=== PATIENT | male | born 1960 | race Caucasian/White ===

== ENCOUNTER → 2018-04-29 11:15 | Outpatient (CLI) | payer BC, SELFPAY ==
--- NOTE | 2018-04-29 11:19 | RAD_ITS ---
STUDY: X-RAY - LEFT SHOULDER REASON FOR EXAM: Shoulder pain. TECHNIQUE: 4 view(s) of the shoulder. COMPARISON: None. FINDINGS: Normal glenohumeral articulation. Normal acromioclavicular joint. Normal acromion. Normal humeral head and visualized proximal humerus. The soft tissue structures are unremarkable. Normal visualized pulmonary apex. RAD/Shoulder min 2 Views IMPRESSION: Normal x-ray examination of the left shoulder. Electronically Signed: Fer Carballo MD at 11:37 EDT Tel , Service support ,
== END ==
PROVIDERS: Family Provider Family Medicine; PCP Family Medicine; Visit Provider Family Medicine
DX: M25.512 Pain in left shoulder (principal)
CPT/HCPCS: 73030

== ENCOUNTER → 2019-04-10 06:19 | Outpatient (CLI) | payer BC, SELFPAY ==
[2016-08-30 08:04] VITALS: BMI 24.4
[2019-04-10 07:25] LABS: Hematocrit 47.2 % (40-54); Hemoglobin 16.3 g/dl (13.0-16.5); Mean Corp Hgb Conc 34.5 g/gl (32-36); Mean Corpuscular Hgb 29.3 pg (27.0-32.0); Mean Corpuscular Volume 84.7 fL (80-94); Mean Platelet Vol. 9.2 fl (6.2-12.0); Platelet Count 310 K/mm3 (150-450); RBC Distribution Width CV 13.6 % (11.6-14.6); RBC Distribution Width SD 41.8 fl (35.1-43.9); Red Blood Count 5.57 M/mm3 (4.6-6.2); White Blood Count 5.4 K/mm3 (4.4-11.0)
[2019-04-10 07:29] LABS: Scan Indicated on CBC? Y/N NO
[2019-04-10 08:07] LABS: ALB/GLOB Ratio 1.1 RATIO (0.9-2.4); AST(SGOT) 21 U/L (15-37); Alanine Aminotransfer ALT/SGPT 36 U/L (16-61); Albumin, Serum 3.9 g/dL (3.2-5.0); Alkaline Phosphatase 63 U/L (45-117); Anion Gap 5 (5-15); BUN 17 mg/dL (7-18); BUN/Creat Ratio 16.3 RATIO (10-20); Calcium,Total 9.1 mg/dL (8.5-10.1); Chloride 105 mmol/L (98-107); Cholesterol 197 mg/dL (200); Creatinine, Serum 1.04 mg/dL (0.70-1.30); EST Glomerular Filtration Rate 78 mL/min (>60); Est Glom Filt Rate - Afr Amer 94 mL/min (>60); Globulin 3.7 g/dL (2.2-4.2); Glucose 91 mg/dL (74-106); High Density Lipoprotein 54 mg/dL; PSA,Total - Annual Screen 2.54 ng/mL (0.00-4.00); Potassium 3.7 mmol/L (3.5-5.1); Protein, Total 7.6 g/dL (6.4-8.2); Sodium Level 142 mmol/L (136-145); Triglycerides 123 mg/dL; Very Low Density Lipoprotein 25 mg/dL (5-40)
== END ==
PROVIDERS: Family Provider Family Medicine; PCP Family Medicine; Referring Provider Family Medicine; Visit Provider Family Medicine
DX: E78.5 Hyperlipidemia, unspecified (principal); K21.0 Gastro-esophageal reflux disease with esophagitis; Z12.5 Encounter for screening for malignant neoplasm of prostate
CPT/HCPCS: 36415; 80053; 80061; 84153; 85027; G0103

== ENCOUNTER → 2019-08-27 11:01 | Outpatient (CLI) | payer BC, SELFPAY ==
[2016-08-30 08:04] VITALS: BMI 24.4
--- NOTE | 2019-08-27 11:05 | MRI_ITS ---
STUDY: MRI BRAIN WITHOUT CONTRAST REASON FOR EXAM: Male, 59 years old. Migraine headaches, aphasia TECHNIQUE: Standardized multiplanar fat and water weighted pulse sequences were obtained. COMPARISON: None. FINDINGS: Normal size of the ventricles and extra-axial spaces for the patient's age. Normal white matter tracts of the supratentorial brain. There is no evidence for recent intracranial ischemia or other cause of cytotoxic edema on diffusion weighted imaging (DWI). Normal T2* images of the brain without demonstrated susceptibility artifact. There is no demonstrated hemosiderin stain. Normal bilateral basal ganglia. Normal thalami. There is no extra-axial fluid accumulation. Normal flow voids within the major intracranial circulation suggesting patency by spin echo criteria. Normal sella turcica, pituitary gland, infundibular stalk, optic chiasm and hypothalamus. Normal tectal plate and pineal gland. Normal midbrain, nola and medulla. Normal cerebellum. Normal basal cisterns. Normal bilateral temporal bones. Normal bilateral internal auditory canals. No demonstrated orbital abnormality, within the constraints of a routine brain study. Normal visualized paranasal sinuses. Normal calvarium and skull base. Normal visualized soft tissue structures. Normal visualized upper cervical spine. MRI/Brain without Contrast IMPRESSION: Normal unenhanced MRI of the brain. Electronically Signed: Rg Mckay MD at 12:46 EDT Tel , Service support ,
== END ==
PROVIDERS: Family Provider Family Medicine; PCP Family Medicine; Referring Provider Family Medicine; Visit Provider Family Medicine
DX: G43.909 Migraine, unspecified, not intractable, without status migrainosus (principal)
CPT/HCPCS: 70551

== ENCOUNTER → 2019-12-07 06:06 | Outpatient (CLI) | payer BC, SELFPAY ==
[2016-08-30 08:04] VITALS: BMI 24.4
[2019-12-07 06:33] LABS: Hematocrit 46.7 % (40-54); Hemoglobin 15.7 g/dL (13.0-16.5); Mean Corp Hgb Conc 33.6 g/dL (32-36); Mean Corpuscular Hgb 29.6 pg (27.0-32.0); Mean Corpuscular Volume 88.1 fL (80-94); Mean Platelet Vol. 8.7 fl (6.2-12.0); Platelet Count 267 K/mm3 (150-450); RBC Distribution Width CV 13.1 % (11.6-14.6); RBC Distribution Width SD 42.3 fl (35.1-43.9); White Blood Count 5.7 K/mm3 (4.4-11.0)
[2019-12-07 07:17] LABS: Homocysteine 5.9 umol/L (3.2-10.7)
[2019-12-07 09:12] LABS: Vitamin D,25 Hydroxy 23.1 ng/mL (29.95-100.01)
[2019-12-07 09:44] LABS: ALB/GLOB Ratio 1.1 RATIO (0.9-2.4); AST(SGOT) 26 U/L (15-37); Alanine Aminotransfer ALT/SGPT 39 U/L (16-61); Albumin, Serum 4.1 g/dL (3.2-5.0); Alkaline Phosphatase 71 U/L (45-117); Anion Gap 3 (5-15); BUN 16 mg/dL (7-18); BUN/Creat Ratio 15.7 RATIO (10-20); CRP, High Sensitivity Cardiac 1.64 mg/L; Calcium,Total 9.2 mg/dL (8.5-10.1); Chloride 106 mmol/L (98-107); Creatinine, Serum 1.02 mg/dL (0.70-1.30); EST Glomerular Filtration Rate 80 mL/min (>60); Est Glom Filt Rate - Afr Amer 96 mL/min (>60); Globulin 3.8 g/dL (2.2-4.2); Glucose 93 mg/dL (74-106); Potassium 3.4 mmol/L (3.5-5.1); Protein, Total 7.9 g/dL (6.4-8.2); Sodium Level 139 mmol/L (136-145); Thyroid Stim Hormone (TSH) 2.45 uIU/mL (0.358-3.74)
[2019-12-09 12:07] LABS: CHOLESTEROL TOTAL 203 mg/dL (100-199); HDL-C 47 mg/dL (>39); HDL-P TOTAL 33.7 umol/L (>=30.5); SMALL LDL-P 663 nmol/L (<=527); TRIGLYCERIDES 159 mg/dL (0-149)
[2019-12-09 20:20] LABS: LDL-C 124 mg/dL (0-99)
[2019-12-09 20:21] LABS: INSULIN RESISTANCE SCORE 59 (<=45); LDL SIZE 21.2 nm (>20.5); LDL-P 1350 nmol/L (<1000)
== END ==
PROVIDERS: PCP Family Medicine; Referring Provider Family Medicine; Visit Provider Family Medicine
DX: E78.5 Hyperlipidemia, unspecified (principal); K21.0 Gastro-esophageal reflux disease with esophagitis; N52.9 Male erectile dysfunction, unspecified; Z13.21 Encounter for screening for nutritional disorder; Z13.29 Encounter for screening for other suspected endocrine disorder
CPT/HCPCS: 36415; 80053; 80061; 82306; 83090; 83695; 83704; 84403; 84443; 85027; 86141

== ENCOUNTER → 2019-12-21 14:23 | Outpatient (CLI) | payer SELFPAY ==
--- NOTE | 2019-12-21 14:36 | CT_ITS ---
STUDY: CARDIAC CALCIUM SCORING - CT CHEST REASON FOR EXAM: Male, 59 years old. HLD, FAMILY HX OF HEART DISEASE RADIATION DOSAGE (If Supplied By Facility): CTDIvol = ( 12.19 ) mGy, DLP = ( 243.79 ) mGycm TECHNIQUE: Axial non-enhanced images were acquired through the heart for the sole purpose of measuring coronary artery calcium. Individualized dose optimization techniques were used for this CT. COMPARISON: None. FINDINGS: Visualized surrounding anatomy: Small hiatal hernia. There is a 4 mm nodule in the right middle lobe abutting the minor fissure on image 31 of series 3. Left Main Coronary Artery: 0 Left Anterior Descending Artery: 0 Left Circumflex Artery: 0 Right Coronary Artery: 0 Other: 0 Total Calcium Score: 0 CT/Limited Chest CT w/CCTA IMPRESSION: 1. No identifiable coronary artery atherosclerotic plaque. Very low cardiovascular disease risk. 2. Very small hiatal hernia. 3. 4 mm noncalcified nodule in the anterior right middle lobe. Electronically Signed: Jose Escobedo MD ([place]) at 14:15 EST , Service support ,
[2019-12-21 14:37] VITALS: BP 137/80; PULSE 74; RESP 16; O2SAT 98; BMI 24.3
--- NOTE | 2019-12-21 18:22 | CA.SCORE ---
Calcium Scoring Date of Study:: 12/21/19 Coronary Calcium Scoring: High-resolution Computed Tomographic imaging of the chest was performed on [ ], with particular attention paid to the coronary arteries. Images from the examination were analyzed for the presence and extent of coronary artery calcification , using coronary calcium quantification software. The patient tolerated the procedure well and there were no complications. The results of the coronary calcification analysis are provided below. - Findings Left Main (LM): 0 Left Anterior Descending (LAD): 0 Left Circumflex (LCX): 0 Right Coronary Artery (RCA): 0 Total Agatston Score: 0 Percentile Ranking: Percentile ranking: In pre-published reference table 0% of people of the same gender/similar age had the same/lower scores. Calcium Scoring Interpretation: 0 No identifiable atherosclerotic plaque. Very low cardiovascular disease risk. <5% chance of presence coronary artery disease A Negative Examination 1-10 Minimal Plaque burden. Significant coronary artery disease very unlikely. 11-100 Mild plaque burden. Likely mild or minimal coronary atherosclerosis. 101-400 Moderate plaque burden Moderate non-obstructive coronary artery disease highly likely. Over 400 Extensive plaque burden. High likelihood of at least one significant coronary stenosis (>50% diameter) Calcium Score: 0 Negative Examination - Continue cardiovascular evaluation and care as deemed appropriate.
== END ==
PROVIDERS: PCP Family Medicine; Referring Provider Family Medicine; Visit Provider Family Medicine
DX: E78.5 Hyperlipidemia, unspecified (principal)
CPT/HCPCS: 75571; 76380

== ENCOUNTER → 2020-11-29 06:08 | Outpatient (CLI) | payer BC, SELFPAY ==
[2019-12-21 14:37] VITALS: BMI 24.3
[2020-11-29 07:06] LABS: Hematocrit 49.9 % (40-54); Hemoglobin 16.9 g/dL (13.0-16.5); Mean Corp Hgb Conc 33.9 g/dL (32-36); Mean Corpuscular Hgb 29.8 pg (27.0-32.0); Mean Corpuscular Volume 87.9 fL (80-94); Mean Platelet Vol. 9.1 fl (6.2-12.0); Platelet Count 322 K/mm3 (150-450); RBC Distribution Width CV 12.8 % (11.6-14.6); RBC Distribution Width SD 41.1 fl (35.1-43.9); Red Blood Count 5.68 M/mm3 (4.6-6.2); White Blood Count 4.9 K/mm3 (4.4-11.0)
[2020-11-29 08:00] LABS: ALB/GLOB Ratio 1.1 RATIO (0.9-2.4); AST(SGOT) 29 U/L (15-37); Alanine Aminotransfer ALT/SGPT 51 U/L (16-61); Albumin, Serum 4.4 g/dL (3.2-5.0); Alkaline Phosphatase 73 U/L (45-117); Anion Gap 7 (5-15); BUN 16 mg/dL (7-18); BUN/Creat Ratio 15.8 RATIO (10-20); CRP, High Sensitivity Cardiac 1.12 mg/L; Chloride 102 mmol/L (98-107); Cholesterol 242 mg/dL (200); Creatinine, Serum 1.01 mg/dL (0.70-1.30); EST Glomerular Filtration Rate 80 mL/min (>60); Est Glom Filt Rate - Afr Amer 97 mL/min (>60); Globulin 4.1 g/dL (2.2-4.2); Glucose 89 mg/dL (74-106); High Density Lipoprotein 50 mg/dL; Potassium 3.4 mmol/L (3.5-5.1); Protein, Total 8.5 g/dL (6.4-8.2); Sodium Level 138 mmol/L (136-145); Triglycerides 211 mg/dL; Very Low Density Lipoprotein 42 mg/dL (5-40)
[2020-11-29 11:35] LABS: Vitamin D,25 Hydroxy 18.8 ng/mL
[2020-11-30 20:02] LABS: Lipoprotein A 152.8 nmol/L (<75.0)
[2020-12-01 14:09] LABS: CHOLESTEROL TOTAL 240 mg/dL (100-199); HDL-C 43 mg/dL (>39); HDL-P TOTAL 36.4 umol/L (>=30.5); SMALL LDL-P 807 nmol/L (<=527); TRIGLYCERIDES 214 mg/dL (0-149)
[2020-12-01 15:10] LABS: LDL SIZE 21.5 nm (>20.5); LDL-P 1907 nmol/L (<1000)
[2020-12-01 15:11] LABS: INSULIN RESISTANCE SCORE 65 (<=45); LDL-C (NIH CALC) 158 mg/dL (0-99)
== END ==
PROVIDERS: PCP Family Medicine; Referring Provider Family Medicine; Visit Provider Family Medicine
DX: Z00.00 Encounter for general adult medical examination without abnormal findings (principal); E78.5 Hyperlipidemia, unspecified; E55.9 Vitamin D deficiency, unspecified; Z13.29 Encounter for screening for other suspected endocrine disorder; Z12.5 Encounter for screening for malignant neoplasm of prostate
CPT/HCPCS: 36415; 80053; 80061; 82306; 83695; 83704; 84153; 84443; 85027; 86141; G0103

== ENCOUNTER → 2020-12-23 15:48 | Outpatient (CLI) | payer BC, SELFPAY ==
[2019-12-21 14:37] VITALS: BMI 24.3
--- NOTE | 2020-12-23 15:51 | CT_ITS ---
STUDY: CT CHEST WITHOUT CONTRAST REASON FOR EXAM: Male, 60 years old. Lung nodule follow-up RADIATION DOSAGE (If Supplied By Facility): CTDIvol = ( 10.92 ) mGy, DLP = ( 404.02 ) mGycm TECHNIQUE: Transaxial imaging was performed without the administration of intravenous contrast material. Individualized dose optimization techniques were used for this CT. COMPARISON: 21 December 2019 FINDINGS: Lungs are mildly/moderately emphysematous. There are scattered predominantly lower lobe small peripheral parenchymal and pleural-based solid nodules all measuring less than 5 mm and representing low risk granulomata and probably pulmonary lymph nodes. Central airways are patent. Mediastinal contents are normal. Cardiac chambers are normal in size and shape. Pulmonary artery and aorta are normal size. CT/Chest without Contrast IMPRESSION: 1. Moderate emphysema. 2. Low risk pulmonary nodules, presumed granulomata. In a smoker follow-up in one year is advised. In a nonsmoker follow-up is option. Electronically Signed: Ellen Hines MD at 22:05 EST Tel , Service support ,
== END ==
PROVIDERS: PCP Family Medicine; Referring Provider Family Medicine; Visit Provider Family Medicine
DX: R91.1 Solitary pulmonary nodule (principal)
CPT/HCPCS: 71250

== ENCOUNTER 2021-01-31 15:23 | Outpatient (RCR) | payer BC, SELFPAY ==
[2019-12-21 14:37] VITALS: BMI 24.3
[2021-01-31] MEDS: COVID-19 VACC, MRNA(PFIZER)/PF 30 MCG/0.3 ML SYRINGE IM (09:36)
[2021-02-21] MEDS: COVID-19 VACC, MRNA(PFIZER)/PF 30 MCG/0.3 ML SYRINGE IM (09:31)
== END 2021-04-25 23:59 ==
LOC: IMMUN 15:23
PROVIDERS: PCP Family Medicine; Visit Provider Family Medicine
DX: Z23 Encounter for immunization (principal)
CPT/HCPCS: 0001A; 0002A; 91300

== ENCOUNTER → 2021-04-19 06:16 | Outpatient (CLI) | payer BC, SELFPAY ==
[2019-12-21 14:37] VITALS: BMI 24.3
[2021-04-19 07:02] LABS: ALB/GLOB Ratio 1.1 RATIO (0.9-2.4); AST(SGOT) 29 U/L (15-37); Alanine Aminotransfer ALT/SGPT 45 U/L (16-61); Albumin, Serum 3.9 g/dL (3.2-5.0); Alkaline Phosphatase 63 U/L (45-117); Anion Gap 4 (5-15); BUN 22 mg/dL (7-18); BUN/Creat Ratio 21.4 RATIO (10-20); Chloride 108 mmol/L (98-107); Cholesterol 201 mg/dL (200); Creatinine, Serum 1.03 mg/dL (0.70-1.30); EST Glomerular Filtration Rate 78 mL/min (>60); Est Glom Filt Rate - Afr Amer 95 mL/min (>60); Globulin 3.6 g/dL (2.2-4.2); Glucose 102 mg/dL (74-106); High Density Lipoprotein 48 mg/dL; Potassium 3.7 mmol/L (3.5-5.1); Protein, Total 7.5 g/dL (6.4-8.2); Sodium Level 142 mmol/L (136-145); Triglycerides 230 mg/dL; Very Low Density Lipoprotein 46 mg/dL (5-40)
[2021-04-19 07:58] LABS: Vitamin D,25 Hydroxy 34.2 ng/mL
== END ==
PROVIDERS: PCP Family Medicine; Referring Provider Family Medicine; Visit Provider Family Medicine
DX: E78.5 Hyperlipidemia, unspecified (principal); E55.9 Vitamin D deficiency, unspecified
CPT/HCPCS: 36415; 80053; 80061; 82306

== ENCOUNTER 2021-12-25 06:32 | Outpatient (CLI) | payer BC, SELFPAY ==
[2021-12-25 07:21] LABS: Hematocrit 45.7 % (40-54); Hemoglobin 15.6 g/dL (13.0-16.5); Mean Corp Hgb Conc 34.1 g/dL (32-36); Mean Corpuscular Hgb 29.9 pg (27.0-32.0); Mean Corpuscular Volume 87.5 fL (80-94); Platelet Count 289 K/mm3 (150-450); RBC Distribution Width SD 41.6 fl (35.1-43.9); Red Blood Count 5.22 M/mm3 (4.6-6.2); White Blood Count 5.1 K/mm3 (4.4-11.0)
[2021-12-25 07:50] LABS: AST(SGOT) 24 U/L (15-37); Alanine Aminotransfer ALT/SGPT 43 U/L (16-61); Albumin, Serum 3.8 g/dL (3.2-5.0); Alkaline Phosphatase 71 U/L (45-117); Anion Gap 4 (5-15); BUN 20 mg/dL (7-18); BUN/Creat Ratio 20.3 RATIO (10-20); Calcium,Total 9.1 mg/dL (8.5-10.1); Chloride 107 mmol/L (98-107); Cholesterol 171 mg/dL (200); Creatinine, Serum 0.98 mg/dL (0.70-1.30); EST Glomerular Filtration Rate 82 mL/min (>60); Est Glom Filt Rate - Afr Amer 99 mL/min (>60); Globulin 3.7 g/dL (2.2-4.2); Glucose 100 mg/dL (74-106); High Density Lipoprotein 48 mg/dL; PSA,Total - Annual Screen 2.76 ng/mL (0.00-4.00); Potassium 3.9 mmol/L (3.5-5.1); Protein, Total 7.5 g/dL (6.4-8.2); Sodium Level 141 mmol/L (136-145); Triglycerides 165 mg/dL; Very Low Density Lipoprotein 33 mg/dL (5-40)
[2021-12-25 08:09] LABS: Vitamin D,25 Hydroxy 44.5 ng/mL
== END 2021-12-25 23:59 | disposition home or self-care (01) ==
LOC: LAB 06:34
PROVIDERS: PCP Family Medicine; Referring Provider Family Medicine; Visit Provider Family Medicine
DX: Z12.5 Encounter for screening for malignant neoplasm of prostate (principal); E78.5 Hyperlipidemia, unspecified; E55.9 Vitamin D deficiency, unspecified; Z13.29 Encounter for screening for other suspected endocrine disorder
CPT/HCPCS: 36415; 80053; 80061; 82306; 84153; 84443; 85027; G0103

== ENCOUNTER → 2022-04-30 | Outpatient (CLI) | payer BC, SELFPAY ==
--- NOTE | 2022-04-30 17:23 | CT_ITS ---
STUDY: CT CHEST WITH CONTRAST REASON FOR EXAM: Male, 62 years old. LUNG NODULE RADIATION DOSAGE (If Supplied By Facility): CTDIvol = ( 12.01 ) mGy, DLP = ( 381.78 ) mGycm TECHNIQUE: Transaxial imaging was performed following intravenous administration of IV 100mL Isovue-300. Multiplanar coronal and sagittal images were reformatted. Individualized dose optimization techniques were used for this CT. COMPARISON: Comparison is made with prior study dated 12/23/2020. FINDINGS: CHEST Small bilateral axillary lymph nodes. Bilateral apical scarring. Mild degree of emphysematous changes. Stable small partially calcified nodules in the left lower lobe. There is no demonstrated pleural abnormality. Normal heart and pericardium. There are multiple small lymph nodes within the mediastinum, which are normal in size and morphology most compatible with reactive lymph hyperplasia. Normal hilar regions. Normal unenhanced pulmonary arteries. Normal aorta arch and descending thoracic aorta. Normal osseous structures. Small hiatal hernia. CT/Chest WITH Contrast IMPRESSION: Stable examination. Electronically Signed: Nirmal Hodge MD at 9:12 EDT ,
[2022-04-30 17:31] LABS: CREATININE FINGERSTICK 1.1 mg/dL (0.70-1.30); EGFR FINGERSTICK > 60.0000 mL/min (>60)
== END | disposition home or self-care (01) ==
PROVIDERS: PCP Family Medicine; Visit Provider Family Medicine
DX: Z01.812 Encounter for preprocedural laboratory examination (principal); R91.1 Solitary pulmonary nodule
CPT/HCPCS: 71260; Q9967

== ENCOUNTER → 2023-02-06 | Outpatient (CLI) | payer BC, SELFPAY ==
--- NOTE | 2023-02-06 12:45 | MRI_ITS ---
STUDY: MRI BRAIN WITHOUT CONTRAST REASON FOR EXAM: Male, 63 years old. HEADACHE TECHNIQUE: Standardized multiplanar fat and water weighted pulse sequences were obtained. COMPARISON: No relevant prior imaging available for comparison. HEMISPHERES, CEREBELLUM AND BRAINSTEM: 1. The cerebral parenchyma, ventricular system, subarachnoid spaces have normal configuration and density. There is a normal gyral pattern. There is normal cleaning/white differentiation. No midline shift.. 2. The hemispheric white matter has normal appearance. 3. No intraparenchymal mass, hemorrhage, or acute territorial infarct. 4. The cerebellum, brainstem, basilar and suprasellar cisterns have normal appearance. No Chiari malformation. PITUITARY: Infundibulum and pituitary have normal configuration. Midline structures appear normal. CSF SPACES: Appropriate for age. No hydrocephalus. Basal cisterns are patent. VESSELS: 1. There are normal flow voids noted in the great vessels at the skull base ORBITS AND PARANASAL SINUSES: 1. Both globes, extraocular muscles, optic nerves and retrobulbar fat appear unremarkable. 2. Paranasal sinuses clear. Mild inferior left mastoid air cell disease. BONY ELEMENTS: Bony elements of the cranial vault, facial skeleton and skull base have normal appearance. SCALP AND SOFT TISSUES: Normal appearance of the soft tissues of the scalp and the visualized face OTHER: None MRI/Brain without Contrast IMPRESSION: 1. No intracranial mass, hemorrhage, or acute territorial infarct. 2. Mild inferior left mastoid air cell disease. Electronically Signed: Jeremias Tejada MD, JYOTI at 16:10 EDT ,
--- NOTE | 2023-02-06 12:45 | MRI_ITS ---
STUDY: MRA OF THE HEAD WITHOUT CONTRAST REASON FOR EXAM: Male, 63 years old. HEADACHE TECHNIQUE: 3-D [id number] (TOF) imaging was performed with MIPs. The study was performed unenhanced. COMPARISON: MR brain February 06, 2023 FINDINGS: Normal bilateral petrous carotid arteries. Normal right cavernous carotid artery with a normal supraclinoid bifurcation. Normal left cavernous carotid artery with a normal supraclinoid bifurcation. Normal right A1 segments of the anterior cerebral artery. Normal left A1 segments of the anterior cerebral artery. Normal intact anterior communicating artery (ACOM). Normal bilateral A2 segments of the anterior cerebral arteries. Normal right M1 and M2 segments of the middle cerebral arteries, with a normal M1 bifurcation. Normal left M1 and M2 segments of the middle cerebral arteries, with a normal M1 bifurcation. Normal right posterior communicating artery (PCOM). Normal left posterior communicating artery (PCOM). Normal bilateral vertebral arteries. Normal basilar artery with a normal basilar bifurcation. The visualized bilateral superior cerebellar (SCA) arteries are normal. Normal bilateral P1, P2 and visualized P3 segments of the posterior cerebral arteries. There is no demonstrated aneurysm of the [place]. There is no major vessel occlusion or hemodynamically significant stenosis. There is no demonstrated abnormality of the visualized brain. MRI/MRA Head ONLY without Contrast IMPRESSION: Normal MRA of the head Electronically Signed: Danie Matt MD at 18:37 EDT ,
== END | disposition home or self-care (01) ==
PROVIDERS: PCP Family Medicine; Referring Provider Family Medicine; Visit Provider Family Medicine
DX: R51.9 Headache, unspecified (principal)
CPT/HCPCS: 70544; 70551

== ENCOUNTER → 2024-02-01 | Outpatient (CLI) | payer BC, SELFPAY ==
[2024-02-01 10:20] LABS: Absolute Lymphocyte Count 1.48 X10^3/uL (0.83-4.51); Basophil# 0.07 X10^3/uL; Basophil% 1.3 % (0-1); Eosinophil# 0.22 X10^3/uL; Eosinophils% 4.1 % (0-5); Hematocrit 44.3 % (40-54); Hemoglobin 15.5 g/dL (13.0-16.5); Lymphocyte # 1.48 X10^3/ul (0.83-4.51); Lymphocyte % 27.7 % (19-41); Mean Corpuscular Volume 85.7 fL (80-94); Mean Platelet Vol. 8.7 fl (6.2-12.0); Monocyte# 0.54 X10^3/uL; Monocyte% 10.1 % (0-10); NRBC Flagged by Analyzer 0 % (0-5); Neutrophil # 3.03 X10^3/uL (2.7-7.7); Neutrophil % 56.6 % (47-70); Platelet Count 274 K/mm3 (150-450); RBC Distribution Width CV 12.8 % (11.6-14.6); RBC Distribution Width SD 39.8 fl (35.1-43.9); Red Blood Count 5.17 M/mm3 (4.6-6.2); White Blood Count 5.4 K/mm3 (4.4-11.0)
[2024-02-01 10:52] LABS: ALB/GLOB Ratio 1.1 RATIO (0.9-2.4); AST(SGOT) 30 U/L (15-37); Alanine Aminotransfer ALT/SGPT 54 U/L (16-61); Albumin, Serum 3.9 g/dL (3.2-5.0); Alkaline Phosphatase 60 U/L (45-117); Anion Gap 6 (5-15); BUN 19 mg/dL (7-18); BUN/Creat Ratio 20.2 RATIO (10-20); Calcium,Total 8.8 mg/dL (8.5-10.1); Chloride 110 mmol/L (98-107); Cholesterol 192 mg/dL (200); Creatinine, Serum 0.94 mg/dL (0.70-1.30); EST Glomerular Filtration Rate 86 mL/min (>60); Est Glom Filt Rate - Afr Amer 104 mL/min (>60); Globulin 3.4 g/dL (2.2-4.2); Glucose 108 mg/dL (74-106); High Density Lipoprotein 47 mg/dL; PSA,Total - Annual Screen 4.33 ng/mL (0.00-4.00); Potassium 3.6 mmol/L (3.5-5.1); Protein, Total 7.3 g/dL (6.4-8.2); Sodium Level 141 mmol/L (136-145); T4 Free Direct 0.84 ng/dL (0.76-1.46); Thyroid Stim Hormone (TSH) 2.18 uIU/mL (0.358-3.74); Triglycerides 132 mg/dL; Very Low Density Lipoprotein 26 mg/dL (5-40)
[2024-02-07 09:09] LABS: Lipoprotein A 114.3 nmol/L (<75.0); Testosterone, % Free 2.89 % (1.50-4.20); Testosterone, Free 9.25 ng/dL (5.00-21.00); Testosterone, Total 320 ng/dL (264-916)
== END | disposition home or self-care (01) ==
LOC: LAB 09:54
PROVIDERS: PCP Internal Medicine; Referring Provider Internal Medicine; Visit Provider Internal Medicine
DX: E78.5 Hyperlipidemia, unspecified (principal); N52.9 Male erectile dysfunction, unspecified; Z13.29 Encounter for screening for other suspected endocrine disorder
CPT/HCPCS: 36415; 80053; 80061; 83695; 84153; 84402; 84403; 84439; 84443; 85025; G0103

== ENCOUNTER → 2024-03-06 | Outpatient (CLI) | payer BC, SELFPAY ==
[2024-03-13 09:09] LABS: Testosterone, % Free 2.26 % (1.50-4.20); Testosterone, Free 9.24 ng/dL (5.00-21.00); Testosterone, Total 409 ng/dL (264-916)
== END | disposition home or self-care (01) ==
LOC: BIMLAB 10:02
PROVIDERS: PCP Internal Medicine; Referring Provider Internal Medicine; Visit Provider Internal Medicine
DX: N52.9 Male erectile dysfunction, unspecified (principal)
CPT/HCPCS: 36415; 84402; 84403

== ENCOUNTER → 2024-06-04 | Outpatient (CLI) | payer BC, SELFPAY ==
--- NOTE | 2024-06-04 07:12 | CT_ITS ---
STUDY: CT CHEST WITHOUT CONTRAST REASON FOR EXAM: Male, 64 years old. Cardiac risk assessment RADIATION DOSAGE (If Supplied By Facility): CTDIvol = ( 12.19 ) mGy, DLP = ( 219.42 ) mGycm TECHNIQUE: Transaxial imaging was performed without the administration of intravenous contrast material. Individualized dose optimization techniques were used for this CT. COMPARISON: Comparison is made with prior study dated April 30, 2022. FINDINGS: CHEST Stable calcified granulomas in the left lower lobe. There is no demonstrated pleural abnormality. Minimal cord artery calcification. There are small lymph nodes within the mediastinum, which are normal in size and morphology most compatible with reactive lymph hyperplasia. Normal hilar regions. Normal unenhanced pulmonary arteries. There is atherosclerotic calcification of the aortic arch. Normal osseous structures. Small hiatal hernia. CT/Limited Chest CT Cardiac Only IMPRESSION: Minimal coronary artery calcification. Electronically Signed: Nirmal Hodge MD at 10:19 EDT ,
--- NOTE | 2024-06-04 12:06 | CA.SCORE ---
Calcium Scoring Date of Study:: 06/04/24 Indications Indications: fatigue Coronary Calcium Scoring: High-resolution Computed Tomographic imaging of the chest was performed on [ 06/04/24], with particular attention paid to the coronary arteries. Images from the examination were analyzed for the presence and extent of coronary artery calcification , using coronary calcium quantification software. The patient tolerated the procedure well and there were no complications. The results of the coronary calcification analysis are provided below. Findings Coronary Artery Left Main (LM): 0 Left Anterior Descending (LAD): 0 Left Circumflex (LCX): 0 Right Coronary Artery (RCA): 0 Total Agatston Score: 0 Calcium Scoring Interpretation: Different methods to categorize the overall amount of coronary plaque. Overall amount CAC SIS Visual of coronary plaque P1 Mild -100 <2 1-2 vessels with mild amount of plaque P2 Moderate 101-300 3-4 1-2 vessels with moderate amount, 3 vessels with mild amount of plaque P3 Severe 301-999 5-7 3 vessels with moderate amount, 1 vessel with severe amount of plaque P4 Extensive >1000 >8 2-3 vessels with severe amount of plaque Conclusion: No atherosclerotic plaques noted
== END | disposition home or self-care (01) ==
PROVIDERS: PCP Internal Medicine; Referring Provider Internal Medicine; Visit Provider Internal Medicine
DX: E78.5 Hyperlipidemia, unspecified (principal); Z13.6 Encounter for screening for cardiovascular disorders
CPT/HCPCS: 75571; 76380

== ENCOUNTER → 2025-01-15 | Outpatient (CLI) | payer BC, SELFPAY ==
[2025-01-15 07:22] LABS: Absolute Lymphocyte Count 1.72 X10^3/uL (0.83-4.51); Basophil# 0.08 X10^3/uL; Basophil% 1.4 % (0-1); Eosinophil# 0.25 X10^3/uL; Eosinophils% 4.4 % (0-5); Hematocrit 47.7 % (40-54); Hemoglobin 15.9 g/dL (13.0-16.5); Lymphocyte # 1.72 X10^3/ul (0.83-4.51); Lymphocyte % 30.2 % (19-41); Mean Corp Hgb Conc 33.3 g/dL (32-36); Mean Corpuscular Hgb 29.2 pg (27.0-32.0); Mean Corpuscular Volume 87.5 fL (80-94); Mean Platelet Vol. 8.9 fl (6.2-12.0); Monocyte# 0.65 X10^3/uL; Monocyte% 11.4 % (0-10); NRBC Flagged by Analyzer 0 % (0-5); Neutrophil # 2.98 X10^3/uL (2.7-7.7); Neutrophil % 52.4 % (47-70); Platelet Count 318 K/mm3 (150-450); RBC Distribution Width CV 13.2 % (11.6-14.6); RBC Distribution Width SD 41.8 fl (35.1-43.9); Red Blood Count 5.45 M/mm3 (4.6-6.2); White Blood Count 5.7 K/mm3 (4.4-11.0)
[2025-01-15 07:47] LABS: Cholesterol 192 mg/dL (<=200); High Density Lipoprotein 55 mg/dL; Low Density Lipoprotein Calc. 101 mg/dL; Triglycerides 181 mg/dL; Very Low Density Lipoprotein 36 mg/dL (5-40)
[2025-01-15 08:27] LABS: ALB/GLOB Ratio 1.6 RATIO (0.9-2.4); AST(SGOT) 55 U/L (<=37); Alanine Aminotransfer ALT/SGPT 68 U/L (<=46); Albumin, Serum 4.6 g/dL (3.4-4.8); Alkaline Phosphatase 58 U/L (40-129); Anion Gap 12 (5-15); BUN 13 mg/dL (4-19); BUN/Creat Ratio 13.9 RATIO (10-20); Calcium 9.4 mg/dL (7.6-11.0); Carbon Dioxide 25.5 mmol/L (22.0-29.0); Chloride 103 mmol/L (96-108); Creatinine, Serum 0.91 mg/dL (0.70-1.20); EST Glomerular Filtration Rate 95 (>60); Globulin 2.9 g/dL (2.2-4.2); Glucose 96 mg/dL (70-99); Potassium 4.1 mmol/L (3.3-5.1); Protein, Total 7.5 g/dL (5.9-8.4); Sodium Level 141 mmol/L (133-145); Total Bilirubin 0.47 mg/dL (0.00-1.30)
== END | disposition home or self-care (01) ==
PROVIDERS: PCP Internal Medicine; Referring Provider Internal Medicine; Visit Provider Internal Medicine
DX: Z00.00 Encounter for general adult medical examination without abnormal findings (principal); Z13.6 Encounter for screening for cardiovascular disorders
CPT/HCPCS: 36415; 80053; 80061; 85025

== ENCOUNTER → 2025-01-21 | Outpatient (CLI) | payer BC, SELFPAY ==
[2025-01-21 15:21] LABS: ALB/GLOB Ratio 1.6 RATIO (0.9-2.4); AST(SGOT) 32 U/L (<=37); Alanine Aminotransfer ALT/SGPT 49 U/L (<=46); Albumin, Serum 4.5 g/dL (3.4-4.8); Alkaline Phosphatase 62 U/L (40-129); Anion Gap 12 (5-15); BUN 18 mg/dL (4-19); BUN/Creat Ratio 18.4 RATIO (10-20); Calcium,Total 9.4 mg/dL (7.6-11.0); Carbon Dioxide 23.4 mmol/L (21.0-32.0); Chloride 104 mmol/L (98-108); Creatinine, Serum 0.95 mg/dL (0.70-1.20); EST Glomerular Filtration Rate 89 (>60); Globulin 2.9 g/dL (2.2-4.2); Glucose 118 mg/dL (70-99); PSA,Total- Diagnostic 2.74 ng/mL (0.00-4.00); Potassium 3.7 mmol/L (3.3-5.1); Protein, Total 7.3 g/dL (5.9-8.4); Sodium Level 139 mmol/L (133-145)
== END | disposition home or self-care (01) ==
LOC: BIMLAB 13:48
PROVIDERS: PCP Internal Medicine; Referring Provider Internal Medicine; Visit Provider Internal Medicine
DX: E78.5 Hyperlipidemia, unspecified (principal); R97.20 Elevated prostate specific antigen [PSA]
CPT/HCPCS: 36415; 80053; 84153

== ENCOUNTER 2025-03-14 10:17 | Emergency (ER) | payer BC, SELFPAY ==
[2025-03-14] VITALS (8 sets, daily range): BP systolic 124–138; BP diastolic 66–97; PULSE 82–96; RESP 16–23; TEMP 35.9–36.8; O2SAT 95–100; BMI 26.6
--- NOTE | 2025-03-14 10:26 | RAD_ITS ---
PROCEDURE: CHEST 1 VIEW 03/14/2025 REASON FOR EXAM: NEURO DEFICIT, ACUTE, STROKE SUSPECTED TECHNIQUE: Frontal view of the chest. COMPARISON: None FINDINGS: Hardware: None Heart: The heart size is normal. Lungs: The lungs are clear. Bones: The bones are unremarkable. Other: RAD/Chest 1 View IMPRESSION: No Acute Findings. [facility]
--- NOTE | 2025-03-14 10:26 | EKG12_ITS ---
Test Reason : STROKE ALERT Blood Pressure : */* mmHG Vent. Rate : 85 BPM Atrial Rate : 85 BPM P-R Int : 186 ms QRS Dur : 92 ms QT Int : 354 ms P-R-T Axes : 31 29 20 degrees QTcB Int : 421 ms Normal sinus rhythm Normal ECG Confirmed by DIANA MANDUJANO, KEERTHI ([id number]), staff editor MARIYA SORIANO ([id number]) on 03/17/2025 11:53:24 AM Referred By: Confirmed By: KEERTHI ORTIZ MD
--- NOTE | 2025-03-14 10:26 | CT_ITS ---
PROCEDURE: STROKE BRAIN/HEAD WITHOUT CONT 03/14/2025 REASON FOR EXAM: NEURO DEFICIT, ACUTE, STROKE SUSPECTED TECHNIQUE: Head CT without intravenous contrast. Coronal and Sagittal reconstruction series were provided. One or more dose reduction techniques were used (e.g., Automated exposure control, adjustment of the mA and/or kV according to patient size, use of iterative reconstruction technique. COMPARISON: None FINDINGS: Brain: Mixed attenuation right extra-axial fluid collection, measuring up to 18 mm in maximum transverse thickness. Findings compatible with an acute on chronic subdural hematoma. Superior aspect of the collection, demonstrates hyperdense attenuation compatible with acute blood products. There is local mass effect with effacement of the surrounding sulci and gyri no significant midline shift. Low density in the periventricular white matter suggests mild chronic small vessel ischemic changes. CSF Spaces: No significant volume loss. Sinuses/Mastoids: Mild mucosal thickening at the paranasal sinuses Bones: Calvarium is unremarkable. CT/STROKE Brain/Head without Cont IMPRESSION: Mixed attenuation right extra-axial fluid collection measuring up to 18 mm in m aximum transverse thickness, compatible with an acute on chronic subdural hematoma. Local mass effect without midline shift. Red Alert: The critical information above was relayed directly by me by telephone to Marisa Lee on 03/14/2025 at 10:55 am with readback verification. Reading Location: [facility]
--- NOTE | 2025-03-14 10:27 | ED.VIS.STROK ---
HPI History of Present Illness Chief Complaint: Stroke Alert Informant: patient and spouse/S.O. Narrative Narrative: Patient is a 65-year-old male with remote history of atypical migraines and hyperlipidemia presenting with paresthesias of the left hand and face. They been intermittent throughout the week or more noticeable yesterday. They were in [place] and patient's drove the back Christina got was there he said the symptoms have resolved. He went home and slept for 4 hours and was asymptomatic. He then went to bed at 11 PM and slept through the night. When getting ready for [facility] this morning (around 10 AM) he developed paresthesias to his left hand. He feels that he has some dropping some things from his left hand. He notes that this past week he has been under a lot of stress is not sure if this is related. He has been having ongoing headaches. He also notes that throughout this week when he has been typing he is lost some fine motor control of his left hand. He gives the example of he pushed the caps lock with his left hand without even realizing it. He also notes that he will hold the remote for his hearing aid in his left hand and jaw but not even realize he had dropped it. States that this week he is question if he has a viral illness as he had a low-grade temperature of 37 ?C. No other complaints or concerns at this time peer denies a history of stroke, diabetes, or hypertension. Goes to the doctor regularly but does not take any medication. No other complaints or concerns reported at this time. [facility] Medical History Elevated PSA High cholesterol (11/18/87) H/O Mohs micrographic surgery for skin cancer (09/18/23) Migraines (11/18/74) Hearing difficulty (11/18/10) Bone fracture (11/18/89) Back problem (11/18/74) Screening for prostate cancer Screening for cardiovascular condition Health care maintenance Fatigue Screening for thyroid disorder Erectile dysfunction Phimosis Lung nodule, solitary High cholesterol Tinnitus Frequent headaches Scoliosis GERD (gastroesophageal reflux disease) Hyperlipemia Hernia Home Medications ?Medication ?Instructions ?Recorded ?Last Taken ?Type omeprazole 20 mg capsule,delayed 20 mg PO DAILY 08/21/16 08/30/16 06:30 History release omega 6-znh-aup-fish oil 1,200 mg 2 cap PO DAILY 02/09/22 Unknown History (144 mg-216 mg) capsule (Fish Oil) cholecalciferol (vitamin D3) 50 50 mcg PO DAILY 11/26/23 Unknown History mcg (2,000 unit) capsule iudkmmmw-qlia-hhkxl acid 240 1 tab PO DAILY 11/26/23 Unknown History mcg-vit K 120 iqr-rvselk-scsb 293 tablet (Alive Men's 50 Plus Multivit (vit K)) tadalafil 10 mg tablet (Cialis) 10 mg PO QDAY PRN sexual activity 11/30/24 Unknown Rx #8 tabs rosuvastatin 20 mg tablet 20 mg PO DAILY #90 TABLETS 03/03/25 Unknown Rx Allergy/AdvReac Type Severity Reaction Status Date / Time No Known Allergies Allergy Verified 01/21/25 13:07 Family History Grandfather Diabetes Heart disease Cancer esophagus maternal Mother Age: 90 High cholesterol Father Melanoma Parkinsons disease Osteoporosis Surgical History History of colonoscopy (11/18/12) H/O transurethral resection of prostate History of vasectomy Social History adopted: No household members: spouse number of children: 2 current occupational status: employed current occupation: [employer] pets and animals: No sexually active: Yes Smoking Status: Never smoker Electronic Cigarette Use: not used second hand exposure: No alcohol intake: current alcohol intake frequency: a few times a week Alcohol type: wine substance use type: does not use caffeine: Yes (3) Type: coffee frequency: 1-2 times per week duration: 30-45 minutes/day do you feel safe at home: Yes ROS ROS ED Constitutional Constitutional ED: Reports fever(s) and weakness; Denies chills Eyes Eyes: Denies blurry vision or change in vision Cardiovascular Cardiovascular: Denies chest pain Respiratory/Chest Respiratory/Chest: Denies cough Gastrointestinal Gastrointestinal: Denies abdominal pain, nausea or vomiting Musculoskeletal Musculoskeletal: Denies arthralgias or myalgias Integumentary Denies rash Neurologic Neurologic: Reports headache(s), paresthesias and weakness Hematologic/Lymphatic Hematologic/Lymphatic: Denies easy bleeding or easy bruising EXAM Physical Exam Const Vital Signs: 03/14/25 10:18 03/14/25 10:23 03/14/25 10:26 Temperature 96.6 F L 96.6 F L Temperature Source Temporal Temporal Pulse Rate 92 Respiratory Rate 16 Blood Pressure 126/87 H Blood Pressure Mean 100 Pulse Ox 100 Oxygen Delivery Method Room Air Room Air 03/14/25 10:26 03/14/25 10:56 03/14/25 11:17 Temperature Temperature Source Pulse Rate 90 82 85 Respiratory Rate 18 16 20 H Blood Pressure 132/95 H 138/91 H 131/93 H Blood Pressure Mean 107 106 105 Pulse Ox 98 95 99 Oxygen Delivery Method Room Air Room Air 03/14/25 11:26 03/14/25 11:50 03/14/25 12:00 Temperature 98.2 F Temperature Source Pulse Rate 84 96 84 Respiratory Rate 23 H 21 H 18 Blood Pressure 135/92 H 138/97 H 124/66 H Blood Pressure Mean 106 110 85 Pulse Ox 96 99 96 Oxygen Delivery Method Room Air Positive well nourished and well developed General Appearance ED: well developed and NAD HEENT Reports moist mucous membranes Eyes PERRL and EOMs intact bilaterally Neck supple Chest Wall inspection of chest normal and palpation of chest normal Resp normal respiratory effort and clear to auscultation bilaterally Cardio no murmurs Rate: regular rate Rhythm: regular rhythm GI normal to inspection, nondistended, normoactive bowel sounds, soft to palpation and non-tender Extremity normal to inspection General Extremety ED: Negative for deformity or edema General Extremity: Negative for deformity or edema Neuro oriented x3 and CN's II-XII intact bilaterally Neuro Narrative: Subtle paresthesias isolated to the left hand diffusely. No drift of the upper extremities. Normal coordination specific attention paid to the left hand. Normal nzirap-an-[id number]. Amatory with a steady gait. Able to make a fist with his left hand, okay sign, cross fingers, abduct and adduct the fingers. 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 Attributes a lot of this to stress. Stroke alert was called given the acute recurrence of symptoms at [address] of the brain shows subdural hemorrhage with acute on chronic component. There is no left shift. CTA is not performed because of the subdural. I spoke with Dr. Berman, neurology at [facility] who recommends transfer for neurosurgical evaluation. Family ( and patient) would prefer to go to [facility] as they are more familiar with the [facility] in [place]. Spoke with neurosurgery at [facility], Dr. Beckford, who would like the patient transferred to the emergency room. And spoke with emergency medicine physician, Dr. Conrad who accepted the patient. Patient continues to have a stable neurologic exam and on repeat evaluation by nursing staff his NIH is actually 0. Given dose of Tylenol for his headache. Counseled extensively with the patient and his on the current diagnosis and need for transfer/neurosurgical monitoring and possible intervention. They are agreeable. Patient cannot recall any significant head traumas. The biggest thing he can think of is when the lid garbage bin hit him in the head. He states that was a mild injury however. He denies any falls or hitting his head on anything else. He does not take any aspirin or antiplatelets in addition to oral anticoagulants. He notes that this headache has been more in the right side of his head this week. Is given a dose of Tylenol for his headache. Lab Data Attestation: I reviewed the patient's lab results. Labs: Laboratory Results - last 24 hr 03/14/25 03/14/25 03/14/25 10:19 10:36 11:55 WBC 8.0 RBC 4.86 Hgb 14.6 Hct 41.9 MCV 86.2 MCH 30.0 MCHC 34.8 RDW Std Deviation 40.3 RDW Coeff of Simin 12.8 Plt Count 334 MPV 8.7 Immature Gran % (Auto) 0.200 Neut % (Auto) 74.7 H Lymph % (Auto) 14.1 L [place] % (Auto) 8.6 Eos % (Auto) 1.7 Baso % (Auto) 0.7 Absolute Neuts (auto) 6.0 Absolute Lymphs (auto) 1.13 Nucleated RBC % 0 PT 12.7 INR 0.9 APTT 27.7 Sodium 139 Potassium 3.8 Chloride 103 Carbon Dioxide 24.3 Anion Gap 12 BUN 21 H Creatinine 0.81 Estim Creat Clear Calc 95.13 Est GFR (MDRD) Non-Af 99 BUN/Creatinine Ratio 25.5 H Glucose 114 H Calcium 9.8 Troponin T High Sens 7 Urine Color Yellow Urine Clarity Clear Urine pH 6.0 Ur Specific Williams 1.020 Urine Protein 30 H Urine Glucose (UA) Normal Urine Ketones Negative Urine Occult Blood 10 H Urine Nitrite Negative Urine Bilirubin Negative Urine Urobilinogen Normal Ur Leukocyte Esterase Negative Urine RBC 0-5 SEEN Urine WBC 0-5 SEEN Ur Squamous Epith Cells 0 SEEN Urine Bacteria 0 SEEN Urine Mucus 1+ POC Glucose 103 Radiography Chest X-Ray - ED: 1 View, Read by ED Physician, Normal and No Acute Disease Diagnostic Testing: Clinical Impression(s) from Imaging Studies Brain CT 03/14/25 10:26 IMPRESSION: Mixed attenuation right extra-axial fluid collection measuring up to 18 mm in maximum transverse thickness, compatible with an acute on chronic subdural hematoma. Local mass effect without midline shift. Red Alert: The critical information above was relayed directly by me by telephone to Marisa Lee on 03/14/2025 at 10:55 am with readback verification. Reading Location: [facility] Chest X-Ray 03/14/25 10:26 IMPRESSION: No Acute Findings. Reading [facility] Rhythm Strip Rhythm Strip: Sinus Rhythm Rate: 85 Ectopy: None EKG Initial EKG: Attestation: I personally reviewed and interpreted this EKG as follows: Interpretation: Sinus Rhythm Comments: Normal sinus rhythm rate of 85 bpm Normal axis Normal intervals Normal ST segments No change greater prior EKG on 07/21/2013 Prior EKG tracings: available for review Prior: Unchanged Management Discussion w/another healthcare provider: Driller Operator, Radiologist and Other (ER at [facility] [place]) Critical Care Time Critical Care Time: Yes Critical care time (excluding procedures): 30-74 minutes (40), Discussing w/Patient &/or Family/Urgent Care Nurse Practitioner, Discussing w/Consultants and Arranging Admission or Transfer Discharge Plan Triage Chief Complaint: Stroke Alert ED Provider: Marisa Weaver Dx/Rx/DC Orders Clinical Impression: Nontraumatic acute subdural hemorrhage, Left hand paresthesia, Headache Prescriptions: No Action omega 0-ece-ocf-fish oil [Fish Oil] 1,200 (144-216) mg capsule 2 cap PO DAILY Alive Men's 50 Plus MV (vit K) 240-120-300 mcg tablet 1 tab PO DAILY cholecalciferol (vitamin D3) 50 mcg (2,000 unit) capsule 50 mcg PO DAILY omeprazole 20 MG capsule 20 mg PO DAILY tadalafil [Cialis] 10 mg tablet 10 mg PO QDAY PRN (Reason: sexual activity) Qty: 8 3RF rosuvastatin 20 mg tablet 20 mg PO DAILY Qty: 90 3RF Primary Care Provider: Christine Canada Referrals: Christine Canada MD [Primary Care Provider] - Print Language: Setswana Disposition Disposition: Acute Care Hospital Discharge Location: [facility] Discharge Date/Time: 03/14/25 12:20 NIHSS NIHSS 1a. Level of Consciousness: 0 - Alert; keenly responsive 1b. LOC Questions: 0 - Answers BOTH questions correctly 1c. LOC Commands: 0 - Performs BOTH tasks correctly 2. Best Gaze: 0 - Normal 3. Visual: 0 - No visual loss 4. Facial Palsy: 0 - Normal symmetrical movements 5a. Left Arm: 0 - No drift; arm holds 90 (or 45) degrees for full 10 seconds 5b. Right Arm: 0 - No drift; arm holds 90 (or 45) degrees for full 10 seconds 6a. Left Le - No drift; leg holds 30-degree position for full 5 seconds 6b. Right Le - No drift; leg holds 30-degree position for full 5 seconds 7. Limb Ataxia: 0 - Absent 8. Sensory: 1 - Odhz-tk-phebimfs sensory loss; 9. Best Language: 0 - No aphasia; normal 10. Dysarthria: 0 - Normal 11. Extinction and Inattention: 0 - No abnormality Total: 1 Stroke Questions Stroke Team Activated: Yes Reviewed Inclusion/Exclusion criteria: Yes (Acute on chronic subdural hemorrhage present) Was Patient considered for Endovascular Intervention?: No IV Thrombolytic Administered: No No contraindications from thrombolytic administration: No
[2025-03-14 10:43] LABS: Absolute Lymphocyte Count 1.13 X10^3/uL (0.83-4.51); Basophil# 0.06 X10^3/uL; Basophil% 0.7 % (0-1); Eosinophil# 0.14 X10^3/uL; Eosinophils% 1.7 % (0-5); Hematocrit 41.9 % (40-54); Hemoglobin 14.6 g/dL (13.0-16.5); Lymphocyte # 1.13 X10^3/ul (0.83-4.51); Lymphocyte % 14.1 % (19-41); Mean Corp Hgb Conc 34.8 g/dL (32-36); Mean Corpuscular Volume 86.2 fL (80-94); Mean Platelet Vol. 8.7 fl (6.2-12.0); Monocyte# 0.69 X10^3/uL; Monocyte% 8.6 % (0-10); NRBC Flagged by Analyzer 0 % (0-5); Neutrophil % 74.7 % (47-70); Platelet Count 334 K/mm3 (150-450); RBC Distribution Width CV 12.8 % (11.6-14.6); RBC Distribution Width SD 40.3 fl (35.1-43.9); Red Blood Count 4.86 M/mm3 (4.6-6.2)
[2025-03-14 10:43] LABS: Bedside Glucose 103 mg/dL (74-106)
[2025-03-14 10:51] LABS: International Normalized Ratio 0.9; Prothrombin Time (Protime)PT. 12.7 SECONDS (11.7-14.9)
[2025-03-14 10:52] LABS: Partial Thromboplast Time 27.7 Seconds (24.1-36.2)
[2025-03-14 10:59] LABS: Anion Gap 12 (5-15); BUN 21 mg/dL (4-19); BUN/Creat Ratio 25.5 RATIO (10-20); Calcium,Total 9.8 mg/dL (7.6-11.0); Carbon Dioxide 24.3 mmol/L (21.0-32.0); Chloride 103 mmol/L (98-108); Creatinine, Serum 0.81 mg/dL (0.70-1.20); EST Glomerular Filtration Rate 99 (>60); Estimated Creatinine Clearance 95.13 ml/min (50-250); Glucose 114 mg/dL (70-99); Potassium 3.8 mmol/L (3.3-5.1); Sodium Level 139 mmol/L (133-145); Troponin T High Sensitivity 7 ng/L (<=22)
--- NOTE | 2025-03-14 11:17 | PCA ---
[facility] @ 1100 RIDE WILL BE HERE AT 1200
[2025-03-14] MEDS: Acetaminophen 500 MG Tablet 1000 MG PO (11:38)
[2025-03-14 12:01] LABS: Bacteria 0 SEEN /hpf (None Seen); Squamous Epithelial Cells - UA 0 SEEN /hpf (0-5)
[2025-03-14 12:03] LABS: Color, Urine Yellow (Yellow); Glucose, Dipstick Normal (Normal); Ketone-Dipstick Negative (Negative); Leukocyte Esterase-Dipstick Negative /ul (Negative); Nitrite-Dipstick Negative (Negative); Occult Blood-Urine 10 /ul (Negative); Protein-Dipstick 30 mg/dl (Negative); Urine Bilirubin Dipstick Negative (Negative); Urine Clarity Clear (Clear); Urine Urobilinogen Normal (Normal)
[2025-03-14 12:13] LABS: Red Blood Cells-Urine 0-5 SEEN /hpf (0-5); White Blood Cells 0-5 SEEN /hpf (0-5)
[2025-03-14 12:15] LABS: Mucous, Urine 1+ /hpf (<or=2+)
== END 2025-03-14 12:20 | disposition short-term general hospital (02) ==
PROVIDERS: Emergency Provider Emergency Medicine; PCP Internal Medicine; Visit Provider Emergency Medicine
DX: I62.01 Nontraumatic acute subdural hemorrhage (principal); Z11.52 Encounter for screening for COVID-19; R51.9 Headache, unspecified; E78.00 Pure hypercholesterolemia, unspecified; K21.9 Gastro-esophageal reflux disease without esophagitis; Z79.899 Other long term (current) drug therapy
CPT/HCPCS: 70450; 71045; 80048; 81001; 82962; 84484; 85025; 85610; 85730; 87631; 93005; 99285; A4216

== ENCOUNTER → 2025-08-26 | Outpatient (CLI) | payer BC, SELFPAY ==
[2025-08-26 08:54] LABS: Hematocrit 47.2 % (40-54); Hemoglobin 16.2 g/dL (13.0-16.5); Immature Granulocytes Count 0.030 X10^3/uL (0.0-0.0); Mean Corp Hgb Conc 34.3 g/dL (32-36); Mean Corpuscular Volume 85.5 fL (80-94); Mean Platelet Vol. 8.8 fl (6.2-12.0); NRBC Flagged by Analyzer 0 % (0-5); Platelet Count 323 K/mm3 (150-450); RBC Distribution Width CV 13.4 % (11.6-14.6); RBC Distribution Width SD 41.9 fl (35.1-43.9); Red Blood Count 5.52 M/mm3 (4.6-6.2); White Blood Count 6.6 K/mm3 (4.4-11.0)
[2025-08-26 09:42] LABS: AST(SGOT) 32 U/L (<=37); Alanine Aminotransfer ALT/SGPT 46 U/L (<=46); Albumin, Serum 4.8 g/dL (3.4-4.8); Alkaline Phosphatase 76 U/L (40-129); Anion Gap 10 (5-15); BUN 16 mg/dL (4-19); BUN/Creat Ratio 18.4 RATIO (10-20); Calcium,Total 10.0 mg/dL (7.6-11.0); Carbon Dioxide 28.4 mmol/L (21.0-32.0); Chloride 103 mmol/L (98-108); Globulin 3.1 g/dL (2.2-4.2); Glucose 97 mg/dL (70-99); PSA,Total- Diagnostic 3.12 ng/mL (0.00-4.00); Potassium 4.4 mmol/L (3.3-5.1)
[2025-08-26 11:14] LABS: Cholesterol 201 mg/dL (<=200); Low Density Lipoprotein Calc. 110 mg/dL; Triglycerides 203 mg/dL; Very Low Density Lipoprotein 41 mg/dL (5-40); cholesterol:hdl ratio screen 4.01
[2025-09-01 12:08] LABS: Testosterone, % Free 2.73 % (1.50-4.20); Testosterone, Free 12.72 ng/dL (5.00-21.00)
== END | disposition home or self-care (01) ==
LOC: LAB 07:34
PROVIDERS: PCP Internal Medicine; Referring Provider Internal Medicine; Visit Provider Internal Medicine
DX: E78.5 Hyperlipidemia, unspecified (principal); N52.9 Male erectile dysfunction, unspecified; R97.20 Elevated prostate specific antigen [PSA]
CPT/HCPCS: 36415; 80053; 80061; 84153; 84402; 84403; 85025

== ENCOUNTER → 2025-10-28 | Outpatient (CLI) | payer BC, SELFPAY ==
--- NOTE | 2025-10-28 19:00 | CT_ITS ---
PROCEDURE: BRAIN/HEAD WITHOUT CONTRAST 10/28/2025 REASON FOR EXAM: FOLLOW-UP S/P RIGHT SDH EVACUATION (02/2025) TECHNIQUE: Procedure Code: CTBR Modality: CT Procedure: BRAIN/HEAD WITHOUT CONTRAST Coronal and Sagittal reconstruction series were provided. One or more dose reduction techniques were used (e.g., Automated exposure control, adjustment of the mA and/or kV according to patient size, use of iterative reconstruction technique. COMPARISON: Prior studies are available, however the images and reports could not be loaded. FINDINGS: No acute intracranial hemorrhage. No midline shift. The ventricles are normal in size and configuration. No extra-axial fluid collection is identified. No fracture. Postsurgical changes of a right-sided craniotomy The visualized paranasal sinuses and mastoid air cells are clear. CT/Brain/Head without Contrast IMPRESSION: No acute intracranial CT abnormality. Reading Location: [id number]
--- OUTSIDE RECORDS SUMMARY | 2025-10-28 19:02 | XMS RPT_ITS | CCD ---
Author Organization [facility] Care Team Providers Care [employer] Archivist Name Role Phone Dr. Hakeem Clark Primary Care Provider Dillon Grissom Attending Provider Unavailable Dr. Hakeem Clark Referring Provider Dr. Christine Canada Attending Provider [phone] Dr. Renato Clark Primary Care Provider [phone] Dr. Renato Clark Referring Provider Dr. Christine Canada Primary Care Provider [phone] Dr. Christine Canada Referring Provider [phone] Dr. Christine Canada MD Primary Care Provider Dr. Christine Canada MD Attending Provider [phone] Dr. Christine Canada MD Referring Provider [phone] Dr. Marisa Weaver DO Emergency Provider Christine Canada MD Primary Care Provider MONICA GAYLE Referring Unavailable DREAD, EFEWONGBE B Primary Care Unavailable VENANCIOT, KEN F Admitting Unavailable VENANCIOTSHAWNKEN F Attending Unavailable DREAD EFEWONGBE B Primary Care Unavailable ITRAT, AHMED Consulting Unavailable VENANCIOT, KEN F Attending Unavailable DREAD, EFEWONGBE B Primary Care Unavailable FEGATKARL RODRIGUEZNA Referring Unavailable OLEGHE, EFEWONGBE B Primary Care Unavailable DIPESHAYYAT, KEN F Attending Unavailable OLEGHE, EFEWONGBE B Primary Care Unavailable DORIS CROWLEY Attending Unavailable ASHANTI MANZANO Referring Unavailable OLEGHE, EFEWONGBE B Primary Care Unavailable KEN JOSEPH Attending Unavailable MONICA GAYLE Referring Unavailable OLEGHE, EFEWONGBE B Primary Care Unavailable EVGENY LYNNE Attending Unavailable SELF Referring Unavailable OLEGHE, EFEWONGBE B Primary Care Unavailable Dread MANDUJANO, Dr. King Primary Care Physician Dread MANDUJANO, Dr. King Attending Physician [phone] Dread MANDUJANO, Dr. King Referring Provider [phone] Oleghe, Efewongbe Referring Unavailable Oleghe, Efewongbe Primary Care Unavailable Oleghe, Efewongbe Attending Unavailable Oleghe, Efewongbe Primary Care Unavailable Marisa Weaver Attending Unavailable Oleghe, Efewongbe Attending Unavailable Oleghe, Efewongbe Referring Unavailable Oleghe, Efewongbe Primary Care Unavailable Oleghe, Efewongbe Referring Unavailable Oleghe, Efewongbe Primary Care Unavailable Chandler Davis Attending Unavailable Oleghe, Efewongbe Attending Unavailable Oleghe, Efewongbe Referring Unavailable Oleghe, Efewongbe Primary Care Unavailable Oleghe, Efewongbe Referring Unavailable Oleghe, Efewongbe Attending Unavailable Oleghe, Efewongbe Primary Care Unavailable Oleghe, Efewongbe Attending Unavailable Oleghe, Efewongbe Referring Unavailable Oleghe, Efewongbe Primary Care Unavailable Oleghe, Efewongbe Attending Unavailable Oleghe, Efewongbe Referring Unavailable Oleghe, Efewongbe Primary Care Unavailable Medications Current Medications Medication Drug Class(es) Dates Sig (Normalized) Sig (Original) cholecalciferol 0.05 mg oral capsule (20 sources) Vitamin D Start: 11-26-2023 take 1 capsule by mouth once daily Start: 02-09-2022 End: 11-26-2023 take 1 capsule by mouth once daily Cholecalciferol (Vitamin D3) 10 mcg (400 unit) capsule Discontinued 10 ug PO DAILY February 09, 2022 12:00am November 26, 2023 9:18am take 1 tablet by sabi th once daily cholecalciferol (VITAMIN D) 1,000 unit tab tablet Take 1,000 Units by mouth once daily. Active memantine hydrochloride 10 mg oral tablet (3 sources) S-kmpvtm-C-aspartate Receptor Antagonist Start: 03-20-2025 End: 04-18-2025 take 1 tablet by mouth once daily memantine (NAMENDA) 10 mg tablet Take 1 tablet by mouth once daily for 29 doses. 29 tablet 03/20/2025 04/18/2025 Active Multivitamin capsule (8 sources) take 1 capsule by mouth once daily Multivitamin capsule Take 1 capsule by mouth once daily. Active Ll-Kop-Tying-Vit [id number] (Alive Men's 50 Plus Mv (Vit K)) 240-120-300 mcg tablet (6 sources) Start: 11-26-2023 Start: 11-26-2023 Tp-Gov-Lpcky-V it A-Frz-[id number] (Alive Men's 50 Plus Mv (Vit K)) 240-120-300 mcg tablet Active 1 {tbl} PO DAILY November 26, 2023 1:00am Start: 11-26-2023 take 1 tablet by sabi th once daily Kq-Ffs-Nqkhl-Vit O-Bqj-Zelr507 (Alive Men's 50 Plus Mv (Vit K)) 240-120-300 mcg tablet Active 1 TABLET PO DAILY November 26, 2023 1:00am [place] 1-Kpo-Auo-Fish Oil (Fi sh Oil) 1,200 (144-216) mg capsule (6 sources) Start: 02-09-2022 Start: 02-09-2022 [place] 3-Dha-Ep a-Fish Oil (Fish Oil) 1,200 (144-216) mg capsule Active 2 NMA PO DAILY February 09, 2022 12:00am Start: 02-09-2022 [place] 3-Dha-Ep a-Fish Oil (Fish Oil) 1,200 (144-216) mg capsule Active NMA PO February 09, 2022 12:00am Start: 02-09-2022 [place] 3-Dha-Ep a-Fish Oil (Fish Oil) 1,200 (144-216) mg capsule Active CAP PO February 09, 2022 12:00am omeprazole 20 mg delayed release oral capsule (14 sources) Proton Pump Inhibitor Start: 08-21-2016 take 1 capsule by mouth once daily oxyCODONE hydrochloride 5 mg oral tablet (1 source) Opioid Agonist Start: 03-20-2025 End: 03-25-2025 take 1 tablet by mouth every six hours as needed oxyCODONE IR (ROXICODONE) 5 mg immediate release tablet Indications: Acute post-operative pain 1 tablet by ORAL/FEEDING TUBE route every 6 hours as needed for up to 5 days. 20 tablet 03/20/2025 03/25/2025 Active ubidecarenone 100 mg oral capsule (8 sources) coenzyme Q10 (COENZYME Q-10) 100 mg cap capsule Take 100 mg by mouth once daily. Active Completed/Discontinued Medications Medication Drug Class(es) Dates Sig (Normalized) Sig (Original) aspirin 81 mg chewable tablet (6 sources) Platelet Aggregation Inhibitor, Nonsteroidal Anti-inflammatory Drug Start: 08-21-2016 End: 02-09-2022 take 1 tablet by mouth once daily Aspirin 81 MG tablet,chewable Discontinued 81 mg PO DAILY@0800 August 21, 2016 12:00am February 09, 2022 1:23pm benzonatate 200 mg oral capsule (4 sources) Non-narcotic Antitussive Start: 03-24-2024 End: 01-21-2025 take 1 capsule by mouth three times daily as needed for cough Benzonatate 200 mg capsule Discontinued 200 mg PO THREE TIMES A DAY as needed for cough 20 0 March 24, 2024 12:00am January 21, 2025 2:10pm DOCOSAHEXANOIC ACID/EPA (FISH OIL ORAL) (2 sources) End: 03-30-2025 take 1200 mg by mouth once daily DOCOSAHEXANOIC ACID/EPA (FISH OIL ORAL) Take 1,200 mg by mouth once daily. 03/30/2025 Discontinued take 1200 mg by mouth once daily DOCOSAHEXANOIC ACID/EPA (FISH OIL ORAL) Take 1,200 mg by mouth once daily. Active levETIRAcetam 1000 mg oral tablet (2 sources) Start: 03-20-2025 End: 03-30-2025 take 1 tablet by mouth twice daily levETIRAcetam (KEPPRA) 1,000 mg tablet Take 1 tablet by mouth two times a day for 3 doses. 3 tablet 03/20/2025 03/30/2025 Discontinued niacin 250 mg extended release oral capsule (6 sources) Nicotinic Acid Start: 02-09-2022 End: 11-26-2023 take 1 capsule by mouth once daily Niacin 250 mg capsule, extended release Discontinued 250 mg PO DAILY February 09, 2022 12:00am November 26, 2023 9:19am Nirmatrelvir-Ritonav ir (6 sources) Start: 05-20-2022 End: 01-24-2024 Nirmatrelvir-Ritona vir (Paxlovid (Eua)) 300 mg (150 mg x 2)-100 mg tablet Discontinued 0 PO .COMPLEX 30 May 20, 2022 12:00am January 24, 2024 9:46am take TWO 150 mg tablets of nirmatrelvir with ONE 100 mg tablet of ritonavir twice daily for 5 days PO Start: 05-20-2022 End: 01-24-2024 Nirmatrelvir-Ritonavir (Paxl ovid (Eua)) 300 mg (150 mg x 2)-100 mg tablet Discontinued 0 PO .COMPLEX May 20, 2022 12:00am January 24, 2024 9:46am take TWO 150 mg tablets of nirmatrelvir with ONE 100 mg tablet of ritonavir twice daily for 5 days PO ondansetron 4 mg oral tablet (6 sources) Serotonin-3 Receptor Antagonist Start: 05-20-2022 End: 01-24-2024 take 1 tablet by mouth every six hours as needed for nausea and vomiting Ondansetron Hcl 4 mg tablet Discontinued 4 mg PO EVERY 6 HOURS as needed for nausea and vomiting May 20, 2022 12:00am January 24, 2024 9:47am rosuvastatin calcium 20 mg oral tablet (20 sources) HMG-CoA Reductase Inhibitor Start: 02-09-2022 End: 03-03-2025 take 1 tablet by mouth once daily Rosuvastatin 20 mg tablet Discontinued 20 mg PO DAILY 0 November 30, 2024 2:05pm March 03, 2025 9:17am simvastatin 20 mg oral tablet (6 sources) HMG-CoA Reductase Inhibitor Start: 08-21-2016 End: 02-09-2022 take 1 tablet by mouth once daily Simvastatin 20 MG tablet Discontinued 20 mg PO DAILY August 21, 2016 12:00am March 25th, 2022 1:24pm tadalafil 10 mg oral tablet (20 sources) Phosphodiesterase 5 Inhibitor Start: 08-21-2016 End: 11-30-2024 take 1 tablet by mouth once daily as needed Tadalafil (Cialis) 10 mg tablet Discontinued 10 mg PO daily as needed for sexual activity 8 3 August 17, 2024 8:22am November 30, 2024 2:05pm Problems Active Problems Problem Classification Problem Date Documented Date Episodic/Chronic Abdominal hernia (6 sources) Unspecified abdominal hernia without obstruction or gangrene; Translations: [Hernia] 11-26-2023 Episodic Comment on above: 1964 Acute cerebrovascular disease (20 sources) Acute nontraumatic subdural hemorrhage; Translations: [Nontraumatic acute subdural hemorrhage] Onset: 03-14-2025 03-14-2025 Chronic Disorders of lipid metabolism (20 sources) Hyperlipidemia; Translations: [Hyperlipidemia, unspecified] Onset: 09-11-2025 01-24-2024 Chronic Esophageal disorders (15 sources) Gastroesophageal reflux disease; Translations: [Gastro-esophageal reflux disease without esophagitis] 05-20-2022 Chronic Headache; including migraine (4 sources) Migraine; Translations: [Migraine, unspecified, not intractable, without status migrainosus] Onset: 11-18-1974 Chronic Headache; including migraine (2 sources) Headache; Translations: [Headache] 03-14-2025 Episodic Headache; including migraine (1 source) Headache; including migraine Immunizations and screening for infectious disease (20 sources) Patient encounter status; Translations: [Encounter for screening for COVID-19] 02-09-2022 Episodic Malaise and fatigue (8 sources) Fatigue; Translations: [Other fatigue] 01-24-2024 Episodic Other circulatory disease (2 sources) H/O: 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; Translations: [Personal history of other diseases of the circulatory system] 08-16-2025 Episodic Other circulatory disease (1 source) Personal history of other diseases of the circulatory system; Translations: [Personal history of other diseases of the circulatory system] Onset: 09-21-2025 Episodic Other connective tissue disease (2 sources) Transient neurological symptoms; Translations: [Other symptoms and signs involving the nervous system] 06-10-2025 Episodic Other connective tissue disease (1 source) Other symptoms and signs involving the nervous system; Translations: [Transient neurological symptoms] Onset: 06-09-2025 Episodic Other male genital disorders (20 sources) Male erectile dysfunction, unspecified; Translations: [Erectile dysfunction] Onset: 08-16-2025 01-24-2024 Chronic Other nervous system disorders (2 sources) Paresthesia of hand ; Translations: [Paresthesia of skin] 03-14-2025 Episodic Other nervous system disorders (2 sources) Facial paresthesia; Translations: [Anesthesia of skin] 06-10-2025 Episodic Other nervous system disorders (1 source) Anesthesia of skin; Translations: [Numbness and tingling of left side of face] Onset: 06-09-2025 Episodic Other screening for suspected conditions (not mental disorders or infectious disease) (12 sources) Encounter for screening for other suspected endocrine disorder; Translations: [Screening for thyroid disorders] Onset: 08-16-2025 01-24-2024 Episodic Residual codes; unclassified (1 source) Influenza vaccination declined; Translations: [Immunization not carried out because of patient refusal] 08-16-2025 Episodic Unclassified (1 source) SDH (subdural hematoma) (HCC); Translations: [SDH (subdural hematoma) (HCC)] Onset: 07-02-2025 Unclassified (1 source) Hospital Discharge Onset: 04-05-2025 Viral infection (6 sources) Disease caused by 2019-nCoV; Translations: [COVID-19] 05-20-2022 Episodic Past or Other Problems Problem Classification Problem Date Documented Date Episodic/Chronic Other nervous system disorders (8 sources) Paresthesia; Translations: [Paresthesia of skin] Onset: 03-18-2025 03-18-2025 Episodic Other nervous system disorders (8 sources) Acute postoperative pain; Translations: [Other acute postprocedural pain] Onset: 03-24-2025 03-24-2025 Episodic Other nervous system disorders (2 sources) Paresthesia of skin; Translations: [Numbness and tingling of left side of face] Onset: 03-18-2025 Episodic Other nervous system disorders (1 source) Other acute postprocedural pain; Translations: [Acute post-operative pain] Onset: 03-14-2025 Episodic Results Test Name Value Interpretation Reference Range Facility Neurology Visit Reporton Neurology Visit Report [facility] [address], [address] [place] [address] OFFICE VISIT Date of Service: 09/21/25 MR#: [id number] Acct: [id number] Name: CELESTINO REYNA Rep #: [id number] : 1960 Provider: Dr. Chandler salazar MD Age/Sex: 65/M Location: [facility] [place] Status: Signed HPI HPI Chief Complaint: Est Care Details: History: The patient is a 65-year-old right-handed male with a past medical history of hyperlipidemia who presents for evaluation of subdural hematoma status post evacuation in February 2025. The patient states that in February 2025 he experienced an episode of transient left upper extremity numbness that resolved within a day. The following day he had recurrence of this symptom and also had a feeling of incoordination and heaviness in the left arm. He presented to the emergency room and on evaluation with a head CT was found to have a right cerebral hemispheric chronic subdural hematoma with an acute/subacute component. He was transferred to [facility] ([facility]) and underwent craniotomy and evacuation of the subdural hematoma. Postoperatively he has experienced some slight left arm easy fatigability. His left upper extremity numbness resolved. He was treated with memantine for 1 month. Then this was discontinued. He denied having any known significant head trauma prior to his hospital presentation in February 2025. He denies having any bleeding disorder. He was not taking aspirin or other antiplatelet/anticoagulant medication. He infrequently has used ibuprofen for mild migraine headaches. He has had headaches since he was 14 years old. His headaches have occurred about once or twice per year and last less than 1 day each. He has had photophobia, phonophobia and in years past had nausea associated with his headaches. His headaches were preceded by an aura characterized by flashing scintillations. Bright lights and emotional stress have been triggers for his headaches. His headaches have been mild over recent years and he at times does not feel the need to take any medication for his headaches. He denied having a headache at the time of his hospital presentation in February 2025. And he has had only 1 day of mild headache within recent months. His last head CT (April 2025) revealed postoperative changes consistent with prior right right sided craniotomy with residual 3 mm right cerebral convexity subdural hematoma. There was no evidence of a new cerebral hemorrhage. Scattered patchy foci of low-attenuation are present within the supratentorial white matter, a nonspecific finding that most likely represents mild small vessel disease. Past Medical History: As above. There is no history of hypertension, diabetes mellitus, heart disease, lung disease, stroke, seizure, thyroid disease, cancer, renal disease, or bleeding disorder Social History: There is no history of smoking tobacco. There is no history of alcohol abuse or illicit drug use. Family History: The patient's son had a single seizure at the age of 3 years. There is no family history of bleeding disorder, stroke, or cerebral aneurysm. Review of Systems: As above. The patient has not had any recent fever, rash, weight change, chest pain, shortness of breath, gastrointestinal problems or urinary problems. He has had urinary frequency. He denies having depression, anxiety or current sleep disturbance. Physical Exam: General: Well-developed, well-nourished male in no acute distress. Neuro: The patient is awake and alert and responds appropriately; speech is fluent; language function is within normal limits Cranial nerves: PERRL, 3mm bilaterally; EOMI; visual girard are full; visual acuity is 20/25 on the left and 20/30 on the right; face is symmetrical; tongue is midline; there are no deficits to pinprick Cerebellar system: No nystagmus or dysmetria Deep tendon reflexes: +2 at the ankles, knees, and left triceps, +1 at the right triceps, right biceps and brachioradialis bilaterally and absent at the left triceps; plantar responses are downward bilaterally Motor: Strength 5/5 in the biceps bilaterally, abductor pollicis brevis muscles bilaterally, first dorsal interosseous muscles bilaterally, triceps bilaterally, deltoid bilaterally, quadriceps bilaterally and foot dorsiflexors bilaterally; no drift Sensory: There are no deficits to soft touch, vibration or pinprick Gait: Unremarkable HEENT: Normocephalic; atraumatic; tympanic membranes are clear Neck: No bruits Heart: Regular rhythm and rate Extremities: No cyanosis or edema; right dorsalis pedis pulse is +2; left posterior tibial pulse is +2 Supplemental Info Head MRI (02/06/2023): HEMISPHERES, CEREBELLUM AND BRAINSTEM: 1. The cerebral parenchyma, ventricular system, subarachnoid spaces have normal configuration and density. There is a normal gyral pattern. There is normal cleaning/white diff (more content not 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 Normal [facility] Testosterone, Total / Freeon 09-01-2025 TESTOSTER,FREE 12.72 ng/dL Normal 5.00-21.00 [facility] Comment on above: Order Comment: N Performed By: #### L 100.0100, L500.4050, L500.4100 #### [facility] [address] [place], [address] TESTOSTER,TOTAL 466 ng/dL Normal 264-916 [facility] Comment on above: Order Comment: N Result Comment: Adul t male reference interval is based on a population of healthy nonobese males (BMI <30) between 19 and 39 years old. gavino Mendoza.al. JCEM 2017,102;[id number]. PMID: [id number]. Performed By: #### L 100.0100, L500.4050, L500.4100 #### [facility] [address] [place], [place], [address] TESTOSTERONE,%F 2.73 Normal 1.50-4.20 [facility] Comment on above: Order Comment: N Result Comment: Perf ormed at: [facility] [id number] [employer] Network Engineer: Donal Pierson PhD, Phone: [phone] Performed at: [facility] [id number] [employer] Network Engineer: Indigo Rodríguez MD, Phone: [phone] Performed By: #### L 100.0100, L500.4050, L500.4100 #### [facility] [address] [place], [address] CBC W/Diff, Automatedon 10-0 Absolute Lymph 1.67 X10 3/uL Normal 0.83-4.51 [facility] Comment on above: Performed By: #### L 100.0100, L500.4050, L500.4100 #### [facility] [address] [place], [address] Absolute Neut 3.9 X10 3/uL Normal 2.0-7.7 [facility] Comment on above: Performed By: #### L 100.0100, L500.4050, L500.4100 #### [facility] [address] [place], [address] Basophils/100 WBC (Bld) 1.1 % High 0-1 [facility] Comment on above: Performed By: #### L 100.0100, L500.4050, L500.4100 #### [facility] [address] [place], [address] Eosinophils/100 WBC (Bld) 3.6 % Normal 0-5 [facility] Comment on above: Performed By: #### L 100.0100, L500.4050, L500.4100 #### [facility] [address] [place], [address] Erythrocyte distribution width (RBC) [Ratio] 13.4 % Normal 11.6-14.6 [facility] Comment on above: Performed By: #### L 100.0100, L500.4050, L500.4100 #### [facility] [address] [place], [address] Hematocrit (Bld) [Volume fraction] 47.2 % Normal 40-54 [facility] Comment on above: Performed By: #### L 100.0100, L500.4050, L500.4100 #### [facility] [address] [place], [address] Hemoglobin (Bld) [Mass/Vol] 16.2 g/dL Normal 13.0-16.5 [facility] Comment on above: Performed By: #### L 100.0100, L500.4050, L500.4100 #### [facility] [address] [place], [address] IG% 0.500 Normal 0.0-0.9 [facility] Comment on above: Result Comment: IG% - Immature Granulocytes (promyelocytes, myelocytes and metamyelocytes) > 1% indicates that a LEFT SHIFT is Present. Performed By: #### L 100.0100, L500.4050, L500.4100 #### [facility] [address] [place], [address] Lymphocytes/100 WBC (Bld) 25.3 % Normal 19-41 [facility] Comment on above: Performed By: #### L 100.0100, L500.4050, L500.4100 #### [facility] [address] [place], [address] MCH (RBC) [Entitic mass] 29.3 pg Normal 27.0-32.0 [facility] Comment on above: Performed By: #### L 100.0100, L500.4050, L500.4100 #### [facility] [address] [place], [address] MCHC (RBC) [Mass/Vol] 34.3 g/dL Normal 32-36 [facility] Comment on above: Performed By: #### L 100.0100, L500.4050, L500.4100 #### [facility] [address] [place], [address] MCV (RBC) [Entitic vol] 85.5 fL Normal 80-94 [facility] Comment on above: Performed By: #### L 100.0100, L500.4050, L500.4100 #### [facility] [address] [place], [address] Monocytes/100 WBC (Bld) 11.1 % High 0-10 [facility] Comment on above: Performed By: #### L 100.0100, L500.4050, L500.4100 #### [facility] [address] [place], [address] Neutrophils/100 WBC (Bld) 58.4 % Normal 47-70 [facility] Comment on above: Performed By: #### L 100.0100, L500.4050, L500.4100 #### [facility] [address] [place], [address] Nucleated RBC (Bld) [#/Vol] 0 10*3/uL Normal 0-5 [facility] Comment on above: Performed By: #### L 100.0100, L500.4050, L500.4100 #### [facility] [address] [place], [address] Platelet mean volume (Bld) [Entitic vol] 8.8 fL Normal 6.2-12.0 [facility] Comment on above: Performed By: #### L 100.0100, L500.4050, L500.4100 #### [facility] [address] [place], [address] Platelets (Bld) [#/Vol] 323 10*3/uL Normal 150-450 [facility] Comment on above: Performed By: #### L 100.0100, L500.4050, L500.4100 #### [facility] [address] [place], [address] RBC (Bld) [#/Vol] 5.52 10*6/uL Normal 4.6-6.2 [facility] Comment on above: Performed By: #### L 100.0100, L500.4050, L500.4100 #### [facility] [address] [place], [address] RDW SD 41.9 fl Normal 35.1-43.9 [facility] Comment on above: Performed By: #### L 100.0100, L500.4050, L500.4100 #### [facility] [address] [place], [address] WBC (Bld) [#/Vol] 6.6 10*3/uL Normal 4.4-11.0 [facility] Comment on above: Performed By: #### L 100.0100, L500.4050, L500.4100 #### [facility] [address] [place], [address] Comprehensive Metabolic Prof ilon 08-26-2025 Albumin [Mass/Vol] 4.8 g/dL Normal 3.4-4.8 [facility] Comment on above: Performed By: #### L 100.0100, L500.4050, L500.4100 #### [facility] [address] [place], [address] Albumin/Globulin [Mass ratio] 1.6 {ratio} Normal 0.9-2.4 [facility] [facility] Comment on above: Performed By: #### L 100.0100, L500.4050, L500.4100 #### [facility] [address] [place], [address] ALK PHOS 76 U/L Normal 40-129 [facility] Comment on above: Performed By: #### L 100.0100, L500.4050, L500.4100 #### [facility] [address] [place], [address] ALT [Catalytic activity/Vol] 46 U/L Normal <=46 [facility] Comment on above: Performed By: #### L 100.0100, L500.4050, L500.4100 #### [facility] [address] [place], [address] AST [Catalytic activity/Vol] 32 U/L Normal <=37 [facility] Comment on above: Performed By: #### L 100.0100, L500.4050, L500.4100 #### [facility] [address] [place], [address] Bilirubin [Mass/Vol] 0.35 mg/dL Normal 0.00-1.30 [facility] Comment on above: Performed By: #### L 100.0100, L500.4050, L500.4100 #### [facility] [address] [place], [address] BUN/CRE 18.4 RATIO Normal 10-20 [facility] Comment on above: Performed By: #### L 100.0100, L500.4050, L500.4100 #### [facility] [address] [place], [address] Calcium [Mass/Vol] 10.0 mg/dL Normal 7.6-11.0 [facility] Comment on above: Performed By: #### L 100.0100, L500.4050, L500.4100 #### [facility] [address] [place], [address] Chloride [Moles/Vol] 103 mmol/L Normal 98-108 [facility] Comment on above: Performed By: #### L 100.0100, L500.4050, L500.4100 #### [facility] [address] [place], [address] CO2 [Moles/Vol] 28.4 mmol/L Normal 21.0-32.0 [facility] Comment on above: Performed By: #### L 100.0100, L500.4050, L500.4100 #### [facility] [address] [place], [address] Creatinine [Mass/Vol] 0.88 mg/dL Normal 0.70-1.20 [facility] Comment on above: Performed By: #### L 100.0100, L500.4050, L500.4100 #### [facility] [address] [place], [address] GAP 10 Normal 5-15 [facility] Comment on above: Performed By: #### L 100.0100, L500.4050, L500.4100 #### [facility] [address] [place], [address] GFR/1.73 sq M.predicted among non-blacks MDRD (S/P/Bld) [Vol rate/Area] 96 mL/min/{1.73_m2} Normal >60 [facility] Comment on above: Result Comment: mL/m in/1.73m2 CKD-EPI Creatinine Equation (2020) Performed By: #### L 100.0100, L500.4050, L500.4100 #### [facility] [address] [place], [address] Globulin (S) [Mass/Vol] 3.1 g/dL Normal 2.2-4.2 [facility] Comment on above: Performed By: #### L 100.0100, L500.4050, L500.4100 #### [facility] [address] [place], [address] Glucose [Mass/Vol] 97 mg/dL Normal 70-99 [facility] Comment on above: Performed By: #### L 100.0100, L500.4050, L500.4100 #### [facility] [address] [place], [address] Potassium [Moles/Vol] 4.4 mmol/L Normal 3.3-5.1 [facility] Comment on above: Performed By: #### L 100.0100, L500.4050, L500.4100 #### [facility] [address] [place], [address] Sodium [Moles/Vol] 141 mmol/L Normal 133-145 [facility] Comment on above: Performed By: #### L 100.0100, L500.4050, L500.4100 #### [facility] [address] [place], [address] T PROT 7.9 g/dL Normal 5.9-8.4 [facility] Comment on above: Performed By: #### L 100.0100, L500.4050, L500.4100 #### [facility] [address] [place], [address] Urea nitrogen [Mass/Vol] 16 mg/dL Normal 4-19 [facility] Comment on above: Performed By: #### L 100.0100, L500.4050, L500.4100 #### [facility] [address] [place], [address] Lipid Profileon 08-26-2025 CHOL:HDL 4.01 Normal [facility] Comment on above: Performed By: #### L 100.0100, L500.4050, L500.4100 #### [facility] [address] [place], [address] Cholesterol [Mass/Vol] 201 mg/dL Normal <=200 [facility] Comment on above: Result Comment: Chol esterol level, Desirable <200 mg/dL Borderline high cholesterol 200-239 mg/dL High cholesterol >=240 mg/dL Recommendations of the NCEP Adult Treatment Panel for the following risk-cutoff thresholds for the [place] population. Performed By: #### L 100.0100, L500.4050, L500.4100 #### [facility] [address] [place], [address] Cholesterol in HDL [Mass/Vol] 50 mg/dL Normal [facility] Comment on above: Result Comment: Claudette onal Cholesterol Education Program (NCEP) guidelines: <40 mg/dL: Low HDL-cholesterol (major risk factor for CHD) >= 60 mg/dL: High HDL-cholesterol (negative risk factor for CHD) HDL-cholesterol is affected by a number of factors, e.g. smoking, exercise, hormones, sex and age. Performed By: #### L 100.0100, L500.4050, L500.4100 #### [facility] [address] [place], [address] Cholesterol in LDL [Mass/Vol] 110 mg/dL Normal [facility] Comment on above: Result Comment: Bord vkadud=978-198 mg/dL Higher Qwep=658 mg/dL or greater Friedwald Equation for LDL-C Performed By: #### L 100.0100, L500.4050, L500.4100 #### [facility] [address] [place], [address] Cholesterol in VLDL [Mass/Vol] 41 mg/dL High 5-40 [facility] Comment on above: Performed By: #### L 100.0100, L500.4050, L500.4100 #### [facility] [address] [place], [address] Triglyceride [Mass/Vol] 203 mg/dL High [facility] Comment on above: Result Comment: The drugs N-Acetylcysteine and Metamizole may falsely depress this assay. Normal range: <150 mg/dL Borderline High: 150-199 mg/dL High: 200-499 mg/dL Very High: >500 mg/dL Performed By: #### L 100.0100, L500.4050, L500.4100 #### [facility] [address] [place], [address] PSA,Total- Diagnosticon 10-0 9-2024 PSA, DIAGNOSTIC 3.12 ng/mL Normal 0.00-4.00 [facility] Comment on above: Result Comment: This test was performed using the [employer] tPSA method. Measured values of a patient??sample can vary depending on the testing procedure used. PSA values determined on patient samples by different testing procedures cannot be used interchangeably. If there is a change in PSA assays while monitoring therapy, sequential testing should be performed to confirm baseline values. Performed By: #### L 100.0100, L500.4050, L500.4100 #### [facility] [address] [place], [address] Internal Medicine Office Vis iton 08-16-2025 Internal Medicine Office Visit [facility] Internal Medicine [address] [place] [address] [place] [address] OFFICE VISIT Date of Service: 08/16/25 MR#: [id number] Acct: [id number] Name: CELESTINO REYNA Rep #: [id number] : 1960 Provider: Dr. 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: No Accompanied by: Self Is patient in pain?: No Allergies No Known Allergies Allergy (Verified 08/16/25 09:20) Medications ???Medication ???Instructions ???Recorded ???Confirmed ???Type omeprazole 20 mg capsule,delayed 20 mg PO DAILY 08/21/16 08/16/25 H istory release omega 1-sim-srf-fish oil 1,200 mg 2 cap PO DAILY 02/09/22 08/16/25 History (144 mg-216 mg) capsule (Fish Oil) cholecalciferol (vitamin D3) 50 50 mcg PO DAILY 11/26/23 08/16/25 History mcg (2,000 unit) capsule qxdnzipj-lfjh-ijjpl acid 240 1 tab PO DAILY 11/26/23 08/16/25 H istory mcg-vit K 120 hjd-lsslwn-kjim 293 tablet (Alive Men's 50 Plus Multivit (vit K)) tadalafil 10 mg tablet (Cialis) 10 mg PO QDAY PRN sexual activity 11/30/24 08/16/25 Rx #8 tabs rosuvastatin 20 mg tablet 20 mg PO DAILY #90 TABLETS 5 08/16/25 Rx Have you fallen in the past year?: No Nurse's Note: discuss Cialis can he take post stroke 03/09/25 discuss local neurologist referral [facility] Medical History (Updated 08/16/25 @ 13:[address] Christine Canada MD) History of subdural hemorrhage Elevated PSA High cholesterol (11/18/87) H/O Mohs micrographic surgery for skin cancer (09/18/23) Migraines (11/18/74) Hearing difficulty (11/18/10) Bone fracture (11/18/89) Back problem (11/18/74) Screening for prostate cancer Screening for cardiovascular condition Health care maintenance Fatigue Screening for thyroid disorder Erectile dysfunction Phimosis Lung nodule, solitary High cholesterol Tinnitus Frequent headaches Scoliosis GERD (gastroesophageal reflux disease) Hyperlipemia Hernia Surgical History History of colonoscopy (11/18/12) H/O transurethral resection of prostate History of vasectomy Family History Grandfather Diabetes Heart disease Cancer esophagus maternal Mother Age: 91 High cholesterol Father Melanoma Parkinsons disease Osteoporosis Social History adopted: No household members: spouse number of children: 2 current occupational status: employed current occupation: [employer] pets and animals: No sexually active: Yes Smoking Status: Never smoker Electronic Cigarette Use: not used second hand exposure: No alcohol intake: current alcohol intake frequency: a few times a week Alcohol type: wine substance use type: does not use caffeine: Yes (3) Type: coffee frequency: 1-2 times per week duration: 30-45 minutes/day do you feel safe at home: Yes HPI HPI Chief Complaint: meds Details: CELESTINO REYNA, is a 65-year-old male presenting for a follow-up visit to discuss the outcomes and management strategies related to his cerebral hemorrhage and associated post-surgical considerations, as well as his experiences with migraine, erectile dysfunction management and other chronic conditions. History of spontaneous cerebral/subdural hemorrhage s/p surgery by Dr. York. The patient reported experiencing a feeling of heaviness in the left arm post-surgery, although no significant lingering effects have been noted aside from this symptom. The patient inquired about the likelihood of a recurrent stroke. Chronic history of migraines which have been generally stable. Follows up with Dr. Jurado in [place] but would like to see someone locally. No acute concerns in that regard. Chronic history of erectile dysfunction, currently on Cialis as needed. For the most part, continues to find Cialis as needed helpful. Had questions about relation between Cialis and recent cerebral hemorrhage. He states that he was advised by both his neurosurgeon and neurologist that currently, there is no association. No known history of heart disease. Other chronic medical conditions are stable. History of hyperlipidemia on rosuvastatin, no muscle pain or weakness. Also history of reflux on omeprazole, takes 20 mg of omeprazole ankush (more content not 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 [facility] ) CELESTINO REYNA ([id number]) 1960 M EXC Date Time Provider Department 06/09/25 1:00 PM EVGENY LYNNE ELZBIETA During your visit today, we recorded the following information about you: Pulse Blood pressure Weight Height 81/minute 123/84 81.2 kg 1.803 m Evgeny Lynne MD 06/09/2025 1:55 PM Addendum What you had was cortical spreading depolarization secondary to your acute on chronic subdural hemorrhage in March. We discussed your history of subdural hemorrhage and current symptoms: - You experienced a subdural hemorrhage in February 2025, which required a craniotomy and evacuation. Since then, your symptoms, including numbness and tingling in your left arm, have improved significantly. - You reported ongoing fatigue, particularly in your arm, which worsens with stress or certain activities like driving. This is not associated with weakness, as your strength remains intact. This fatigue may be related to residual irritation in the brain from the bleed and surgery. - You occasionally experience mild headaches, which are not migraines. These headaches typically resolve on their own or with Tylenol. This is expected following your surgery and does not indicate a new issue. - You are no longer taking memantine, and your brain fog has resolved since discontinuing the medication. - You reported vivid dreams, which may or may not be related to your surgery or recovery. This will be monitored. Care Plan: - Continue monitoring your symptoms, including fatigue, headaches, and any new or worsening neurological symptoms (e.g., numbness, tingling, or weakness). - Avoid head trauma, as this could increase the risk of recurrence of a subdural hemorrhage. - If you experience worsening symptoms, such as increased frequency of fatigue, new numbness, or other neurological changes, please contact our office immediately. A repeat CT scan may be ordered if necessary. - There are no restrictions on your activities, but listen to your body. Rest as needed, especially if you feel fatigued. We discussed your risk of recurrence: - The risk of recurrence is low but highest in the short term following the initial event. Over time, the risk decreases to near-normal levels. - There is no need for routine CT scans unless new symptoms develop. Avoid unnecessary radiation exposure. We discussed your erectile dysfunction medication (tadalafil): - There is no evidence linking tadalafil to an increased risk of brain bleeding. You may resume this medication if needed, but consult your primary care provider or urologist for further guidance on its use. Follow-Up: - You have a follow-up appointment with Dr. Mueller (neurosurgery) on July 02, 2025. Please keep this appointment to continue monitoring your recovery. - If you have any new or concerning symptoms before then, please contact our office. Please let us know if you have any additional questions or concerns. Evgeny Lynne MD 06/10/2025 2:29 PM Signed [facility] Established Visit Consultation is requested by: SELF PCP: Christine Canada (Chuy) [phone] [facility] [address] CEREBROVASCULAR HISTORY Reason for Visit: follow-up and subdural hematoma Date of Last Event: 03/14/2025 History of Event: China Reyna is a 65-year-old male presenting for post hospital follow-up after developing acute on chronic subdural hemorrhage. Ed was admitted on 03/14/2025 for headaches, numbness, and tingling of the left hand, which had been ongoing for a week. Just prior to presentation he developed a slight left facial droop and left arm numbness and paresthesias. CTH at [facility] revealed acute and chronic right subdural hemorrhage. He underwent a right frontoparietal craniotomy and evacuation, which improved his symptoms. Unclear etiology of subdural hemorrhage, he does not recall any traumatic events preceding the episode in the past few years. MRI brain was obtained to rule out signs for amyloid angiopathy, MRI brain showed no evidence of cortical cerebral micro hemorrhages, or T2 changes. He continued to experience recurrent episodes of transient left hand and arm paresthesias and weakness. Continuous EEG monitoring captured events without any epileptiform discharges or seizures, and a repeat CT scan was stable. I evaluated him on 03/18/2025, with episodes diagnosed to be secondary cortical spreading depolarization. They were brief, lasting few minutes, witnessed brief contractures with dystonic posturing and decreased sensation during. Started him on memantine as a trial for anti NMDA effect with animal studies showing potential benefit. He was discharged and reported significant improvement in symptoms during a follow-up in the cerebrovascular clinic on 04/05/2025. He also saw (more content not 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 Normal [facility] 06-07-2025 [facility] Telephone (NSEN) MARIBELLCELESTINO Kristine ([id number]) 1960 M EXC Date Time Provider Department 06/07/25 [facility] During your visit today, we recorded the following information about you: Ronda Pennington RN 06/07/2025 4:12 PM Signed Spoke with pt, due to message received, called pt earlier see message) not answer. Pt had numbness and weakness to left arm , but has not improved, pt is not stating left are feels tired, does not have weakness, is able to use left hand to open jars without difficulty, no other symptoms noted. Pt has OV with Dr Lynne in [place] on 06/09. Asking if pt should have CT prior to OV? Ronda Pennington RN 06/09/2025 9:29 AM Signed Called pt, left message, per Doris Crowley [facility], she will send message to Dr. Joseph and Dr. Lynne to provide them with an update and see if neurosurgery would want any further imaging. Allergies As of Date: 06/07/2025 (No Known Allergies) Date Reviewed: 04/30/2025 Reviewed by: Valerie Parsons MA - Fully Assessed Reason for Visit: Ship Fastener - Other [3602] Prescriptions as of 06/09/2025 - rosuvastatin (CRESTOR) 20 mg tablet Take 20 mg by mouth daily at bedtime. - coenzyme Q10 (COENZYME Q-10) 100 mg cap capsule Take 100 mg by mouth once daily. - cholecalciferol (VITAMIN D) 1,000 unit tab tablet Take 1,000 Units by mouth once daily. - omeprazole 20 mg capsule Take 20 mg by mouth once daily. - Multivitamin capsule Take 1 capsule by mouth once daily. Problem List As Of Date 06/07/2025 Noted Resolved Erectile dysfunction [N52.9] Acid reflux [K21.9] Hypercholesteremia [E78.00] Acute on chronic intracranial subdural hematoma*03/14/2025 SDH (subdural hematoma) (HCC) [S06.5XAA] 03/14/2025 Tingling of left arm and left side of face [R20*03/18/2025 Acute post-operative pain [G89.18] 03/24/2025 Encounter Status:Closed by RONDA PENNINGTON on 06/07/25 [facility] CNOVon 04-30-2025 CNOV Office Visit (NEAGCL M) CELESTINO REYNA ([id number]) 1960 M EXC Date Time Provider Department 04/30/25 2:00 PM KEN JOSEPH [facility] During your visit today, we recorded the following information about you: Pulse Blood pressure Weight Height 71/minute 122/79 80.7 kg 1.803 Ken Walter MD 04/30/2025 2:20 PM Signed NEUROSURGERY POST OP NOTE Dr. Ken Joseph MD, [facility] Date of visit: April 30, 2025 Patient Name: Mr.Edmilson Kristine Reyna Date of : 1960 Current Age: [age] year old MRN/E# [id number] Last Office Visit: 03/30/2025 CHIEF COMPLAINT: Patient presents with: Post Op SURGERY: Right frontoparietal craniotomy for evacuation of acute on chronic and subacute subdural hematoma on 03/14/[address] Joseph. PRE-SURGICAL SYMPTOMS: LUE paresthesias, weakness INCISION: Healed - No signs or symptoms of infection noted. HISTORY OF PRESENT ILLNESS : The patient presents for a 6-week post operative visit with imaging (CT B) for evaluation. This is a 65-year-old male with a PMHx of migraines, hypercholesterolemia, GERD who was seen for consult at [facility] after transfer from an OSH on 03/14/2025. He stated that 1 week prior he developed what he thought was a migraine headache. He was taking Advil with some benefit. He then developed progressive left upper extremity numbness and difficulty with fine motor which prompted his visit to the OSH ED. Workup was completed and showed a large right sided SDH. He was transferred to [facility] for higher acuity care. Once imaging reviewed this appeared to show a chronic SDH for which surgical intervention was indicated. He and his agreed to the procedure and this was completed as noted above. He did well following surgery but had a few episodes of intermittent left-sided face and left hand paresthesia and weakness. Neurology was consulted and he underwent a B EEG which was negative. He was started on amantadine for 30 days. Once medically cleared for discharge recommendation was to follow-up in 2 weeks for a routine postoperative visit and suture removal. He was last seen in the office on 03/30/2025 and reported continued episodes of numbness in the left arm and left upper lip. He denied any headache, visual changes, speech deficits, seizure activity, motor or sensory deficits. Neurologically he was intact on exam without focal deficit. Craniotomy incision was open to air without signs or symptoms of infection noted. Sutures were removed without issue. There was no evidence of subgaleal collection or dehiscence. CT was reviewed and appeared stable. Recommendation was to follow-up in [address] a [address] He was advised to follow-up with cerebrovascular as scheduled. Today he states he is overall doing better. States his left arm is no longer numb. He has some heaviness at times but this is also improving. He presents for image review, evaluation and plan of care. POST-OP MEDICATIONS: Anticonvulsant: Keppra 1000 mg twice daily -completed Dexamethasone: No SURGICAL RISK: Smoker: Never Diabetic: No Anticoagulants / Antiplatelets: No Occupation: [employer] PREVIOUS NEUROSURGERY: None PAST MEDICAL HISTORY Diagnosis Date Acid reflux Erectile dysfunction Hypercholesteremia PAST SURGICAL HISTORY Procedure Laterality Date BRAIN SURGERY HX 03/14/2025 Right frontoparietal craniotomy COLONOSCOPY FLX DX W/COLLJ SPEC WHEN PFRMD Colonoscopy ESOPHAGOGASTRODUODENOSCOPY TRANSORAL DIAGNOSTIC 05/11/2013 EGD PAST SURGICAL HISTORY OF 5yrs old hernia surgery PAST SURGICAL HISTORY OF tubinate, catherization VASECTOMY UNI/BI SPX W/POSTOP SEMEN EXAMS FAMILY HISTORY Problem Relation Age of Onset other (complications parkinsons [Other]) Father ALLERGIES No Known Allergies Current Outpatient Medications Medication Sig Dispense Refill rosuvastatin (CRESTOR) 20 mg tablet Take 20 mg by mouth daily at bedtime. coenzyme Q10 (COENZYME Q-10) 100 mg cap capsule Take 100 mg by mouth once daily. cholecalciferol (VITAMIN D) 1,000 unit tab tablet Take 1,000 Units by mouth once daily. omeprazole 20 mg capsule Take 20 mg by mouth once daily. Multivitamin capsule Take 1 capsule by mouth once daily. No current facility-administered medications for this visit. Review of Systems Constitutional: Negative for chills, diaphoresis (Negative for night sweats.) and fever. HENT: Negative for ear discharge and rhinorrhea. Eyes: Negative for discharge. Respiratory: Negative for cough, shortness of breath and wheezing. Cardiovascular: Negative for chest pain, palpitations and leg swelling. Gastrointestinal: Negative for constipation, diarrhea, nausea and vomiting. Endocrine: Negative for cold intolerance and heat intolerance. Genitourinary: Negative for frequency. Negative for urinary incontinence and urinary retent (more content not 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 Normal [facility] CT BRAIN WO IVCONon 04-30-[address] BRAIN WO IVCON * * *Final Report* * * DATE OF EXAM: Apr 30 2025 1:53PM A1C 0504 - CT BRAIN WO IVCON / PROCEDURE REASON: Nontraumatic subdural hemorrhage (HCC) * * * * Physician Interpretation * * * * EXAMINATION: CT BRAIN WO IVCON CLINICAL HISTORY: Nontraumatic cerebral hemorrhage. TECHNIQUE: Serial axial images without IV contrast were obtained from the vertex to the foramen magnum. MQ: [id number] CT Radiation dose: Integrated Dose-Length Product (DLP) for this visit = 794.52 mGy*cm CT Dose Reduction Employed: No dose reduction techniques were required COMPARISON: 03/30/2025. RESULT: Post-operative change: Postsurgical changes from right-sided craniotomy. Interval decrease in size of right-sided subdural collection, with residual collection measuring 3 mm in thickness. No significant mass effect or midline shift. Acute change: No evidence of an acute infarct or other acute parenchymal process. Hemorrhage: No CT evidence of new intracranial hemorrhage. Mass Lesion / Mass Effect: There is no evidence of an intracranial mass or extraaxial fluid collection. No significant mass effect. Chronic change: Scattered patchy foci of low attenuation are present within the supratentorial white matter, a nonspecific finding that most commonly represents mild small vessel disease. Parenchyma: There is no significant volume loss. Ventricles: The ventricles are within normal limits of size and configuration for age. Paranasal sinuses and skull base: The visualized paranasal sinuses are grossly clear. The skull base and imaged soft tissues are unremarkable. IMPRESSION: Postsurgical changes from right-sided craniotomy. Interval decrease in size of right-sided subdural collection, with residual collection measuring 3 mm in thickness. No significant mass effect or midline shift. No CT evidence of acute cortical infarct. No CT evidence of new intracranial hemorrhage. Chronic changes, as detailed above. [employer] Operator: MILIND Transcribe Date/Time: Apr 30 2025 2:30P Dictated by : SHABANA LOPES MD This examination was interpreted and the report reviewed and electronically signed by: SHABANA LOPES MD on Apr 30 2025 2:36PM EST [id number] Normal [facility] CT Head WO contraston 2024 IMPRESSION: Postsurgical changes from right-sided craniotomy. Interval decrease in size of right-sided subdural collection, with residual collection measuring 3 mm in thickness. No significant mass effect or midline shift. No CT evidence of acute cortical infarct. No CT evidence of new intracranial hemorrhage. Chronic changes, as detailed above. [employer] Dehydr[employer] Operator: [facility] Transcribe Date/Time: Apr 30 2025 2:30P Dictated by : SHABANA LOPES MD This examination was interpreted and the report reviewed and electronically signed by: SHABANA LOPES MD on Apr 30 2025 2:36PM EST [facility] * * *Final Report* * * DATE OF EXAM: Apr 30 2025 1:53PM A1C 0504 - CT BRAIN WO IVCON / PROCEDURE REASON: Nontraumatic subdural hemorrhage (HCC) * * * * Physician Interpretation * * * * EXAMINATION: CT BRAIN WO IVCON CLINICAL HISTORY: Nontraumatic cerebral hemorrhage. TECHNIQUE: Serial axial images without IV contrast were obtained from the vertex to the foramen magnum. MQ: CTBWO_3 CT Radiation dose: Integrated Dose-Length Product (DLP) for this visit = 794.52 mGy*cm CT Dose Reduction Employed: No dose reduction techniques were required COMPARISON: 03/30/2025. RESULT: Post-operative change: Postsurgical changes from right-sided craniotomy. Interval decrease in size of right-sided subdural collection, with residual collection measuring 3 mm in thickness. No significant mass effect or midline shift. Acute change: No evidence of an acute infarct or other acute parenchymal process. Hemorrhage: No CT evidence of new intracranial hemorrhage. Mass Lesion / Mass Effect: There is no evidence of an intracranial mass or extraaxial fluid collection. No significant mass effect. Chronic change: Scattered patchy foci of low attenuation are present within the supratentorial white matter, a nonspecific finding that most commonly represents mild small vessel disease. Parenchyma: There is no significant volume loss. Ventricles: The ventricles are within normal limits of size and configuration for age. Paranasal sinuses and skull base: The visualized paranasal sinuses are grossly clear. The skull base and imaged soft tissues are unremarkable. [facility] Provider, Paige Iris [facility] - 04/30/2025 * * *Final Report* * * DATE OF EXAM: Apr 30 2025 1:53PM A1C 0504 - CT BRAIN WO IVCON / PROCEDURE REASON: Nontraumatic subdural hemorrhage (HCC) * * * * Physician Interpretation * * * * EXAMINATION: CT BRAIN WO IVCON CLINICAL HISTORY: Nontraumatic cerebral hemorrhage. TECHNIQUE: Serial axial images without IV contrast were obtained from the vertex to the foramen magnum. MQ: CTBWO_3 CT Radiation dose: Integrated Dose-Length Product (DLP) for this visit = 794.52 mGy*cm CT Dose Reduction Employed: No dose reduction techniques were required COMPARISON: 03/30/2025. RESULT: Post-operative change: Postsurgical changes from right-sided craniotomy. Interval decrease in size of right-sided subdural collection, with residual collection measuring 3 mm in thickness. No significant mass effect or midline shift. Acute change: No evidence of an acute infarct or other acute parenchymal process. Hemorrhage: No CT evidence of new intracranial hemorrhage. Mass Lesion / Mass Effect: There is no evidence of an intracranial mass or extraaxial fluid collection. No significant mass effect. Chronic change: Scattered patchy foci of low attenuation are present within the supratentorial white matter, a nonspecific finding that most commonly represents mild small vessel disease. Parenchyma: There is no significant volume loss. Ventricles: The ventricles are within normal limits of size and configuration for age. Paranasal sinuses and skull base: The visualized paranasal sinuses are grossly clear. The skull base and imaged soft tissues are unremarkable. IMPRESSION IMPRESSION: Postsurgical changes from right-sided craniotomy. Interval decrease in size of right-sided subdural collection, with residual collection measuring 3 mm in thickness. No significant mass effect or midline shift. No CT evidence of acute cortical infarct. No CT evidence of new intracranial hemorrhage. Chronic changes, as detailed above. [employer] Operator: MILIND Transcribe Date/Time: Apr 30 2025 2:30P Dictated by : SHABANA LOPES MD This examination was interpreted and the report reviewed and electronically signed by: SHABANA LOPES MD on Apr 30 2025 2:36PM EST [facility] Radiology Study observation (narrative) [facility] CT Head WO contrastOrdered B y: [facility] Provider on 04-30-2025 [facility] CNOVon 04-05-2025 CNOV Office Visit (CVAKPO ) CELESTINO REYNA ([id number]) 1960 M EXC Date Time Provider Department 04/05/25 2:00 PM DORIS CROWLEY During your visit today, we recorded the following information about you: Pulse Blood pressure Weight Height 72/minute 121/88 79.8 kg 1.803 m Doris Crowley APRN.N[employer]ER 04/09/2025 2:07 PM Signed [facility] Established Visit PCP: Christine Canada (Chuy) [address] [place] [address] CEREBROVASCULAR HISTORY Celestino Reyna is a 65 year old male who presents for neurologic evaluation following recent hospitalization for acute ischemic stroke (03/14/2025-03/20/2025). Stroke Event Information HOSPITAL COURSE: 03/14 right frontoparietal craniotomy for evacuation acute on chronic and subacute subdural hematoma 03/15: s/p R frontalparietal craniotomy for SDH evacuation with Dr. Joseph yesterday. Reports improved dexterity in LUE, almost back to normal. Minimal headache well controlled with current pain regimen. 03/16: Episode yesterday with recurrence of L hand weakness, worsening dexterity. rCTH obtained, no appreciative change. 20 min EEG negative. Transfer to floor today. 03/18 neurology was consulted ongoing intermittent left sided face and left hand paresthesia and weakness. Memantidine started for 30 days. 03/19 d/c home Interval History: Ed is a 65-year-old male presenting for follow-up after a subdural hematoma and subsequent surgery. He is accompanied by his , who provides additional history. Ed reports that on March 13, while driving home from [place], [place], he experienced sudden numbness and loss of control in his left hand. Initially attributing the symptoms to sleeping awkwardly during a nap, he continued driving. The symptoms resolved spontaneously, and he did not seek immediate medical attention. The following day, March 14, he experienced a recurrence of left hand numbness and weakness, along with numbness in his lip. His noted facial drooping. He presented to the emergency room, where a CT scan revealed a subdural hematoma with both chronic and acute components. He was transferred for surgical intervention, which was performed the same evening. He underwent craniotomy for subdural hematoma evacuation without complications. Postoperatively, he experienced recurrent episodes of left hand and upper lip numbness, as well as slurred speech. These episodes occurred at least twice daily during his hospital stay. Multiple CT scans and an MRI showed no new bleeding. An EEG was performed, which did not capture any seizure activity during the episodes. He was started on memantine during his hospital stay and has been taking it once daily for about a month. Since discharge, the frequency and severity of episodes have decreased. The most significant episode occurred on 's Day, involving slurred speech and left hand numbness. Milder episodes occurred on the following Saturday and . He notes that episodes are more likely when he is tired or stressed. His observes that symptoms improve with rest. He reports ongoing fatigue and tenderness at the surgical site, describing intermittent sharp, needle-like sensations. He has been managing pain with Tylenol but is gradually reducing the dosage. He does not endorse any new neurological symptoms. He has not resumed taking fish oil supplements, which he had been using for cholesterol management, and inquires about restarting them. He also asks about resuming Cialis, which he used occasionally before the surgery, and whether it could have contributed to the stroke. He reports tinnitus and wonders if it is related to Cialis use. Additionally, he has abstained from alcohol and asks when it would be safe to resume moderate consumption. He expresses concern about returning to work, which involves long hours and high stress. He plans to retire in January next year and inquires about the impact of stress on his recovery. He also asks about safe timing for resuming driving and flying, as he has upcoming travel plans. He reports a history of low blood pressure, with recent readings around 115/78 mmHg. He is currently taking Crestor and memantine. He does not endorse any history of head trauma preceding the subdural hematoma, though he recalls a minor incident where a plastic lid fell on his head about a week prior to the initial symptoms. PAST MEDICAL HISTORY Diagnosis Date Acid reflux Erectile dysfunction Hypercholesteremia PAST SURGICAL HISTORY Procedure Laterality Date COLONOSCOPY FLX DX W/COLLJ SPEC WHEN PFRMD Colonoscopy ESOPHAGOGASTRODUODENOSCOPY TRANSORAL DIAGNOSTIC 05/11/2013 EGD PAST SURGICAL HISTORY OF 5yrs old hernia surgery PAST SURGICAL HISTORY OF tubinate, catherization VASECTOMY UNI/BI SPX (more content not 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 Normal [facility] CNOVon 03-30-2025 CNOV Office Visit (NEAGCL M) CELESTINO REYNA ([id number]) 1960 M EXC Date Time Provider Department 03/30/25 2:45 PM KEN JOSEPH NEAGCLM During your visit today, we recorded the following information about you: Pulse Respiration Blood pressure Weight 92/minute 16/minute 106/73 82.8 kg Height 1.803 m Ken Joseph MD 03/30/2025 3:05 PM Signed NEUROSURGERY POST OP NOTE Dr. Ken Joseph MD, FACS Date of visit: March 30, 2025 Patient Name: Mr.Edmilson Kristine Reyna Date of : 1960 Current Age: [age] year old MRN/E# [id number] Last Office Visit: Postop CHIEF COMPLAINT: Patient presents with: Established Patient: C/o intermittent L forearm numbness and L upper lip numbness causing slurring speech SURGERY: Right frontoparietal craniotomy for evacuation of acute on chronic and subacute subdural hematoma on 03/14/[address] Joseph. PRE-SURGICAL SYMPTOMS: LUE paresthesias, weakness INCISION: RESIDENTIAL NURSE with sutures. No signs or symptoms of infection noted. Sutures removed without an issue. HISTORY OF PRESENT ILLNESS : The patient presents for a post operative visit with imaging (CT B) for evaluation. This is a 65-year-old male with a PMHx of migraines, hypercholesterolemia, GERD who was seen for consult at [facility] after transfer from an OSH on 03/14/2025. He stated that 1 week prior he developed what he thought was a migraine headache. He was taking Advil with some benefit. He then developed progressive left upper extremity numbness and difficulty with fine motor which prompted his visit to the OSH ED. Workup was completed and showed a large right sided SDH. He was transferred to [facility] for higher acuity care. Once imaging reviewed this appeared to show a chronic SDH for which surgical intervention was indicated. He and his agreed to the procedure and this was completed as noted above. He did well following surgery but had a few episodes of intermittent left-sided face and left hand paresthesia and weakness. Neurology was consulted and he underwent a B EEG which was negative. He was started on amantadine for 30 days. Once medically cleared for discharge recommendation was to follow-up in 2 weeks for a routine postoperative visit and suture removal. Today he states he continues to have episodes of numbness in the left arm and left upper lip. He denies any headache, visual changes, speech deficits, seizure activity, motor or sensory deficits. He presents for evaluation and plan of care. POST-OP MEDICATIONS: Anticonvulsant: Keppra 1000 mg twice daily -completed Dexamethasone: No SURGICAL RISK: Smoker: Never Diabetic: No Anticoagulants / Antiplatelets: No Occupation: [employer] PREVIOUS NEUROSURGERY: None PAST MEDICAL HISTORY Diagnosis Date Acid reflux Erectile dysfunction Hypercholesteremia PAST SURGICAL HISTORY Procedure Laterality Date COLONOSCOPY FLX DX W/COLLJ SPEC WHEN PFRMD Colonoscopy ESOPHAGOGASTRODUODENOSCOPY TRANSORAL DIAGNOSTIC 05/11/2013 EGD PAST SURGICAL HISTORY OF 5yrs old hernia surgery PAST SURGICAL HISTORY OF tubinate, catherization VASECTOMY UNI/BI SPX W/POSTOP SEMEN EXAMS FAMILY HISTORY Problem Relation Age of Onset other (complications parkinsons [Other]) Father ALLERGIES No Known Allergies Current Outpatient Medications Medication Sig Dispense Refill memantine (NAMENDA) 10 mg tablet Take 1 tablet by mouth once daily for 29 doses. 29 tablet 0 rosuvastatin (CRESTOR) 20 mg tablet Take 20 mg by mouth daily at bedtime. coenzyme Q10 (COENZYME Q-10) 100 mg cap capsule Take 100 mg by mouth once daily. cholecalciferol (VITAMIN D) 1,000 unit tab tablet Take 1,000 Units by mouth once daily. omeprazole 20 mg capsule Take 20 mg by mouth once daily. Multivitamin capsule Take 1 capsule by mouth once daily. No current facility-administered medications for this visit. Review of Systems Constitutional: Negative for chills, diaphoresis (Negative for night sweats.) and fever. HENT: Negative for ear discharge and rhinorrhea. Eyes: Negative for discharge. Respiratory: Negative for cough, shortness of breath and wheezing. Cardiovascular: Negative for chest pain, palpitations and leg swelling. Gastrointestinal: Negative for constipation, diarrhea, nausea and vomiting. Endocrine: Negative for cold intolerance and heat intolerance. Genitourinary: Negative for frequency. Negative for urinary incontinence and urinary retention. Musculoskeletal: Negative for back pain, joint swelling, myalgias and neck pain. Skin: Negative for rash (Negative for hives and skin lesions.). Allergic/Immunologic: Negative for environmental allergies and food allergies. Negative for contact allergy, seasonal allergies. Neurological: Positive for numbness (Negative for numbness in extremities.). Negative for dizziness, seizures, syncope, (more content not 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 Normal [facility] CT BRAIN WO IVCONon 03-30-[address] BRAIN WO IVCON * * *Final Report* * * DATE OF EXAM: Mar 30 2025 2:15PM A1C 0504 - CT BRAIN WO IVCON / PROCEDURE REASON: multiple diagnoses * * * * Physician Interpretation * * * * EXAMINATION: CT BRAIN WO IVCON CLINICAL HISTORY: Follow-up intracranial hemorrhage, postoperative. TECHNIQUE: Serial axial images without IV contrast were obtained from the vertex to the foramen magnum. MQ: CTBWO_3 CT Radiation dose: Integrated Dose-Length Product (DLP) for this visit = 794.52 mGy*cm CT Dose Reduction Employed: No dose reduction techniques were required COMPARISON: MRI brain on 03/19/2025. CT brain on 03/19/2025. RESULT: Post-operative change: Postsurgical changes from right-sided craniotomy. Acute change: Expected evolution of the right-sided extra-axial hemorrhage, with interval decrease in density and size. The residual extra-axial collection measures 5 mm in thickness. Hemorrhage: No CT evidence of new intracranial hemorrhage. Mass Lesion / Mass Effect: Minimal mass effect on the right cerebral convexity, without significant midline shift. Parenchyma: There is no significant volume loss. Ventricles: The ventricles are within normal limits of size and configuration for age. Paranasal sinuses and skull base: The visualized paranasal sinuses are grossly clear. The skull base and imaged soft tissues are unremarkable. IMPRESSION: Expected evolution of the right-sided extra-axial hemorrhage, with interval decrease in density and size, with residual hemorrhage/collection, as detailed above. Mild mass effect on the right cerebral convexity without significant midline shift. No CT evidence of new cortical infarct. No CT evidence of new intracranial hemorrhage. [employer] De[employer] Operator: [facility] Transcribe Date/Time: Mar 31 2025 3:46P Dictated by : SHABANA LOPES MD This examination was interpreted and the report reviewed and electronically signed by: SHABANA LOPES MD on Mar 31 2025 3:54PM EST [id number] Normal [facility] Basic metabolic 2000 panelon 03-20-2025 Anion gap [Moles/Vol] 9 mmol/L Normal 8-15 [facility] Comment on above: Order Comment: Speci men Type: BLOOD SPECIMENOrdering Facility: [facility] Address: [address] [place] [address] Performed By: #### 2 4321-2 ####[facility] LABORATORYCLIA [id number] [place] [address] [place] Calcium [Mass/Vol] 9.6 mg/dL Normal 8.5-10.2 [facility] Comment on above: Order Comment: Speci men Type: BLOOD SPECIMENOrdering Facility: [facility] Address: [address] [id number] Performed By: #### 2 4321-2 ####[facility] LABORATORYCLIA [id number] [address] OF [facility] Chloride [Moles/Vol] 103 mmol/L Normal 98-107 [facility] Comment on above: Order Comment: Speci men Type: BLOOD SPECIMENOrdering Facility: [facility] Address: [address] [place] [address] Performed By: #### 2 4321-2 ####[facility] LABORATORYCLIA [id number] [address] OF [place] CO2 [Moles/Vol] 27 mmol/L Normal 22-30 [facility] Comment on above: Order Comment: Speci men Type: BLOOD SPECIMENOrdering Facility: [facility] Address: [address] [place] [address] Performed By: #### 2 4321-2 ####[facility] LABORATORYIA [id number] [address] OF [facility] Creatinine [Mass/Vol] 0.84 mg/dL Normal 0.73-1.22 [facility] Comment on above: Order Comment: Speci men Type: BLOOD SPECIMENOrdering Facility: [facility] Address: [address] [place] [address] Performed By: #### 2 4321-2 ####[facility] LABORATORYCLIA [id number] [address] Creatinine and Glomerular filtration rate.predicted panel (S/P/Bld) 97 mL/min/1.73m??? Normal >=60 [facility] Comment on above: Order Comment: Speci men Type: BLOOD SPECIMENOrdering Facility: [facility] Address: [address] [place] [address] Result Comment: Nancy mated Glomerular Filtration Rate (eGFR) is calculated using the 2020 CKD-EPI creatinine equation. This equation utilizes serum creatinine, sex, and age as parameters. The creatinine assay has traceable calibration to isotope dilution-mass spectrometry. Refer to KDIGO guidelines for clinical interpretation. In patients with unstable renal function, e.g. those with acute kidney injury, the eGFR may not accurately reflect actual GFR. Performed By: #### 2 4321-2 ####[facility] LABORATORYCLIA [id number] [place] [address] [place] Glucose [Mass/Vol] 96 mg/dL Normal 74-99 [facility] Comment on above: Order Comment: Manju castillo Type: BLOOD SPECIMENOrdering Facility: [facility] Address: [address] [place] [address] Result Comment: The [place] Diabetes Association (ADA) provides guidance for cutoff values for fasting glucose and random glucose. The ADA defines fasting as no caloric intake for at least 8 hours. Fasting plasma glucose results between 100 to 125 mg/dL indicate increased risk for diabetes (prediabetes). Fasting plasma glucose results greater than or equal to 126 mg/dL meet the criteria for diagnosis of diabetes. In the absence of unequivocal hyperglycemia, results should be confirmed by repeat testing. In a patient with classic symptoms of hyperglycemia or hyperglycemic crisis, random plasma glucose results greater than or equal to 200 mg/dL meet the criteria for diagnosis of diabetes. Reference: Standards of Medical Care in Diabetes 2016, [place] [employer]. Diabetes Care. 2016.39(Suppl 1). Performed By: #### 2 4321-2 ####[facility] LABORATORYCLIA [id number] [place] [address] [place] Potassium [Moles/Vol] 4.0 mmol/L Normal 3.7-5.1 [facility] Comment on above: Order Comment: Manju castillo Type: BLOOD SPECIMENOrdering Facility: [facility] Address: [address] [place] [address] Performed By: #### 2 4321-2 ####[facility] LABORATORYCLIA [id number] [place] [address] [place] Sodium [Moles/Vol] 139 mmol/L Normal 136-144 [facility] Comment on above: Order Comment: Manju men Type: BLOOD SPECIMENOrdering Facility: [facility] Address: [address] [place] [address] Performed By: #### 2 4321-2 ####[facility] LABORATORYCLIA [id number] [place] [address] [place] Urea nitrogen [Mass/Vol] 18 mg/dL Normal 9-24 [facility] Comment on above: Order Comment: Speci men Type: BLOOD SPECIMENOrdering Facility: [facility] Address: [address] [place] [address] Performed By: #### 2 4321-2 ####[facility] LABORATORYCLIA [id number] [address] CBC panel Auto (Bld)on 03-20 Erythrocyte distribution width (RBC) [Ratio] 12.6 % Normal 11.5-15.0 [facility] Comment on above: Order Comment: Speci men Type: BLOOD SPECIMENOrdering Facility: [facility] Address: [address] [place] [address] Performed By: #### 5 8410-2 ####[facility] LABORATORYCLIA [id number] [address] Hematocrit (Bld) [Volume fraction] 41.3 % Normal 39.0-51.0 [facility] Comment on above: Order Comment: Speci men Type: BLOOD SPECIMENOrdering Facility: [facility] Address: [address] [place] [address] Performed By: #### 5 8410-2 ####[facility] LABORATORYCLIA [id number] [address] Hemoglobin (Bld) [Mass/Vol] 13.9 g/dL Normal 13.0-17.0 [facility] Comment on above: Order Comment: Speci men Type: BLOOD SPECIMENOrdering Facility: [facility] Address: [address] [place] [address] Performed By: #### 5 8410-2 ####[facility]ORATORYCLIA [id number] [address] [place] [facility] MCH (RBC) [Entitic mass] 29.5 pg Normal 26.0-34.0 [facility] Comment on above: Order Comment: Speci men Type: BLOOD SPECIMENOrdering Facility: [facility] Address: [address] [place] [address] Performed By: #### 5 8410-2 ####[facility]ORATORYCLIA [id number] [address] STATES OF [facility] MCHC (RBC) [Mass/Vol] 33.7 g/dL Normal 30.5-36.0 [facility] Comment on above: Order Comment: Speci men Type: BLOOD SPECIMENOrdering Facility: [facility] Address: [address] [place] [address] Performed By: #### 5 8410-2 ####[facility] LABORATORYCLIA [id number] [address] OF [place] MCV (RBC) [Entitic vol] 87.7 fL Normal 80.0-100.0 [facility] Comment on above: Order Comment: Speci men Type: BLOOD SPECIMENOrdering Facility: [facility] Address: [address] [place] [address] Performed By: #### 5 8410-2 ####[facility] LABORATORYCLIA [id number] [address] STATES [facility] Nucleated RBC (Bld) [#/Vol] 10*3/uL Normal <0.01 [facility] Comment on above: Order Comment: Speci men Type: BLOOD SPECIMENOrdering Facility: [facility] Address: [address] [place] [address] Performed By: #### 5 8410-2 ####[facility] LABORATORYCLIA [id number] [address] STATES OF [place] Platelet mean volume (Bld) [Entitic vol] 8.5 fL Low 9.0-12.7 [facility] Comment on above: Order Comment: Speci men Type: BLOOD SPECIMENOrdering Facility: [facility] Address: [address] [place] [address] Performed By: #### 5 8410-2 ####[facility] LABORATORYCLIA [id number] [address] [place] Platelets (Bld) [#/Vol] 426 10*3/uL High 150-400 [facility] Comment on above: Order Comment: Speci men Type: BLOOD SPECIMENOrdering Facility: [facility] Address: [address] [id number] Performed By: #### 5 8410-2 ####[facility] LABORATORYCLIA [id number] [address] OF [facility] RBC (Bld) [#/Vol] 4.71 10*6/uL Normal 4.20-6.00 [facility] Comment on above: Order Comment: Speci men Type: BLOOD SPECIMENOrdering Facility: [facility] Address: [address] [place] [address] Performed By: #### 5 8410-2 ####[facility] LABORATORYCLIA [id number] [address] WBC (Bld) [#/Vol] 6.31 10*3/uL Normal 3.70-11.00 [facility] Comment on above: Order Comment: Speci men Type: BLOOD SPECIMENOrdering Facility: [facility] Address: [address] [place] [address] Performed By: #### 5 8410-2 ####[facility] LABORATORYCLIA [id number] [address] CNDSon 03-20-2025 CNDS HNO ID: [id number] Author: KEN JOSEPH MD Service: Neurosurgery Author Type: Nurse Practitioner Type: Discharge Summary Filed: 03/21/2025 06:14 Note Text: Attestation signed by Ken Joseph MD at 03/21/2025 6:14 AM I agree with the discharge summary as written by Earline Damian. DISCHARGE SUMMARY PATIENT NAME: Celestino Reyna Code Status: Not on file ADMISSION DATE: 03/14/2025 DISCHARGE DATE: March 20, 2025 Highest Readmission Risk Score: 6 The 30 day readmissions risk score is derived from an internally validated risk model which evaluates patient level characteristics, utilization history, medication orders and lab results up until the day of discharge. Patients with a score of 40 or above are considered highest risk for readmission. Specific patient level drivers will be listed at the bottom of the summary. REASON FOR HOSPITALIZATION: intermittent stroke like symptoms Left hand and facial/tongue numbness; found to have right spontaneous SDH- Dr. Joseph performed right frontoparietal craniotomy for evacuation. DIAGNOSIS: Principal Problem: SDH (subdural hematoma) (HCC) (POA: Yes) Active Problems: Acid reflux (POA: Yes) Hypercholesteremia (POA: Yes) Acute on chronic intracranial subdural hematoma (HCC) (POA: Yes) Tingling of left arm and left side of face (POA: Unknown) Resolved Problems: * No resolved hospital problems. * HOSPITAL COURSE: 03/14 right frontoparietal craniotomy for evacuation acute on chronic and subacute subdural hematoma 03/15: s/p R frontalparietal craniotomy for SDH evacuation with Dr. Joseph yesterday. Reports improved dexterity in LUE, almost back to normal. Minimal headache well controlled with current pain regimen. 03/16: Episode yesterday with recurrence of L hand weakness, worsening dexterity. rCTH obtained, no appreciative change. 20 min EEG negative. Transfer to floor today. 03/18 neurology was consulted ongoing intermittent left sided face and left hand paresthesia and weakness. Memantidine started for 30 days. 5/2 d/c home CONSULTING TEAMS DURING HOSPITALIZATION: Neurology: Dr. Evgeny Lynne PATIENT CONDITION AT DISCHARGE: Stable DISCHARGE DISPOSITION: Home with Self Care Physical Exam Performed: General - Alert, cooperative, appropriate Resp - even, unlabored GI - non-distended HEENT - right side craniotomy incision c/d/I, sutures noted; Normocephalic. Atraumatic. Neck/Back - No midline or paraspinal tenderness. No gross bony deformities. Neuro - A+O x3, PERRL, makes eye contact, speech clear, cranial nerves 2-12 grossly intact, BAILEY, strength 5/5 BUE and BLE and equal. No sensory deficits Extremities- Grossly normal. Symmetrical. No edema, deformity, coloration changes. Pulses- 2+ DP, 2+ radial INFORMATION PROVIDED TO PATIENT: see D/C instructions ALLERGIES No Known Allergies DISCHARGE MEDICATION: Medication List START taking these medications levETIRAcetam 1,000 mg tablet Commonly known as: KEPPRA Take 1 tablet by mouth two times a day for 3 doses. memantine 10 mg tablet Commonly known as: NAMENDA Take 1 tablet by mouth once daily for 29 doses. oxyCODONE IR 5 mg immediate release tablet Commonly known as: ROXICODONE 1 tablet by ORAL/FEEDING TUBE route every 6 hours as needed for up to 5 days. CONTINUE taking these medications coenzyme Q10 100 mg Cap capsule Commonly known as: COENZYME Q-10 FISH OIL ORAL Multivitamin capsule omeprazole 20 mg capsule Commonly known as: PriLOSEC rosuvastatin 20 mg tablet Commonly known as: CRESTOR Vitamin D 1,000 unit Tab tablet Generic drug: cholecalciferol Where to Get Your Medications These medications were sent to [facility] [address] [place] [address] - [address] [place] [address] - [address] [place] [address] [place] [address] levETIRAcetam 1,000 mg tablet memantine 10 mg tablet oxyCODONE IR 5 mg immediate release tablet I evaluated the patient, and have reviewed their diagnosis and clinical course. They were evaluated for non-narcotic pain medications as the sole course of therapy, and were not a candidate. I find the opiate prescribed upon discharge, although greater than a 30 morphine equivalent dose and/or greater than a one week duration, is an appropriate dose for this patient. FUTURE APPOINTMENTS: Future Appointments Date Time Provider Department Center 04/05/2025 2:00 PM Doris Crowley APRN.CNP [facility] [place] [facility] I have performed the [id number] and relevant services for a total of >30 minutes. SIGNATURE: Earline Damian APRN.DEEJAY PAGER/CONTACT #: [phone] DATE: March 20, 2025 TIME: 7:57 AM Normal [facility] HEALTHon 03-19-2025 ALLIED [facility] HNO ID: [id number] Author: JONO SIM RT(R) Service: Radiology Author Type: Technologist Type: Allied Health Filed: 03/19/2025 10:46 Note Text: Radiology Service Progress Note PATIENT NAME: Celestino Reyna DATE OF SERVICE: March 19, 2025 TIME: 10:46 AM PATIENT IDENTITY VERIFICATION COMPLETED USING TWO (2) IDENTIFIERS: Name and Date of confirmed by patient verbally and Name and Date of confirmed by identification band. FALL SCREENING: Has the patient had 2 falls in the last year or 1 fall with injury or currently using an Ambulatory Assistive Device (Walker, Cane, Wheelchair, Crutches, etc.)? Inpatient: Screened on floor PATIENT GENDER DATA: Assigned male at PATIENT RELEVANT IMPLANT DATA REVIEWED: Not Applicable PATIENT PRESENTS WITH AN IMPLANTABLE OR ATTACHED DOG BEHAVIORIST: No RADIOLOGY DEPARTMENT: MR; Exam(s) Completed: Head: Routine Brain. Lavender Administered: No PERIPHERAL IV DATA: Not applicable SIGNED BY: RT Macario(R) March 19, 2025 10:46 AM [facility] HNO ID: [id number] Author: CLOTILDE BASS RT(R) Service: Radiology Author Type: Technologist Type: Allied Health Filed: 03/19/2025 07:23 Note Text: Radiology Service Progress Note DATE OF SERVICE: March 19, 2025 TIME: 7:22 AM PATIENT IDENTITY VERIFICATION COMPLETED USING TWO (2) STANDARD IDENTIFIERS: Name and Date of confirmed by patient verbally and Name and Date of confirmed by identification band. FALL SCREENING: Has the patient had 2 falls in the last year or 1 fall with injury or currently using an Ambulatory Assistive Device (Walker, Cane, Wheelchair, Crutches, etc.)? Inpatient: Screened on floor PATIENT GENDER DATA: Assigned male at PATIENT RELEVANT IMPLANT DATA REVIEWED: Not Applicable PATIENT PRESENTS WITH AN IMPLANTABLE OR ATTACHED DOG BEHAVIORIST: No ALLERGIES: Reviewed and unchanged CONTRAST ALLERGY: NO. EXAM: CT -CONTRAST INDUCED NEPHROPATHY RISK FACTORS: Patient age > 60 years CREATININE: Creatinine Date Value Ref Range Status 03/19/2025 0.89 0.73 - 1.22 mg/dL Final 03/18/2025 0.82 0.73 - 1.22 mg/dL Final 03/16/2025 0.77 0.73 - 1.22 mg/dL Final Estimated Glomerular Filtration Rate Date Value Ref Range Status 03/19/2025 96 >=60 mL/min/1.73m? Final Comment: Estimated Glomerular Filtration Rate (eGFR) is calculated using the 2020 CKD-EPI creatinine equation. This equation utilizes serum creatinine, sex, and age as parameters. The creatinine assay has traceable calibration to isotope dilution-mass spectrometry. Refer to KDIGO guidelines for clinical interpretation. In patients with unstable renal function, e.g. those with acute kidney injury, the eGFR may not accurately reflect actual GFR. P.O.C.T. RESULTS: N/A March 19, 2025 TREATMENT: N/A PERIPHERAL IV DATA: Inpatient - refer to LDA documentation RADIOLOGY DEPARTMENT: CT; Exam(s) Completed: Brain and CTA Brain SIGNATURE: Clotilde Bass RT(R) PATIENT NAME: Celestino Reyna DATE: March 19, 2025 TIME: 7:22 AM Normal [facility] Basic metabolic 2000 panelon 03-19-2025 Anion gap [Moles/Vol] 11 mmol/L Normal 8-15 [facility] Comment on above: Order Comment: Speci men Type: BLOOD SPECIMENOrdering Facility: [facility] Address: [address] [place] [address] Performed By: #### 2 4321-2 ####[facility] LABORATORYCLIA [id number] [place] [address] [place] Calcium [Mass/Vol] 9.4 mg/dL Normal 8.5-10.2 [facility] Comment on above: Order Comment: Speci men Type: BLOOD SPECIMENOrdering Facility: [facility] Address: [address] [place] [address] Performed By: #### 2 4321-2 ####[facility] LABORATORYCLIA [id number] [place] [address] [place] Chloride [Moles/Vol] 103 mmol/L Normal 98-107 [facility] Comment on above: Order Comment: Speci men Type: BLOOD SPECIMENOrdering Facility: [facility] Address: [address] [place] [address] Performed By: #### 2 4321-2 ####[facility] LABORATORYCLIA [id number] [place] [id number] [place] CO2 [Moles/Vol] 24 mmol/L Normal 22-30 [facility] Comment on above: Order Comment: Speci men Type: BLOOD SPECIMENOrdering Facility: [facility] Address: [address] [place] [address] Performed By: #### 2 4321-2 ####[facility] LABORATORYCLIA [id number] [address] [place] Creatinine [Mass/Vol] 0.89 mg/dL Normal 0.73-1.22 [facility] Comment on above: Order Comment: Speci men Type: BLOOD SPECIMENOrdering Facility: [facility] Address: [address] [place] [address] Performed By: #### 2 4321-2 ####[facility] LABORATORYCLIA [id number] [address] Creatinine and Glomerular filtration rate.predicted panel (S/P/Bld) 96 mL/min/1.73m??? Normal >=60 [facility] Comment on above: Order Comment: Speci men Type: BLOOD SPECIMENOrdering Facility: [facility] Address: [address] [place] [address] Result Comment: Nancy mated Glomerular Filtration Rate (eGFR) is calculated using the 2020 CKD-EPI creatinine equation. This equation utilizes serum creatinine, sex, and age as parameters. The creatinine assay has traceable calibration to isotope dilution-mass spectrometry. Refer to KDIGO guidelines for clinical interpretation. In patients with unstable renal function, e.g. those with acute kidney injury, the eGFR may not accurately reflect actual GFR. Performed By: #### 2 4321-2 ####[facility] LABORATORYCLIA [id number] [address] [place] Glucose [Mass/Vol] 107 mg/dL High 74-99 [facility] Comment on above: Order Comment: Speci men Type: BLOOD SPECIMENOrdering Facility: [facility] Address: [address] [place] [address] Result Comment: The [place] Diabetes Association (ADA) provides guidance for cutoff values for fasting glucose and random glucose. The ADA defines fasting as no caloric intake for at least 8 hours. Fasting plasma glucose results between 100 to 125 mg/dL indicate increased risk for diabetes (prediabetes). Fasting plasma glucose results greater than or equal to 126 mg/dL meet the criteria for diagnosis of diabetes. In the absence of unequivocal hyperglycemia, results should be confirmed by repeat testing. In a patient with classic symptoms of hyperglycemia or hyperglycemic crisis, random plasma glucose results greater than or equal to 200 mg/dL meet the criteria for diagnosis of diabetes. Reference: Standards of Medical Care in Diabetes 2016, [place] [employer] Association. Diabetes Care. 2016.39(Suppl 1). Performed By: #### 2 4321-2 ####[facility] LABORATORYCLIA [id number] [place] [address] [place] Potassium [Moles/Vol] 3.9 mmol/L Normal 3.7-5.1 [facility] Comment on above: Order Comment: Speci men Type: BLOOD SPECIMENOrdering Facility: [facility] Address: [address] [place] [address] Performed By: #### 2 4321-2 ####[facility] LABORATORYCLIA [id number] [place] [address] [place] Sodium [Moles/Vol] 138 mmol/L Normal 136-144 [facility] Comment on above: Order Comment: Speci men Type: BLOOD SPECIMENOrdering Facility: [facility] Address: [address] [place] [address] Performed By: #### 2 4321-2 ####[facility] LABORATORYCLIA [id number] [place] [address] [place] Urea nitrogen [Mass/Vol] 22 mg/dL Normal 9-24 [facility] Comment on above: Order Comment: Speci men Type: BLOOD SPECIMENOrdering Facility: [facility] Address: [address] [place] [address] Performed By: #### 2 4321-2 ####[facility] LABORATORYCLIA [id number] [address] CBC panel Auto (Bld)on 03-19 Erythrocyte distribution width (RBC) [Ratio] 12.3 % Normal 11.5-15.0 [facility] Comment on above: Order Comment: Speci men Type: BLOOD SPECIMENOrdering Facility: [facility] Address: [address] [place] [address] Performed By: #### 5 8410-2 ####[facility] LABORATORYCLIA [id number] [address] Hematocrit (Bld) [Volume fraction] 39.5 % Normal 39.0-51.0 [facility] Comment on above: Order Comment: Speci men Type: BLOOD SPECIMENOrdering Facility: [facility] Address: [address] [place] [address] Performed By: #### 5 8410-2 ####[facility] LABORATORYCLIA [id number] [address] Hemoglobin (Bld) [Mass/Vol] 13.3 g/dL Normal 13.0-17.0 [facility] Comment on above: Order Comment: Speci men Type: BLOOD SPECIMENOrdering Facility: [facility] Address: [address] [place] [address] Performed By: #### 5 8410-2 ####[facility] LABORATORYCLIA [id number] [address] MCH (RBC) [Entitic mass] 29.8 pg Normal 26.0-34.0 [facility] Comment on above: Order Comment: Speci men Type: BLOOD SPECIMENOrdering Facility: [facility] Address: [address] [place] [address] Performed By: #### 5 8410-2 ####[facility] LABORATORYCLIA [id number] [address] MCHC (RBC) [Mass/Vol] 33.7 g/dL Normal 30.5-36.0 [facility] Comment on above: Order Comment: Speci men Type: BLOOD SPECIMENOrdering Facility: [facility] Address: [address] [place] [address] Performed By: #### 5 8410-2 ####[facility] LABORATORYCLIA [id number] [address] [place] MCV (RBC) [Entitic vol] 88.6 fL Normal 80.0-100.0 [facility] Comment on above: Order Comment: Speci men Type: BLOOD SPECIMENOrdering Facility: [facility] Address: [address] [place] [address] Performed By: #### 5 8410-2 ####[facility] LABORATORYCLIA [id number] [address] [place] Nucleated RBC (Bld) [#/Vol] 10*3/uL Normal <0.01 [facility] Comment on above: Order Comment: Speci men Type: BLOOD SPECIMENOrdering Facility: [facility] Address: [address] [place] [address] Performed By: #### 5 8410-2 ####[facility] LABORATORYCLIA [id number] [address] [place] Platelet mean volume (Bld) [Entitic vol] 8.7 fL Low 9.0-12.7 [facility] Comment on above: Order Comment: Speci men Type: BLOOD SPECIMENOrdering Facility: [facility] Address: [address] [place] [address] Performed By: #### 5 8410-2 ####[facility] LABORATORYCLIA [id number] [place] [address] [place] Platelets (Bld) [#/Vol] 386 10*3/uL Normal 150-400 [facility] Comment on above: Order Comment: Speci men Type: BLOOD SPECIMENOrdering Facility: [facility] Address: [address] [place] [address] Performed By: #### 5 8410-2 ####[facility]ORATORYCLIA [id number] [place], [place] [id number] [place] [address] OF [facility] RBC (Bld) [#/Vol] 4.46 10*6/uL Normal 4.20-6.00 [facility] Comment on above: Order Comment: Speci men Type: BLOOD SPECIMENOrdering Facility: [facility] Address: [address] [place] [address] Performed By: #### 5 8410-2 ####[facility] LABORATORYCLIA [id number] [address] WBC (Bld) [#/Vol] 6.72 10*3/uL Normal 3.70-11.00 [facility] Comment on above: Order Comment: Speci men Type: BLOOD SPECIMENOrdering Facility: [facility] Address: [address] [place] [address] Performed By: #### 5 8410-2 ####[facility] LABORATORYCLIA [id number] [address] CONSULT PROGon 03-19-2025 CONSULT PROG HNO ID: [id number] Author: ASHANTI MANZANO APRN.NUT PICKER Service: Neurology General Author Type: Nurse Practitioner Type: Consult Progress Note Filed: 03/19/2025 18:27 Note Text: NEUROLOGY CONSULT PROGRESS NOTE SERVICE DATE: 03/19/2025 SERVICE TIME: 1350 Current Attending Provider: Ken Joseph MD Subjective Interval History: Patient resting. NAEON. Testing, diagnosis, medications reviewed with patient and . All questions answered to satisfaction. Celestino is still having transient symptoms. Discussed trial of memantine and he is agreeable. Neurological: No complaint of headache No complaint of diplopia No complaints of blurred vision. No problem with limb coordination No complaint of syncope No complaints of seizures. No complaints of memory changes or disorientation. Objective Physical Examination: Neurological: Alert, oriented x3 Speech clear, fluent BAILEY 5/5 Intact sensation to LT currently New Labs: WBC (k/uL) Date Value 03/19/2025 6.72 03/18/2025 8.17 03/16/2025 9.81 RBC (m/uL) Date Value 03/19/2025 4.46 03/18/2025 5.02 03/16/2025 4.76 Platelet Count (k/uL) Date Value 03/19/2025 386 03/18/2025 335 03/16/2025 312 BUN (mg/dL) Date Value 03/19/2025 22 03/18/2025 18 03/16/2025 14 Creatinine (mg/dL) Date Value 03/19/2025 0.89 03/18/2025 0.82 03/16/2025 0.77 CBC, Coags, BMP, Mg, Phos Recent Labs 03/19/25 0350 03/18/25 0343 NA 138 138 K 3.9 4.0 CHLOR 103 102 CO2 24 26 GLUC 107* 113* CA 9.4 9.9 Liver Function, Amylase, AND Lipase DATA: Diagnostic tests reviewed for today's visit: Most recent labs and imaging results. Impression/Recommendations 65 year old male who was admitted for right subdural hemorrhage. He presented with intermittent left face and hand paresthesias and weakness on 03/14. 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 He continued having episodes of transient left face and hand tingling with left hand weakness post-op. # transient stereotyped paraesthesia and weakness # SDH- unclear etiology ? Spontaneous # cortical spreading depolarization 2/2 SDH ~ these do not correlate with EEG changes ~ MRI B does not show ischemic stroke or evidence of CAA ~ patient would like to trial Memantine 10 mg daily for 30 days> this can be extending if he is benefiting for an additional course ~ follow up with our service 04/05 @ 1:45> discuss if he requires refill of med SIGNATURE: Ashanti Manzano APRN.CNP PATIENT NAME: Celestino Reyna DATE: March 19, 2025 TIME: 1350 Discussed with: patient, Communicated with primary team Neuro team I spent a total of 35 minutes on the date of the service which included preparing to see the patient, [id number]-[id number] patient care, completing clinical documentation, obtaining and/or reviewing separately obtained history, performing a medically appropriate examination, counseling and educating the patient/family/caregiver, communicating results to the patient/family/caregiver, and care coordination. Normal [facility] CTA HEAD WO/W IVCONon 2024 CTA HEAD WO/W IVCON * * *Final Report* * * DATE OF EXAM: Mar 19 2025 7:23AM [facility] 0023 - CTA HEAD WO/W IVCON / PROCEDURE REASON: Subdural hematoma * * * * Physician Interpretation * * * * EXAMINATION: CTA HEAD WO/W IVCON HISTORY: Subdural hematoma TECHNIQUE: Routine CT of the brain without IV contrast. Next, spiral high resolution axial images were obtained through the head following bolus administration of intravenous contrast for CT angiography. 3D maximum intensity projection images were created, reviewed and archived . MQ: CTABPlus_4 Contrast: 100 mL Omnipaque [address] Radiation dose: Integrated Dose-Length Product (DLP) for this visit = 1008 mGy*cm. CT Dose Reduction Employed: Automated exposure control(AEC) and iterative recon COMPARISON: CT head 03/18/2025 RESULT: Acute change: No evidence of an acute infarct Hemorrhage: Again noted is right frontotemporal craniotomy related to right frontal convexity subdural hemorrhage evacuation. Small mixed density subdural hemorrhage over the right frontal convexity is stable. No significant mass effect. Chronic change: None apparent. Parenchyma: There is no significant volume loss for age. The brain parenchyma is otherwise within normal limits for age. Ventricles: The ventricles are within normal limits of size and configuration for age. Other: The visualized paranasal sinuses are grossly clear. The skull and visualized extracranial soft tissues are grossly normal. ARTERIOGRAM: Acute Stroke on CTA: Evaluation of the individual slices of the CTA demonstrates no evidence of an acute stroke. Anterior Circulation: Intracranial ICAs are patent. The ACAs and MCAs are patent. No significant stenosis. No aneurysm. Vertebrobasilar Circulation: The intradural vertebral arteries are patent. The basilar artery is patent. customer expert are patent. SCAs are patent. No significant stenosis. No aneurysm. The major dural sinuses and draining veins are patent. Materials Handling Coordinator (topogram) images: No additional findings. IMPRESSION: Stable small mixed density subdural hemorrhage over the right frontal convexity. Unremarkable intracranial CTA. No Spot sign. Walnut Dehydrator Operator: MILIND Transcribe Date/Time: Mar 19 2025 7:39A Dictated by : ELIZABETH SANCHEZ MD This examination was interpreted and the report reviewed and electronically signed by: ELIZABETH SANCHEZ MD on Mar 19 2025 7:51AM EST [id number] [facility] MRI BRAIN WO IVCONon 025 MRI BRAIN WO IVCON * * *Final Report* * * DATE OF EXAM: Mar 19 2025 10:57AM [place] 0294 - MRI BRAIN WO IVCON / PROCEDURE REASON: Spontaneous SDH * * * * Physician Interpretation * * * * EXAMINATION: MRI BRAIN WO IVCON CLINICAL HISTORY: Spontaneous SDH TECHNIQUE: Routine noncontrast MRI protocol including diffusion images. MQ: MRBWO_2 COMPARISON: CT head 03/19/2025 RESULT: Stable right lateral parietal craniotomy. Acute Change: There is no evidence of restricted diffusion to suggest an acute infarct. Hemorrhage: Stable small subdural hemorrhage over the right cerebral convexity. Adjacent sulcal effacement. No midline shift. Mass Lesion/ Mass Effect: No evidence of an intracranial mass or extra-axial fluid collection. No significant mass effect. Chronic Change: The white matter is within normal limits of signal intensity for age. Parenchyma: No significant volume loss for age. The brain parenchyma is otherwise within normal limits of signal intensity and morphology. Ventricles: Normal caliber and morphology. Skull Base: Hypothalamic and pituitary region are grossly normal. Craniocervical junction is normal. No significant marrow replacement process. Vasculature: Major intracranial arterial structures, and dural venous sinuses show typical flow void, suggesting patency by spin echo criteria. Other: The visualized paranasal sinuses and mastoid air cells are clear. The orbits and extracranial soft tissues are unremarkable. IMPRESSION: Stable small subdural hemorrhage over the right cerebral convexity. Walnut Dehydrator Operator: MILIND Transcribe Date/Time: Mar 19 2025 11:00A Dictated by : ELIZABETH SANCHEZ MD This examination was interpreted and the report reviewed and electronically signed by: ELIZABETH SANCHEZ MD on Mar 19 2025 11:09AM EST [id number] [facility] NURSING PROGon 03-19-2025 NURSING PROG HNO ID: [id number] Author: LUIS TURNER, RN Service: Nursing Author Type: Registered Nurse Type: Nursing Progress Note Filed: 03/19/2025 08:09 Note Text: Upon return from CT, at 0755 pt complained about episode of LUE tingling and left facial numbness starting again. LOADING UNIT TOOL SETTER Janellckkimberly made aware at 0802. [facility] ALLIED HEALTHon 03-18-2025 ALLIED HEALTH HNO ID: [id number] Author: XENIA LANE RT(R) Service: Radiology Author Type: Technologist Type: Allied Health Filed: 03/18/2025 09:08 Note Text: Radiology Service Progress Note PATIENT NAME: Celestino Reyna DATE OF SERVICE: March 18, 2025 TIME: 9:07 AM PATIENT IDENTITY VERIFICATION COMPLETED USING TWO (2) IDENTIFIERS: Name and Date of confirmed by patient verbally and Name and Date of confirmed by identification band. FALL SCREENING: Has the patient had 2 falls in the last year or 1 fall with injury or currently using an Ambulatory Assistive Device (Walker, Cane, Wheelchair, Crutches, etc.)? Inpatient: Screened on floor PATIENT GENDER DATA: Assigned male at PATIENT RELEVANT IMPLANT DATA REVIEWED: Not Applicable PATIENT PRESENTS WITH AN IMPLANTABLE OR ATTACHED DOG BEHAVIORIST: No RADIOLOGY DEPARTMENT: CT; Exam(s) Completed: Brain PERIPHERAL IV DATA: Not applicable SIGNED BY: RT Oksana(R) March 18, 2025 9:07 AM [facility] Basic metabolic 2000 panelon 03-18-2025 Anion gap [Moles/Vol] 10 mmol/L Normal 8-15 [facility] Comment on above: Order Comment: Speci men Type: BLOOD SPECIMENOrdering Facility: [facility] Address: [address] [place] [address] Performed By: #### 2 4321-2 ####[facility] LABORATORYCLIA [id number] [place] [address] [place] Calcium [Mass/Vol] 9.9 mg/dL Normal 8.5-10.2 [facility] Comment on above: Order Comment: Speci men Type: BLOOD SPECIMENOrdering Facility: [facility] Address: [address] [place] [address] Performed By: #### 2 4321-2 ####[facility] LABORATORYCLIA [id number] [place] [address] [place] Chloride [Moles/Vol] 102 mmol/L Normal 98-107 [facility] Comment on above: Order Comment: Speci men Type: BLOOD SPECIMENOrdering Facility: [facility] Address: [address] [place] [address] Performed By: #### 2 4321-2 ####[facility] LABORATORYCLIA [id number] [address] [place] CO2 [Moles/Vol] 26 mmol/L Normal 22-30 [facility] Comment on above: Order Comment: Speci men Type: BLOOD SPECIMENOrdering Facility: [facility] Address: [address] [place] [address] Performed By: #### 2 4321-2 ####[facility] [id number] [address] STATES OF [facility] Creatinine [Mass/Vol] 0.82 mg/dL Normal 0.73-1.22 [facility] Comment on above: Order Comment: Speci men Type: BLOOD SPECIMENOrdering Facility: [facility] Address: [address] [place] [address] Performed By: #### 2 4321-2 ####[facility] LABORATORYCLIA [id number] [address] Creatinine and Glomerular filtration rate.predicted panel (S/P/Bld) 98 mL/min/1.73m??? Normal >=60 [facility] Comment on above: Order Comment: Speci men Type: BLOOD SPECIMENOrdering Facility: [facility] Address: [address] [place] [address] Result Comment: Nancy mated Glomerular Filtration Rate (eGFR) is calculated using the 2020 CKD-EPI creatinine equation. This equation utilizes serum creatinine, sex, and age as parameters. The creatinine assay has traceable calibration to isotope dilution-mass spectrometry. Refer to KDIGO guidelines for clinical interpretation. In patients with unstable renal function, e.g. those with acute kidney injury, the eGFR may not accurately reflect actual GFR. Performed By: #### 2 4321-2 ####[facility] LABORATORYCLIA [id number] [address] STATES OF [facility] Glucose [Mass/Vol] 113 mg/dL High 74-99 [facility] Comment on above: Order Comment: Speci men Type: BLOOD SPECIMENOrdering Facility: [facility] Address: [address] [place] [address] Result Comment: The [place] Diabetes Association (ADA) provides guidance for cutoff values for fasting glucose and random glucose. The ADA defines fasting as no caloric intake for at least 8 hours. Fasting plasma glucose results between 100 to 125 mg/dL indicate increased risk for diabetes (prediabetes). Fasting plasma glucose results greater than or equal to 126 mg/dL meet the criteria for diagnosis of diabetes. In the absence of unequivocal hyperglycemia, results should be confirmed by repeat testing. In a patient with classic symptoms of hyperglycemia or hyperglycemic crisis, random plasma glucose results greater than or equal to 200 mg/dL meet the criteria for diagnosis of diabetes. Reference: Standards of Medical Care in Diabetes 2016, [place] [employer]. Diabetes Care. 2016.39(Suppl 1). Performed By: #### 2 4321-2 ####[facility] LABORATORYCLIA [id number] [place] [address] [place] Potassium [Moles/Vol] 4.0 mmol/L Normal 3.7-5.1 [facility] Comment on above: Order Comment: Haleighi men Type: BLOOD SPECIMENOrdering Facility: [facility] Address: [address] [place] [address] Performed By: #### 2 4321-2 ####[facility] LABORATORYCLIA [id number] [place] [address] [place] Sodium [Moles/Vol] 138 mmol/L Normal 136-144 [facility] Comment on above: Order Comment: Speci men Type: BLOOD SPECIMENOrdering Facility: [facility] Address: [address] [id number] Performed By: #### 2 4321-2 ####[facility] LABORATORYCLIA [id number] [place] [address] [place] Urea nitrogen [Mass/Vol] 18 mg/dL Normal 9-24 [facility] Comment on above: Order Comment: Speci men Type: BLOOD SPECIMENOrdering Facility: [facility] Address: [address] [place] [address] Performed By: #### 2 4321-2 ####[facility] LABORATORYCLIA [id number] [address] CBC panel Auto (Bld)on 03-18 Erythrocyte distribution width (RBC) [Ratio] 12.5 % Normal 11.5-15.0 [facility] Comment on above: Order Comment: Speci men Type: BLOOD SPECIMENOrdering Facility: [facility] Address: [address] [place] [address] Performed By: #### 5 8410-2 ####[facility] LABORATORYCLIA [id number] [address] Hematocrit (Bld) [Volume fraction] 44.4 % Normal 39.0-51.0 [facility] Comment on above: Order Comment: Speci men Type: BLOOD SPECIMENOrdering Facility: [facility] Address: [address] [place] [address] Performed By: #### 5 8410-2 ####[facility] LABORATORYCLIA [id number] [address] Hemoglobin (Bld) [Mass/Vol] 14.6 g/dL Normal 13.0-17.0 [facility] Comment on above: Order Comment: Speci men Type: BLOOD SPECIMENOrdering Facility: [facility] Address: [address] [place] [address] Performed By: #### 5 8410-2 ####[facility] LABORATORYCLIA [id number] [address] STATES [facility] MCH (RBC) [Entitic mass] 29.1 pg Normal 26.0-34.0 [facility] Comment on above: Order Comment: Speci men Type: BLOOD SPECIMENOrdering Facility: [facility] Address: [address] [place] [address] Performed By: #### 5 8410-2 ####[facility] LABORATORYCLIA [id number] [address] [place] MCHC (RBC) [Mass/Vol] 32.9 g/dL Normal 30.5-36.0 [facility] Comment on above: Order Comment: Speci men Type: BLOOD SPECIMENOrdering Facility: [facility] Address: [address] [place] [address] Performed By: #### 5 8410-2 ####[facility] LABORATORYCLIA [id number] [address] STATES [facility] MCV (RBC) [Entitic vol] 88.4 fL Normal 80.0-100.0 [facility] Comment on above: Order Comment: Speci men Type: BLOOD SPECIMENOrdering Facility: [facility] Address: [address] [place] [address] Performed By: #### 5 8410-2 ####[facility] LABORATORYCLIA [id number] [address] STATES OF [facility] Nucleated RBC (Bld) [#/Vol] 10*3/uL Normal <0.01 [facility] Comment on above: Order Comment: Speci men Type: BLOOD SPECIMENOrdering Facility: [facility] Address: [address] [place] [address] Performed By: #### 5 8410-2 ####[facility] LABORATORYCLIA [id number] [address] [place] Platelet mean volume (Bld) [Entitic vol] 9.0 fL Normal 9.0-12.7 [facility] Comment on above: Order Comment: Speci men Type: BLOOD SPECIMENOrdering Facility: [facility] Address: [address] [place] [address] Performed By: #### 5 8410-2 ####[facility]ORATORYCLIA [id number] [address] [place] Platelets (Bld) [#/Vol] 335 10*3/uL Normal 150-400 [facility] Comment on above: Order Comment: Speci men Type: BLOOD SPECIMENOrdering Facility: [facility] Address: [address] [place] [address] Performed By: #### 5 8410-2 ####[facility] LABORATORYCLIA [id number] [place] [address] [place] [facility] RBC (Bld) [#/Vol] 5.02 10*6/uL Normal 4.20-6.00 [facility] Comment on above: Order Comment: Speccricket men Type: BLOOD SPECIMENOrdering Facility: [facility] Address: [address] [place] [address] Performed By: #### 5 8410-2 ####[facility]ORATORYCLIA [id number] [address] WBC (Bld) [#/Vol] 8.17 10*3/uL Normal 3.70-11.00 [facility] Comment on above: Order Comment: Speccrikcet castillo Type: BLOOD SPECIMENOrdering Facility: [facility] Address: [address] [place] [address] Performed By: #### 5 8410-2 ####[facility]ORATORYCLIA [id number] [address] CONSULTon 03-18-2025 CONSULT HNO ID: [id number] Author: SARAH JUAREZ DO Service: Neurology General Author Type: Resident Type: Consults Filed: 03/18/2025 15:04 Note Text: Attestation signed by Evgeny Lynne MD at 03/18/2025 4:33 PM Attending Note I evaluated the patient and personally participated in the parham components. I agree with the resident's findings and plan as documented and have discussed the case and management of the patient's care with the resident. China Reyna is a 65 year old male who was admitted for right subdural hemorrhage. He presented with intermittent left face and hand paresthesias and weakness on 03/14. 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 He continued having episodes of transient left face and hand tingling with left hand weakness. He had an episode yesterday that lasted 15 minutes. He was placed on continuous EEG monitoring, of note he is on Keppra for seizure prophylaxis. Exam with normal with no focal weakness, did have an episode while in the room of left hand and forearm tingling sensation, when reviewing the EEG in the room did not see a correlate, pending EEG read. Time was 11:40-45 am. Assessment: Symptoms are consistent with cortical spreading depolarization secondary to subdural hemorrhage, they are improving in intensity and may expect them to continue to improve. There is some evidence for use of ketamine as an NMDA inhibitor and use of memantine in these situations. Given that he notes that he does not recall any trauma and that the subdural could be spontaneous with get an MRI to rule out cerebral amyloid related changes. Plan: - MRI w/o given hx of possible spontaneous SDH - Discontinue cvEEG - Continue keppra as prophylaxis, no indication for extermination supervisor use as episodes are not consistent with focal seizures - If episodes persist can consider trial of memantine use. Signature: Evgeny Lynne MD Date: 03/18/2025 Time: 4:26 PM NEUROLOGY CONSULT SERVICE INITIAL CONSULT NOTE REASON FOR CONSULT: L facial and arm weakness HPI: Celestino Reyna is a 65 year old White male with history of GERD, HLD who is admitted for subdural hematoma. Patient presented on 03/14 for ongoing intermittent left-sided face and hand paresthesia and weakness. On CT imaging he was found to have a subdural hematoma on the right side with some evidence of compression with new and old blood noted on CT and was admitted to the NSICU and underwent craniotomy with decompression of his subdural hematoma. Following craniotomy, he remained in the ICU however was transferred yesterday. Following his surgery he had residual left-sided facial and arm weakness and neurology was subsequently consulted. He states that these episodes are very similar to what he had prior to admission and notes that they have been happening once daily for the last 4 days. He states yesterday it was the longest that 15 minutes and primary team was notified and started on continuous EEG. At the time of visit, he did not have any of the symptoms and has had no associated dizziness, lightheadedness, nausea, vomiting or vision changes. Objective: BP 126/79 Pulse 83 Temp 36.7 ?C (98 ?F) (Oral) Resp 18 Ht 180.3 cm (5' 11) Wt 83.9 kg (185 lb) SpO2 96% BMI 25.80 kg/m? NEUROLOGICAL EXAM: Mental Status: Alert, oriented to person, place and time and Follows commands. Cranial Nerves: CNII: Visual acuity normal, Visual girard full to confrontation, No APD noted on exam CNIII, IV, : Pupils equal, round and reactive to light, full extraoccular movements, without nystagmus CN V: Facial sensation intact bilaterally to fine touch CN VII: Facial muscles symmetric and strong, No noted facial droop CN VIII: Hears finger rub well bilaterally CN IX: Gag Reflex Not examined CN X: Palate elevates symmetrically CN XI: Full strength shoulder shrug bilaterally CN XII: Tongue protrusion full and midline Motor: muscle strength 5/5 both upper and lower extremities, no drift, normal tone Sensation: intact. Coordination: Finger-to- nose-finger intact bilaterally and Oeuk-st-ewht intact bilaterally. DATA: LABS: Reviewed in [facility] Recent Lab Values No lab values to display. IMAGING: CT: IMPRESSION: 1. No significant change compared to 03/17/2025 CT brain. Status post right sided craniotomy for subdural evacuation with small residual right cerebral convexity subdural hemorrhage. Slight mass effect. No midline shift. MEDS: Current Facility-Administered Medications Medication Dose Route Frequency Provider Last Rate Last Admin levETIRAcetam 1,000 mg tab(s) (KEPPRA) 1,000 mg ORAL BID Pretty Capellan PA-C 1,000 mg at 03/18/[address] 20 mg tab(s) (PROTONIX) (more content not 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 [facility] CT BRAIN WO IVCONon 03-18-20 CT BRAIN WO IVCON * * *Final Report* * * DATE OF EXAM: Mar 18 2025 9:06AM [facility] 0504 - CT BRAIN WO IVCON / PROCEDURE REASON: Subdural hematoma * * * * Physician Interpretation * * * * EXAMINATION: CT BRAIN WITHOUT IV CONTRAST CLINICAL HISTORY: Subdural hematoma. TECHNIQUE: Serial axial images without IV contrast were obtained from the vertex to the foramen magnum. MQ: CTBWO_3 CT Radiation dose: Integrated Dose-Length Product (DLP) for this visit = 805 mGy*cm CT Dose Reduction Employed: Automated exposure control(AEC) and iterative recon COMPARISON: CT brain 03/17/2025. RESULT: Localizer images: Numerous EEG leads Post-operative change: Prior right-sided craniotomy for subdural evacuation. Acute change: No evidence of an acute infarct or other acute parenchymal process. Hemorrhage: There is a small subdural collection along the right cerebral convexity most pronounced in the frontal and parietal regions that does not appear significantly changed in size. No evidence of new intracranial hemorrhage. ECASS hemorrhagic transformation score: Not Applicable Mass Lesion / Mass Effect: There is mild mass effect on the right cerebral convexity that appears stable. There is no significant midline shift. Chronic change: None apparent. Parenchyma: There is no significant volume loss. Ventricles: The ventricles are within normal limits of size and configuration for age. Paranasal sinuses and skull base: The visualized paranasal sinuses are grossly clear. The skull base and imaged soft tissues are unremarkable. IMPRESSION: 1. No significant change compared to 03/17/2025 CT brain. Status post right sided craniotomy for subdural evacuation with small residual right cerebral convexity subdural hemorrhage. Slight mass effect. No midline shift. Walnut Dehydrator Operator: PSCB Transcribe Date/Time: Mar 18 2025 10:27A Dictated by : DIMITRI SON MD This examination was interpreted and the report reviewed and electronically signed by: DIMITRI SON MD on Mar 18 2025 10:51AM EST [id number] [facility] NURSING PROGon 03-18-2025 NURSING PROG HNO ID: [id number] Author: LUIS TURNER, RN Service: Nursing Author Type: Registered Nurse Type: Nursing Progress Note Filed: 03/18/2025 16:43 Note Text: Oneail PA made aware that at 1630 pt started having another episode of LUE numbness and tingling. This RN's assessment was unremarkable and unchanged from the previous assessment. [facility] THERAPY NTon 03-18-2025 THERAPY NT HNO ID: [id number] Author: KRISTEN TREJO PTA Service: Physical Therapy Author Type: Physician Neonatology Type: Therapy (PT/OT/Speech/Resp) Filed: 03/18/2025 16:23 Note Text: Attestation signed by Matt John, PT at 03/18/2025 4:31 PM I reviewed and agree with the assessment as documented above. SIGNATURE: Matt John, PT DATE: March 18, 2025 TIME: 4:31 PM Physical Therapy Treatment Summary SERVICE DATE: 03/18/2025 SERVICE TIME: 1530 to 1545 ROOM: [id number]- PT 6 Clicks Score: 24 DISCHARGE RECOMMENDATIONS Home Recommended Discharge Disposition Comments: Patient able to ambulate with in hallways , patient at baseline . Anticipated Discharge Needs: Supervision at Home Physical Assist at Home for: Transportation Recommended Discharge Equipment: No equipment needs anticipated ASSESSMENT Response to Therapy Interventions: Good Participation in Activities Patient was pleasant and coopertive , patient able to ambulate without AD with steady ambulation without LOB . Patient progressing towards goals for Home , patient and patient's family have a good understanding of proper mobility . Patient demo's safe and proper mobility for safe discharge home. Discontinue PT at this time due to no skilled needs are needed. PRECAUTIONS Fall Risk CURRENT HOSPITAL COURSE SDH acute on chronic; POD 1 R frontoparietal craniotomy for evacuation. Relevant Past Medical History: chronic SDH, hypercholeteremia, acid reflux, HOME LIVING Patient Lives With: Spouse Assistance Available: 24-Hour Entry To Home: Stairs Number Of Stairs Into Home: 4 Number Of Stairs To Bed/Bath: 0 Tub/Shower Type: walk in shower Laundry: 1st floor Equipment Owned: (none) PRIOR FUNCTIONAL LEVEL Within Functional Limits independent, active, drove, no AD SUBJECTIVE Patient willing to participate THERAPY DIAGNOSIS Reduced mobility-other TREATMENT INTERVENTIONS Therapeutic Activity (55400) Treatment Minutes: 5 $ Therapeutic Activity (07784) Billed Units: 0 units Gait Training (45087) Treatment Minutes: 10 $ Gait Training (24336) Billed Units: 1 unit Gait Training (80359), Therapeutic Activity (06938) Timed Code Treatment (minutes): 15 Skilled Treatment Time (minutes): 15 TRAINING AND EDUCATION PROVIDED Benefits of In-Hospital Mobility, Bed Mobility, Transfers, Stair Navigation, Standing Balance, Sitting Balance, Role of Physical Therapy, Positioning THERAPEUTIC SKILLS USED Movement Facilitation, Cues for Sequencing/Proper Technique for Activity, Cuing Verbal FUNCTIONAL STATUS Bed Mobility Supine To Sit: Supervision Sit to Supine: Supervision Transfers Sit To Stand: Supervision Cues for proper technique Stand To Sit: Supervision Cues for proper technique Bed to Chair Supervision Bed To Chair Transfer Type: Stepping Bed To Chair Transfer Equipment: Gait Belt Gait Supervision, Additional Information Cues for upright posture , patient able to ambulate with normal gait pattern . Gait Device: None Gait Distance (feet): 200 feet x 2 Stairs Stand By Assistance, Additional Information Stairs Device: Rail Number of Stairs: 8 cues for proper gait sequence and hand placement GOALS Patient will demonstrate progress with functional mobility to allow safe discharge to home with available support and/or physical assistance. Transfer Sit to/from Stand with: Independent Ambulate with: Independent Distance: 800' Device: No Device Ambulate Up and Down Steps with: Independent Number of Steps: 4 Device: Rail Transfer: Independent Rehab Potential: Good Progress Toward Goals: Progressing as expected PLAN PT Frequency: Discontinue Therapy Services Reasons Therapy Services Discontinued: No skilled needs Treatment Interventions: Education, Strengthening, Functional Mobility Training, Balance Training SIGNATURE: Kristen Trejo PTA PATIENT NAME: Celestino Renya DATE: March 18, 2025 TIME: 4:13 PM [facility] THERAPY NT HNO ID: [id number] Author: TAYLOR ULLOA CCC-TIRE REBUILDER Service: Speech/Swallow Author Type: Speech Language Pathologist Type: Therapy (PT/OT/Speech/Resp) Filed: 03/18/2025 11:07 Note Text: Speech Therapy Speech Evaluation SERVICE DATE: 03/18/2025 SERVICE TIME: 1015 to 1030 ROOM: [place] [address] IMPRESSION Functional communication without limitations in: Speech, Language, Cognition Speech Rehab Potential: Good Response to Therapy Interventions: Good participation in activities, Receptive family/caregivers DISCHARGE RECOMMENDATIONS Recommended Discharge Disposition: Home CURRENT HOSPITAL COURSE Patient admitted on 03/14 for SDH. 03/14 CT brain: acute on chronic subdural hematoma. 03/14 Right Crani. 03/15 CT brain: Postsurgical changes from right-sided craniotomy. Reason for Speech Therapy Consult: SDH: assess speech/cognition Relevant Past Medical History: Acid reflux HOME ENVIRONMENT / PRIOR FUNCTIONAL LEVEL Prior Functional Level: Within Functional Limits Patient Lives With: Spouse Assistance Available: PRN Prior Swallowing Function/Diet Textures: Regular Consistency, Thin Liquids IDDSI Level 0 SUBJECTIVE Patient alert and able to participate in therapy. Family present. [place] accent. THERAPY DIAGNOSIS No Skilled Need TREATMENT INTERVENTIONS $ Speech Language Eval (95695) Billed Units: 1 unit Speech Language Eval (75898) Skilled Treatment Time (minutes): 15 TRAINING AND EDUCATION PROVIDED IN Cognitive Linguistic Strategies, Expressive Language Skills, Motor Speech Skills THERAPEUTIC SKILLS USED Verbal cuing, Discharge planning, Education on role of discipline / importance of activity OBJECTIVE Current Status Oral Hygiene: Clear, moist oral cavity Dentition: Retains Natural Dentition Current Feeding Method: Oral Current Diet Textures: Regular Consistency, Thin Liquids IDDSI Level 0 Current Level Of Communication: Verbal Current Management Of Secretions: Able to expectorate adequately Oral Motor Exam: Within Functional Limits COGNITION Cognitive Status: Within Functional Limits For Current Session The Cognitive Log (Cog-Log) is designed to be a quick quantitative measure of cognition status for use at the bedside with rehabilitation inpatients. It is intended for individuals who have achieved consistent accurate orientation, such as measured by the Orientation Log (O-Log). The Cog-Log can be used to document cognitive progress on a daily basis. All items are scored from 0 to 3 for a total possible score of 30. 3 = correct spontaneous response 2 = correct upon logical cueing (e.g., That was yesterday, so today must be...) 1 = correct upon multiple choice or phonemic cueing 0 = incorrect despite cueing, inappropriate response, or unable to respond Stimulus Response/Score Date 01/18 Time 01/18 Name of Hospital 01/18 Repeat Address 01/18 20-1 01/18 Months Reversed 01/18 30 Seconds 01/18 Pqin-Pbbe-Stbd 01/18 Go/No-Go 01/18 Address Recall 01/18 Total SPEECH/VOICE/LANGUAGE Speech Production: Within Functional Limits Voice Assessment: No Expressive and Receptive Language: Within Functional Limits Fluency: No - Patient in bed upon arrival, alert and able to participate in therapy - Assessed speech, language, and cognitive skills: - Reading/writing: WFL - Insight: Good - Pragmatics: Normal - No further speech therapy indicated at this time - Will discharge from speech therapy at this point Patient /Caregiver Goals: Go Home PLAN ST Frequency: Discontinue Therapy Services Reasons Inpatient Therapy Services Discontinued: Patient appears safe and appropriate re: communication, cognition, and swallow function with the ability to return to a baseline level of function Plan of Care Developed with: Patient, Family, Physician Commercial Driver'S License Driver SIGNATURE: Taylor Ulloa CCC-TIRE REBUILDER PATIENT NAME: Celestino Reyna DATE: March 18, 2025 TIME: 11:06 AM Normal [facility] ALLIED HEALTHon 03-17-2025 ALLIED HEALTH HNO ID: [id number] Author: MICHELLE PACKER Tech Service: ? Author Type: Technologist Type: Allied Health Filed: 03/17/2025 13:09 Note Text: Radiology Service Progress Note PATIENT NAME: Celestino Reyna DATE OF SERVICE: March 17, 2025 TIME: 1:08 PM PATIENT IDENTITY VERIFICATION COMPLETED USING TWO (2) IDENTIFIERS: Name and Date of confirmed by patient verbally and Name and Date of confirmed by identification band. FALL SCREENING: Has the patient had 2 falls in the last year or 1 fall with injury or currently using an Ambulatory Assistive Device (Walker, Cane, Wheelchair, Crutches, etc.)? Inpatient: Screened on floor PATIENT GENDER DATA: Assigned male at PATIENT RELEVANT IMPLANT DATA REVIEWED: Yes PATIENT PRESENTS WITH AN IMPLANTABLE OR ATTACHED DOG BEHAVIORIST: No RADIOLOGY DEPARTMENT: CT; Exam(s) Completed: Brain PERIPHERAL IV DATA: Inpatient: see LDA documentation SIGNED BY: Cindy Caballero March 17, 2025 1:08 PM Normal [facility] ANES POSTPROC EVALon 025 ANES POSTPROC EVAL HNO ID: [id number] Author: JONO ACEVEDO DO Service: Anesthesiology Author Type: Physician Type: Anesthesia Postprocedure Evaluation Filed: 03/17/2025 10:55 Note Text: POST ANESTHESIA EVALUATION NOTE : 1960 Procedure Summary Date: 03/14/25 [place] Anesthesia Start: 1844 Anesthesia Stop: 2224 Procedure: CRANIOTOMY FOR EVACUATION OF SUPRATENTORIAL SUBDURAL HEMATOMA (Right: Head) Diagnosis: SDH (subdural hematoma) (HCC) (SDH (subdural hematoma) (HCC) [S06.5XAA]) Surgeons: Ken Joseph MD Responsible Provider: Jono Acevedo DO Anesthesia Type: general ASA Status: 2 Anesthesia Type: general Airway Type: ETT Last Vitals Vitals Value Taken Time BP 128/90 03/17/25 0724 Temp 36.8 ?C (98.2 ?F) 03/17/25 0723 Pulse 89 03/17/25 0724 Resp 18 03/17/25 0723 SpO2 91 % 03/17/25 0724 Post Anesthesia Patient Status Patient Evaluation: ICU. PACU/ICU Patient Condition: stable. Anticipated Disposition: ICU planned admission. Neurological Status: sleepy but arousable. Pulmonary Status: breathing comfortably on supplemental oxygen Airway Control: returned to baseline unsupported. Cardiovascular Status: stable. Pain Management: clinically adequate Postoperative Hydration: acceptable. Intraoperative Events: no significant anesthesia events Post Operative Nausea/Vomiting Status: no significant post operative nausea or vomiting Recommendation: further care per PACU/ICU/floor team. Anesthesia Observations No Documentation SIGNATURE: Jono Acevedo DO PATIENT NAME: Celestino Reyna DATE: March 17, 2025 TIME: 10:55 AM CSN: [id number] Normal [facility] CT BRAIN WO IVCONon 03-17-20 CT BRAIN WO IVCON * * *Final Report* * * DATE OF EXAM: Mar 17 2025 1:09PM [facility] 0504 - CT BRAIN WO IVCON / PROCEDURE REASON: Subdural hematoma * * * * Physician Interpretation * * * * EXAMINATION: CT BRAIN WO IVCON CLINICAL HISTORY: Subdural hematoma, follow-up TECHNIQUE: Serial axial images without IV contrast were obtained from the vertex to the foramen magnum. MQ: CTBWO_3 CT Radiation dose: Integrated Dose-Length Product (DLP) for this visit = 757 mGy*cm CT Dose Reduction Employed: Automated exposure control(AEC) and iterative recon COMPARISON: CT head 03/15/2025 RESULT: Localizer images: No additional findings. Post-operative change: Right lateral parietal craniotomy related to right cerebral subdural hematoma evacuation is again seen. Mixed density subdural hemorrhage is stable in size measuring approximately 4 mm in thickness. There is mild new layering hyperdense component in the subdural hemorrhage (2:22). Stable sulcal effacement in the right frontal lobe. Acute change: No evidence of an acute infarct Chronic change: None apparent. Parenchyma: There is no significant volume loss for age. The brain parenchyma is otherwise within normal limits for age. Ventricles: Ventricular enlargement concordant with the degree of parenchymal volume loss. Paranasal sinuses and skull base: The visualized paranasal sinuses are grossly clear. Right temporal scalp edema and gas. IMPRESSION: Again noted is right cerebral subdural hematoma evacuation. Mixed density subdural hematoma is overall stable in size with mild acute component since 03/15/2025. Walnut Dehydrator Operator: MILIND Transcribe Date/Time: Mar 17 2025 1:13P Dictated by : ELIZABETH SANCHEZ MD This examination was interpreted and the report reviewed and electronically signed by: ELIZABETH SANCHEZ MD on Mar 17 2025 1:20PM EST [id number] Normal [facility] NURSING PROGon 03-17-2025 NURSING PROG HNO ID: [id number] Author: HUSSAIN ZAMBRANO, RICKI Service: Nursing Author Type: Registered Nurse Type: Nursing Progress Note Filed: 03/17/2025 11:25 Note Text: Other: 1115: pt complaining of swelling on right side of face. Neuro surg paged regarding matter Normal [facility] Basic metabolic 2000 panelon 03-16-2025 Anion gap [Moles/Vol] 13 mmol/L Normal 8-15 [facility] Comment on above: Order Comment: Speci men Type: BLOOD SPECIMENOrdering Facility: [facility] Address: [address] [place] [address] Performed By: #### 2 4321-2 ####[facility] GENERAL LABORATORYCLIA [id number] [place] [address] [place] Calcium [Mass/Vol] 9.2 mg/dL Normal 8.5-10.2 [facility] Comment on above: Order Comment: Speci men Type: BLOOD SPECIMENOrdering Facility: [facility] Address: [address] [place] [address] Performed By: #### 2 4321-2 ####[facility] LABORATORYCLIA [id number] [place] [address] [place] Chloride [Moles/Vol] 103 mmol/L Normal 98-107 [facility] Comment on above: Order Comment: Speci men Type: BLOOD SPECIMENOrdering Facility: [facility] Address: [address] [place] [address] Performed By: #### 2 4321-2 ####[facility] LABORATORYCLIA [id number] [address] [place] CO2 [Moles/Vol] 23 mmol/L Normal 22-30 [facility] Comment on above: Order Comment: Speci men Type: BLOOD SPECIMENOrdering Facility: [facility] Address: [address] [place] [address] Performed By: #### 2 4321-2 ####[facility]ORATORYCLIA [id number] [place] [address] [place] Creatinine [Mass/Vol] 0.77 mg/dL Normal 0.73-1.22 [facility] Comment on above: Order Comment: Speci men Type: BLOOD SPECIMENOrdering Facility: [facility] Address: [address] [place] [address] Performed By: #### 2 4321-2 ####[facility] GENER[facility] LABORATORYCLIA [id number] [place] [address] [place] Creatinine and Glomerular filtration rate.predicted panel (S/P/Bld) 100 mL/min/1.73m??? Normal >=60 [facility] Comment on above: Order Comment: Manju castillo Type: BLOOD SPECIMENOrdering Facility: [facility] Address: [address] [place] [address] Result Comment: Nancy mated Glomerular Filtration Rate (eGFR) is calculated using the 2020 CKD-EPI creatinine equation. This equation utilizes serum creatinine, sex, and age as parameters. The creatinine assay has traceable calibration to isotope dilution-mass spectrometry. Refer to KDIGO guidelines for clinical interpretation. In patients with unstable renal function, e.g. those with acute kidney injury, the eGFR may not accurately reflect actual GFR. Performed By: #### 2 4321-2 ####[facility] LABORATORYCLIA [id number] [place] [address] [place] Glucose [Mass/Vol] 118 mg/dL High 74-99 [facility] Comment on above: Order Comment: Manju castillo Type: BLOOD SPECIMENOrdering Facility: [facility] Address: [address] [place] [address] Result Comment: The [place] Diabetes Association (ADA) provides guidance for cutoff values for fasting glucose and random glucose. The ADA defines fasting as no caloric intake for at least 8 hours. Fasting plasma glucose results between 100 to 125 mg/dL indicate increased risk for diabetes (prediabetes). Fasting plasma glucose results greater than or equal to 126 mg/dL meet the criteria for diagnosis of diabetes. In the absence of unequivocal hyperglycemia, results should be confirmed by repeat testing. In a patient with classic symptoms of hyperglycemia or hyperglycemic crisis, random plasma glucose results greater than or equal to 200 mg/dL meet the criteria for diagnosis of diabetes. Reference: Standards of Medical Care in Diabetes 2016, [place] [employer] Association. Diabetes Care. 2016.39(Suppl 1). Performed By: #### 2 4321-2 ####[facility] LABORATORYCLIA [id number] [place] [id number] [place] Potassium [Moles/Vol] 4.0 mmol/L Normal 3.7-5.1 [facility] Comment on above: Order Comment: Speci men Type: BLOOD SPECIMENOrdering Facility: [facility] Address: [address] [place] [address] Performed By: #### 2 4321-2 ####[facility] LABORATORYCLIA [id number] [address] STATES [facility] Sodium [Moles/Vol] 139 mmol/L Normal 136-144 [facility] Comment on above: Order Comment: Speci men Type: BLOOD SPECIMENOrdering Facility: [facility] Address: [address] [place] [address] Performed By: #### 2 4321-2 ####[facility] LABORATORYCLIA [id number] [address] STATES OF [facility] Urea nitrogen [Mass/Vol] 14 mg/dL Normal 9-24 [facility] Comment on above: Order Comment: Speci men Type: BLOOD SPECIMENOrdering Facility: [facility] Address: [address] [place] [address] Performed By: #### 2 4321-2 ####[facility] LABORATORYCLIA [id number] [address] [place] [facility] CBC W Auto Differential pane l (Bld)on 03-16-2025 Basophils (Bld) [#/Vol] 0.05 10*3/uL Normal <0.11 [facility] Comment on above: Order Comment: Speci men Type: BLOOD SPECIMENOrdering Facility: [facility] Address: [address] [place] [address] Performed By: #### 5 7021-8 ####[facility] LABORATORYCLIA [id number] [address] [place] [facility] Basophils/100 WBC (Bld) 0.5 % Normal [facility] Comment on above: Order Comment: Speci men Type: BLOOD SPECIMENOrdering Facility: [facility] Address: [address] [place] [address] Performed By: #### 5 7021-8 ####[facility] LABORATORYCLIA [id number] [address] Differential cell count method Nom (Bld) Auto Normal [facility] Comment on above: Order Comment: Speci men Type: BLOOD SPECIMENOrdering Facility: [facility] Address: [address] [place] [address] Performed By: #### 5 7021-8 ####[facility] LABORATORYCLIA [id number] [address] Eosinophils (Bld) [#/Vol] 0.09 10*3/uL Normal <0.46 [facility] Comment on above: Order Comment: Speci men Type: BLOOD SPECIMENOrdering Facility: [facility] Address: [address] [place] [address] Performed By: #### 5 7021-8 ####[facility] LABORATORYCLIA [id number] [address] Eosinophils/100 WBC (Bld) 0.9 % Normal [facility] Comment on above: Order Comment: Speci men Type: BLOOD SPECIMENOrdering Facility: [facility] Address: [address] [place] [address] Performed By: #### 5 7021-8 ####[facility] LABORATORYCLIA [id number] [address] Erythrocyte distribution width (RBC) [Ratio] 12.8 % Normal 11.5-15.0 [facility] Comment on above: Order Comment: Speci men Type: BLOOD SPECIMENOrdering Facility: [facility] Address: [address] [place] [address] Performed By: #### 5 7021-8 ####[facility] LABORATORYCLIA [id number] [address] Hematocrit (Bld) [Volume fraction] 40.9 % Normal 39.0-51.0 [facility] Comment on above: Order Comment: Speci men Type: BLOOD SPECIMENOrdering Facility: [facility] Address: [address] [place] [address] Performed By: #### 5 7021-8 ####[facility] LABORATORYCLIA [id number] [place] [address] [place] Hemoglobin (Bld) [Mass/Vol] 14.1 g/dL Normal 13.0-17.0 [facility] Comment on above: Order Comment: Speci men Type: BLOOD SPECIMENOrdering Facility: [facility] Address: [address] [place] [address] Performed By: #### 5 7021-8 ####[facility] LABORATORYCLIA [id number] [place] [address] [place] Immature granulocytes (Bld) [#/Vol] 0.04 10*3/uL Normal <0.10 [facility] Comment on above: Order Comment: Speci men Type: BLOOD SPECIMENOrdering Facility: [facility] Address: [address] [place] [address] Performed By: #### 5 7021-8 ####[facility] LABORATORYCLIA [id number] [address] [place] Immature granulocytes/100 WBC (Bld) 0.4 % Normal [facility] Comment on above: Order Comment: Speci men Type: BLOOD SPECIMENOrdering Facility: [facility] Address: [address] [place] [address] Performed By: #### 5 7021-8 ####[facility] LABORATORYCLIA [id number] [place] [address] [place] Lymphocytes (Bld) [#/Vol] 1.26 10*3/uL Normal 1.00-4.00 [facility] Comment on above: Order Comment: Speci men Type: BLOOD SPECIMENOrdering Facility: [facility] Address: [address] [place] [address] Performed By: #### 5 7021-8 ####[facility] LABORATORYCLIA [id number] [address] [place] Lymphocytes/100 WBC (Bld) 12.8 % Normal [facility] Comment on above: Order Comment: Speci men Type: BLOOD SPECIMENOrdering Facility: [facility] Address: [address] [place] [address] Performed By: #### 5 7021-8 ####[facility] LABORATORYCLIA [id number] [address] [place] [facility] MCH (RBC) [Entitic mass] 29.6 pg Normal 26.0-34.0 [facility] Comment on above: Order Comment: Speci men Type: BLOOD SPECIMENOrdering Facility: [facility] Address: [address] [place] [address] Performed By: #### 5 7021-8 ####[facility] LABORATORYCLIA [id number] [address] [place] MCHC (RBC) [Mass/Vol] 34.5 g/dL Normal 30.5-36.0 [facility] Comment on above: Order Comment: Speci men Type: BLOOD SPECIMENOrdering Facility: [facility] Address: [address] [place] [address] Performed By: #### 5 7021-8 ####[facility] LABORATORYCLIA [id number] [address] [place] [facility] MCV (RBC) [Entitic vol] 85.9 fL Normal 80.0-100.0 [facility] Comment on above: Order Comment: Speci men Type: BLOOD SPECIMENOrdering Facility: [facility] Address: [address] [place] [address] Performed By: #### 5 7021-8 ####[facility] LABORATORYCLIA [id number] [address] [place] Monocytes (Bld) [#/Vol] 0.97 10*3/uL High <0.87 [facility] Comment on above: Order Comment: Speci men Type: BLOOD SPECIMENOrdering Facility: [facility] Address: [address] [place] [address] Performed By: #### 5 7021-8 ####[facility] LABORATORYCLIA [id number] [address] Monocytes/100 WBC (Bld) 9.9 % Normal [facility] Comment on above: Order Comment: Speci men Type: BLOOD SPECIMENOrdering Facility: [facility] Address: [address] [place] [address] Performed By: #### 5 7021-8 ####[facility] LABORATORYCLIA [id number] [address] [place] Neutrophils (Bld) [#/Vol] 7.40 10*3/uL Normal 1.45-7.50 [facility] Comment on above: Order Comment: Speci men Type: BLOOD SPECIMENOrdering Facility: [facility] Address: [address] [place] [address] Performed By: #### 5 7021-8 ####[facility] LABORATORYCLIA [id number] [address] Neutrophils/100 WBC (Bld) 75.5 % Normal [facility] Comment on above: Order Comment: Speci men Type: BLOOD SPECIMENOrdering Facility: [facility] Address: [address] [place] [address] Performed By: #### 5 7021-8 ####[facility] LABORATORYCLIA [id number] [address] [place] Nucleated RBC (Bld) [#/Vol] 10*3/uL Normal <0.01 [facility] Comment on above: Order Comment: Speci men Type: BLOOD SPECIMENOrdering Facility: [facility] Address: [address] [place] [address] Performed By: #### 5 7021-8 ####[facility] LABORATORYCLIA [id number] [address] [place] Nucleated RBC/100 WBC (Bld) [Ratio] 0.0 /100 WBC Normal [facility] Comment on above: Order Comment: Speci men Type: BLOOD SPECIMENOrdering Facility: [facility] Address: [address] [place] [address] Performed By: #### 5 7021-8 ####[facility] LABORATORYCLIA [id number] [address] [place] Platelet mean volume (Bld) [Entitic vol] 8.6 fL Low 9.0-12.7 [facility] Comment on above: Order Comment: Speci men Type: BLOOD SPECIMENOrdering Facility: [facility] Address: [address] [place] [address] Performed By: #### 5 7021-8 ####[facility] LABORATORYCLIA [id number] [address] OF [facility] Platelets (Bld) [#/Vol] 312 10*3/uL Normal 150-400 [facility] Comment on above: Order Comment: Speci men Type: BLOOD SPECIMENOrdering Facility: [facility] Address: [address] [place] [address] Performed By: #### 5 7021-8 ####[facility] LABORATORYCLIA [id number] [address] RBC (Bld) [#/Vol] 4.76 10*6/uL Normal 4.20-6.00 [facility] Comment on above: Order Comment: Speci men Type: BLOOD SPECIMENOrdering Facility: [facility] Address: [address] [place] [address] Performed By: #### 5 7021-8 ####[facility] LABORATORYCLIA [id number] [address] WBC (Bld) [#/Vol] 9.81 10*3/uL Normal 3.70-11.00 [facility] Comment on above: Order Comment: Speci men Type: BLOOD SPECIMENOrdering Facility: [facility] Address: [address] [place] [address] Performed By: #### 5 7021-8 ####[facility] LABORATORYCLIA [id number] [address] THERAPY NTon 03-16-2025 THERAPY NT HNO ID: [id number] Author: JORJE GREEN OTR/[place] Service: Occupational Therapy Author Type: Occupational Therapist Type: Therapy (PT/OT/Speech/Resp) Filed: 03/16/2025 15:37 Note Text: Occupational Therapy Evaluation Summary SERVICE DATE: 03/16/2025 SERVICE TIME: 1330 to 1355 ROOM: [id number] OT 6 Clicks Score: 22 DISCHARGE RECOMMENDATIONS Home Recommended Discharge Disposition Comments: Pt appears to be functioning close to baseline at this time. Recommending home with assist as needed for transportation until cleared by surgeon. Anticipated Discharge Needs: Physical Assist at Home Physical Assist at Home for: Transportation Recommended Discharge Equipment: Shower Chair ASSESSMENT Response to Therapy Interventions: Good Participation in Activities Mr. Reyna was seen today for an occupational therapy evaluation. Facilitated the [facility] cog assessment with patient to establish acute cog baseline. Pt scored a 29/30 demonstrating no acute cog deficits (this does not diagnosis, rather screens. At this time, pt appears to be functioning close to baseline. Recommending home at dc. OT will sign off at this time with no further acute skilled needs. PRECAUTIONS Fall Risk CURRENT HOSPITAL COURSE SDH acute on chronic; POD 1 R frontoparietal craniotomy for evacuation. Relevant Past Medical History: chronic SDH, hypercholeteremia, acid reflux, HOME LIVING Patient Lives With: Spouse Assistance Available: 24-Hour Entry To Home: Stairs Number Of Stairs Into Home: 4 Number Of Stairs To Bed/Bath: 0 Tub/Shower Type: walk in shower Laundry: 1st floor Equipment Owned: (none) PRIOR FUNCTIONAL LEVEL Within Functional Limits independent, active, drove, no AD Baseline Cognition: Oriented to self, Oriented to place, Oriented to time, Oriented to situation SUBJECTIVE Pt pleasant and agreeable to OT session COGNITION Orientation Deficits: (AxOx3) Responsiveness: Awake, Alert Follows Commands: 3-step Commands SLUMS Total Score ( ): 29 (03/16/25) Facilitated completion of [facility] Mental Examination (UMS) to screen performance with orientation, memory, attention, and executive functioning. The screen is scored out of 30 points with the cut off levels for dementia or mild cognitive impairment determined by highest level of education. A score of 25-30 (for individuals with below high school education) or 26-30 (for individuals with above high school education) indicates normal cognitive functioning. A score of 20-24 (for individuals with below high school education) or 21-26 (for individuals with above high school education) indicates mild cognitive impairment. A score of 1-19 (for individuals with below high school education) or 1-20 (for individuals with above high school education) indicates dementia. Based on results (), patient demonstrates no deficits in orientation, min deficits in short term memory, no deficits in functional math, no deficits in attention, no deficits in visual-spatial skills, and no deficits in working memory. THERAPY DIAGNOSIS Reduced mobility-other, General symptoms and signs-other TREATMENT INTERVENTIONS Evaluation, Therapeutic Activity (18939) Timed Code Treatment (minutes): 10 Skilled Treatment Time (minutes): 25 TRAINING AND EDUCATION PROVIDED Activity Adaptation/Compensatory Strategies, Adaptive Equipment/DME, Benefits of In-Hospital Mobility, Cognitive Skills, Delirium Reduction Techniques, Coping Skills/Resiliency, Environmental Modification, Expected Functional Level, Grooming Tasks, Functional Mobility Involving ADLs, Insight into Deficits, Orientation, Role of Occupational Therapy, Sitting Balance to Improve [place] with ADLs/Self-Care, Standing Balance to Improve [place] with ADLs/Self-Care, Transfer - Sit to Stand THERAPEUTIC SKILLS USED Activity Dosing, Assessment of Tolerance Including Vitals Response to Activity, Cues for Sequencing/Proper Technique for Activity, Cuing Verbal, Therapeutic Use of Self FUNCTIONAL STATUS Activities of Daily Living Assist Level Additional Information Feeding Independent Grooming Independent Bathing Upper Body Stand By Assistance Bathing Lower Body Contact Guard Assistance Education on use of shower chair for fall prevention and energy conservation at home. Recommended using a shower cap to cover incision until cleared by surgeon. Dressing Upper Body Stand By Assistance Dressing Lower Body Contact Guard Assistance Facilitated education to pt on lower body dressing techniques to maximize ease, independence, and safety with ADL. Provided demonstration on figure-4 lower body dressing technique to maximize ease with dressing and prevention of fall, lightheadedness, or dizziness. Pt provided good carryover. Toileting Independent Mobility Assist Level Additional Information Bed Mobility Supine To Sit: Stand By Assistance Sit To Supine (more content not 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 Normal [facility] ALLIED HEALTHon 03-15-2025 ALLIED HEALTH HNO ID: [id number] Author: LEANNA IBARRA Tech Service: ? Author Type: Technologist Type: Allied Health Filed: 03/15/2025 11:28 Note Text: Radiology Service Progress Note PATIENT NAME: Celestino Reyna DATE OF SERVICE: March 15, 2025 TIME: 11:28 AM PATIENT IDENTITY VERIFICATION COMPLETED USING TWO (2) IDENTIFIERS: Name and Date of confirmed by patient verbally and Name and Date of confirmed by identification band. FALL SCREENING: Has the patient had 2 falls in the last year or 1 fall with injury or currently using an Ambulatory Assistive Device (Walker, Cane, Wheelchair, Crutches, etc.)? Inpatient: Screened on floor PATIENT GENDER DATA: Assigned male at PATIENT RELEVANT IMPLANT DATA REVIEWED: Not Applicable PATIENT PRESENTS WITH AN IMPLANTABLE OR ATTACHED DOG BEHAVIORIST: No RADIOLOGY DEPARTMENT: CT; Exam(s) Completed: Brain PERIPHERAL IV DATA: Not applicable SIGNED BY: Cindy Zambrano March 15, 2025 11:28 AM Normal [facility] ALLIED HEALTH HNO ID: [id number] Author: SHAHEEN CEDILLO RT(R) Service: Radiology Author Type: Technologist Type: Allied Health Filed: 03/15/2025 00:15 Note Text: Radiology Service Progress Note PATIENT NAME: Celestino Reyna DATE OF SERVICE: March 15, 2025 TIME: 12:15 AM PATIENT IDENTITY VERIFICATION COMPLETED USING TWO (2) IDENTIFIERS: Name and Date of confirmed by patient verbally and Name and Date of confirmed by identification band. FALL SCREENING: Has the patient had 2 falls in the last year or 1 fall with injury or currently using an Ambulatory Assistive Device (Walker, Cane, Wheelchair, Crutches, etc.)? Inpatient: Screened on floor PATIENT GENDER DATA: Assigned male at PATIENT RELEVANT IMPLANT DATA REVIEWED: Not Applicable PATIENT PRESENTS WITH AN IMPLANTABLE OR ATTACHED DOG BEHAVIORIST: No RADIOLOGY DEPARTMENT: CT; Exam(s) Completed: Brain PERIPHERAL IV DATA: Not applicable SIGNED BY: RT Sundeep(R) March 15, 2025 12:15 AM Normal [facility] Basic metabolic 2000 panelon 03-15-2025 Anion gap [Moles/Vol] 9 mmol/L Normal 8-15 [facility] Comment on above: Order Comment: Speci men Type: BLOOD SPECIMENOrdering Facility: [facility] Address: [address] [place] [address] Performed By: #### 2 4321-2, 58581-8, 92660-9, 2777-1 ####[facility] LABORATORYCLIA [id number] [place] [address] [place] Calcium [Mass/Vol] 8.7 mg/dL Normal 8.5-10.2 [facility] Comment on above: Order Comment: Speci men Type: BLOOD SPECIMENOrdering Facility: [facility] Address: [address] [place] [address] Performed By: #### 2 4321-2, 31058-7, 98242-3, 2776- ####[facility] LABORATORYCLIA [id number] [place] [address] [place] Chloride [Moles/Vol] 102 mmol/L Normal 98-107 [facility] Comment on above: Order Comment: Speci men Type: BLOOD SPECIMENOrdering Facility: [facility] Address: [address] [place] [address] Performed By: #### 2 4321-2, , 52618-0, 277- ####[facility] [id number] [address] STATES OF [facility] CO2 [Moles/Vol] 25 mmol/L Normal 22-30 [facility] Comment on above: Order Comment: Speci men Type: BLOOD SPECIMENOrdering Facility: [facility] Address: [address] [place] [address] Performed By: #### 2 4321-2, , 65887-8, 27705-18 ####[facility] LABORATORYCLIA [id number] [address] STATES [facility] Creatinine [Mass/Vol] 0.79 mg/dL Normal 0.73-1.22 [facility] Comment on above: Order Comment: Speci men Type: BLOOD SPECIMENOrdering Facility: [facility] Address: [address] [place] [address] Performed By: #### 2 4321-2, 78519-7, 30593-1, 2777-1 ####[facility]ORATORYCLIA [id number] [address] Creatinine and Glomerular filtration rate.predicted panel (S/P/Bld) 99 mL/min/1.73m??? Normal >=60 [facility] Comment on above: Order Comment: Speci men Type: BLOOD SPECIMENOrdering Facility: [facility] Address: [address] [place] [address] Result Comment: Nancy mated Glomerular Filtration Rate (eGFR) is calculated using the 2020 CKD-EPI creatinine equation. This equation utilizes serum creatinine, sex, and age as parameters. The creatinine assay has traceable calibration to isotope dilution-mass spectrometry. Refer to KDIGO guidelines for clinical interpretation. In patients with unstable renal function, e.g. those with acute kidney injury, the eGFR may not accurately reflect actual GFR. Performed By: #### 2 4321-2, 37692-1, 97441-1, 2777-1 ####[facility]CL[facility] [id number] [place] [address] [place] Glucose [Mass/Vol] 114 mg/dL High 74-99 [facility] Comment on above: Order Comment: Speci men Type: BLOOD SPECIMENOrdering Facility: [facility] Address: [address] [place] [address] Result Comment: The [place] [employer] (ADA) provides guidance for cutoff values for fasting glucose and random glucose. The ADA defines fasting as no caloric intake for at least 8 hours. Fasting plasma glucose results between 100 to 125 mg/dL indicate increased risk for diabetes (prediabetes). Fasting plasma glucose results greater than or equal to 126 mg/dL meet the criteria for diagnosis of diabetes. In the absence of unequivocal hyperglycemia, results should be confirmed by repeat testing. In a patient with classic symptoms of hyperglycemia or hyperglycemic crisis, random plasma glucose results greater than or equal to 200 mg/dL meet the criteria for diagnosis of diabetes. Reference: Standards of Medical Care in Diabetes 2016, [place] [employer]. Diabetes Care. 2016.39(Suppl 1). Performed By: #### 2 4321-2, 33478-4, 68961-3, 2777-1 ####[facility] LABORATORYCLIA [id number] [place] [address] [place] Potassium [Moles/Vol] 3.8 mmol/L Normal 3.7-5.1 [facility] Comment on above: Order Comment: Speci men Type: BLOOD SPECIMENOrdering Facility: [facility] Address: [address] [place] [id number] Performed By: #### 2 4321-2, 08105-0, 17873-2, 2777-1 ####[facility]ORATORYCLIA [id number] [address] STATES [place] [facility] Sodium [Moles/Vol] 136 mmol/L Normal 136-144 [facility] Comment on above: Order Comment: Speci men Type: BLOOD SPECIMENOrdering Facility: [facility] Address: [address] [place] [address] Performed By: #### 2 4321-2, 23449-6, 91119-1, 2777-1 ####[facility]ORATORYCLIA [id number] [address] [place] Urea nitrogen [Mass/Vol] 15 mg/dL Normal 9-24 [facility] Comment on above: Order Comment: Speci men Type: BLOOD SPECIMENOrdering Facility: [facility] Address: [address] [place] [address] Performed By: #### 2 4321-2, 54385-5, 46264-9, 2777-1 ####[facility]ORATORYCLIA [id number] [address] [place] [facility] CBC panel Auto (Bld)on 03-15 Erythrocyte distribution width (RBC) [Ratio] 12.8 % Normal 11.5-15.0 [facility] Comment on above: Order Comment: Speci men Type: BLOOD SPECIMENOrdering Facility: [facility] Address: [address] [place] [address] Performed By: #### 5 8410-2 ####[facility]ORATORYCLIA [id number] [address] Hematocrit (Bld) [Volume fraction] 39.8 % Normal 39.0-51.0 [facility] Comment on above: Order Comment: Speci men Type: BLOOD SPECIMENOrdering Facility: [facility] Address: [address] [place] [address] Performed By: #### 5 8410-2 ####[facility]ORATORYCLIA [id number] [address] Hemoglobin (Bld) [Mass/Vol] 13.4 g/dL Normal 13.0-17.0 [facility] Comment on above: Order Comment: Speci men Type: BLOOD SPECIMENOrdering Facility: [facility] Address: [address] [place] [address] Performed By: #### 5 8410-2 ####[facility]ORATORYCLIA [id number] [address] MCH (RBC) [Entitic mass] 29.8 pg Normal 26.0-34.0 [facility] Comment on above: Order Comment: Speci men Type: BLOOD SPECIMENOrdering Facility: [facility] Address: [address] [place] [address] Performed By: #### 5 8410-2 ####[facility]ORATORYCLIA [id number] [address] STATES [facility] MCHC (RBC) [Mass/Vol] 33.7 g/dL Normal 30.5-36.0 [facility] Comment on above: Order Comment: Speci men Type: BLOOD SPECIMENOrdering Facility: [facility] Address: [address] [place] [address] Performed By: #### 5 8410-2 ####[facility]ORATORYCLIA [id number] [address] OF [facility] MCV (RBC) [Entitic vol] 88.6 fL Normal 80.0-100.0 [facility] Comment on above: Order Comment: Speci men Type: BLOOD SPECIMENOrdering Facility: [facility] Address: [address] [place] [address] Performed By: #### 5 8410-2 ####[facility]ORATORYCLIA [id number] [address] Nucleated RBC (Bld) [#/Vol] 10*3/uL Normal <0.01 [facility] Comment on above: Order Comment: Speci men Type: BLOOD SPECIMENOrdering Facility: [facility] Address: [address] [place] [address] Performed By: #### 5 8410-2 ####[facility]ORATORYCLIA [id number] [address] [place] Platelet mean volume (Bld) [Entitic vol] 8.7 fL Low 9.0-12.7 [facility] Comment on above: Order Comment: Speci men Type: BLOOD SPECIMENOrdering Facility: [facility] Address: [address] [place] [address] Performed By: #### 5 8410-2 ####[facility]ORATORYCLIA [id number] [address] [place] Platelets (Bld) [#/Vol] 306 10*3/uL Normal 150-400 [facility] Comment on above: Order Comment: Speci men Type: BLOOD SPECIMENOrdering Facility: [facility] Address: [address] [place] [address] Performed By: #### 5 8410-2 ####[facility]ORATORYCLIA [id number] [address] [place] RBC (Bld) [#/Vol] 4.49 10*6/uL Normal 4.20-6.00 [facility] Comment on above: Order Comment: Speci men Type: BLOOD SPECIMENOrdering Facility: [facility] Address: [address] [place] [address] Performed By: #### 5 8410-2 ####[facility]ORATORYCLIA [id number] [place] [address] [place] WBC (Bld) [#/Vol] 8.52 10*3/uL Normal 3.70-11.00 [facility] Comment on above: Order Comment: Speci men Type: BLOOD SPECIMENOrdering Facility: [facility] Address: [address] [place] [address] Performed By: #### 5 8410-2 ####[facility]ORATORYCLIA [id number] [address] [place] [address] BRAIN WO IVCONon 03-15-[address] BRAIN WO IVCON * * *Final Report* * * DATE OF EXAM: Mar 15 2025 11:30AM [facility] 0504 - CT BRAIN WO IVCON / PROCEDURE REASON: Subdural hematoma * * * * Physician Interpretation * * * * EXAMINATION: CT BRAIN WO IVCON CLINICAL HISTORY: Subdural hematoma, recent surgery. TECHNIQUE: Serial axial images without IV contrast were obtained from the vertex to the foramen magnum. MQ: CTBWO_3 CT Radiation dose: Integrated Dose-Length Product (DLP) for this visit = 768 mGy*cm CT Dose Reduction Employed: Iterative recon COMPARISON: 03/15/2025 at 12:22 AM. RESULT: Post-operative change: Status post right-sided craniotomy. Extracranial drain is present. Soft tissue gas within scalp, likely postsurgical. Acute change: No CT evidence of large acute cortical infarct. Hemorrhage: No appreciable change in mixed density extra-axial hemorrhage along right cerebral convexity measuring up to 10 mm in maximal thickness. Mild mass effect on right cerebral convexity. Minimal 2 mm midline shift to the left appears unchanged. Parenchyma: There is no significant volume loss. Ventricles: The ventricles are within normal limits of size and configuration for age. Paranasal sinuses and skull base: The visualized paranasal sinuses are grossly clear. The skull base and imaged soft tissues are unremarkable. IMPRESSION: Postsurgical changes from right-sided craniotomy. No appreciable change in mixed density extra-axial hemorrhage along right cerebral convexity measuring up to 10 mm in maximal thickness. Mild mass effect on right cerebral convexity. Minimal 2 mm midline shift to the left appears unchanged. Continued short interval follow-up examination is recommended. No CT evidence of large acute cortical infarct. No CT evidence of new intracranial hemorrhage. [employer] Dehydrator Operator: PSCB Transcribe Date/Time: Mar 15 2025 12:05P Dictated by : SHABANA LOPES MD This examination was interpreted and the report reviewed and electronically signed by: SHABANA LOPES MD on Mar 15 2025 12:10PM EST [id number] Normal [facility] CT BRAIN WO IVCON * * *Final Report* * * DATE OF EXAM: Mar 15 2025 12:25AM [facility] 0504 - CT BRAIN WO IVCON / PROCEDURE REASON: Craniotomy, post-op * * * * Physician Interpretation * * * * EXAMINATION: CT BRAIN WO IVCON CLINICAL HISTORY: Craniotomy, postop. TECHNIQUE: Serial axial images without IV contrast were obtained from the vertex to the foramen magnum. MQ: CTBWO_3 CT Radiation dose: Integrated Dose-Length Product (DLP) for this visit = 791 mGy*cm CT Dose Reduction Employed: Iterative recon COMPARISON: Outside head CT 03/14/2025, 10:28 AM. RESULT: Localizer images: No additional findings. Post-operative change: Interval right frontoparietal craniotomy for right cerebral convexity subdural hematoma evacuation. Mild right-sided scalp swelling with small foci of air. Minimal right sided pneumocephalus. Small residual mixed density right frontoparietal convexity subdural hematoma containing subacute and chronic hemorrhage measuring 10 mm in maximum thickness (previously measured up to 14 mm). Acute change: No evidence of an acute infarct or other acute parenchymal process. Hemorrhage: As described above. No interval acute hemorrhage. ECASS hemorrhagic transformation score: Not Applicable Mass Lesion / Mass Effect: Mild right frontoparietal parenchymal mass effect, decreased in the interval. No midline shift. Chronic change: None apparent. Parenchyma: There is no significant volume loss. The brain parenchyma is otherwise within normal limits for age. Ventricles: The ventricles are within normal limits of size and configuration for age. Other: Unremarkable orbits. Intact skull base. Visualized paranasal sinuses and mastoid air cells are clear. IMPRESSION: Interval right-sided decompressive craniotomy for right cerebral subdural hematoma evacuation with small residual right cerebral subdural hematoma. Mild right cerebral parenchymal mass effect, decreased in the interval. No midline shift. No interval acute hemorrhage. [employer] Dehydrator Operator: [facility] Transcribe Date/Time: Mar 15 2025 2:17A Dictated by : AKIRA KATZ MD This examination was interpreted and the report reviewed and electronically signed by: AKIRA KATZ MD on Mar 15 2025 2:30AM EST [id number] Normal [facility] Hepatic function 2000 panelo n 03-15-2025 Albumin [Mass/Vol] 3.8 g/dL Low 3.9-4.9 [facility] Comment on above: Order Comment: Speci men Type: BLOOD SPECIMENOrdering Facility: [facility] Address: [address] [place] [address] Performed By: #### 2 4321-2, 95652-7, 52597-2, 2777-1 ####[facility]ORATORYCLIA [id number] [address] STATES [facility] ALP [Catalytic activity/Vol] 74 U/L Normal 38-113 [facility] Comment on above: Order Comment: Speci men Type: BLOOD SPECIMENOrdering Facility: [facility] Address: [address] [place] [address] Performed By: #### 2 4321-2, 88776-6, 00744-9, 2777-1 ####[facility]ORATORYCLIA [id number] [address] OF [facility] ALT With P-5'-P [Catalytic activity/Vol] 18 U/L Normal 10-54 [facility] Comment on above: Order Comment: Speci men Type: BLOOD SPECIMENOrdering Facility: [facility] Address: [address] [place] [address] Performed By: #### 2 4321-2, 88529-8, 95247-8, 2777-1 ####[facility]ORATORYCLIA [id number] [address] OF [facility] AST With P-5'-P [Catalytic activity/Vol] 27 U/L Normal 14-40 [facility] Comment on above: Order Comment: Speci men Type: BLOOD SPECIMENOrdering Facility: [facility] Address: [address] [place] [address] Performed By: #### 2 4321-2, 06449-2, 45143-2, 2777-1 ####[facility] LABORATORYCLIA [id number] [place] [id number] [facility] Bilirubin [Mass/Vol] 0.5 mg/dL Normal 0.2-1.3 [facility] Comment on above: Order Comment: Speci men Type: BLOOD SPECIMENOrdering Facility: [facility] Address: [address] [place] [address] Performed By: #### 2 4321-2, 02267-8, 71006-2, 2777-1 ####[facility]ORATORYCLIA [id number] [place] [address] [place] Bilirubin.conjugated [Mass/Vol] 0.1 mg/dL Normal <0.3 [facility] Comment on above: Order Comment: Speci men Type: BLOOD SPECIMENOrdering Facility: [facility] Address: [address] [place] [address] Performed By: #### 2 4321-2, 40199-2, 54354-8, 277-1 ####[facility]ORATORYCLIA [id number] [place] [address] [place] Protein [Mass/Vol] 7.0 g/dL Normal 6.3-8.0 [facility] Comment on above: Order Comment: Speci men Type: BLOOD SPECIMENOrdering Facility: [facility] Address: [address] [place] [address] Performed By: #### 2 4321-2, 00659-2, 06844-1, 2777-1 ####[facility]ORATORYCLIA [id number] [place] [address] [place] Magnesium SerPl-mCncon 03-15 Magnesium [Mass/Vol] 1.9 mg/dL Normal 1.7-2.3 [facility] Comment on above: Order Comment: Speci men Type: BLOOD SPECIMENOrdering Facility: [facility] Address: [address] [place] [address] Performed By: #### 2 4321-2, 76219-1, 44366-0, 2777-1 ####[facility]ATORYCLIA [id number] [place] [address] [place] PT panel Coag (PPP)on 2024 INR Coag (PPP) [Relative time] 1.0 {INR} Normal 0.9-1.3 [facility] Comment on above: Order Comment: Speci men Type: BLOOD SPECIMENOrdering Facility: [facility] Address: [address] [place] [address] Result Comment: Brandy min K Antagonist (VKA) Therapeutic Range: INR 2 to 3 (Target INR of 2.5) Note: For patients treated with VKA drugs, such as warfarin, the [place] [employer] 2012 Guideline recommends a therapeutic INR range of 2 to 3 (target INR of 2.5). This recommendation includes high-risk patients with antiphospholipid syndrome with previous arterial or venous thromboembolism, current-generation mechanical or bioprosthetic aortic heart valve replacement. Note: Patients with mechanical aortic valve replacement and additional risk factors for thromboembolic events (atrial fibrillation, previous thromboembolism, LV dysfunction, hypercoagulable conditions) or an older generation mechanical AVR (i.e., ball in-Cage) or any mechanical MVR should have a INR therapeutic range of 2.5 to 3.5 (target INR of 3). Isabel GH, et al. Chest 2012, 141:7S-47S Toya AUGUSTE et al. [facility] 2017, 70: 252-289 Performed By: #### 1 4979-9, 79317-1 ####[facility]ORATORYCLIA [id number] [address] STATES [facility] PT Coag (PPP) [Time] 11.4 s Normal 9.7-13.0 [facility] Comment on above: Order Comment: Manju castillo Type: BLOOD SPECIMENOrdering Facility: [facility] Address: [address] [place] [address] Performed By: #### 1 4979-9, 72282-8 ####[facility] LABORATORYCLIA [id number] [place] [address] [place] Phosphate SerPl-mCncon 03-15 Phosphate [Mass/Vol] 3.9 mg/dL Normal 2.7-4.8 [facility] Comment on above: Order Comment: Manju castillo Type: BLOOD SPECIMENOrdering Facility: [facility] Address: [address] [place] [address] Performed By: #### 2 4321-2, 51221-1, 93832-0, 2777-1 ####[facility]ORATORYCLIA [id number] [address] [place] THERAPY NTon 03-15-2025 THERAPY NT HNO ID: [id number] Author: MINI ZELAYA, PT Service: Physical Therapy Author Type: Physical Therapist Type: Therapy (PT/OT/Speech/Resp) Filed: 03/15/2025 14:39 Note Text: Physical Therapy Evaluation Summary SERVICE DATE: 03/15/2025 SERVICE TIME: 1346 to 1416 ROOM: [place] [address] PT 6 Clicks Score: 24 DISCHARGE RECOMMENDATIONS Home Recommended Discharge Disposition Comments: Patient able to ambulate in halls with . anticipate will continue to improve awareness of surroundings and increase his safety during hospitalization. recommend discharge to home without home PT services. Recommended Discharge Equipment: No equipment needs anticipated ASSESSMENT Response to Therapy Interventions: Good Participation in Activities Patient moves quickly and does not consistently wait for safety: lines and drains in place, socks on prior to standing, etc... Patient demonstrates good standing dynamic balance, is able to ambulate increased distances with good posture. PRECAUTIONS Lines/Tubes/Drains CURRENT HOSPITAL COURSE SDH acute on chronic; POD 1 R frontoparietal craniotomy for evacuation. Relevant Past Medical History: chronic SDH, hypercholeteremia, acid reflux, HOME LIVING Patient Lives With: Spouse Assistance Available: 24-Hour Entry To Home: Stairs Number Of Stairs Into Home: 4 Number Of Stairs To Bed/Bath: 0 Tub/Shower Type: walk in shower Laundry: 1st floor PRIOR FUNCTIONAL LEVEL Within Functional Limits independent, active, drove, no AD SUBJECTIVE Patient willing to participate THERAPY DIAGNOSIS Reduced mobility-other TREATMENT INTERVENTIONS Evaluation, Therapeutic Activity (50618) $ Evaluation-High (72551) Billed Units: 1 unit Therapeutic Activity (41157) Treatment Minutes: 9 $ Therapeutic Activity (88391) Billed Units: 1 unit Sat EOB independent, sit to stand x 4 trials with supervision and cues for safety. Static stood without device with supervision. Stand pivot transfers x2 with supervision. Good balance with all mobility. Timed Code Treatment (minutes): 9 Skilled Treatment Time (minutes): 26 TRAINING AND EDUCATION PROVIDED Benefits of In-Hospital Mobility THERAPEUTIC SKILLS USED Movement Facilitation, Cues for Sequencing/Proper Technique for Activity FUNCTIONAL STATUS Bed Mobility Transfers Sit To Stand: Supervision Stand To Sit: Supervision Bed to Chair Supervision Bed To Chair Transfer Type: Stepping Bed To Chair Transfer Equipment: Gait Belt Gait Supervision Gait Device: None Gait Distance (feet): 400' Stairs ROM Right Lower Extremity ROM Comments: WFL Left Lower Extremity ROM Comments: WFL STRENGTH Right Lower Extremity Strength Comments: WFL Left Lower Extremity Strength Comments: WFL BALANCE Static Sitting Balance: Normal Dynamic Sitting Balance: Normal Static Standing Balance: Normal Dynamic Standing Balance: Good GOALS Patient will demonstrate progress with functional mobility to allow safe discharge to home with available support and/or physical assistance. Transfer Sit to/from Stand with: Independent Ambulate with: Independent Distance: 800' Device: No Device Ambulate Up and Down Steps with: Independent Number of Steps: 4 Device: Rail Transfer: Independent Rehab Potential: Good PLAN PT Frequency: 4 Times Per Week (2-4) Treatment Interventions: Education, Strengthening, Functional Mobility Training, Balance Training SIGNATURE: Mini Zelaya PT PATIENT NAME: Celestino Reyna DATE: March 15, 2025 TIME: 2:29 PM Normal [facility] aPTT PPPon 03-15-2025 aPTT Coag (PPP) [Time] 27.9 s Normal 23.0-32.[address] [facility] Comment on above: Order Comment: Speci men Type: BLOOD SPECIMENOrdering Facility: [facility] Address: [address] [place] [address] Performed By: #### 1 4979-9, 11050-3 ####[facility] LABORATORYCLIA [id number] [place] [address] [place] 12 Lead EKGon 03-14-2025 12 Lead EKG [facility] Cardiovascular Services [address] [place] [address] 12 Lead EKG 03/14/25 1053 MR#: [id number] Acct: [id number] Name: CELESTINO REYNA Rep #: [id number] : 1960 65 From: Faiza Meyers MD Attending Dr: Status: DEP ER Ordering Dr: Marisa Weaver DO Date: 03/14/25 Location: ED Sex: M C Admitted: Test Reason : STROKE ALERT Blood Pressure : */* mmHG Vent. Rate : 85 BPM Atrial Rate : 85 BPM P-R Int : 186 ms QRS Dur : 92 ms QT Int : 354 ms P-R-T Axes : 31 29 20 degrees QTcB Int : 421 ms Normal sinus rhythm Normal ECG Confirmed by DIANA MANDUJANO, KEERTHI ([id number]), avid editor MARIYA SORIANO ([id number]) on 03/17/2025 11:53:24 AM Referred By: Confirmed By: KEERTHI MEYERS MD 03/17/25 1153 Date Faiza Meyers MD CC: Dr. Marisa Weaver DO; Dr. Christine Canada MD Signed [facility] ANES PRE-OPon 03-14-2025 ANES PRE-OP HNO ID: [id number] Author: KAYDEN PANTOJA MD Service: Anesthesiology Author Type: Physician Type: Anesthesia Preprocedure Evaluation Filed: 03/14/2025 17:36 Note Text: ANESTHESIOLOGY DAY OF SURGERY NOTE : 1960 Procedure Information Date/Time: 03/14/25 1800 Procedure: CRANIOTOMY FOR EVACUATION OF SUPRATENTORIAL SUBDURAL HEMATOMA (Right: Head) Location: [place] OR 02 / [place] OR Surgeons: Ken Joseph MD There is no height or weight on file to calculate BMI. Most recent hematocrit and potassium results: Hematocrit 42.1 03/14/2025 Potassium 3.9 03/14/2025 Relevant Problems GI (+) Acid reflux Neurology (+) Acute on chronic intracranial subdural hematoma (HCC) (+) SDH (subdural hematoma) (HCC) Cardiovascular (+) Hypercholesteremia I - PHYSICAL EVALUATION AIRWAY Patient intubated: No. Tracheostomy tube not present Mallampati: II. TM distance: >3 FB. Neck ROM: full ROM without neurological symptoms. Mouth opening: adequate. Short neck: no. Thick neck: no Downs present: yes DENTAL Dental findings: teeth intact. II - ANESTHESIA PLAN ASA Score: 2 Anesthetic Plan: general Airway type: ETT The patient is not a current smoker. NPO Status: adequate Beta June Monitoring Plan Monitoring plan: standard ASA (art line prn). Post Procedure Analgesic Plan Informed Consent Anesthetic risks, benefits, alternatives, personnel and consent discussed: yes. Patient / Responsible Democrat agrees to proceed: yes Patient / Surrogate agrees to blood products: Yes Potential Anesthesia issues that may suggest increased risk of complications or contraindication to planned procedure: none. Vitals Value Taken Time BP 114/95 03/14/25 1730 Pulse 87 03/14/25 1735 Resp 18 03/14/25 1735 Temp SpO2 97 % 03/14/25 1734 Vitals shown include unfiled device data. Facility-Administered Medications as of 03/14/2025 Medication Dose Route Frequency [START ON 03/15/2025] pantoprazole DR 20 mg tab(s) (PROTONIX) 20 mg ORAL DAILY NaCl 0.9% iv flush bag 20 mL INTRAVENOUS PRN NaCl 0.9% iv infusion 75 mL/hr INTRAVENOUS CONTINUOUS potassium chloride ER 20-40 mEq tab(s) (KLOR-CON) 20-40 mEq ORAL/FEEDING TUBE PRN Or potassium chloride iv piggyback 20 mEq/100 mL 20 mEq INTRAVENOUS PRN magnesium sulfate iv piggyback in sterile water 2 g 50 mL 2 g INTRAVENOUS PRN phosphorus 500 mg tab(s) (K PHOS NEUTRAL) 500 mg ORAL/FEEDING TUBE PRN(NO DISPENSE) calcium gluconate iv piggyback 2 g in NaCl (iso-osmotic) 100 mL 2 g INTRAVENOUS PRN(NO DISPENSE) acetaminophen 1,000 mg tab(s) (TYLENOL) 1,000 mg ORAL/FEEDING TUBE q 6 H oxyCODONE IR 5-10 mg tab(s) (ROXICODONE) 5-10 mg ORAL/FEEDING TUBE q 4 H PRN ondansetron 4 mg tab(s) (ZOFRAN) 4 mg ORAL q 6 H PRN Or ondansetron (PF) 4 mg injection (ZOFRAN) 4 mg INTRAVENOUS q 6 H PRN magnesium hydroxide 400 mg/5 mL 30 mL (MOM) 30 mL ORAL/FEEDING TUBE DAILY PRN fentaNYL 50 mcg/mL 50 mcg injection (SUBLIMAZE) 50 mcg INTRAVENOUS q 2 H PRN senna-docusate 8.6-50 mg 1 tablet (SENNA-S) 1 tablet ORAL BID levETIRAcetam 500 mg tab(s) (KEPPRA) 500 mg ORAL BID ceFAZolin iv piggyback 1 g in D5W (iso-osmotic) 50 mL (ANCEF) 1 g INTRAVENOUS q 8 HR hydrALAZINE 10 mg injection (APRESOLINE) 10 mg INTRAVENOUS q 4 H PRN rosuvastatin 20 mg tab(s) (CRESTOR) 20 mg ORAL AT BEDTIME Outpatient Medications as of 03/14/2025 Medication Sig omeprazole 20 mg capsule Take 20 mg by mouth once daily. SIMVASTATIN ORAL Take by mouth once daily. Multivitamin capsule Take 1 capsule by mouth once daily. DOCOSAHEXANOIC ACID/EPA (FISH OIL ORAL) Take 1,200 mg by mouth once daily. TADALAFIL (CIALIS ORAL) Take by mouth as directed. I have interviewed and examined the patient. I have reviewed the medical record and/or the pre-anesthesia evaluation, pertinent labs, and test results. This contains updated information obtained within 48 hours of Surgery/Procedure. SIGNATURE: Kayden Pantoja MD PATIENT NAME: Celestino Reyna DATE: March 14, 2025 TIME: 5:36 PM CSN: [id number] Normal [facility] Absolute neutrophil countOrd ered By: Marisa Weaver on 03-14-2025 Neutrophils (Bld) [#/Vol] 6.0 10*3/uL 2.0-7.7 [facility] Anion gap in Serum or Plasma Ordered By: Marisa Weaver on 03-14-2025 Anion gap [Moles/Vol] 12 mmol/L - [facility] BUN/creatinine ratioOrdered By: aMrisa Weaver on 03-14-2025 Urea nitrogen/Creatinine [Mass ratio] 25.5 mg/mg High - [facility] Basic Metabolic Profile (BMP )on 03-14-2025 BUN/CRE 25.5 RATIO High - [facility] Comment on above: Performed By: #### L 300.4310, L501.4021, L100.0100, L300.3900, L500.2500 #### [facility] [address] [place], [place], [address] Calcium [Mass/Vol] 9.8 mg/dL Normal 7.6-11.0 [facility] Comment on above: Performed By: #### L 300.4310, L501.4021, L100.0100, L300.3900, L500.2500 #### [facility] [address] [place], [address] Chloride [Moles/Vol] 103 mmol/L Normal 98-108 [facility] Comment on above: Performed By: #### L 300.4310, L501.4021, L100.0100, L300.3900, L500.2500 #### [facility] [address] [place], [address] CO2 [Moles/Vol] 24.3 mmol/L Normal 21.0-32.0 [facility] Comment on above: Performed By: #### L 300.4310, L501.4021, L100.0100, L300.3900, L500.2500 #### [facility] [address] [place], [address] Creatinine [Mass/Vol] 0.81 mg/dL Normal 0.70-1.20 [facility] Comment on above: Performed By: #### L 300.4310, L501.4021, L100.0100, L300.3900, L500.2500 #### [facility] [address] [place], [address] ECRCL 95.13 ml/min Normal 50-250 [facility] Comment on above: Performed By: #### L 300.4310, L501.4021, L100.0100, L300.3900, L500.2500 #### [facility] [address] [place], [address] GAP 12 Normal 5-15 [facility] Comment on above: Performed By: #### L 300.4310, L501.4021, L100.0100, L300.3900, L500.2500 #### [facility] [address] [place], [address] GFR/1.73 sq M.predicted among non-blacks MDRD (S/P/Bld) [Vol rate/Area] 99 mL/min/{1.73_m2} Normal >60 [facility] Comment on above: Result Comment: mL/m in/1.73m2 CKD-EPI Creatinine Equation (2020) Performed By: #### L 300.4310, L501.4021, L100.0100, L300.3900, L500.2500 #### [facility] [address] [place], [address] Glucose [Mass/Vol] 114 mg/dL High 70-99 [facility] Comment on above: Performed By: #### L 300.4310, L501.4021, L100.0100, L300.3900, L500.2500 #### [facility] [address] [place], [address] Potassium [Moles/Vol] 3.8 mmol/L Normal 3.3-5.1 [facility] Comment on above: Performed By: #### L 300.4310, L501.4021, L100.0100, L300.3900, L500.2500 #### [facility] [address] [place], [address] Sodium [Moles/Vol] 139 mmol/L Normal 133-145 [facility] Comment on above: Performed By: #### L 300.4310, L501.4021, L100.0100, L300.3900, L500.2500 #### [facility] [address] [place], [address] Urea nitrogen [Mass/Vol] 21 mg/dL High 4-19 [facility] Comment on above: Performed By: #### L 300.4310, L501.4021, L100.0100, L300.3900, L500.2500 #### [facility] [address] [place], [address] Basic metabolic 2000 panelon 03-14-2025 Anion gap [Moles/Vol] 12 mmol/L Normal 8-15 [facility] Comment on above: Order Comment: Speci men Type: BLOOD SPECIMENOrdering Facility: [facility] Address: [address] [place] [address] Performed By: #### 2 4321-2 ####[facility]ORATORYCLIA [id number] [place] [address] [place] Calcium [Mass/Vol] 9.5 mg/dL Normal 8.5-10.2 [facility] Comment on above: Order Comment: Speci men Type: BLOOD SPECIMENOrdering Facility: [facility] Address: [address] [place] [address] Performed By: #### 2 4321-2 ####[facility] LABORATORYCLIA [id number] [place] [address] [place] Chloride [Moles/Vol] 104 mmol/L Normal 98-107 [facility] Comment on above: Order Comment: Speci men Type: BLOOD SPECIMENOrdering Facility: [facility] Address: [address] [place] [address] Performed By: #### 2 4321-2 ####[facility]ATORYCLIA [id number] [place] [address] [place] CO2 [Moles/Vol] 24 mmol/L Normal 22-30 [facility] Comment on above: Order Comment: Speci men Type: BLOOD SPECIMENOrdering Facility: [facility] Address: [address] [place] [address] Performed By: #### 2 4321-2 ####[facility]ATORYCLIA [id number] [place] [address] [place] Creatinine [Mass/Vol] 0.71 mg/dL Low 0.73-1.22 [facility] Comment on above: Order Comment: Speci men Type: BLOOD SPECIMENOrdering Facility: [facility] Address: [address] [place] [address] Performed By: #### 2 4321-2 ####[facility] [id number] [place] [address] [place] Creatinine and Glomerular filtration rate.predicted panel (S/P/Bld) 102 mL/min/1.73m??? Normal >=60 [facility] Comment on above: Order Comment: Manju castillo Type: BLOOD SPECIMENOrdering Facility: [facility] Address: [address] [place] [address] Result Comment: Nancy mated Glomerular Filtration Rate (eGFR) is calculated using the 2020 CKD-EPI creatinine equation. This equation utilizes serum creatinine, sex, and age as parameters. The creatinine assay has traceable calibration to isotope dilution-mass spectrometry. Refer to KDIGO guidelines for clinical interpretation. In patients with unstable renal function, e.g. those with acute kidney injury, the eGFR may not accurately reflect actual GFR. Performed By: #### 2 4321-2 ####[facility]ITALIA [id number] [place] [address] [place] Glucose [Mass/Vol] 91 mg/dL Normal 74-99 [facility] Comment on above: Order Comment: Manju castillo Type: BLOOD SPECIMENOrdering Facility: [facility] Address: [address] [place] [address] Result Comment: The [place] Diabetes Association (ADA) provides guidance for cutoff values for fasting glucose and random glucose. The ADA defines fasting as no caloric intake for at least 8 hours. Fasting plasma glucose results between 100 to 125 mg/dL indicate increased risk for diabetes (prediabetes). Fasting plasma glucose results greater than or equal to 126 mg/dL meet the criteria for diagnosis of diabetes. In the absence of unequivocal hyperglycemia, results should be confirmed by repeat testing. In a patient with classic symptoms of hyperglycemia or hyperglycemic crisis, random plasma glucose results greater than or equal to 200 mg/dL meet the criteria for diagnosis of diabetes. Reference: Standards of Medical Care in Diabetes 2016, [place] [employer]. Diabetes Care. 2016.39(Suppl 1). Performed By: #### 2 4321-2 ####[facility] LABORATORYCLIA [id number] [place] [id number] [place] Potassium [Moles/Vol] 3.9 mmol/L Normal 3.7-5.1 [facility] Comment on above: Order Comment: Speci men Type: BLOOD SPECIMENOrdering Facility: [facility] Address: [address] [place] [address] Performed By: #### 2 4321-2 ####[facility] LABORATORYCLIA [id number] [address] [place] Sodium [Moles/Vol] 140 mmol/L Normal 136-144 [facility] Comment on above: Order Comment: Speci men Type: BLOOD SPECIMENOrdering Facility: [facility] Address: [address] [place] [address] Performed By: #### 2 4321-2 ####[facility] LABORATORYCLIA [id number] [address] Urea nitrogen [Mass/Vol] 18 mg/dL Normal 9-24 [facility] Comment on above: Order Comment: Speci men Type: BLOOD SPECIMENOrdering Facility: [facility] Address: [address] [place] [address] Performed By: #### 2 4321-2 ####[facility] LABORATORYCLIA [id number] [address] [place] Basophil percentageOrdered B y: Marisa Weaver on 03-14-2025 Basophils/100 WBC (Bld) 0.7 % 0-1 [facility] Bedside Glucoseon 03-14-2025 FINGERSTICK GLU 103 mg/dL Normal 74-106 [facility] Comment on above: Result Comment: SNEHA HARVEY OF PATIENT CARE PER NURSING PROTOCOL Performed By: #### L 100.0100, L500.4050, L500.4100 #### [facility] [address] [place], [address] Bilirubin Test strip Ql (U)O rdered By: Marisa Weaver on 03-14-2025 Bilirubin Ql (U) Negative Negative [facility] CBC W/Diff, Automatedon 02-17 Absolute Lymph 1.13 X10 3/uL Normal 0.83-4.51 [facility] Comment on above: Performed By: #### L 300.4310, L501.4021, L100.0100, L300.3900, L500.2500 #### [facility] [address] [place], [address] Absolute Neut 6.0 X10 3/uL Normal 2.0-7.7 [facility] Comment on above: Performed By: #### L 300.4310, L501.4021, L100.0100, L300.3900, L500.2500 #### [facility] [address] [place], [address] Basophils/100 WBC (Bld) 0.7 % Normal 0-1 [facility] Comment on above: Performed By: #### L 300.4310, L501.4021, L100.0100, L300.3900, L500.2500 #### [facility] [address] [place], [address] Eosinophils/100 WBC (Bld) 1.7 % Normal 0-5 [facility] Comment on above: Performed By: #### L 300.4310, L501.4021, L100.0100, L300.3900, L500.2500 #### [facility] [address] [place], [address] Erythrocyte distribution width (RBC) [Ratio] 12.8 % Normal 11.6-14.6 [facility] Comment on above: Performed By: #### L 300.4310, L501.4021, L100.0100, L300.3900, L500.2500 #### [facility] [address] [place], [address] Hematocrit (Bld) [Volume fraction] 41.9 % Normal 40-54 [facility] Comment on above: Performed By: #### L 300.4310, L501.4021, L100.0100, L300.3900, L500.2500 #### [facility] [address] [place], [address] Hemoglobin (Bld) [Mass/Vol] 14.6 g/dL Normal 13.0-16.5 [facility] Comment on above: Performed By: #### L 300.4310, L501.4021, L100.0100, L300.3900, L500.2500 #### [facility] [address] [place], [address] IG% 0.200 Normal 0.0-0.9 [facility] Comment on above: Result Comment: IG% - Immature Granulocytes (promyelocytes, myelocytes and metamyelocytes) > 1% indicates that a LEFT SHIFT is Present. Performed By: #### L 300.4310, L501.4021, L100.0100, L300.3900, L500.2500 #### [facility] [address] [place], [address] Lymphocytes/100 WBC (Bld) 14.1 % Low 19-41 [facility] Comment on above: Performed By: #### L 300.4310, L501.4021, L100.0100, L300.3900, L500.2500 #### [facility] [address] [place], [address] MCH (RBC) [Entitic mass] 30.0 pg Normal 27.0-32.0 [facility] Comment on above: Performed By: #### L 300.4310, L501.4021, L100.0100, L300.3900, L500.2500 #### [facility] [address] [place], [address] MCHC (RBC) [Mass/Vol] 34.8 g/dL Normal 32-36 [facility] Comment on above: Performed By: #### L 300.4310, L501.4021, L100.0100, L300.3900, L500.2500 #### [facility] [address] [place], [address] MCV (RBC) [Entitic vol] 86.2 fL Normal 80-94 [facility] Comment on above: Performed By: #### L 300.4310, L501.4021, L100.0100, L300.3900, L500.2500 #### [facility] [address] [place], [address] Monocytes/100 WBC (Bld) 8.6 % Normal 0-10 [facility] Comment on above: Performed By: #### L 300.4310, L501.4021, L100.0100, L300.3900, L500.2500 #### [facility] [address] [place], [address] Neutrophils/100 WBC (Bld) 74.7 % High 47-70 [facility] Comment on above: Performed By: #### L 300.4310, L501.4021, L100.0100, L300.3900, L500.2500 #### [facility] [address] [place], [address] Nucleated RBC (Bld) [#/Vol] 0 10*3/uL Normal 0-5 [facility] Comment on above: Performed By: #### L 300.4310, L501.4021, L100.0100, L300.3900, L500.2500 #### [facility] [address] [place], [address] Platelet mean volume (Bld) [Entitic vol] 8.7 fL Normal 6.2-12.0 [facility] Comment on above: Performed By: #### L 300.4310, L501.4021, L100.0100, L300.3900, L500.2500 #### [facility] [address] [place], [address] Platelets (Bld) [#/Vol] 334 10*3/uL Normal 150-450 [facility] Comment on above: Performed By: #### L 300.4310, L501.4021, L100.0100, L300.3900, L500.2500 #### [facility] [address] [place], [address] RBC (Bld) [#/Vol] 4.86 10*6/uL Normal 4.6-6.2 [facility] Comment on above: Performed By: #### L 300.4310, L501.4021, L100.0100, L300.3900, L500.2500 #### [facility] [address] [place], [address] RDW SD 40.3 fl Normal 35.1-43.9 [facility] Comment on above: Performed By: #### L 300.4310, L501.4021, L100.0100, L300.3900, L500.2500 #### [facility] [address] [place], [address] WBC (Bld) [#/Vol] 8.0 10*3/uL Normal 4.4-11.0 [facility] Comment on above: Performed By: #### L 300.4310, L501.4021, L100.0100, L300.3900, L500.2500 #### [facility] [address] [place], [address] CBC panel Auto (Bld)on 03-14 Erythrocyte distribution width (RBC) [Ratio] 12.6 % Normal 11.5-15.0 [facility] Comment on above: Order Comment: Speci men Type: BLOOD SPECIMENOrdering Facility: [facility] Address: [address] [place] [address] Performed By: #### 5 8410-2 ####[facility] LABORATORYCLIA [id number] [place] [address] [facility] Hematocrit (Bld) [Volume fraction] 42.1 % Normal 39.0-51.0 [facility] Comment on above: Order Comment: Speci men Type: BLOOD SPECIMENOrdering Facility: [facility] Address: [address] [place] [address] Performed By: #### 5 8410-2 ####[facility]ORATORYCLIA [id number] [address] [place] [facility] Hemoglobin (Bld) [Mass/Vol] 13.9 g/dL Normal 13.0-17.0 [facility] Comment on above: Order Comment: Speci men Type: BLOOD SPECIMENOrdering Facility: [facility] Address: [address] [place] [address] Performed By: #### 5 8410-2 ####[facility]ORATORYCLIA [id number] [place] [address] [place] MCH (RBC) [Entitic mass] 29.6 pg Normal 26.0-34.0 [facility] Comment on above: Order Comment: Speci men Type: BLOOD SPECIMENOrdering Facility: [facility] Address: [address] [place] [address] Performed By: #### 5 8410-2 ####[facility]ORATORYCLIA [id number] [address] [place] MCHC (RBC) [Mass/Vol] 33.0 g/dL Normal 30.5-36.0 [facility] Comment on above: Order Comment: Speci men Type: BLOOD SPECIMENOrdering Facility: [facility] Address: [address] [place] [address] Performed By: #### 5 8410-2 ####[facility] LABORATORYCLIA [id number] [address] [place] MCV (RBC) [Entitic vol] 89.6 fL Normal 80.0-100.0 [facility] Comment on above: Order Comment: Speci men Type: BLOOD SPECIMENOrdering Facility: [facility] Address: [address] [place] [address] Performed By: #### 5 8410-2 ####[facility] LABORATORYCLIA [id number] [place] [address] [place] Nucleated RBC (Bld) [#/Vol] 10*3/uL Normal <0.01 [facility] Comment on above: Order Comment: Speci men Type: BLOOD SPECIMENOrdering Facility: [facility] Address: [address] [place] [address] Performed By: #### 5 8410-2 ####[facility] LABORATORYCLIA [id number] [address] [place] Platelet mean volume (Bld) [Entitic vol] 8.9 fL Low 9.0-12.7 [facility] Comment on above: Order Comment: Speci men Type: BLOOD SPECIMENOrdering Facility: [facility] Address: [address] [place] [address] Performed By: #### 5 8410-2 ####[facility] LABORATORYCLIA [id number] [address] [place] Platelets (Bld) [#/Vol] 328 10*3/uL Normal 150-400 [facility] Comment on above: Order Comment: Speci men Type: BLOOD SPECIMENOrdering Facility: [facility] Address: [address] [place] [address] Performed By: #### 5 8410-2 ####[facility] LABORATORYCLIA [id number] [place] [address] [place] RBC (Bld) [#/Vol] 4.70 10*6/uL Normal 4.20-6.00 [facility] Comment on above: Order Comment: Speci men Type: BLOOD SPECIMENOrdering Facility: [facility] Address: [address] [place] [address] Performed By: #### 5 8410-2 ####[facility] LABORATORYCLIA [id number] [address] [place] WBC (Bld) [#/Vol] 8.31 10*3/uL Normal 3.70-11.00 [facility] Comment on above: Order Comment: Speci men Type: BLOOD SPECIMENOrdering Facility: [facility] Address: [facility] [place] [id number] Performed By: #### 5 8410-2 ####[facility] LABORATORYCLIA [id number] [place] [address] [place] Carbon dioxide, total [Moles /volume] in Central venous bloodOrdered By: Marisa Weaver on 03-14-2025 CO2 [Moles/Vol] 24.3 mmol/L 21.0-32.0 [facility] Chest 1 Viewon 03-14-2025 Chest 1 View [facility] Imaging Services [address] [place], [place] [id number] Chest 1 View MR#: [id number] Acct: [id number] Name: CELESTINO REYNA Rep #: [id number] : 1960 M 65 From: Mauro franz MD PCP: Dr. Christine Canada MD Status: REG ER Study: Chest 1 View Date of Exam: 03/14/25 Exam# [id number] Ordering Dr: Marisa Weaver DO PROCEDURE: CHEST 1 VIEW 03/14/2025 REASON FOR EXAM: NEURO DEFICIT, ACUTE, STROKE SUSPECTED TECHNIQUE: Frontal view of the chest. COMPARISON: None FINDINGS: Hardware: None Heart: The heart size is normal. Lungs: The lungs are clear. Bones: The bones are unremarkable. Other: RAD/Chest 1 View IMPRESSION: No Acute Findings. Reading Location: [facility] CC: Dr. Marisa Weaver DO; Dr. 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 Normal [facility] Chloride assayOrdered By: Sly Weaver on 03-14-2025 Chloride [Moles/Vol] 103 mmol/L 98-108 [facility] ED NOTEon 03-14-2025 ED NOTE HNO ID: [id number] Author: KARSON HOOKS RN Service: ? Author Type: Registered Nurse Type: ED Notes Filed: 03/14/2025 15:54 Note Text: Call light answered, pt concerned that the numbness and tingling in hand and face. Dr. Jordan notified. [facility] ED NOTE HNO ID: [id number] Author: KARSON HOOKS RN Service: ? Author Type: Registered Nurse Type: ED Notes Filed: 03/14/2025 15:36 Note Text: Report given to Dipika ROBISON on NSICU [facility] ED NOTE HNO ID: [id number] Author: RAS CONKLIN Medic Service: ? Author Type: Toe Former [employer] Administrator Type: ED Notes Filed: 03/14/2025 13:05 Note Text: Bed: 06-ED Expected date: Expected time: Means of arrival: Comments: [place] transfer SDH [facility] ED PROV NOTEon 03-14-2025 ED PROV NOTE HNO ID: [id number] Author: SIMA LARA MD Service: Emergency Medicine Author Type: Physician Type: ED Provider Notes Filed: 03/14/2025 13:51 Note Text: Attending Note I evaluated the patient and personally participated in the parham components. I agree with the resident's findings and plan as documented and have discussed the case and management of the patient's care with the resident. I supervised the parham portion(s) of procedures performed on this patient by the resident physician. Physical Exam Item(s): NIH stroke scale equals 0, cranial nerves are intact sensation light touch intact throughout strength 5 out of 5 with upper and lower extremities finger-nose [id number]-ch-ygnu normal This is a 65 year old male presenting with Functional Transfers (Pt arrives via EMS from [place] [facility]. Per EMS pt has been having on and off L hand numbness and tingling. Today on his way to [place] he felt a headache coming on, pt went to ED> CT showed 18 mm SDH. Pt is GCS15, numbness and tingling has resolved in the L hand. No trauma, No thinners. ) 65-year-old male presenting as a transfer from [place] for subdural hemorrhage. The only trauma the patient reports is on Saturday night putting out the trash he was putting recycling into the plastic recycling can and the top lid hit him on the head. He had no symptoms at that time. Subsequently on he developed a headache that felt like his previous migraines but then he had intermittent symptoms of left upper extremity numbness tingling and discoordination/weakness associated with a headache that precipitated him to seek care at [place] emergency department. Here they found him to have subdural hemorrhage on CT imaging and transferred him to us for neurosurgical evaluation. The patient is not on any anticoagulation, aspirin is in his med list but he no longer takes this and has not for years. Neurosurgery was consulted Critical Care I spent a total of 30 minutes of critical care time in the evaluation and management of this patient. This was necessary to treat or prevent deterioration of the following condition(s): SDH, which the patient had and/or has a high probability of suddenly developing. The patient received Consultation by NSGY during the time that critical care was provided. Critical care time excludes separately billed procedures. MD JANE Fan JOSHUA M 03/14/25 1351 Normal [facility] ED PROV NOTE HNO ID: [id number] Author: SIMA LARA MD Service: Emergency Medicine Author Type: Physician Type: ED Provider Notes Filed: 03/15/2025 07:50 Note Text: ED Provider Note Patient Name: Celestino Reyna : 1960 SERVICE DATE: 03/14/25 History Patient presents with: Functional Transfers: Pt arrives via EMS from [facility]. Per EMS pt has been having on and off L hand numbness and tingling. Today on his way to [place] he felt a headache coming on, pt went to ED> CT showed 18 mm SDH. Pt is GCS15, numbness and tingling has resolved in the L hand. No trauma, No thinners. 65-year-old male who presents the emergency department for evaluation of right-sided subdural hematoma. Patient tells me that over the last week he has had paresthesias. Has had intermittent headaches as well. Patient tells me that she was going to [place] earlier today. Tried to fasten his seatbelt with his left hand. Seatbelt fell out of his left hand. Given the weakness, he went to the emergency department. In the emergency department, patient's neuroexam was nonfocal with an NIH of 0, according to documentation. CT was done there. Patient did have evidence of acute on chronic subdural hematoma. Was sent here for further evaluation. At this time, patient states that he is asymptomatic and at his neurological baseline. PAST MEDICAL HISTORY Diagnosis Date - Acid reflux - Erectile dysfunction - Hypercholesteremia PAST SURGICAL HISTORY Procedure Laterality Date - COLONOSCOPY FLX DX W/COLLJ SPEC WHEN PFRMD Colonoscopy - ESOPHAGOGASTRODUODENOSCOPY TRANSORAL DIAGNOSTIC 05/11/2013 EGD - PAST SURGICAL HISTORY OF 5yrs old hernia surgery - PAST SURGICAL HISTORY OF tubinate, catherization - VASECTOMY UNI/BI SPX W/POSTOP SEMEN EXAMS FAMILY HISTORY Problem Relation Age of Onset - other (complications parkinsons [Other]) Father Social History Tobacco Use - Smoking status: Never - Smokeless tobacco: Never Substance and Sexual Activity - Alcohol use: Yes Comment: ocas - Drug use: Not on file - Sexual activity: Not on file ALLERGIES No Known Allergies Review of Systems Constitutional: Negative for chills and fever. HENT: Negative for congestion, sinus pressure and sinus pain. Eyes: Negative for pain, redness and visual disturbance. Respiratory: Negative for cough and shortness of breath. Cardiovascular: Negative for chest pain, palpitations and leg swelling. Gastrointestinal: Negative for abdominal pain, nausea and vomiting. Genitourinary: Negative for dysuria and hematuria. Musculoskeletal: Negative for neck pain and neck stiffness. Neurological: Positive for weakness and numbness. Physical Exam Vitals [03/14/25 1307] BP Pulse Temp Temp src Resp SpO2 Weight Height 126/98 85 36.9 ?C (98.4 ?F) Oral 15 95 % 83.9 kg (185 lb) -- Physical Exam Constitutional: General: He is not in acute distress. HENT: Head: Normocephalic and atraumatic. Right Ear: External ear normal. Left Ear: External ear normal. Nose: Nose normal. No congestion. Mouth/Throat: Mouth: Mucous membranes are moist. Pharynx: Oropharynx is clear. No oropharyngeal exudate. Eyes: General: No scleral icterus. Right eye: No discharge. Left eye: No discharge. Extraocular Movements: Extraocular movements intact. Pupils: Pupils are equal, round, and reactive to light. Cardiovascular: Rate and Rhythm: Normal rate and regular rhythm. Pulses: Normal pulses. Heart sounds: Normal heart sounds. Pulmonary: Effort: Pulmonary effort is normal. No respiratory distress. Breath sounds: No stridor. No wheezing, rhonchi or rales. Abdominal: General: Abdomen is flat. Tenderness: There is no abdominal tenderness. There is no guarding or rebound. Musculoskeletal: Cervical back: Normal range of motion and neck supple. Right lower leg: No edema. Left lower leg: No edema. Skin: Capillary Refill: Capillary refill takes less than 2 seconds. Neurological: Mental Status: He is alert. Comments: Patient alert and oriented x3. Cranial nerves II through XII intact. No sensory deficits appreciated in the face, bilateral upper and lower extremities. 5 out of 5 strength in bilateral upper and lower extremities. Coordination intact. Normal ntsk-xr-wgkq testing. Normal elrnoo-zm-amsu testing. Pupils 2 mm, equal, round, reactive to light. Diagnostic Testing ED Labs Ordered and Reviewed - No data to display Procedures ED Course / Clinical Impression Clinical Impressions as of 03/15/25 0749 SDH (subdural hematoma) (HCC) MDM / Disposition / Plan 65-year-old male who presents the emergency department for evaluation of right-sided subdural hematoma. On exam, hemodynamically stable. In no acute distress. Speaking in full sentences. Lungs were clear to auscultation bilaterally. Abdomen soft and nontender. Neuroexam was nonfocal with an NIH of 0. The rest of my physical exam is (more content not 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 Normal [facility] Emergency Department Summary on 03-14-2025 Emergency Department Summary [facility] Medical Records Department [address] [place] [address] Emergency Department Summary 03/14/25 MR#: [id number] Acct: [id number] Name: MARIBELLCHINALEEMICHI JENNIFER Rep #: [id number] : 1960 65 From: Marisa Weaver DO PCP: Dr. Christine Canada MD Status:DEP ER Location: ED HPI History of Present Illness Chief Complaint: Stroke Alert Informant: patient and spouse/S.O. Narrative Narrative: Patient is a 65-year-old male with remote history of atypical migraines and hyperlipidemia presenting with paresthesias of the left hand and face. They been intermittent throughout the week or more noticeable yesterday. They were in [place] and patient's drove the back Christina ocasio was there he said the symptoms have resolved. He went home and slept for 4 hours and was asymptomatic. He then went to bed at 11 PM and slept through the night. When getting ready for [place] this morning (around 10 AM) he developed paresthesias to his left hand. He feels that he has some dropping some things from his left hand. He notes that this past week he has been under a lot of stress is not sure if this is related. He has been having ongoing headaches. He also notes that throughout this week when he has been typing he is lost some fine motor control of his left hand. He gives the example of he pushed the caps lock with his left hand without even realizing it. He also notes that he will hold the remote for his hearing aid in his left hand and jaw but not even realize he had dropped it. States that this week he is question if he has a viral illness as he had a low-grade temperature of 37 ???C. No other complaints or concerns at this time peer denies a history of stroke, diabetes, or hypertension. Goes to the doctor regularly but does not take any medication. No other complaints or concerns reported at this time. [facility] Medical History Elevated PSA High cholesterol (11/18/87) H/O Mohs micrographic surgery for skin cancer (09/18/23) Migraines (11/18/74) Hearing difficulty (11/18/10) Bone fracture (11/18/89) Back problem (11/18/74) Screening for prostate cancer Screening for cardiovascular condition Health care maintenance Fatigue Screening for thyroid disorder Erectile dysfunction Phimosis Lung nodule, solitary High cholesterol Tinnitus Frequent headaches Scoliosis GERD (gastroesophageal reflux disease) Hyperlipemia Hernia Home Medications ???Medication ???Instructions ???Recorded ???Last Taken ???Type omeprazole 20 mg capsule,delayed 20 mg PO DAILY 08/21/16 08/30/16 0 6:30 History release omega 1-zxn-ope-fish oil 1,200 mg 2 cap PO DAILY 02/09/22 Unknown H istory (144 mg-216 mg) capsule (Fish Oil) cholecalciferol (vitamin D3) 50 50 mcg PO DAILY 11/26/23 Unknown H istory mcg (2,000 unit) capsule sfudiluf-mtdy-vfzdj acid 240 1 tab PO DAILY 11/26/23 Unknown Hi story mcg-vit K 120 kgb-tqtbgp-gcow 293 tablet (Alive Men's 50 Plus Multivit (vit K)) tadalafil 10 mg tablet (Cialis) 10 mg PO QDAY PRN sexual activity 11/30/24 Unknown Rx #8 tabs rosuvastatin 20 mg tablet 20 mg PO DAILY #90 TABLETS 5 Unknown Rx Allergy/AdvReac Type Severity Reaction Status Date / Time No Known Allergies Allergy Verified 01/21/25 13:07 Family History Grandfather Diabetes Heart disease Cancer esophagus maternal Mother Age: 90 High cholesterol Father Melanoma Parkinsons disease Osteoporosis Surgical History History of colonoscopy (11/18/12) H/O transurethral resection of prostate History of vasectomy Social History adopted: No household members: spouse number of children: 2 current occupational status: employed current occupation: [employer] pets and animals: No sexually active: Yes Smoking Status: Never smoker Electronic Cigarette Use: not used second hand exposure: No alcohol intake: current alcohol intake frequency: a few times a week Alcohol type: wine substance use type: does not use caffeine: Yes (3) Type: coffee frequency: 1-2 times per week duration: 30-45 minutes/day do you feel safe at home: Yes ROS ROS ED Constitutional Constitutional ED: Reports fever(s) and weakness; Denies chills Eyes Eyes: Denies blurry vision or change in vision Cardiovascular Cardiovascular: Denies chest pain Respiratory/Chest Respiratory/Chest: Denies cough Gastrointestinal Gastrointestinal: Denies abdominal pain, nausea or vomiting Musculoskeletal Musculoskeletal: Denies arthralgias or myalgias Integumentary Denies rash Neurologic Neurologic: Reports headache(s), p (more content not 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 Normal [facility] Eosinophil percentageOrdered By: Marisa Weaver on 03-14-2025 Eosinophils/100 WBC (Bld) 1.7 % 0-5 [facility] Epithelial cells.squamous LM Ql (Urine sed)Ordered By: Marisa Weaver on 03-14-2025 Epithelial cells.squamous LM.HPF (Urine sed) [#/Area] 0 /[HPF] 0-5 [facility] Erythrocyte distribution wid th (RBC) [Ratio]Ordered By: Marisa Weaver on 03-14-2025 Erythrocyte distribution width (RBC) [Entitic vol] 40.3 fL 35.1-43.9 [facility] Erythrocyte distribution wid th ratioOrdered By: Marisa Weaver on 03-14-2025 Erythrocyte distribution width (RBC) [Ratio] 12.8 % 11.6-14.6 [facility] Estimation of creatinine renetta aranceOrdered By: Marisa Weaver on 03-14-2025 Estimated Creatinine Clearance Calc 95.13 ml/min 50-250 [facility] GFR/1.73 sq M.predicted chandana g non-blacks MDRD (S/P/Bld) [Vol rate/Area]Ordered By: Marisa Weaver on 03-14-2025 Estimated GFR (MDRD) Non-Af Amer 99 >60 [facility] Comment on above: mL/min/1.73m2 CKD-EP I Creatinine Equation (2020) Glucose Ql (U)Ordered By: Sly Weaver on 03-14-2025 Urine Glucose (UA) Normal mg/dl Normal [facility] deOrdered By: Marisa Weaver on 03-14-2025 Bedside Glucose (Misc Panel) 103 mg/dL 74-106 [facility] Comment on above: MANAGEMENT OF PATIEN T CARE PER NURSING PROTOCOL HISTORY PHYSICALon HISTORY PHYSICAL HNO ID: [id number] Author: KEN JOSEPH MD Service: Neurosurgery Author Type: Physician Commercial Driver'S License Driver Type: H&P Filed: 03/14/2025 19:08 Note Text: Attestation signed by Ken Joseph MD at 03/14/2025 7:08 PM I agree with the Note of Giorgio Linda. Pt seen and examined and CTH reviewed. Having left sided transient episodes of numbness on the left side arm and face found to have a chronic SDH R. I discussed craniotomy for evacuation including expectations and complications. He understands and wants to proceed. NEUROSURGERY HISTORY AND PHYSICAL EXAMINATION SERVICE DATE: 03/14/2025 SERVICE TIME: 1400 PRIMARY CARE PHYSICIAN: Renato Clark MD Subjective CHIEF COMPLAINT: LUE paresthesias, weakness HPI: Mr. Reyna is a very pleasant 65 year old male who presents from [facility] with diagnosis of SDH found on imaging. The pt states he has a hx of remote migraines, maybe 2-3 per year and that last week he began to have one. He had taken Advil a couple of times since it started, the last dose being yesterday about 2pm. He states that yesterday he noticed tingling in his left fingers after he awoke from sleeping on a car ride. He thought it was b/c his neck was kinked in a bad position. By the time he was home he felt tingling in his lips and tongue. Shortly thereafter it all resolved on its own. This am he was getting ready for [place] when he noticed his lue going numb again and he had trouble using his left hand. He was dropping things and was unable to buckle his seat belt. His drove him to the ER at [place] where a CTH revealed a large right sided SDH. He was then transferred to [facility] for Neurosurgical care. By the time he got to [facility] his symptoms had again resolved. He denies any recent or remote trauma. Currently denies headache, neck pain or stiffness, n/v, dizziness or vision changes and overall 'feels like his normal self.' FUNCTIONAL STATUS: Independent PAST MEDICAL HISTORY Diagnosis Date Acid reflux Erectile dysfunction Hypercholesteremia PAST SURGICAL HISTORY Procedure Laterality Date COLONOSCOPY FLX DX W/COLLJ SPEC WHEN PFRMD Colonoscopy ESOPHAGOGASTRODUODENOSCOPY TRANSORAL DIAGNOSTIC 05/11/2013 EGD PAST SURGICAL HISTORY OF 5yrs old hernia surgery PAST SURGICAL HISTORY OF tubinate, catherization VASECTOMY UNI/BI SPX W/POSTOP SEMEN EXAMS FAMILY HISTORY Problem Relation Age of Onset other (complications parkinsons [Other]) Father Social History Tobacco Use Smoking status: Never Smokeless tobacco: Never Substance Use Topics Alcohol use: Yes Comment: ocas Prior to Admission Medications Prescriptions Last Dose Informant Patient Reported? Taking? DOCOSAHEXANOIC ACID/EPA (FISH OIL ORAL) 03/14/2025 Yes Yes Sig: Take 1,200 mg by mouth once daily. Multivitamin capsule 03/14/2025 Yes Yes Sig: Take 1 capsule by mouth once daily. SIMVASTATIN ORAL 03/14/2025 Yes Yes Sig: Take by mouth once daily. TADALAFIL (CIALIS ORAL) Unknown Yes No Sig: Take by mouth as directed. omeprazole 20 mg capsule 03/14/2025 Yes Yes Sig: Take 20 mg by mouth once daily. Facility-Administered Medications: None ALLERGIES No Known Allergies COMPLETE REVIEW OF SYSTEMS: GENERAL: No weight loss, malaise or fevers HEENT: No changes in hearing or vision, no nose bleeds or other nasal problems, hx migraines (last week) NECK: Negative for lumps, goiter, pain and significant neck swelling RESPIRATORY: Negative for cough, hemoptysis, wheezing, COPD, dyspnea or shortness of breath CARDIOVASCULAR: Negative for chest pain, leg swelling, hypertension, CHF or palpitations MUSCULOSKELETAL: Negative for joint pain or swelling, back pain or muscle pain NEURO: Migraine headaches and SEE HPI All other symptoms unremarkable Objective PHYSICAL EXAM: Physical Exam Performed: GENERAL: Alert, no distress, cooperative HEAD/SINUSES: No significant findings EYES: PERRLA, EOMI NECK: No jugulovenous distention, Supple LUNGS: Lungs clear to auscultation, Good diaphragmatic excursion CARDIAC: Normal S1 and S2; no rubs, murmurs, or gallops ABDOMEN: Abdomen soft, non-tender, BS normal, No masses or organomegaly EXTREMITIES: Extremities normal, no deformities, edema, clubbing or skin discoloration. 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 CT brain completed at OSH 03/14/25: (Report unavailable) Very large mixed density SDH with mass effect Assessment (more content not 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 Normal [facility] HISTORY PHYSICAL HNO ID: [id number] Author: ASHANTI MANZANO APRN.NUT PICKER Service: Neurology ICU Author Type: Nurse Practitioner Type: H&P Filed: 03/14/2025 15:48 Note Text: Attestation signed by Hussain Stephens DO, PhD at 03/14/2025 9:15 PM THE NEURO ICU MANAGEMENT OF THIS PATIENT WAS DISCUSSED WITH THE NICU TEAM I have reviewed the progress note obtained and documented by the advanced practice provider . I have personally seen and examined the patient and discussed their management with the GERALDINE. I reviewed the GERALDINE note and agree with the documented findings and plan of care. I have repeated the examination and confirm the findings except as documented. PATIENT PROBLEMS I REVIEWED, REVISED AND/OR INITIATED: The care of this patient required my full attention and direct personal management of: Principal Problem: SDH (subdural hematoma) (HCC) Active Problems: Acid reflux Hypercholesteremia Acute on chronic intracranial subdural hematoma (HCC) Resolved Problems: * No resolved hospital problems. * ==== STAFF COORDINATION OF CRITICAL CARE [facility] Staff Physician note of personal involvement in Care The patient is critically ill because of imminent risk of acute brain damage and continues to require intensive support and observation. This patient has a high probability of sudden, clinically significant deterioration, which requires the highest level of physician preparedness to intervene urgently. I managed/supervized life or organ supporting interventions that required frequent physician assessment. I devoted my full attention to the direct care of this patient for the amount of time indicated below. Time I spent with family or surrogate(s) is included only if the patient was incapable of providing the necessary information or participating in medical decision making. Time devoted to teaching or to any procedures I billed separately is not included. CRITICAL CARE: I personally spent 35 minutes of critical care time involved in the care of this patient. ==== PLAN, IMPRESSION AND ACTION(S) TAKEN 35 minutes CRITICAL CARE TIME HPI: 65 yo male with pmhx of HLD GERD who presented following PATEL numness and tingling of Left hand and incoordination and gernalized malaise . CTH demonstrated acure on chronic r fronto temporal SDH collection with MLS and edema noted. No hx of AC use or AP use, did endorse hitting head on top of trahs can. Exam: SAVOONGA, 4/5 bilateral UE and LE EOM intact CN itact #NEURO: R frontotemporal SDH PATEL - SBP , 160 - Hold AC/AP/ - Neurochecks q1 hour - Normonatremia - Keppra 1000 BID 7 dys - Plan for evacuation per NSGY - Hold PPX today RA NPO pre op PPI Please see the documented [id number] plan in the updated problem list. Plan of care discussed with: . Hussain Stephens DO, PhD Staff, Neurointensive Care [facility] Date of Service: 03/14/2025 Time of Service: 9:05 PM This is an electronically created document. If printed, please do not remove from the chart or modify printed copy. SERVICE DATE: 03/14/2025 SERVICE TIME: 1430 PM NEUROLOGICAL INTENSIVE CARE UNIT HISTORY AND PHYSICAL REASON FOR ADMISSION: SDH Subjective HPI: Celestino Reyna is a 65 year old male with history HLD, GERD who presented to [place] ED for headache, numbness/tingling of left hand that have been ongoing for the last week in an intermittent pattern. However 03/14 he was [place] and noted the return of the paraesthesia and unable to fasten his seatbelt today while on his way to [place] which prompted his visit to the ED. stated she noted a slight left facial droop at the time. Patient denies any trauma or AC use. He took 1 dose Motrin day prior to arrival. He takes daily Fish Oil but no AP. CTH showed acute on chronic right SDH. Patient transferred to [facility] for neurosurgical consultation and NSICU admission. Plan is for subdural evacuation tonight. NSICU service asked to follow along for medical management. PAST MEDICAL HISTORY Diagnosis Date Acid reflux Erectile dysfunction Hypercholesteremia PAST SURGICAL HISTORY Procedure Laterality Date COLONOSCOPY FLX DX W/COLLJ SPEC WHEN PFRMD Colonoscopy ESOPHAGOGASTRODUODENOSCOPY TRANSORAL DIAGNOSTIC 05/11/2013 EGD PAST SURGICAL HISTORY OF 5yrs old hernia surgery PAST SURGICAL HISTORY OF tubinate, catherization VASECTOMY UNI/BI SPX W/POSTOP SEMEN EXAMS FAMILY HISTORY Problem Relation Age of Onset other (complications parkinsons [Other]) Father ALLERGIES No Known Allergies PRIOR TO ADMISSION MEDICATIONS: (Not in a hospital admission) Social History Tobacco Use Smoking status: Never Smokeless tobacco: Never Substance Use Topics Alcohol use: Yes Comment: ocas 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 Normal [facility] Hematocrit Auto (Bld) [Volum e fraction]Ordered By: Marisa Weaver on 03-14-2025 Hematocrit (Bld) [Volume fraction] 41.9 % 40-54 [facility] Hemoglobin measurementOrdere d By: Marisa Weaver on 03-14-2025 Hemoglobin (Bld) [Mass/Vol] 14.6 g/dL 13.0-16.5 [facility] Immature granulocytes/100 WB C Auto (Bld)Ordered By: Marisa Weaver on 03-14-2025 Immature granulocytes/100 WBC (Bld) 0.200 % 0.0-0.9 [facility] Comment on above: IG% - Immature Granu locytes (promyelocytes, myelocytes and metamyelocytes) > 1% indicates that a LEFT SHIFT is Present. Influenza virus A and B and SARS-CoV-2 (COVID-19) and Respiratory syncytial virus RNAOrdered By: Marisa Weaver on 03-14-2025 SARS-CoV-2 (COVID-19) RNA VINCE+probe Ql (Unsp spec) [facility] International normalized rat io (INR) calculationOrdered By: Marisa Weaver on 03-14-2025 INR Coag (Bld) [Relative time] 0.9 {INR} [facility] Ketones Test strip Ql (U)Ord ered By: Marisa Weaver on 03-14-2025 Ketones Ql (U) Negative Negative [facility] L499.0042on 03-14-2025 Trop T High Sen Normal <=22 [facility] Comment on above: Result Comment: Canc elled via OM: MD Ordered Performed By: #### L 100.0100, L500.4050, L500.4100 #### [facility] [address] [place], [address] L499.0043on 03-14-2025 Trop T High Sen Normal <=22 [facility] Comment on above: Result Comment: Canisis elled via OM: MD Ordered Performed By: #### L 100.0100, L500.4050, L500.4100 #### [facility] [address] [place], [address] L501.4021on 03-14-2025 Trop T High Sen 7 ng/L Normal <=22 [facility] Comment on above: Performed By: #### L 300.4310, L501.4021, L100.0100, L300.3900, L500.2500 #### [facility] [address] [place], [address] Lymphocytes Auto (Unsp spec) [#/Vol]Ordered By: Marisa Weaver on 03-14-2025 Lymphocytes (Bld) [#/Vol] 1.13 10*3/uL 0.83-4.51 [facility] Lymphocytes/100 WBC Auto (Un sp spec)Ordered By: Marisa Weaver on 03-14-2025 Lymphocytes/100 WBC (Bld) 14.1 % Low 19-41 [facility] M100.678on 03-14-2025 M100.678 Pending SARS-CoV-2 (COVID 19) Negative INFLUENZA A Negative INFLUENZA B Negative RSV PCR Negative Normal [facility] Comment on above: Performed By: #### L 100.0100, L500.4050, L500.4100 #### [facility] [address] [place], [address] MCV (mean corpuscular volume ) determinationOrdered By: Marisa Weaver on 03-14-2025 MCV (RBC) [Entitic vol] 86.2 fL 80-94 [facility] Mean corpuscular hemoglobin (MCH) determinationOrdered By: Marisa Weaver on 03-14-2025 MCH (RBC) [Entitic mass] 30.0 pg 27.0-32.0 [facility] Mean corpuscular hemoglobin concentration (MCHC) determinationOrdered By: Marisa Weaver on 03-14-2025 MCHC (RBC) [Mass/Vol] 34.8 g/dL 32-36 [facility] Mean platelet volume determi nationOrdered By: Marisa Weaver on 03-14-2025 Platelet mean volume (Bld) [Entitic vol] 8.7 fL 6.2-12.0 [facility] Microscopic analysis of urin e for red blood cells (RBC)Ordered By: Marisa Weaver on 03-14-2025 Urine RBC 0-5 SEEN /hpf 0-5 [facility] Monocyte percentageOrdered B y: Marisa Weaver on 03-14-2025 Monocytes/100 WBC (Bld) 8.6 % 0-10 [facility] Mucus LM Ql (Urine sed)Order ed By: Marisa Weaver on 03-14-2025 Mucus Ql (Urine sed) 1+ /hpf [facility] Neutrophil percentageOrdered By: Marisa Weaver on 03-14-2025 Neutrophils/100 WBC (Bld) 74.7 % High 47-70 [facility] Nitrite Test strip Ql (U)Ord ered By: Marisa Weaver on 03-14-2025 Nitrite Ql (U) Negative Negative [facility] Nucleated red blood cell per centageOrdered By: Marisa Weaver on 03-14-2025 Nucleated RBC/100 WBC (Bld) [Ratio] 0 % 0-5 [facility] OPERATIVE NOon 03-14-2025 OPERATIVE NO HNO ID: [id number] Author: KEN JOSEPH MD Service: Neurosurgery Author Type: Physician Type: Operative Report Filed: 03/14/2025 22:54 Note Text: OPERATIVE/PROCEDURE REPORT LOG ID: [id number] SURGERY/PROCEDURE DATE: 03/14/2025 INCISION/PROCEDURE START TIME: 7:43 PM INCISION CLOSE/PROCEDURE END TIME: 10:01 PM SURGEON(S)/PROCEDURALIST(S) AND ELECTRICAL PRODUCTS ENGINEER(S): Surgeons and Role: * Ken Joseph MD - Primary Production Truck Driver: Mark Coats SA SURGERY/PROCEDURE(S): Right frontoparietal craniotomy evacuation acute on chronic and subacute subdural hematoma ANESTHESIA: General SURGERY/PROCEDURE DETAILS: This patient presented with multiple episodes of numbness in the left upper extremity and numbness around the left side of his face as well as weakness in his left hand where he could not use it well without dropping things and was not able to buckle his seatbelt in the car on his way to the [place] today. He previously had history of migraine about 2-3 times per year and last week he began to have 1. With intermittent clearing and recurrence presented to the emergency room for this and a CAT scan was done that showed evidence of a subdural hematoma which was mixed density with an acute component but predominantly chronic with evidence of a membrane visible on the scan. There was compression of the frontoparietal region. With the findings on the scan and the his symptoms he was a candidate for evacuation of the hematoma. I discussed the procedure with him and his family including expectations risks and complications. He gave us verbal and written consent to proceed. He was taken to the operating room after the huddle and general endotracheal anesthesia was induced and patient was positioned supine with the head over a doughnut and blanket rolls underneath the right shoulder and right hip for a right frontal parietal approach. Scalp was shaved and prepped and routine fashion. We outlined a craniotomy incision in the shape of a?. Surgical timeout was taken 2 g of Ancef were administered. Incision site was infiltrated with half percent Xylocaine with epinephrine and made throughout the layers of the scalp. Hemostasis was secured with Jett clips. Temporalis muscle and fascia were incised with the cutting current and from the bone and held with spring retractors. A 4 bur hole craniotomy was performed and the underlying dura was from the bone and free bone flap elevated with the sidecutting saw. The underlying dura appeared to be quite vascular and multiple bleeders were controlled with bipolar cautery. It felt to be tense and upon opening it in cruciate fashion and tacking it up there was a thick membrane underneath it that measured at least 5 to 6 mm which I had to penetrate and then I encountered a large collection of clotted blood as well as old liquefied dark blood that came out under pressure. The thickened membrane was expanded over the parietal and frontal region. I dissected the membrane throughout its thickness and removed a piece of it and sent it to pathology. I inspected the surface of the inner membrane opened it and there was a large amount of greenish-yellowish fluid that came out below which I could visualize the cortex and there was no evidence of a vascular anomaly. There was no bleeding artery or vein in the cortex so I irrigated adequately with saline evacuating all the hematoma until the returning saline was clear. I retracted the brain posteriorly and anteriorly with a brain spatula and encountered no evidence of pockets of subdural. When I was satisfied with the removal of the subdural hematoma the brain was pulsating and elder to the surface of the dura. I irrigated the area adequately accomplished hemostasis by coagulating the membrane undersurface meticulously with bipolar cautery all around the exposed area of the dura. I approximated the dura loosely and placed a piece of Gelfoam over it accomplished hemostasis in the epidural layer with Avitene powder and Gelfoam. The bone flap was replaced and secured with bur hole covers and screws. Temporalis muscle and galea were approximated over a Hemovac in the subgaleal space using interrupted 3-0 Vicryl sutures. Skin was then closed with continuous locked 4-0 nylon suture. Sterile dressing was applied patient was extubated and sent to the intensive care unit in stable condition. At the end of the operation the needle count instrument count and sponge count was correct. PRE-OP/PRE-PROCEDURE DIAGNOSIS: Acute on chronic subdural hematoma right hemisphere with brain compression and neurological symptoms POST-OP/POST-PROCEDURE DIAGNOSIS: Same as Preop ESTIMATED BLOOD LOSS: 50 mL SPECIMENS: Thickened subdural membrane IMPLANTABLE DEVICES: Bur hole covers and screws DRAINS: Subgaleal Hemovac drain COMPLICATIONS: None CLOSURE TECHNIQUE: Primary PARTICIPATION IN SURGERY/PROCEDUR (more content not 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 Normal [facility] PT panel Coag (PPP)on 2024 INR Coag (PPP) [Relative time] 1.0 {INR} Normal 0.9-1.3 [facility] Comment on above: Order Comment: Manju castillo Type: BLOOD SPECIMENOrdering Facility: [facility] Address: [address] [place], [place] [address] Result Comment: Brandy min K Antagonist (VKA) Therapeutic Range: INR 2 to 3 (Target INR of 2.5) Note: For patients treated with VKA drugs, such as warfarin, the [place] [employer] 2012 Guideline recommends a therapeutic INR range of 2 to 3 (target INR of 2.5). This recommendation includes high-risk patients with antiphospholipid syndrome with previous arterial or venous thromboembolism, current-generation mechanical or bioprosthetic aortic heart valve replacement. Note: Patients with mechanical aortic valve replacement and additional risk factors for thromboembolic events (atrial fibrillation, previous thromboembolism, LV dysfunction, hypercoagulable conditions) or an older generation mechanical AVR (i.e., ball in-Cage) or any mechanical MVR should have a INR therapeutic range of 2.5 to 3.5 (target INR of 3). Isabel GH, et al. Chest 2012, 141:7S-47S Toya RA, et al. [facility] 2017, 70: 252-289 Performed By: #### 3 4528-0, 31128-6 ####[employer] LABORATORYCLIA [id number] [address] [place] PT Coag (PPP) [Time] 10.9 s Normal 9.7-13.0 [facility] Comment on above: Order Comment: Manju castillo Type: BLOOD SPECIMENOrdering Facility: [facility] Address: [address] [place] [address] Performed By: #### 3 4528-0, 08948-0 ####[facility] LABORATORYCLIA [id number] [place] [address] [place] Partial Thromboplast Timeon 03-14-2025 aPTT Coag (Bld) [Time] 27.7 s Normal 24.1-36.2 [facility] Comment on above: Performed By: #### L 300.4310, L501.4021, L100.0100, L300.3900, L500.2500 #### [facility] [address] [place], [address] Pathology biopsy report Donte (Tiss)on 03-14-2025 AP DISCLAIMER Normal [facility] Comment on above: Order Comment: Speci men Type: TISSUE SPECIMENOrdering Facility: [facility] Address: [address] [place], [place] [address] Result Comment: Laurel starks Developed Test (LDT) Disclaimer: Performance characteristics of immunohistochemical, immunofluorescent, and chromogenic in-situ hybridization tests have been determined by the performing laboratory within [facility] Pathology and Laboratory Medicine Department ([facility], [facility], [facility], [facility], [facility], [facility], or [facility]) in a manner consistent with CLIA requirements. One or more of these tests may not have been cleared or approved by the FDA. [facility] is regulated under CLIA as qualified to perform high-complexity testing. These tests are used for clinical purposes. These should not be regarded as investigational or for research. Positive and negative controls stain appropriately. Performed By: #### 6 6121-5 ####[facility] LABORATORYCLIA [id number] [place] [address] [place] CASE REPORT Normal [facility] Comment on above: Order Comment: Speci men Type: TISSUE SPECIMENOrdering Facility: [facility] Address: [address] [place] [address] Result Comment: Surg ical Pathology Report Case: [id number] Authorizing Provider: Ken Joseph MD Collected: 03/14/2025 08:41 PM Ordering Location: [facility] Received: 03/15/2025 07:34 AM Pathologist: Davis Marie MD Specimen: Blood Clot (Specify Site in Comments), subdural hematoma membrane Performed By: #### 6 6121-5 ####[facility] LABORATORYCLIA [id number] [address] CLINICAL HISTORY Normal [facility] Comment on above: Order Comment: Speci men Type: TISSUE SPECIMENOrdering Facility: [facility] Address: [address] [place] [address] Result Comment: Pre- op diagnosis: SDH (subdural hematoma) (HCC) [S06.5XAA] Performed By: #### 6 6121-5 ####[facility] LABORATORYCLIA [id number] [address] FINAL DIAGNOSIS Normal [facility] Comment on above: Order Comment: Speci men Type: TISSUE SPECIMENOrdering Facility: [facility] Address: [address] [place] [address] Result Comment: A. S ubdural hematoma membrane, excision: - Fibromembranous tissue with mixed inflammation, granulation-type tissue, blood, fibrin and necrotic material. - There is no evidence of malignancy. at 1309 EDT Performed By: #### 6 6121-5 ####[facility] LABORATORYCLIA [id number] [address] FINAL PERFORMING LAB Normal [facility] Comment on above: Order Comment: Speci men Type: TISSUE SPECIMENOrdering Facility: [facility] Address: [address] [place] [address] Result Comment: Diag nostic interpretation performed at: [facility], [address] [address] CLIA# [id number] Radon Inspector: Zack Brian MD Performed By: #### 6 6121-5 ####[facility] LABORATORYCLIA [id number] [address] GROSS DESCRIPTION Normal [facility] Comment on above: Order Comment: Speci men Type: TISSUE SPECIMENOrdering Facility: [facility] Address: [address] [place], [place] [address], [place] [address] Result Comment: A. B lood Clot (Specify Site in Comments) Received in formalin labeled subdural hematoma membrane are multiple red-pink hemorrhagic membranous segments of tissue aggregating to 3.0 x 2.3 x 0.6 cm. The specimens are sectioned. The specimens are totally submitted in formalin in one cassette. Gross examination performed at [facility], [address] [place] [address] [facility] March 15, 2025 7:56 AM Performed By: #### 6 6121-5 ####[facility] LABORATORYCLIA [id number] [place] [address] [place] Platelet countOrdered By: Sly Weaver on 03-14-2025 Platelets (Bld) [#/Vol] 334 10*3/uL 150-450 [facility] Potassium (Unsp spec) [Mass/ Vol]Ordered By: Marisa Weaver on 03-14-2025 Potassium [Moles/Vol] 3.8 mmol/L 3.3-5.1 [facility] Protein Test strip Ql (U)Ord ered By: Marisa Weaver on 03-14-2025 Protein Ql (U) 30 mg/dl High Negative [facility] Prothrombin Time w/INRon INR Coag (PPP) [Relative time] 0.9 {INR} Normal [facility] Comment on above: Performed By: #### L 300.4310, L501.4021, L100.0100, L300.3900, L500.2500 #### [facility] [address] [place], [address] PT Coag (PPP) [Time] 12.7 s Normal 11.7-14.9 [facility] Comment on above: Performed By: #### L 300.4310, L501.4021, L100.0100, L300.3900, L500.2500 #### [facility] [address] [place], [address] Prothrombin timeOrdered By: Marisa Weaver on 03-14-2025 PT Coag (PPP) [Time] 12.7 s 11.7-14.9 [facility] RBC Auto (Bld) [#/Vol]Ordere d By: Marisa Weaver on 03-14-2025 RBC (Bld) [#/Vol] 4.86 10*6/uL 4.6-6.2 [facility] STROKE Brain/Head without Co nton 03-14-2025 STROKE Brain/Head without Cont [facility] Imaging Services [address] [place] [address] STROKE Brain/Head without Cont MR#: [id number] Acct: [id number] Name: CELESTINO REYNA Rep #: [id number] : 1960 M 65 From: Mauro franz MD PCP: Dr. Christine Canada MD Status: [facility] ER Study: STROKE Brain/Head without Cont Date of Exam: 0 03/14/25 Exam# [id number] Ordering Dr: Marisa Weaver DO PROCEDURE: STROKE BRAIN/HEAD WITHOUT CONT 03/14/2025 REASON FOR EXAM: NEURO DEFICIT, ACUTE, STROKE SUSPECTED TECHNIQUE: Head CT without intravenous contrast. Coronal and Sagittal reconstruction series were provided. One or more dose reduction techniques were used (e.g., Automated exposure control, adjustment of the mA and/or kV according to patient size, use of iterative reconstruction technique. COMPARISON: None FINDINGS: Brain: Mixed attenuation right extra-axial fluid collection, measuring up to 18 mm in maximum transverse thickness. Findings compatible with an acute on chronic subdural hematoma. Superior aspect of the collection, demonstrates hyperdense attenuation compatible with acute blood products. There is local mass effect with effacement of the surrounding sulci and gyri no significant midline shift. Low density in the periventricular white matter suggests mild chronic small vessel ischemic changes. CSF Spaces: No significant volume loss. Sinuses/Mastoids: Mild mucosal thickening at the paranasal sinuses Bones: Calvarium is unremarkable. CT/STROKE Brain/Head without Cont IMPRESSION: Mixed attenuation right extra-axial fluid collection measuring up to 18 mm in maximum transverse thickness, compatible with an acute on chronic subdural hematoma. Local mass effect without midline shift. Red Alert: The critical information above was relayed directly by me by telephone to Marisa Lee on 03/14/2025 at 10:55 am with readback verification. Reading Location: [facility] CC: Dr. Marisa Weaver DO; Dr. 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 Normal [facility] Serum creatinine measurement (mass/volume)Ordered By: Marisa Weaver on 03-14-2025 Creatinine [Mass/Vol] 0.81 mg/dL 0.70-1.20 [facility] Serum glucose measurement (m ass/volume)Ordered By: Marisa Weaver on 03-14-2025 Glucose [Mass/Vol] 114 mg/dL High 70-99 [facility] Serum or plasma calcium steff urement (mass/volume)Ordered By: Marisa Weaver on 03-14-2025 Calcium [Mass/Vol] 9.8 mg/dL 7.6-11.0 [facility] Serum or plasma urea nitroge n measurement (mass/volume)Ordered By: Marisa Weaver on 03-14-2025 Urea nitrogen [Mass/Vol] 21 mg/dL High 4-19 [facility] Sodium levelOrdered By: Mildred Weaver on 03-14-2025 Sodium [Moles/Vol] 139 mmol/L 133-145 [facility] TOXICOLOGY SCREEN, ROUTINE U RINEon 03-14-2025 Amphetamines Confirm (U) [Mass/Vol] Negative Normal Negative [facility] Comment on above: Order Comment: Speci men Type: URINE SPECIMENOrdering Facility: [facility] Address: [address] [place] [address] Result Comment: Cuto ff threshold at 1000 ng/mL. Performed By: #### U TOX2 ####[facility] LABORATORYCLIA [id number] [place] [address] [place] BARBITURATES, URINE Negative Normal Negative [facility] Comment on above: Order Comment: Speci men Type: URINE SPECIMENOrdering Facility: [facility] Address: [address] [place] [address] Result Comment: Cuto ff threshold at 200 ng/mL. Performed By: #### U TOX2 ####[facility] LABORATORYCLIA [id number] [place] [address] [place] BENZODIAZEPINES, UR Negative Normal Negative [facility] Comment on above: Order Comment: Speci men Type: URINE SPECIMENOrdering Facility: [facility] Address: [address] [place] [address] Result Comment: Cuto ff threshold at 200 ng/mL. Performed By: #### U TOX2 ####[facility] LABORATORYCLIA [id number] [address] [facility] Cannabinoids Screen Ql (U) Negative Normal Negative [facility] Comment on above: Order Comment: Speci men Type: URINE SPECIMENOrdering Facility: [facility] Address: [address] [place] [address] Result Comment: Cuto ff threshold at 50 ng/mL. Performed By: #### U TOX2 ####[facility]ORATORYCLIA [id number] [address] [place] Cocaine Ql (U) Negative Normal Negative [facility] Comment on above: Order Comment: Speci men Type: URINE SPECIMENOrdering Facility: [facility] Address: [address] [place] [address] Result Comment: Cuto ff threshold at 300 ng/mL. Performed By: #### U TOX2 ####[facility]ATORYCLIA [id number] [address] [place] Ethanol (U) [Mass/Vol] <11 Normal <11 [facility] Comment on above: Order Comment: Speci men Type: URINE SPECIMENOrdering Facility: [facility] Address: [address] [place] [address] Performed By: #### U TOX2 ####[facility]ATORYCLIA [id number] [address] [place] Opiates Screen Ql (U) Negative Normal Negative [facility] Comment on above: Order Comment: Speci men Type: URINE SPECIMENOrdering Facility: [facility] Address: [address] [place] [address] Result Comment: Cuto ff threshold at 300 ng/mL. Performed By: #### U TOX2 ####[facility]ATORYCLIA [id number] [address] oxyCODONE cutoff Screen (U) [Mass/Vol] Negative Normal Negative [facility] Comment on above: Order Comment: Speci men Type: URINE SPECIMENOrdering Facility: [facility] Address: [address] [place] [address] Result Comment: Cuto ff threshold at 100 ng/mL. Performed By: #### U TOX2 ####[facility]ORYCLIA [id number] [address] Phencyclidine Ql (U) Negative Normal Negative [facility] Comment on above: Order Comment: Speci men Type: URINE SPECIMENOrdering Facility: [facility] Address: [address] [place] [address] Result Comment: Cuto ff threshold at 25 ng/mL. Performed By: #### U TOX2 ####[facility] LABORATORYCLIA [id number] [address] STATES OF [facility] TYPE + SCREENon 03-14-2025 ABO A Normal [facility] Comment on above: Order Comment: Speci men Type: BLOOD SPECIMEN [facility] Address: [address] [place] [address] Performed By: #### T SCR #### [facility] CLIA [id number] [address] [place] Rh Nom (Bld) Positive Normal [facility] Comment on above: Order Comment: Speci men Type: BLOOD SPECIMEN [facility] Address: [address] [place] [address] Performed By: #### T SCR #### [facility] CLIA [id number] [address] [place] TYPE AND SCREEN EXPIRATION 03/17/2025 23:59 Normal [facility] Comment on above: Order Comment: Speci men Type: BLOOD SPECIMEN [facility]: [facility] Address: [address] [place] [address] Performed By: #### T SCR #### [facility] CLIA [id number] [address] Troponin T.cardiac High sens itivity method [Mass/Vol]Ordered By: Marisa Weaver on 03-14-2025 Troponin T High Sensitivity 7 ng/L <22 [facility] Urinalysis complete panel (U )on 03-14-2025 Bilirubin Ql (U) Negative Normal Negative [facility] Comment on above: Order Comment: Speci men Type: URINE SPECIMENOrdering Facility: [facility] Address: [address] [place] [address] Performed By: #### 2 4356-8 ####[facility] LABORATORYCLIA [id number] [address] [place] Clarity (Unsp spec) Clear Normal Clear [facility] Comment on above: Order Comment: Speci men Type: URINE SPECIMENOrdering Facility: [facility] Address: [address] [place] [address] Performed By: #### 2 4356-8 ####[facility] LABORATORYIA [id number] [address] [place] Color (U) Yellow Normal yellow [facility] Comment on above: Order Comment: Speci men Type: URINE SPECIMENOrdering Facility: [facility] Address: [address] [place] [address] Performed By: #### 2 4356-8 ####[facility]ORATORYCLIA [id number] [address] [place] Glucose Test strip (U) [Mass/Vol] Negative Normal Trace, Negative [facility] Comment on above: Order Comment: Speci men Type: URINE SPECIMENOrdering Facility: [facility] Address: [address] [place] [address] Performed By: #### 2 4356-8 ####[facility] LABORATORYCLIA [id number] [place] [address] [place] Hemoglobin Ql (U) Negative Normal Negative, Trace [facility] Comment on above: Order Comment: Speci men Type: URINE SPECIMENOrdering Facility: [facility] Address: [address] [place] [address] Performed By: #### 2 4356-8 ####[facility]ORATORYCLIA [id number] [address] [place] Ketones Ql (U) 1+ Abnormal Negative, Trace [facility] Comment on above: Order Comment: Speci men Type: URINE SPECIMENOrdering Facility: [facility] Address: [address] [place] [address] Performed By: #### 2 4356-8 ####[facility] LABORATORYCLIA [id number] [address] Leukocyte esterase Test strip Ql (U) Negative Normal Negative, 25 Bryanna/uL [facility] Comment on above: Order Comment: Speci men Type: URINE SPECIMENOrdering Facility: [facility] Address: [address] [place] [address] Performed By: #### 2 4356-8 ####[facility] LABORATORYCLIA [id number] [address] Nitrite Ql (U) Negative Normal Negative [facility] Comment on above: Order Comment: Speci men Type: URINE SPECIMENOrdering Facility: [facility] Address: [address] [place] [address] Performed By: #### 2 4356-8 ####[facility] LABORATORYCLIA [id number] [address] [place] pH (U) 6.0 [pH] Normal 5.0-8.0 [facility] Comment on above: Order Comment: Speci men Type: URINE SPECIMENOrdering Facility: [facility] Address: [address] [place] [address] Performed By: #### 2 4356-8 ####[facility] LABORATORYCLIA [id number] [place] [address] [place] Protein (U) [Mass/Vol] Trace Normal Trace , Negative [facility] Comment on above: Order Comment: Speci men Type: URINE SPECIMENOrdering Facility: [facility] Address: [address] [place] [address] Performed By: #### 2 4356-8 ####[facility] LABORATORYCLIA [id number] [address] STATES [facility] RBC LM.HPF (Urine sed) [#/Area] 0-3 /HPF Normal 0-3 /HPF [facility] Comment on above: Order Comment: Speci men Type: URINE SPECIMENOrdering Facility: [facility] Address: [address] [place] [address] Performed By: #### 2 4356-8 ####[facility] LABORATORYCLIA [id number] [address] Specific gravity (U) [Rel density] 1.033 High 1.005-1.03 0 [facility] Comment on above: Order Comment: Speci men Type: URINE SPECIMENOrdering Facility: [facility] Address: [address] [place] [address] Performed By: #### 2 4356-8 ####[facility] LABORATORYCLIA [id number] [address] Urobilinogen Ql (U) Normal Normal Normal [facility] Comment on above: Order Comment: Speci men Type: URINE SPECIMENOrdering Facility: [facility] Address: [address] [place] [address] Performed By: #### 2 4356-8 ####[facility] LABORATORYCLIA [id number] [address] STATES [facility] WBC LM.HPF (Urine sed) [#/Area] 0-5 /HPF Normal 0-5 /HPF [facility] Comment on above: Order Comment: Speci men Type: URINE SPECIMENOrdering Facility: [facility] Address: [address] [place] [address] Performed By: #### 2 4356-8 ####[facility]ATORYCLIA [id number] [place] [address] [place] Urinalysis, Completeon 03-14 Mucus Ql (Urine sed) 1+ /hpf Normal [facility] Comment on above: Order Comment: SUNG CTOR TO SPECIFY Performed By: #### L 100.0100, L500.4050, L500.4100 #### [facility] [address] [place], [address] RBC 0-5 SEEN Normal 0-5 [facility] Comment on above: Order Comment: SUNG CTOR TO SPECIFY Performed By: #### L 100.0100, L500.4050, L500.4100 #### [facility] [address] [place], [address] WBC 0-5 SEEN Normal 0-5 [facility] Comment on above: Order Comment: SUNG CTOR TO SPECIFY Performed By: #### L 100.0100, L500.4050, L500.4100 #### [facility] [address] [place], [address] BACTERIA 0 SEEN Normal None Seen [facility] Comment on above: Order Comment: SUNG CTOR TO SPECIFY Performed By: #### L 100.0100, L500.4050, L500.4100 #### [facility] [address] [place], [address] EPI,SQUAMOUS 0 SEEN Normal 0-5 [facility] Comment on above: Order Comment: SUNG CTOR TO SPECIFY Performed By: #### L 100.0100, L500.4050, L500.4100 #### [facility] [address] [place], [address] BACTERIA Normal None Seen [facility] Comment on above: Order Comment: CLEAN CATCH Result Comment: Canc elled via OM: Ordered Performed By: #### L 400.0001 #### [facility] [address] [place], [address] BILIRUBIN URINE Normal Negative [facility] Comment on above: Order Comment: CLEAN CATCH Result Comment: Canc elled via OM: MD Ordered Performed By: #### L 400.0001 #### [facility] [address] [place], [address] Clarity (U) Normal Clear [facility] Comment on above: Order Comment: CLEAN CATCH Result Comment: Canc elled via OM: MD Ordered Performed By: #### L 400.0001 #### [facility] [address] [place], [address] Color (U) Normal Yellow [facility] Comment on above: Order Comment: CLEAN CATCH Result Comment: Canc elled via OM: MD Ordered Performed By: #### L 400.0001 #### [facility] [address] [place], [address] EPI,SQUAMOUS Normal 0-5 [facility] Comment on above: Order Comment: CLEAN CATCH Result Comment: Canc elled via OM: MD Ordered Performed By: #### L 400.0001 #### [facility] [address] [place], [address] GLUCOSE, UR Normal Normal [facility] Comment on above: Order Comment: CLEAN CATCH Result Comment: Canc elled via OM: MD Ordered Performed By: #### L 400.0001 #### [facility] [address] [place], [address] KETONE UR Normal Negative [facility] Comment on above: Order Comment: CLEAN CATCH Result Comment: Canc elled via OM: MD Ordered Performed By: #### L 400.0001 #### [facility] [address] [place], [address] LEUK ESTERASE Normal Negative [facility] Comment on above: Order Comment: CLEAN CATCH Result Comment: Canc elled via OM: MD Ordered Performed By: #### L 400.0001 #### [facility] [address] [place], [address] Mucus Ql (Urine sed) Normal [facility] Comment on above: Order Comment: CLEAN CATCH Result Comment: Canc elled via OM: MD Ordered Performed By: #### L 400.0001 #### [facility] [address] [place], [address] Nitrite Ql (U) Normal Negative [facility] Comment on above: Order Comment: CLEAN CATCH Result Comment: Canc elled via OM: MD Ordered Performed By: #### L 400.0001 #### [facility] [address] [place], [address] OCCULT BLOOD-UR Normal Negative [facility] Comment on above: Order Comment: CLEAN CATCH Result Comment: Canc elled via OM: MD Ordered Performed By: #### L 400.0001 #### [facility] [address] [place], [address] pH UR Normal 5.0 - 8.0 [facility] Comment on above: Order Comment: CLEAN CATCH Result Comment: Canc elled via OM: MD Ordered Performed By: #### L 400.0001 #### [facility] [address] [place], [address] PROT DIPSTX Normal Negative [facility] Comment on above: Order Comment: CLEAN CATCH Result Comment: Canc elled via OM: MD Ordered Performed By: #### L 400.0001 #### [facility] [address] [place], [address] RBC Normal 0-5 [facility] Comment on above: Order Comment: CLEAN CATCH Result Comment: Canc elled via OM: MD Ordered Performed By: #### L 400.0001 #### [facility] [address] [place], [address] SP.GR. DIPSTX Normal 1.002-1.03 0 [facility] Comment on above: Order Comment: CLEAN CATCH Result Comment: Canc elled via OM: MD Ordered Performed By: #### L 400.0001 #### [facility] [address] [place], [address] UR Preservative Normal [facility] Comment on above: Order Comment: CLEAN CATCH Result Comment: Canc elled via OM: MD Ordered Performed By: #### L 400.0001 #### [facility] [address] [place], [address] UROBILI Normal Normal [facility] Comment on above: Order Comment: CLEAN CATCH Result Comment: Canc elled via OM: MD Ordered Performed By: #### L 400.0001 #### [facility] [address] [place], [address] WBC Normal 0-5 [facility] Comment on above: Order Comment: CLEAN CATCH Result Comment: Canc elled via OM: MD Ordered Performed By: #### L 400.0001 #### [facility] [address] [place], [address] Urine blood detectionOrdered By: Marisa Weaver on 03-14-2025 Urine Occult Blood 10 /ul High Negative [facility] Urine clarityOrdered By: Kaylah Weaver on 03-14-2025 Clarity (U) Clear Clear [facility] Urine color determinationOrd ered By: Marisa Weaver on 03-14-2025 Color (U) Yellow Yellow [facility] Urine leukocyte esterase det ection by dipstickOrdered By: Marisa Weaver on 03-14-2025 Leukocyte esterase Test strip Ql (U) Negative Negative [facility] Urine pHOrdered By: Marisa card on 03-14-2025 pH (U) 6.0 [pH] 5.0 - 8.0 [facility] Urine sediment bacteria coun t by microscopy (number/high power field)Ordered By: Marisa Weaver on 03-14-2025 Bacteria LM.HPF (Urine sed) [#/Area] 0 /[HPF] None Seen [facility] Urine specific gravity measu rementOrdered By: Marisa Weaver on 03-14-2025 Specific gravity (U) [Rel density] 1.020 1.002-1.03 0 [facility] Urobilinogen Ql (U)Ordered B y: Marisa Owen on 03-14-2025 Urine Urobilinogen Normal mg/dl Normal [facility] White blood cell (WBC) count Ordered By: Marisa Weaver on 03-14-2025 WBC (Bld) [#/Vol] 8.0 10*3/uL 4.4-11.0 [facility] White blood cell countOrdere d By: Marisa Weaver on 03-14-2025 Urine WBC 0-5 SEEN /hpf 0-5 [facility] aPTT Coag (PPP) [Time]Ordere d By: Marisa Weaver on 03-14-2025 aPTT Coag (Bld) [Time] 27.7 s 24.1-36.2 [facility] aPTT PPPon 03-14-2025 aPTT Coag (PPP) [Time] 25.8 s Normal 23.0-32.[address] [facility] Comment on above: Order Comment: Speci men Type: BLOOD SPECIMENOrdering Facility: [facility] Address: [address] [place] [address] Performed By: #### 3 4528-0, 61877-7 ####[facility] LABORATORYCLIA [id number] [place] [address] [place] Anion gap in Serum or Plasma Ordered By: Christine Canada on 01-21-2025 Anion gap [Moles/Vol] 12 mmol/L 5-15 [facility] BUN/creatinine ratioOrdered By: Christine Canada on 01-21-2025 Urea nitrogen/Creatinine [Mass ratio] 18.4 mg/mg 10-20 [facility] Bilirubin, totalOrdered By: Christine Canada on 01-21-2025 Bilirubin [Mass/Vol] 0.30 mg/dL 0.00-1.30 [facility] Carbon dioxide, total [Moles /volume] in Central venous bloodOrdered By: Christine Canada on 01-21-2025 CO2 [Moles/Vol] 23.4 mmol/L 21.0-32.0 [facility] Chloride assayOrdered By: Emilie nadia [place] on 01-21-2025 Chloride [Moles/Vol] 104 mmol/L 98-108 [facility] Comprehensive Metabolic Prof ilon 01-21-2025 Albumin [Mass/Vol] 4.5 g/dL Normal 3.4-4.8 [facility] Comment on above: Performed By: #### L 501.9940, L500.4050 #### [facility] [address] [place], [address] Albumin/Globulin [Mass ratio] 1.6 {ratio} Normal 0.9-2.4 [facility] Comment on above: Performed By: #### L 501.9940, L500.4050 #### [facility] [address] [place], [address] ALK PHOS 62 U/L Normal 40-129 [facility] Comment on above: Performed By: #### L 501.9940, L500.4050 #### [facility] [address] [place], [address] ALT [Catalytic activity/Vol] 49 U/L High <=46 [facility] Comment on above: Performed By: #### L 501.9940, L500.4050 #### [facility] [address] [place], [address] AST [Catalytic activity/Vol] 32 U/L Normal <=37 [facility] Comment on above: Performed By: #### L 501.9940, L500.4050 #### [facility] [address] [place], [address] Bilirubin [Mass/Vol] 0.30 mg/dL Normal 0.00-1.30 [facility] Comment on above: Performed By: #### L 501.9940, L500.4050 #### [facility] [address] [place], [address] BUN/CRE 18.4 RATIO Normal 10-20 [facility] Comment on above: Performed By: #### L 501.9940, L500.4050 #### [facility] [address] [place], [address] Calcium [Mass/Vol] 9.4 mg/dL Normal 7.6-11.0 [facility] Comment on above: Performed By: #### L 501.9940, L500.4050 #### [facility] [address] [place], [address] Chloride [Moles/Vol] 104 mmol/L Normal 98-108 [facility] Comment on above: Performed By: #### L 501.9940, L500.4050 #### [facility] [address] [place], [address] CO2 [Moles/Vol] 23.4 mmol/L Normal 21.0-32.0 [facility] Comment on above: Performed By: #### L 501.9940, L500.4050 #### [facility] [address] [place], [address] Creatinine [Mass/Vol] 0.95 mg/dL Normal 0.70-1.20 [facility] Comment on above: Performed By: #### L 501.9940, L500.4050 #### [facility] [address] [place], [address] GAP 12 Normal 5-15 [facility] Comment on above: Performed By: #### L 501.9940, L500.4050 #### [facility] [address] [place], [address] GFR/1.73 sq M.predicted among non-blacks MDRD (S/P/Bld) [Vol rate/Area] 89 mL/min/{1.73_m2} Normal >60 [facility] Comment on above: Result Comment: mL/m in/1.73m2 CKD-EPI Creatinine Equation (2020) Performed By: #### L 501.9940, L500.4050 #### [facility] [address] [place], [address] Globulin (S) [Mass/Vol] 2.9 g/dL Normal 2.2-4.2 [facility] Comment on above: Performed By: #### L 501.9940, L500.4050 #### [facility] [address] [place], [address] Glucose [Mass/Vol] 118 mg/dL High 70-99 [facility] Comment on above: Performed By: #### L 501.9940, L500.4050 #### [facility] [address] [place], [address] Potassium [Moles/Vol] 3.7 mmol/L Normal 3.3-5.1 [facility] Comment on above: Performed By: #### L 501.9940, L500.4050 #### [facility] [address] [place], [address] Sodium [Moles/Vol] 139 mmol/L Normal 133-145 [facility] Comment on above: Performed By: #### L 501.9940, L500.4050 #### [facility] [address] [place], [address] T PROT 7.3 g/dL Normal 5.9-8.4 [facility] Comment on above: Performed By: #### L 501.9940, L500.4050 #### [facility] [address] [place], [address] Urea nitrogen [Mass/Vol] 18 mg/dL Normal 4-19 [facility] Comment on above: Performed By: #### L 501.9940, L500.4050 #### [facility] [address] [place], [address] Diagnostic total prostate sp ecific antigen (PSA) measurementOrdered By: Christine Canada on 01-21-2025 Prostate Specific Antigen Total 2.74 ng/mL 0.00-4.00 [facility] Comment on above: This test was perfor med using the [employer] tPSA method. Measured values of a patient sample can vary depending on the testing procedure used. PSA values determined on patient samples by different testing procedures cannot be used interchangeably. If there is a change in PSA assays while monitoring therapy, sequential testing should be performed to confirm baseline values. GFR/1.73 sq M.predicted chandana g non-blacks MDRD (S/P/Bld) [Vol rate/Area]Ordered By: Christine Canada on 01-21-2025 Estimated GFR (MDRD) Non-Af Amer 89 >60 [facility] Comment on above: mL/min/1.73m2 CKD-EP I Creatinine Equation (2020) Internal Medicine Office Vis iton 01-21-2025 Internal Medicine Office Visit [facility] [address] [place] [address] [place] [address] OFFICE VISIT Date of Service: 01/21/25 MR#: [id number] Acct: [id number] Name: MARIBELLMICHI JENNIFER Rep #: [id number] : 1960 Provider: Dr. 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 Is patient in pain?: No Allergies No Known Allergies Allergy (Verified 01/21/25 13:07) Medications ???Medication ???Instructions ???Recorded ???Confirmed ???Type omeprazole 20 mg capsule,delayed 20 mg PO DAILY 08/21/16 01/21/25 H istory release omega 1-pno-fzt-fish oil 1,200 mg cap PO 02/09/22 01/21/25 History (144 mg-216 mg) capsule (Fish Oil) cholecalciferol (vitamin D3) 50 50 mcg PO DAILY 11/26/23 01/21/25 History mcg (2,000 unit) capsule olosrhme-rqyk-fqgei acid 240 1 tab PO DAILY 11/26/23 01/21/25 H istory mcg-vit K 120 sfq-ofljkp-hqlm 293 tablet (Alive Men's 50 Plus Multivit (vit K)) rosuvastatin 20 mg tablet 20 mg PO DAILY #90 TABLETS 5 01/21/25 Rx tadalafil 10 mg tablet (Cialis) 10 mg PO QDAY PRN sexual activity 11/30/24 01/21/25 Rx #8 tabs PFSH Medical History (Updated 01/21/25 @ 16:[address] Christine Canada MD) Elevated PSA High cholesterol (11/18/87) H/O Mohs micrographic surgery for skin cancer (09/18/23) Migraines (11/18/74) Hearing difficulty (11/18/10) Bone fracture (11/18/89) Back problem (11/18/74) Screening for prostate cancer Screening for cardiovascular condition Health care maintenance Fatigue Screening for thyroid disorder Erectile dysfunction Phimosis Lung nodule, solitary High cholesterol Tinnitus Frequent headaches Scoliosis GERD (gastroesophageal reflux disease) Hyperlipemia Hernia Surgical History (Updated 01/21/25 @ 13:14 by Aletha Lemus MA) History of colonoscopy (11/18/12) H/O transurethral resection of prostate History of vasectomy Family History (Updated 01/21/25 @ 13:15 by Aletha Lemus MA) Grandfather Diabetes Heart disease Cancer esophagus maternal Mother Age: 90 High cholesterol Father Melanoma Parkinsons disease Osteoporosis Social History (Updated 01/21/25 @ 13:17 by Aletha Lemus MA) adopted: No household members: spouse number of children: 2 current occupational status: employed current occupation: [employer] pets and animals: No sexually active: Yes Smoking Status: Never smoker Electronic Cigarette Use: not used second hand exposure: No alcohol intake: current alcohol intake frequency: a few times a week Alcohol type: wine substance use type: does not use caffeine: Yes (3) Type: coffee frequency: 1-2 times per week duration: 30-45 minutes/day do you feel safe at home: Yes HPI HPI Chief Complaint: discuss labs Details: CELESTINO REYNA, is a 65 M who presents to the office today for yearly visit/follow-up of his chronic conditions. Also has some questions/concerns. History of hyperlipidemia currently on rosuvastatin. Taking his medication consistently. No muscle pain or weakness. Recently had labs done with elevation in his AST/ALT. Denies any significant lifestyle changes. Takes 1 to 2 glasses of wine per week new supplement use. His other chronic medical conditions are generally stable. History of elevated PSA, no urinary concerns reported. Currently on tadalafil which he takes only as needed. ROS Const Constitutional: No body ache, chills, excessive sweating, fatigue, fever(s), frequent falls, headache(s), snoring, weakness, sleep problems or change in appetite Eyes Eyes: No blurry vision, change in vision, bulging eyes, floaters, visual disturbances, eye pain or Light sensitivity ENT ENT: No abnormal hearing, ear or mastoid pain, tinnitus, balance problems, nosebleed/epistaxis, nasal congestion, headache(s), neck pain or sore throat Resp Respiratory: No cough, excessive phlegm production, pain on inspiration, shortness of breath, snoring or wheezing Cardio Cardiology: No chest pain at rest, chest pain with exertion, excessive sweating, shortness of breath, dyspnea on exertion, lightheadedness, orthopnea or palpitations Gastro GI: No abdominal pain, change in bowel habits, constipation, cramping, diarrhea, nausea/dyspepsia or vomiting Genitourinary Male: No burning urination, painful urination, urinary incontinence, (more content not 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 Normal [facility] - Chemistry and C hemistry - challengeOrdered By: Christine Canada on 01-21-2025 AST [Catalytic activity/Vol] 32 U/L <38 [facility] PSA,Total- Diagnosticon 03-0 PSA, DIAGNOSTIC 2.74 ng/mL Normal 0.00-4.00 [facility] Comment on above: Result Comment: This test was performed using the [employer] tPSA method. Measured values of a patient??sample can vary depending on the testing procedure used. PSA values determined on patient samples by different testing procedures cannot be used interchangeably. If there is a change in PSA assays while monitoring therapy, sequential testing should be performed to confirm baseline values. Performed By: #### L 100.0100, L500.4050, L500.4100 #### [facility] [place], [address] Potassium (Unsp spec) [Mass/ Vol]Ordered By: Christine Canada on 01-21-2025 Potassium [Moles/Vol] 3.7 mmol/L 3.3-5.1 [facility] Serum creatinine measurement (mass/volume)Ordered By: Juniormer rougemaryjane Canada on 01-21-2025 Creatinine [Mass/Vol] 0.95 mg/dL 0.70-1.20 [facility] Serum globulin measurementOr dered By: Christine Canada on 01-21-2025 Globulin (S) [Mass/Vol] 2.9 g/dL 2.2-4.2 [facility] Serum glucose measurement (m ass/volume)Ordered By: Christine Canada on 01-21-2025 Glucose [Mass/Vol] 118 mg/dL High 70-99 [facility] Serum or plasma alanine hernández otransferase (ALT) measurementOrdered By: Christine Canada on 01-21-2025 ALT [Catalytic activity/Vol] 49 U/L High <47 [facility] Serum or plasma albumin steff urement (mass/volume)Ordered By: Christine Canada on 01-21-2025 Albumin [Mass/Vol] 4.5 g/dL 3.4-4.8 [facility] Serum or plasma albumin/glob ulin mass ratioOrdered By: Christine Canada on 01-21-2025 Albumin/Globulin [Mass ratio] 1.6 {ratio} 0.9-2.4 [facility] Serum or plasma alkaline piyush sphatase measurementOrdered By: Christine Canada on 01-21-2025 ALP [Catalytic activity/Vol] 62 U/L 40-129 [facility] Serum or plasma calcium steff urement (mass/volume)Ordered By: Christine Antonioshawnkasia on 01-21-2025 Calcium [Mass/Vol] 9.4 mg/dL 7.6-11.0 [facility] Serum or plasma urea nitroge n measurement (mass/volume)Ordered By: Christine Antonioshawnkasia on 01-21-2025 Urea nitrogen [Mass/Vol] 18 mg/dL 4-19 [facility] Sodium levelOrdered By: Junior aguillon Dread on 01-21-2025 Sodium [Moles/Vol] 139 mmol/L 133-145 [facility] Total proteinOrdered By: Jose eldridge Antonioshawnkasia on 01-21-2025 Protein [Mass/Vol] 7.3 g/dL 5.9-8.4 [facility] Absolute neutrophil countOrd ered By: Christine Antonioshawnkasia on 01-15-2025 Neutrophils (Bld) [#/Vol] 3.0 10*3/uL 2.0-7.7 [facility] BUN/creatinine ratioOrdered By: Christine Antonioshawnkasia on 01-15-2025 Urea nitrogen/Creatinine [Mass ratio] 13.9 mg/mg 10-20 [facility] Basophil percentageOrdered B y: Christine Antonioavani on 01-15-2025 Basophils/100 WBC (Bld) 1.4 % High 0-1 [facility] Bilirubin, totalOrdered By: Christine Antonioshawnkasia on 01-15-2025 Bilirubin [Mass/Vol] 0.47 mg/dL 0.00-1.30 [facility] CBC W/Diff, Automatedon 12-20 Absolute Lymph 1.72 X10 3/uL Normal 0.83-4.51 [facility] Comment on above: Performed By: #### L 100.0100, L500.4050, L500.4100 #### [facility] [address] [place], [place], [id number] Absolute Neut 3.0 X10 3/uL Normal 2.0-7.7 [facility] Comment on above: Performed By: #### L 100.0100, L500.4050, [id number] #### [facility] [address] [place], [address] Basophils/100 WBC (Bld) 1.4 % High 0-1 [facility] Comment on above: Performed By: #### L 100.0100, L500.4050, [id number] #### [facility] [address] [place], [address] Eosinophils/100 WBC (Bld) 4.4 % Normal 0-5 [facility] Comment on above: Performed By: #### L 100.0100, L500.4050, [id number] #### [facility] [address] [place], [address] Erythrocyte distribution width (RBC) [Ratio] 13.2 % Normal 11.6-14.6 [facility] Comment on above: Performed By: #### L 100.0100, L500.4050, [id number] #### [facility] [address] [place], [address] Hematocrit (Bld) [Volume fraction] 47.7 % Normal 40-54 [facility] Comment on above: Performed By: #### L 100.0100, L500.4050, [id number] #### [facility] [address] [place], [address] Hemoglobin (Bld) [Mass/Vol] 15.9 g/dL Normal 13.0-16.5 [facility] Comment on above: Performed By: #### L 100.0100, L500.4050, [id number] #### [facility] [address] [place], [address] IG% 0.200 Normal 0.0-0.9 [facility] Comment on above: Result Comment: IG% - Immature Granulocytes (promyelocytes, myelocytes and metamyelocytes) > 1% indicates that a LEFT SHIFT is Present. Performed By: #### L 100.0100, L500.4050, [id number] #### [facility] [address] [place], [address] Lymphocytes/100 WBC (Bld) 30.2 % Normal 19-41 [facility] Comment on above: Performed By: #### L 100.0100, L500.4050, [id number] #### [facility] [address] [place], [address] MCH (RBC) [Entitic mass] 29.2 pg Normal 27.0-32.0 [facility] Comment on above: Performed By: #### L 100.0100, L500.4050, L500.4100 #### [facility] [address] [place], [address] MCHC (RBC) [Mass/Vol] 33.3 g/dL Normal 32-36 [facility] Comment on above: Performed By: #### L 100.0100, L500.4050, [id number] #### [facility] [address] [place], [address] MCV (RBC) [Entitic vol] 87.5 fL Normal 80-94 [facility] Comment on above: Performed By: #### L 100.0100, L500.4050, [id number] #### [facility] [address] [place], [address] Monocytes/100 WBC (Bld) 11.4 % High 0-10 [facility] Comment on above: Performed By: #### L 100.0100, L500.4050, [id number] #### [facility] [address] [place], [address] Neutrophils/100 WBC (Bld) 52.4 % Normal 47-70 [facility] Comment on above: Performed By: #### L 100.0100, L500.4050, [id number] #### [facility] [address] [place], [address] Nucleated RBC (Bld) [#/Vol] 0 10*3/uL Normal 0-5 [facility] Comment on above: Performed By: #### L 100.0100, L500.4050, [id number] #### [facility] [address] [place], [address] Platelet mean volume (Bld) [Entitic vol] 8.9 fL Normal 6.2-12.0 [facility] Comment on above: Performed By: #### L 100.0100, L500.4050, L500.4100 #### [facility] [address] [place], [address] Platelets (Bld) [#/Vol] 318 10*3/uL Normal 150-450 [facility] Comment on above: Performed By: #### L 100.0100, L500.4050, L500.4100 #### [facility] [address] [place], [address] RBC (Bld) [#/Vol] 5.45 10*6/uL Normal 4.6-6.2 [facility] Comment on above: Performed By: #### L 100.0100, L500.4050, L500.4100 #### [facility] [address] [place], [address] RDW SD 41.8 fl Normal 35.1-43.9 [facility] Comment on above: Performed By: #### L 100.0100, L500.4050, L500.4100 #### [facility] [address] [place], [address] WBC (Bld) [#/Vol] 5.7 10*3/uL Normal 4.4-11.0 [facility] Comment on above: Performed By: #### L 100.0100, L500.4050, L500.4100 #### [facility] [address] [place], [address] Calculated very low density lipoprotein (VLDL) cholesterol measurementOrdered By: Christine Canada on 01-15-2025 VLDL Cholesterol 36 mg/dL 5-40 [facility] Carbon dioxide measurementOr dered By: Christine Canada on 01-15-2025 CO2 [Moles/Vol] 25.5 mmol/L 22.0-29.0 [facility] Chloride measurementOrdered By: pinomer rougemaryjane Canada on 01-15-2025 Chloride [Moles/Vol] 103 mmol/L 96-108 [facility] Comprehensive Metabolic Prof ilon 01-15-2025 Albumin [Mass/Vol] 4.6 g/dL Normal 3.4-4.8 [facility] Comment on above: Performed By: #### L 100.0100, L500.4050, L500.4100 #### [facility] [address] [place], [address] Albumin/Globulin [Mass ratio] 1.6 {ratio} Normal 0.9-2.4 [facility] Comment on above: Performed By: #### L 100.0100, L500.4050, L500.4100 #### [facility] [address] [place], [address] ALK PHOS 58 U/L Normal 40-129 [facility] Comment on above: Performed By: #### L 100.0100, L500.4050, L500.4100 #### [facility] [address] [place], [address] ALT [Catalytic activity/Vol] 68 U/L High <=46 [facility] Comment on above: Performed By: #### L 100.0100, L500.4050, L500.4100 #### [facility] [address] [place], [address] Anion gap [Moles/Vol] 12 mmol/L Normal 5-15 [facility] Comment on above: Performed By: #### L 100.0100, L500.4050, L500.4100 #### [facility] [address] [place], [address] AST [Catalytic activity/Vol] 55 U/L High <=37 [facility] Comment on above: Result Comment: Hemo lysis present, Results??could be affected. ?? Performed By: #### L 100.0100, L500.4050, L500.4100 #### [facility] [address] [place], [address] Bilirubin [Mass/Vol] 0.47 mg/dL Normal 0.00-1.30 [facility] Comment on above: Performed By: #### L 100.0100, L500.4050, L500.4100 #### [facility] [address] [place], [address] BUN/CRE 13.9 RATIO Normal 10-20 [facility] Comment on above: Performed By: #### L 100.0100, L500.4050, L500.4100 #### [facility] [address] [place], [address] Calcium [Mass/Vol] 9.4 mg/dL Normal 7.6-11.0 [facility] Comment on above: Performed By: #### L 100.0100, L500.4050, L500.4100 #### [facility] [address] [place], [address] Chloride [Moles/Vol] 103 mmol/L Normal 96-108 [facility] Comment on above: Performed By: #### L 100.0100, L500.4050, L500.4100 #### [facility] [address] [place], [address] CO2 [Moles/Vol] 25.5 mmol/L Normal 22.0-29.0 [facility] Comment on above: Performed By: #### L 100.0100, L500.4050, L500.4100 #### [facility] [address] [place], [address] Creatinine [Mass/Vol] 0.91 mg/dL Normal 0.70-1.20 [facility] Comment on above: Performed By: #### L 100.0100, L500.4050, L500.4100 #### [facility] [address] [place], [address] GFR/1.73 sq M.predicted among non-blacks MDRD (S/P/Bld) [Vol rate/Area] 95 mL/min/{1.73_m2} Normal >60 [facility] Comment on above: Result Comment: mL/m in/1.73m2 CKD-EPI Creatinine Equation (2020) Performed By: #### L 100.0100, L500.4050, L500.4100 #### [facility] [address] [place], [address] Globulin (S) [Mass/Vol] 2.9 g/dL Normal 2.2-4.2 [facility] Comment on above: Performed By: #### L 100.0100, L500.4050, L500.4100 #### [facility] [address] [place], [address] Glucose [Mass/Vol] 96 mg/dL Normal 70-99 [facility] Comment on above: Performed By: #### L 100.0100, L500.4050, L500.4100 #### [facility] [address] [place], [address] Potassium [Moles/Vol] 4.1 mmol/L Normal 3.3-5.1 [facility] Comment on above: Result Comment: Hemo lysis present, Results??could be affected. ?? Performed By: #### L 100.0100, L500.4050, L500.4100 #### [facility] [address] [place], [address] Sodium [Moles/Vol] 141 mmol/L Normal 133-145 [facility] Comment on above: Performed By: #### L 100.0100, L500.4050, L500.4100 #### [facility] [address] [place], [address] T PROT 7.5 g/dL Normal 5.9-8.4 [facility] Comment on above: Performed By: #### L 100.0100, L500.4050, L500.4100 #### [facility] [address] [place], [address] Urea nitrogen [Mass/Vol] 13 mg/dL Normal 4-19 [facility] Comment on above: Performed By: #### L 100.0100, L500.4050, L500.4100 #### [facility] [address] [place], [address] Eosinophil percentageOrdered By: Christine Canada on 01-15-2025 Eosinophils/100 WBC (Bld) 4.4 % 0-5 [facility] Erythrocyte distribution wid th ratioOrdered By: Christine Canada on 01-15-2025 Erythrocyte distribution width (RBC) [Ratio] 13.2 % 11.6-14.6 [facility] Erythrocyte distribution wid th standard deviationOrdered By: Christine Canada on 01-15-2025 Erythrocyte distribution width (RBC) [Entitic vol] 41.8 fL 35.1-43.9 [facility] GFR/1.73 sq M.predicted chandana g non-blacks MDRD (S/P/Bld) [Vol rate/Area]Ordered By: Christine Canada on 01-15-2025 Estimated GFR (MDRD) Non-Af Amer 95 >60 [facility] Comment on above: mL/min/1.73m2 CKD-EP I Creatinine Equation (2020) Hematocrit Auto (Bld) [Volum e fraction]Ordered By: Christine Canada on 01-15-2025 Hematocrit (Bld) [Volume fraction] 47.7 % 40-54 [facility] Hemoglobin measurementOrdere d By: Christine Canada on 01-15-2025 Hemoglobin (Bld) [Mass/Vol] 15.9 g/dL 13.0-16.5 [facility] Immature granulocytes/100 WB C Auto (Bld)Ordered By: Christine Canada on 01-15-2025 Immature granulocytes/100 WBC (Bld) 0.200 % 0.0-0.9 [facility] Comment on above: IG% - Immature Granu locytes (promyelocytes, myelocytes and metamyelocytes) > 1% indicates that a LEFT SHIFT is Present. LDL calc ser/plasOrdered By: Christine Canada on 01-15-2025 LDL Cholesterol, Calculated 101 mg/dL [facility] Comment on above: Fkyjebjnir=382-435 m g/dL & Higher Tfuq=301 mg/dL or greater Laboratory - Chemistry and C hemistry - challengeOrdered By: Christine Canada on 01-15-2025 AST [Catalytic activity/Vol] 55 U/L High <38 [facility] Comment on above: Hemolysis present, R esults could be affected. Lipid Profileon 01-15-2025 CHOL:HDL 3.50 Normal [facility] Comment on above: Performed By: #### L 100.0100, L500.4050, L500.4100 #### [facility] [address] [place], [address] Cholesterol [Mass/Vol] 192 mg/dL Normal <=200 [facility] Comment on above: Result Comment: Chol esterol level, Desirable <200 mg/dL Borderline high cholesterol 200-239 mg/dL High cholesterol >=240 mg/dL Recommendations of the NCEP Adult Treatment Panel for the following risk-cutoff thresholds for the [place] population. Performed By: #### L 100.0100, L500.4050, L500.4100 #### [facility] [address] [place], [address] Cholesterol in HDL [Mass/Vol] 55 mg/dL Normal [facility] Comment on above: Result Comment: Claudette onal Cholesterol Education Program (NCEP) guidelines: <40 mg/dL: Low HDL-cholesterol (major risk factor for CHD) >= 60 mg/dL: High HDL-cholesterol (negative risk factor for CHD) HDL-cholesterol is affected by a number of factors, e.g. smoking, exercise, hormones, sex and age. Performed By: #### L 100.0100, L500.4050, L500.4100 #### [facility] [address] [place], [address] Cholesterol in LDL [Mass/Vol] 101 mg/dL Normal [facility] Comment on above: Result Comment: Bord wrathx=983-382 mg/dL Higher Pfqk=590 mg/dL or greater Performed By: #### L 100.0100, L500.4050, L500.4100 #### [facility] [address] [place], [address] Cholesterol in VLDL [Mass/Vol] 36 mg/dL Normal 5-40 [facility] Comment on above: Performed By: #### L 100.0100, L500.4050, L500.4100 #### [facility] [address] [place], [address] Triglyceride [Mass/Vol] 181 mg/dL Normal [facility] Comment on above: Result Comment: The drugs N-Acetylcysteine and Metamizole may falsely depress this assay. Normal range: <150 mg/dL Borderline High: 150-199 mg/dL High: 200-499 mg/dL Very High: >500 mg/dL Performed By: #### L 100.0100, L500.4050, L500.4100 #### [facility] [address] [place], [address] Lymphocytes Auto (Unsp spec) [#/Vol]Ordered By: Christine Canada on 01-15-2025 Lymphocytes (Bld) [#/Vol] 1.72 10*3/uL 0.83-4.51 [facility] Lymphocytes/100 WBC Auto (Un sp spec)Ordered By: Christine Canada on 01-15-2025 Lymphocytes/100 WBC (Bld) 30.2 % 19-41 [facility] MCV (mean corpuscular volume ) determinationOrdered By: Christine Canada on 01-15-2025 MCV (RBC) [Entitic vol] 87.5 fL 80-94 [facility] Mean corpuscular hemoglobin (MCH) determinationOrdered By: Christine Canada on 01-15-2025 MCH (RBC) [Entitic mass] 29.2 pg 27.0-32.0 [facility] Mean corpuscular hemoglobin concentration (MCHC) determinationOrdered By: Christine Canada on 01-15-2025 MCHC (RBC) [Mass/Vol] 33.3 g/dL 32-36 [facility] Mean platelet volume determi nationOrdered By: Christine Canada on 01-15-2025 Platelet mean volume (Bld) [Entitic vol] 8.9 fL 6.2-12.0 [facility] Monocyte percentageOrdered B y: Christine Canada on 01-15-2025 Monocytes/100 WBC (Bld) 11.4 % High 0-10 [facility] Neutrophil percentageOrdered By: Christine Canada on 01-15-2025 Neutrophils/100 WBC (Bld) 52.4 % 47-70 [facility] Nucleated red blood cell per centageOrdered By: Christine Canada on 01-15-2025 Nucleated RBC/100 WBC (Bld) [Ratio] 0 % 0-5 [facility] Platelet countOrdered By: Emilie Canada on 01-15-2025 Platelets (Bld) [#/Vol] 318 10*3/uL 150-450 [facility] RBC Auto (Bld) [#/Vol]Ordere d By: Christine Canada on 01-15-2025 RBC (Bld) [#/Vol] 5.45 10*6/uL 4.6-6.2 [facility] Screening total cholesterol/ high density lipoprotein (HDL) cholesterol ratioOrdered By: Christine Canada on 01-15-2025 Cholesterol.total/Chol esterol in HDL [Mass ratio] 3.50 {ratio} [facility] Serum creatinine measurement (mass/volume)Ordered By: Christine Canada on 01-15-2025 Creatinine [Mass/Vol] 0.91 mg/dL 0.70-1.20 [facility] Serum globulin measurementOr dered By: Christine Canada on 01-15-2025 Globulin (S) [Mass/Vol] 2.9 g/dL 2.2-4.2 [facility] Serum glucose measurement (m ass/volume)Ordered By: Christine Canada on 01-15-2025 Glucose [Mass/Vol] 96 mg/dL 70-99 [facility] Serum or plasma alanine hernández otransferase (ALT) measurementOrdered By: Christine Canada on 01-15-2025 ALT [Catalytic activity/Vol] 68 U/L High <47 [facility] Serum or plasma albumin steff urement (mass/volume)Ordered By: Christine Canada on 01-15-2025 Albumin [Mass/Vol] 4.6 g/dL 3.4-4.8 [facility] Serum or plasma albumin/glob ulin mass ratioOrdered By: Christine Canada on 01-15-2025 Albumin/Globulin [Mass ratio] 1.6 {ratio} 0.9-2.4 [facility] Serum or plasma alkaline piyush sphatase measurementOrdered By: Christine Canada 01-15-2025 ALP [Catalytic activity/Vol] 58 U/L 40-129 [facility] Serum or plasma anion gap de termination (moles/volume)Ordered By: Christine Canada on 01-15-2025 Anion gap [Moles/Vol] 12 mmol/L 5-15 [facility] Serum or plasma calcium steff urement (mass/volume)Ordered By: Christine Canada on 01-15-2025 Calcium [Mass/Vol] 9.4 mg/dL 7.6-11.0 [facility] Serum or plasma cholesterol in HDL measurement (mass/volume)Ordered By: Christine Canada on 01-15-2025 Cholesterol in HDL [Mass/Vol] 55 mg/dL >40 [facility] Comment on above: National Cholesterol Education Program (NCEP) guidelines:<40 mg/dL: Low HDL-cholesterol (major risk factor for CHD)>= 60 mg/dL: High HDL-cholesterol (negative risk factor for CHD)HDL-cholesterol is affected by a number of factors, e.g. smoking, exercise, hormones, sex and age. Serum or plasma cholesterol measurement (mass/volume)Ordered By: Christine Canada on 01-15-2025 Cholesterol [Mass/Vol] 192 mg/dL <201 [facility] Comment on above: Cholesterol level, D esirable <200 mg/dLBorderline high cholesterol 200-239 mg/dLHigh cholesterol >=240 mg/dLRecommendations of the NCEP Adult Treatment Panel for the following risk-cutoff thresholds for the [place] population. Serum or plasma potassium me asurementOrdered By: Christine Canada on 01-15-2025 Potassium [Moles/Vol] 4.1 mmol/L 3.3-5.1 [facility] Comment on above: Hemolysis present, R esults could be affected. Serum or plasma sodium measu rement (moles/volume)Ordered By: Christine Canada on 01-15-2025 Sodium [Moles/Vol] 141 mmol/L 133-145 [facility] Serum or plasma urea nitroge n measurement (mass/volume)Ordered By: Christine Canada on 01-15-2025 Urea nitrogen [Mass/Vol] 13 mg/dL 4-19 [facility] Total proteinOrdered By: Jose Canada on 01-15-2025 Protein [Mass/Vol] 7.5 g/dL 5.9-8.4 [facility] Triglycerides measurementOrd ered By: Christine Canada on 01-15-2025 Triglyceride [Mass/Vol] 181 mg/dL <199 [facility] Comment on above: The drugs N-Acetylcy steine and Metamizole may falsely depress this assay. Normal range: <150 mg/dLBorderline High: 150-199 mg/dLHigh: 200-499 mg/dLVery High: >500 mg/dL White blood cell (WBC) count Ordered By: Christine Canada on 01-15-2025 WBC (Bld) [#/Vol] 5.7 10*3/uL 4.4-11.0 [facility] Basophil percentageOrdered B y: Christine Canada on 03-06-2024 Testosterone [Mass/Vol] 409 ng/dL 264-916 [facility] Comment on above: Adult male reference interval is based on a population ofhealthy nonobese males (BMI <30) between 19 and 39 yearsold. gavino Mendoza.al. JCEM 2017,102;[id number]. PMID:[id number]. Free testosterone percentage Ordered By: Christine Canada on 03-06-2024 Testosterone Free/Testosterone.tota l [Mass fraction] 2.26 % 1.50-4.20 [facility] Comment on above: Performed at: [address] [id number] Director: Donal Pierson PhD, Phone: [phone] at: [facility] Lab[address] [id number] Director: Indigo Rodríguez MD, Phone: [phone] Serum or plasma testosterone free measurement (mass/volume)Ordered By: Christine Canada on 03-06-2024 Testosterone Free [Mass/Vol] 9.24 ng/dL 5.00-21.00 [facility] Absolute lymphocyte countOrd ered By: Christine Canada on 02-01-2024 Lymphocytes Auto (Unsp spec) [#/Vol] 1.48 10*3/uL 0.83-4.51 [facility] Automated lymphocyte count a s percentage of total leukocytesOrdered By: Christine Canada on 02-01-2024 Lymphocytes/100 WBC Auto (Unsp spec) 27.7 % 19-41 [facility] Basophil percentageOrdered B y: Christine Canada on 02-01-2024 Basophils/100 WBC (Bld) 1.3 % 0-1 [facility] Bilirubin [Mass/Vol] 0.50 mg/dL 0.20-1.00 [facility] Comment on above: For patients on eltr ombopag therapy, use of Dimension [place] TBIL is not recommended. Chloride [Moles/Vol] 110 mmol/L 98-107 [facility] Cholesterol [Mass/Vol] 192 mg/dL <200 [facility] Comment on above: <200 mg/dL Desirable 200-240 mg/dL Borderline >240 mg/dL High Risk Eosinophils/100 WBC (Bld) 4.1 % 0-5 [facility] Glucose [Mass/Vol] 108 mg/dL 74-106 [facility] Comment on above: Fasting Glucose resu lt from 100 to 125 mg/dL suggests IMPAIRED HOMEOSTASIS per A.D.A. criteria. Hemoglobin (Bld) [Mass/Vol] 15.5 g/dL 13.0-16.5 [facility] Monocytes/100 WBC (Bld) 10.1 % 0-10 [facility] Neutrophils (Bld) [#/Vol] 3.0 10*3/uL 2.0-7.7 [facility] Neutrophils/100 WBC (Bld) 56.6 % 47-70 [facility] Potassium [Moles/Vol] 3.6 mmol/L 3.5-5.1 [facility] Protein [Mass/Vol] 7.3 g/dL 6.4-8.2 [facility] Sodium [Moles/Vol] 141 mmol/L 136-145 [facility] Testosterone [Mass/Vol] 320 ng/dL 264-916 [facility] Comment on above: Adult male reference interval is based on a population ofhealthy nonobese males (BMI <30) between 19 and 39 yearsold. gavino Mendoza.al. JCEM 2017,102;9019-0044. PMID:[id number]. Triglyceride [Mass/Vol] 132 mg/dL <199 [facility] Comment on above: The drugs N-Acetylcy steine and Metamizole may falsely depress this assay.Serum Triglycerides Reference Interval Normal <150 mg/dL Borderline high 150 - 199 mg/dL High 200 - 499 mg/dL Very High > or = 500 mg/dL WBC (Bld) [#/Vol] 5.4 10*3/uL 4.4-11.0 [facility] Determination of erythrocyte mean corpuscular volume (MCV)Ordered By: [facility] Augustamaryjane Canada on 02-01-2024 MCV (RBC) [Entitic vol] 85.7 fL 80-94 [facility] Erythrocyte distribution wid th ratioOrdered By: [facility] Antoniokasia on 02-01-2024 Erythrocyte distribution width (RBC) [Ratio] 12.8 % 11.6-14.6 [facility] Erythrocyte distribution wid th standard deviationOrdered By: [facility] Antoniokasia on 02-01-2024 Erythrocyte distribution width (RBC) [Entitic vol] 39.8 fL 35.1-43.9 [facility] Free testosterone percentage Ordered By: [facility] on 02-01-2024 Testosterone Free/Testosterone.tota l [Mass fraction] 2.89 % 1.50-4.20 [facility] Hematocrit Auto (Bld) [Volum e fraction]Ordered By: [facility] on 02-01-2024 Hematocrit (Bld) [Volume fraction] 44.3 % 40-54 [facility] Immature granulocytes/100 WB C Auto (Bld)Ordered By: [facility] on 02-01-2024 Immature granulocytes/100 WBC (Bld) 0.200 % 0.0-0.9 [facility] Comment on above: IG% - Immature Granu locytes (promyelocytes, myelocytes and metamyelocytes) > 1% indicates that a LEFT SHIFT is Present. Laboratory - Chemistry and C hemistry - challengeOrdered By: [facility] Antoniokasia on 02-01-2024 Albumin/Globulin [Mass ratio] 1.1 {ratio} 0.9-2.4 [facility] ALP [Catalytic activity/Vol] 60 U/L 45-117 [facility] ALT [Catalytic activity/Vol] 54 U/L 16-61 [facility] Cholesterol in HDL [Mass/Vol] 47 mg/dL >40 [facility] Comment on above: The drugs N-Acetylcy steine and Metamizole may falsely depress this assay. Reference Range HDL <40 mg/dL Low HDL Cholesterol HDL >or= 60 mg/dL High HDL Cholesterol Cholesterol in LDL [Mass/Vol] 119 mg/dL 0-130 [facility] CO2 [Moles/Vol] 25.0 mmol/L 21.0-32.0 [facility] Globulin (S) [Mass/Vol] 3.4 g/dL 2.2-4.2 [facility] Urea nitrogen/Creatinine [Mass ratio] 20.2 mg/mg 10-20 [facility] Laboratory - Hematology and Cell countsOrdered By: Christine Canada on 02-01-2024 MCH (RBC) [Entitic mass] 30.0 pg 27.0-32.0 [facility] MCHC (RBC) [Mass/Vol] 35.0 g/dL 32-36 [facility] Nucleated RBC/100 WBC (Bld) [Ratio] 0 % 0-5 [facility] Platelet mean volume (Bld) [Entitic vol] 8.7 fL 6.2-12.0 [facility] Platelets (Bld) [#/Vol] 274 10*3/uL 150-450 [facility] Lipoprotein a [Mass/Vol]Orde red By: Chrsitine Canada on 02-01-2024 Lipoprotein a [Moles/Vol] 114.3 nmol/L <75.0 [facility] Comment on above: Note: Values greater than or equal to 75.0 nmol/L may indicate an independent risk factor for CHD, but must be evaluated with caution when applied to non- populations due to the influence of genetic factors on Lp(a) across ethnicities.Performed at: [facility] Lab[address] [id number] Director: Donal Pierson PhD, Phone: [phone] at: [facility] Lab[address] [id number] Director: Indigo Rodríguez MD, Phone: [phone] No Panel InformationOrdered By: Christine Canada on 02-01-2024 Estimated GFR (MDRD) Amer 104 mL/min >60 [facility] Comment on above: GFR Calc Estimated GFR (MDRD) Non-Af Amer 86 mL/min >60 [facility] Comment on above: Non- GFR Calc Prostate Specific Antigen Screen 4.33 ng/mL 0.00-4.00 [facility] Comment on above: This test was perfor med using the TPSA assay method for theKuponGid chemistry system. Values obtained with differentassay methods cannot be used interchangably.When changing PSA assays in the course of monitoring apatient, additional sequential testing should be carriedout to confirm baseline values. VLDL Cholesterol 26 mg/dL 5-40 [facility] RBC Auto (Bld) [#/Vol]Ordere d By: Christine Canada on 02-01-2024 RBC (Bld) [#/Vol] 5.17 10*6/uL 4.6-6.2 [facility] Serum or plasma calcium steff urement (mass/volume)Ordered By: Christine Canada on 02-01-2024 Calcium [Mass/Vol] 8.8 mg/dL 8.5-10.1 [facility] Serum or plasma creatinine m easurement (mass/volume)Ordered By: Christine Canada on 02-01-2024 Creatinine [Mass/Vol] 0.94 mg/dL 0.70-1.30 [facility] Comment on above: The validity of the calculated GFR & GFRAA in patients over 70 years has not been determined. Clinical correlation is essential. Serum or plasma testosterone free measurement (mass/volume)Ordered By: Christine Canada on 02-01-2024 Testosterone Free [Mass/Vol] 9.25 ng/dL 5.00-21.00 [facility] Serum or plasma thyroid stim ulating hormone (TSH) measurement (units/volume)Ordered By: Christine Canada on 02-01-2024 TSH Qn 2.18 uIU/mL 0.358-3.74 [facility] Serum or plasma urea nitroge n measurement (mass/volume)Ordered By: Christine Canada on 02-01-2024 Urea nitrogen [Mass/Vol] 19 mg/dL 7-18 [facility] Thin prep Papanicolaou smear with manual screeningOrdered By: Christine Canada on 02-01-2024 Thin prep Papanicolaou smear with manual screening 3.9 g/dL 3.2-5.0 [facility] Thin prep Papanicolaou smear with manual screening 30 U/L 15-37 [facility] Thin prep Papanicolaou smear with manual screening 6 5-15 [facility] Thin prep Papanicolaou smear with manual screening 0.84 ng/dL 0.76-1.46 [facility] Vital Signs Date Time Vital Sign Value Performing Clinician Faci lity 08-16-2025 09:23-0400 Body height 177.[address] Christine Canada MD Work Phone: [facility] 08-16-2025 09:23-0400 Body mass index (BMI) [Ratio] 26.6 kg/m2 Dr. Christine Canada MD Work Phone: [facility] 08-16-2025 09:23-0400 Body temperature 97.3 [degF] Dr. Christine Canada MD Work Phone: [facility] 08-16-2025 09:23-0400 Body weight 84.[address] Christine Canada MD Work Phone: [facility] 08-16-2025 09:23-0400 Diastolic blood pressure 78 mm[Hg] Dr. Christine Canada MD Work Phone: [facility] 08-16-2025 09:23-0400 Heart rate 80 /min Dr. Christine Canada MD Work Phone: [facility] 08-16-2025 09:23-0400 Respiratory rate 16 /min Dr. Christine Canada MD Work Phone: [facility] 08-16-2025 09:23-0400 SaO2% (BldA) [Mass fraction] 100 % Dr. Christine Canada MD Work Phone: [facility] 08-16-2025 09:23-0400 Systolic blood pressure 120 mm[Hg] Dr. Christine Canada MD Work Phone: [facility] 06-09-2025 12:56-0400 Body height 180.3 cm Evgeny Lynne MD Work Phone: [facility] 06-09-2025 12:56-0400 Body mass index (BMI) [Ratio] 24.97 kg/m2 Evgeny Lynne MD Work Phone: [facility] 06-09-2025 12:56-0400 Body weight 81.19 kg Evgeny Lynne MD Work Phone: [facility] 06-09-2025 12:56-0400 Diastolic blood pressure 84 mm[Hg] Evgeny Lynne MD Work Phone: [facility] 06-09-2025 12:56-0400 Heart rate 81 /min Evgeny Lynne MD Work Phone: [facility] 06-09-2025 12:56-0400 Systolic blood pressure 123 mm[Hg] Evgeny Lynne MD Work Phone: [facility] 04-30-2025 13:53-0400 Body height 180.3 cm Ken Joseph MD Work Phone: [facility] 04-30-2025 13:53-0400 Body mass index (BMI) [Ratio] 24.83 kg/m2 Ken Joseph MD Work Phone: [facility] 04-30-2025 13:53-0400 Body weight 80.74 kg Ken Joseph MD Work Phone: [facility] 04-30-2025 13:53-0400 Diastolic blood pressure 79 mm[Hg] Ken Joseph MD Work Phone: [facility] 04-30-2025 13:53-0400 Heart rate 71 /min Ken Joseph MD Work Phone: [facility] 04-30-2025 13:53-0400 SaO2% (BldA) [Mass fraction] 96 % Ken Joseph MD Work Phone: [facility] 04-30-2025 13:53-0400 Systolic blood pressure 122 mm[Hg] Ken Joseph MD Work Phone: [facility] 03-30-2025 14:26-0400 Body height 180.3 cm Ken Joseph MD Work Phone: [facility] 03-30-2025 14:26-0400 Body mass index (BMI) [Ratio] 25.46 kg/m2 Ken Joseph MD Work Phone: [facility] 03-30-2025 14:26-0400 Body weight 82.8 kg Ken Joseph MD Work Phone: [facility] 03-30-2025 14:26-0400 Diastolic blood pressure 73 mm[Hg] Ken Joseph MD Work Phone: [facility] 03-30-2025 14:26-0400 Heart rate 92 /min Ken Joseph MD Work Phone: [facility] 03-30-2025 14:26-0400 Respiratory rate 16 /min Ken Joseph MD Work Phone: [facility] 03-30-2025 14:26-0400 SaO2% (BldA) [Mass fraction] 96 % Ken Joseph MD Work Phone: [facility] 03-30-2025 14:26-0400 Systolic blood pressure 106 mm[Hg] Ken Joseph MD Work Phone: [facility] 03-14-2025 12:00-0400 Diastolic blood pressure 66 mm[Hg] Dr. Christine Canada MD Work Phone: [facility] 03-14-2025 12:00-0400 Heart rate 84 /min Dr. Christine Canada MD Work Phone: [facility] 03-14-2025 12:00-0400 Respiratory rate 18 /min Dr. Christine Canada MD Work Phone: [facility] 03-14-2025 12:00-0400 SaO2% (BldA) [Mass fraction] 96 % Dr. Christine Canada MD Work Phone: [facility] 03-14-2025 12:00-0400 Systolic blood pressure 124 mm[Hg] Dr. Christine Canada MD Work Phone: [facility] 03-14-2025 11:50-0400 Body temperature 98.2 [degF] Dr. Christine Canada MD Work Phone: [facility] 03-14-2025 10:37-0400 Body height [address] Christine Canada MD Work Phone: [facility] 03-14-2025 10:37-0400 Body mass index (BMI) [Ratio] 26.6 kg/m2 Dr. Christine Canada MD Work Phone: [facility] 03-14-2025 10:37-0400 Body weight 84.[address] Christine Canada MD Work Phone: [facility] 01-21-2025 13:17-0500 Body mass index (BMI) [Ratio] 26.6 kg/m2 Dr. Christine Canada MD Work Phone: [facility] 01-21-2025 13:17-0500 Body temperature 97.2 [degF] Dr. Christine Canada MD Work Phone: [facility] 01-21-2025 13:17-0500 Body weight 84.[address] Christine Canada MD Work Phone: [facility] 01-21-2025 13:17-0500 Diastolic blood pressure 76 mm[Hg] Dr. Christine Canada MD Work Phone: [facility] 01-21-2025 13:17-0500 Heart rate 78 /min Dr. Christine Canada MD Work Phone: [facility] 01-21-2025 13:17-0500 Respiratory rate 14 /min Dr. Christine Canada MD Work Phone: [facility] 01-21-2025 13:17-0500 SaO2% (BldA) [Mass fraction] 97 % Dr. Christine Canada MD Work Phone: [facility] 01-21-2025 13:17-0500 Systolic blood pressure 124 mm[Hg] Dr. Christine Canada MD Work Phone: [facility] 03-06-2024 09:05-0400 Body height 177.[address] Renato Clark Work Phone: [facility] 03-06-2024 09:05-0400 Body mass index (BMI) [Ratio] 26.4 kg/m2 Dr. Renato Clark Work Phone: [facility] 03-06-2024 09:05-0400 Body temperature 98.2 [degF] Dr. Renato Clark Work Phone: [facility] 03-06-2024 09:05-0400 Body weight 83.[address] Renato Clark Work Phone: [facility] 03-06-2024 09:05-0400 Diastolic blood pressure 76 mm[Hg] Dr. Renato Clark Work Phone: [facility] 03-06-2024 09:05-0400 Heart rate 71 /min Dr. Renato Clark Work Phone: [facility] 03-06-2024 09:05-0400 Respiratory rate 17 /min Dr. Renato Clark Work Phone: [facility] 03-06-2024 09:05-0400 SaO2% (BldA) [Mass fraction] 99 % Dr. Renato Clark Work Phone: [facility] 03-06-2024 09:05-0400 Systolic blood pressure 124 mm[Hg] Dr. Renato Clark Work Phone: [facility] 01-24-2024 08:50-0500 Body height 177.[address] Hakeem Clark Work Phone: [facility] 01-24-2024 08:50-0500 Body mass index (BMI) [Ratio] 26.6 kg/m2 Dr. Hakeem Clark Work Phone: [facility] 01-24-2024 08:50-0500 Body temperature 97.7 [degF] Dr. Hakeem Clark Work Phone: [facility] 01-24-2024 08:50-0500 Body weight 84.[address] Hakeem Clark Work Phone: [facility] 01-24-2024 08:50-0500 Diastolic blood pressure 76 mm[Hg] Dr. Hakeem Clark Work Phone: [facility] 01-24-2024 08:50-0500 Heart rate 73 /min Dr. Hakeem Clark Work Phone: [facility] 01-24-2024 08:50-0500 Respiratory rate 16 /min Dr. Hakeem Clark Work Phone: [facility] 01-24-2024 08:50-0500 SaO2% (BldA) [Mass fraction] 99 % Dr. Hakeem Clark Work Phone: [facility] 01-24-2024 08:50-0500 Systolic blood pressure 118 mm[Hg] Dr. Hakeem Clark Work Phone: [facility] Encounters Encounter Date Encounter Type Care Provider Facility Start: 09-21-2025 End: 09-21-[address] [facility] Facility:[facility] Start: 08-26-2025 End: 08-26-2025 ambulatory Christine Canada Facility:[facility] Start: 08-16-2025 End: 08-16-[address] Christine Canada MD -[facility] Work Phone: Start: 08-16-2025 End: 08-16-[address] Christine Canada MD Work Phone: -[facility] Start: 07-02-2025 End: 07-02-2025 ambulatory KEN JOSEPH Facility:[facility] Start: 07-02-2025 End: 07-02-2025 Patient encounter procedure Ken Joseph MD Work Phone: [facility] Comment on above: SDH (subdural hemato ma) (HCC) (Primary Dx); Acute on chronic intracranial subdural hematoma (HCC) Start: 07-02-2025 End: 07-02-2025 Telemedicine consultation with patient Ken Joseph MD Work Phone: [facility] Start: 06-09-2025 End: 06-09-2025 Office outpatient visit 40 minutes Evgeny Lynne MD Work Phone: [facility] Comment on above: Acute on chronic int racranial subdural hematoma (HCC) (Primary Dx); Transient neurological symptoms; Numbness and tingling of left side of face; Hypercholesteremia Start: 06-09-2025 End: 06-09-2025 ambulatory EVGENY LYNNE Facility:[facility] Start: 06-07-2025 End: 06-07-2025 Telephone encounter Doris Crowley APRN.CNP Work Phone: [facility] Comment on above: [employer] - [facility] [employer]r Start: 04-30-2025 End: 04-30-2025 Patient encounter procedure Ken Joseph MD Work Phone: [facility] Comment on above: SDH (subdural hemato ma) (HCC) (Primary Dx) Start: 04-30-2025 End: 04-30-2025 ambulatory KEN Kristine JOSEPH [facility] Start: 04-30-2025 End: 04-30-2025 Subsequent hospital visit by physician [facility] [place] [facility]Spine RADIO CT SCAN UNITY ACCOUNT LEADER Comment on above: Nontraumatic subdura l hemorrhage (HCC) [I62.00] Start: 04-05-2025 End: 04-05-2025 ambulatory DORIS CROWLEY [facility] Start: 03-30-2025 End: 03-30-2025 Patient encounter procedure Ken Joseph MD Work Phone: [facility] Comment on above: SDH (subdural hemato ma) (HCC) (Primary Dx); Nontraumatic subdural hemorrhage (HCC) Start: 03-30-2025 End: 03-30-2025 ambulatory KEN Kristine JOSEPH [facility] Start: 03-30-2025 End: 03-30-2025 Subsequent hospital visit by physician [facility] [place] [facility]Sp[facility] RADIO CT SCAN UN[employer] ACCOUNT LEADER Comment on above: SDH (subdural hemato ma) (HCC) [S06.5XAA] Start: 03-24-2025 End: 03-24-2025 Orders Only Monica Gayle APRN.CNP Work Phone: [facility] Comment on above: SDH (subdural hemato ma) (HCC) (Primary Dx); Acute on chronic intracranial subdural hematoma (HCC) Start: 03-14-2025 End: 03-20-2025 Evaluation and management of inpatient KENNéstor CRAFT Facility:[facility] Start: 03-14-2025 End: 03-14-2025 Emergency department patient visit Dr. Christine Canada MD Work Phone: -Emergency Department Work Phone: Start: 01-26-2025 Encounter for genera l adult medical examination without abnormal findings [facility] Start: 01-21-2025 End: 01-21-[address] Christine Canada MD -[facility] Work Phone: Start: 01-21-2025 End: 01-21-[address] Christine Canada MD [facility] Start: 01-21-2025 End: 01-21-[address] Christine Canada MD Work Phone: [facility] Work Phone: Start: 01-21-2025 End: 01-21-[address] [facility] Facility:[facility] Start: 01-15-2025 End: 01-15-[address] Christine Canada MD Work Phone: [facility] Work Phone: Start: 01-15-2025 End: 01-15-[address] Christine Canada MD -Laboratory Work Phone: Start: 01-15-2025 End: 01-15-[address] [facility] Facility:[facility] Start: 03-06-2024 End: 03-06-[address] Renato Clark Work Phone: [facility] Work Phone: Start: 03-06-2024 End: 03-06-[address] Renato Clark Work Phone: [facility], [place] Start: 03-06-2024 End: 03-06-[address] Renato Clark Work Phone: [facility] Work Phone: Start: 02-01-2024 End: 02-01-[address] Hakeem Clark Work Phone: [facility] Work Phone: Start: 02-01-2024 End: 02-01-[address] Hakeem Clark Work Phone: [facility] Work Phone: Start: 01-24-[address] Hakeem Clark Work Phone: [facility] Start: 01-24-2024 End: 01-24-2024 Encounter for general adult medical examination without abnormal findings Dr. Hakeem Clark Work Phone: [facility] Start: 01-24-2024 End: 01-24-[address] Hakeem Clark Work Phone: [facility] Work Phone: Start: 11-26-2023 Non-patient / Non-visit Dr. Hakeem Clark Work Phone: [facility] Procedures Date Procedure Procedure Detail Performing Clinician Start: 04-30-2025 Ct head/brain w/o contrast material Monica Gayle LOADING UNIT TOOL SETTER.NUT PICKER Work Phone: Start: 03-14-2025 Antibody screen MONICA COX Comment on above: Order Comment: Speci men Type: BLOOD SPECIMEN Ordering Facility: [facility] Address: [address] [place] [address] Performed By: #### T SCR #### [facility] [place] [id number] [address] [place] [address] [place] Start: 03-14-2025 SARS-CoV-2, Influenz a & RSV (PCR) Dr. Christine Canada MD Work Phone: Start: 03-14-2025 CT of head without contrast Dr. Christine Canada MD Work Phone: Start: 03-14-2025 Plain chest X-ray Dr. Kasia Canada MD Work Phone: Start: 05-11-2013 Colonoscopy Monica rodriguez LOADING UNIT TOOL SETTER.NUT PICKER Work Phone: H/O: vasectomy History of vasectomy Dr. Isis Clark Work Phone: Comment on above: 1987 Plan of Treatment Date Care Activity Detail Author Start: 03-20-2028 Diabetes Screening Diabetes Screening [facility] Start: 11-04-2027 Urine microalbumin profile DTaP,Tdap,Td Vaccine (2 - Td or Tdap) [facility] Start: 01-12-2026 End: 01-12-2026 Patient encounter procedure 01/12/2026 3:00 PM EST Office Visit Cerebrovascular [address] [place] [address] Evgeny Lynne MD [address] [place] [address] 7 month follow up after MRI Cerebrovascular Comment on above: 7 month follow up after MRI Start: 12-31-2025 End: 07-09-2026 MR Brain WO contrast MRI BRAIN WO IVCON Radiology Routine Numbness and tingling of left side of face Acute on chronic intracranial subdural hematoma (HCC) Transient neurological symptoms Expected: 12/31/2025, Expires: 07/09/2026 [facility] Work Phone: Comment on above: Expected: 12/31/2025, Expires: Start: 12-31-2025 End: 12-31-2025 Patient encounter procedure 12/31/2025 2:00 PM EST Appointment RADIO [facility] [address] [place] [address] BRAIN W/O RADIO MRI [facility] Comment on above: BRAIN W/O Start: 12-27-2025 ambulatory Ambulatory Facility:[facility] Start: 07-19-2025 Influenza vaccination [facility] Start: 07-02-2025 End: 07-02-2025 Telephone follow-up 07/02/2025 8:30 AM EDT [facility] [address] [place] [id number] Ken Joseph MD [address] [facility] [place] [address] 2 month follow up phone visit [facility] Comment on above: 2 month follow up phone visit Start: 06-09-2025 End: 06-09-2025 Patient encounter procedure 06/09/2025 1:00 PM EDT Office Visit Cerebrovascular [address] [place] [address] Evgeny Lynne MD [address] [place] [address] stroke Cerebrovascular Comment on above: stroke Start: 04-30-2025 End: 04-30-2025 Patient encounter procedure RADIO CT [facility] Comment on above: CT BRAIN WO IVCON [address] today Start: 04-05-2025 End: 04-05-2025 Patient encounter procedure 04/05/2025 2:00 PM EDT Office Visit Cerebrovascular [address] [place] [address] Doris Crowley APRN.NUT PICKER [address] [place] [address] Hospital discharge TIA follow up 3 weeks Cerebrovascular Comment on above: Hospital discharge TIA follow up 3 weeks Start: 03-30-2025 End: 03-30-2025 Patient encounter procedure RADIO CT [facility] Comment on above: CT BRAIN WO 1st post op Start: 03-14-2025 Oxygen therapy [facility] Start: 03-14-2025 [facility] Start: 07-19-2024 Covid-19 Vaccine () Covid-19 Vaccine () [facility] Start: 02-01-2024 Lipoprotein a [Mass/volume] in Serum or Plasma [facility] Start: 02-01-2024 Testosterone measurement [facility] Start: 01-24-2024 Evaluation of diagnostic study results [facility] Start: 05-11-2023 Screening for malignant neoplasm of colon [facility] Start: 2021 RSV Vaccine (1 - Risk 60-74 years 1-dose series) RSV Vaccine (1 - Risk 60-74 years 1-dose series) [facility] Start: 2011 Pneumococcal Vaccine: 50+ (1 of 1 - PCV) Pneumococcal Vaccine: 50+ (1 of 1 - PCV) [facility] Start: 2011 Shingrix Vaccine (1 of 2) Shingrix Vaccine (1 of 2) [facility] Start: 2006 Prostate specific antigen measurement Prostate Cancer Screening Discussion [facility] Start: 2006 Screening for malignant neoplasm of colon [facility] Start: 01-20-1996 Lipid panel Lipid Screening [facility] Start: 1979 Anxiety Screening Anxiety Screening [facility] Start: 1979 Depression Screening Depression Screening [facility] Start: 1979 Hepatitis C screening Hepatitis C Screening [facility] Start: 1979 HIV screening HIV Screening [facility] CBC W Auto Differential panel - Blood [facility] Comprehensive metabolic 2000 panel - Serum or Plasma [facility] CT for calcium scori ng WO contrast and CTA W contrast IV Heart and coronary arteries [facility] End: 04-23-2026 CT Head WO contrast CT BRAIN WO IVCON Radiology Routine SDH (subdural hematoma) (HCC) Acute on chronic intracranial subdural hematoma (HCC) 1 Occurrences starting 03/24/2025 until 04/23/2026 [facility] Work Phone: Comment on above: 1 Occurrences starting 03/24/2025 until 04/23/2026 End: 04-29-2026 CT Head WO contrast CT BRAIN WO IVCON Radiology Routine Nontraumatic subdural hemorrhage (HCC) 1 Occurrences starting 03/30/2025 until 04/29/2026 [facility] Work Phone: Comment on above: 1 Occurrences starting 03/30/2025 until 04/29/2026 CT Head WO contrast CT BRAIN WO IVCON Radiology Routine SDH (subdural hematoma) (HCC) Acute on chronic intracranial subdural hematoma (HCC) 03/30/2025 2:15 PM EDT [facility] Work Phone: Lipid 1996 panel - Serum or Plasma [facility] Patient referral [facility] Work Phone: Prostate specific antigen measurement [facility] Serum testosterone measurement [facility] Testosterone Free [Mass/volume] in Serum or Plasma [facility] Testosterone measurement [facility] Immunizations Immunization Date Immunization Notes Care Provider Zita fabian 02-21-2021 Covid (Pfizer) Dr. Librado Clark Work Phone: [facility] 01-31-2021 Covid (Pfizer) Dr. Librado Clark Work Phone: [facility] 08-22-2020 influenza virus vaccine, unspecified formulation Monica Gayle KAROLINE Work Phone: [facility] Payers Date Payer Category Payer Self-pay [id number] 2012 Blue [employer] Blue Shield [id number] 2012 Unknown [id number] Self-pay [id number] Unknown [facility] [employer] [facility] . [id number] Unknown [id number] Unknown [id number] Unknown [id number] Unknown [id number] Unknown [id number] Unknown [id number] Unknown [id number] Unknown [id number] Social History Date Type Detail Facility Start: 01-24-2024 Tobacco smoking status NHIS Unknown if ever smoked [facility] Start: 1960 Sex Assigned At Male [facility] Start: 01-21-2025 End: 03-14-2025 Tobacco smoking status NHIS Never smoked tobacco (finding) [facility] Start: 01-26-2025 End: 03-14-2025 Sex Male (finding) [facility] Start: 03-15-2025 End: 06-03-2025 Gender Identity Identifies as male gender (finding) [facility] Start: 02-08-2021 Sexual Orientation Heterosexual (finding) [facility] Start: 09-07-2018 End: 03-30-2025 Tobacco use and exposure Smokeless tobacco non-user [facility] Start: 03-14-2025 End: 07-02-2025 Alcoholic beverage intake Current drinker of alcohol (finding) [facility] Start: 03-15-2025 End: 06-03-2025 History of [facility] Has the [employer], [employer], or water [employer] threatened to shut off services in your home in past 12Mo No [facility] (I/We) worried [place] (my/our) food would run out before (I/we) got money to buy more. Never true [facility] Start: 10-19-2012 In the past 12 months, has lack of transportation kept you from medical appointments or from getting medications? No [facility] Start: 04-17-2013 Alcohol Comment ocas [facility] Start: 02-08-2021 Gender identity Identifies as male gender (finding) [facility] Medical Equipment Procedure Code Equipment Code Equipment Origin al Text Equipment Identifier Dates Scrw Ond Mandib Ul Lp Df 1.5x4 [id number] Start: 03-14-2025 L1 [facility] [place] [facility] Cov Ultraone Contour W/Tab Scrw 6 Hl 18mm D T0.35mm Ti - [id number] Start: 03-14-2025 Functional Status Date Assessment Result Facility 03-20-2025 Are you deaf, or do you have serious difficulty hearing Yes 03/20/2025 8:50 AM Luis Solorio, RN Yes [facility] 03-20-2025 Are you blind, or do you have serious difficulty seeing, even when wearing glasses No 03/20/2025 8:50 AM EDT Luis Turner RN No [facility] 03-20-2025 Do you have serious difficulty walking or climbing stairs No 03/20/2025 8:50 AM EDT Luis Turner RN No [facility] 03-20-2025 Do you have difficul ty dressing or bathing No 03/20/2025 8:50 AM EDT Luis Turner RN No [facility] 03-20-2025 Because of a physica l, mental, or emotional condition, do you have difficulty doing errands alone such as visiting a physician's office or shopping No 03/20/2025 8:50 AM EDT Luis Turner RN No [facility] Mental Status Date Assessment Result Facility 03-20-2025 Because of a physica l, mental, or emotional condition, do you have serious difficulty concentrating, remembering, or making decisions No 03/20/2025 8:50 AM Luis Solorio RN No [facility] 03-14-2025 Cognitive function Voice/Name [facility] Work Phone: Clinical Notes 01-21-2025 to 08-16-2025 Monica Gayle APRN.NUT PICKER - 07/02/2025 8:30 AM Evgeny Patton MD - 06/10/2025 1:35 PM EDTPatient InstructionsTelephone Encounter - Ronda Pennington RN - 06/07/2025 4:04 PM EDT Note Date & Type Note Facility 08-16-2025 Progress note [facility] 07-02-2025 History of Present illness Narrative NEUROSURGERY TELEPHONE VISIT PROGRESS NOTE Dr. Ken Joseph MD, FACS This is a telephone encounter initiated for an established patient, parent or guardian not originating from a related Evaluation & Management service provided within the previous 7 days nor leading to an Evaluation & Management service or procedure within the next 24 hours or soonest available appointment. Date of visit: July 02, 2025 Patient Name: Mr.Edmilson Kristine Reyna Date of : 1960 Current Age: [age] year old MRN/E# [id number] Last Office Visit: 04/30/2025 Mr.Edmilson Kristine Reyna has consented to this telephone encounter. PERSONS PRESENT: patient CHIEF COMPLAINT: Patient presents with: Follow Up: Follow up for SDH without imaging HISTORY OF PRESENT ILLNESS : The patient presents for a 2 month follow up. The patient presents for a 6-week post operative visit with imaging (CT B) for evaluation. This is a 65-year-old male with a PMHx of migraines, hypercholesterolemia, GERD who was seen for consult at [facility] after transfer from an OSH on 03/14/2025. He stated that 1 week prior he developed what he thought was a migraine headache. He was taking Advil with some benefit. He then developed progressive left upper extremity numbness and difficulty with fine motor which prompted his visit to the OSH ED. Workup was completed and showed a large right sided SDH. He was transferred to [facility] for higher acuity care. Once imaging reviewed this appeared to show a chronic SDH for which surgical intervention was indicated. He and his agreed to the procedure and this was completed as noted above. He did well following surgery but had a few episodes of intermittent left-sided face and left hand paresthesia and weakness. Neurology was consulted and he underwent a B EEG which was negative. He was started on amantadine for 30 days. Once medically cleared for discharge recommendation was to follow-up in 2 weeks for a routine postoperative visit and suture removal. He was last seen in the office on 03/30/2025 and reported continued episodes of numbness in the left arm and left upper lip. He denied any headache, visual changes, speech deficits, seizure activity, motor or sensory deficits. Neurologically he was intact on exam without focal deficit. Craniotomy incision was open to air without signs or symptoms of infection noted. Sutures were removed without issue. There was no evidence of subgaleal collection or dehiscence. CT was reviewed and appeared stable. Recommendation was to follow-up in 1 month with a [address] CT. He was advised to follow-up with cerebrovascular as scheduled. He was last seen in the office 04/30/2025 when he was doing well status post evacuation subdural hematoma. He had had no episodes of tingling or numbness in his left upper extremity but every now and then he felt it may be a little bit heavy. His examination was normal with no focal deficit. He was off any medications from us in regards to this. His CT scan was clear with no residual subdural of significance. It was recommended that he follow up via phone call for follow up in 2 months. He reports doing well with no headaches at this time. He continues with some heaviness in the left arm but this has remained consistent since his last visit. Overall he feels that he is doing very well and he is very pleased with his progress this far. POST-OP MEDICATIONS: Anticonvulsant: Keppra 1000 mg twice daily -completed Dexamethasone: No SURGICAL RISK: Smoker: Never Diabetic: No Anticoagulants / Antiplatelets: No Occupation: [employer] PREVIOUS NEUROSURGERY: SURGERY #1: Right frontoparietal craniotomy for evacuation of acute on chronic and subacute subdural hematoma on 03/14/[address] Joseph. PRE-SURGICAL SYMPTOMS: LUE paresthesias, weakness Current Outpatient Medications Medication Sig Dispense Refill rosuvastatin (CRESTOR) 20 mg tablet Take 20 mg by mouth daily at bedtime. coenzyme Q10 (COENZYME Q-10) 100 mg cap capsule Take 100 mg by mouth once daily. cholecalciferol (VITAMIN D) 1,000 unit tab tablet Take 1,000 Units by mouth once daily. omeprazole 20 mg capsule Take 20 mg by mouth once daily. Multivitamin capsule Take 1 capsule by mouth once daily. No current facility-administered medications for this visit. REVIEW OF SYSTEMS: Review of Systems Constitutional: Negative for chills, fatigue and fever. HENT: Negative for ear pain, hearing loss and tinnitus. Eyes: Negative for photophobia, pain and visual disturbance. Respiratory: Negative for shortness of breath. Cardiovascular: Negative for chest pain. Gastrointestinal: Negative for constipation, diarrhea, nausea and vomiting. Endocrine: Negative for polydipsia, polyphagia and polyuria. Genitourinary: Negative for difficulty urinating, frequency and urgency. Musculoskeletal: Negative for back pain, gait problem, neck pain and neck stiffness. Skin: Negative for color change. Neurological: Negative for dizziness, weakness, light-headedness and numbness. Psychiatric/Behavioral: Negative for agitation and confusion. The patient is not nervous/anxious. IMAGING: No new imaging obtained ASSESSMENT/PLAN: 1. SDH (subdural hematoma) (HCC) - ICD9: 432.1, ICD10: S06.5XAA This patient had a subdural hematoma on the right side which now has resolved as of his last visit. We had a telephone visit with him today and it seems he has no headache or dizziness or any issues he had no problems with his left upper extremity such as weakness or numbness or episodes of same. The only question he had was whether he can have cochlear implants since he had prior surgery on his skull. I told him that whoever will be considering him for the procedure will address this issue. From the neurosurgery standpoint there is no contraindication to have a cochlear implant. FOLLOW UP: He will be seen in follow-up on as needed basis I have communicated my name and active licensure. The patient's identity and physical location were verified at the time of this visit. 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 Time spent: 5-10 minutes Please Note: This note has been partially generated using [employer]indo, a speech recognition software program, and may contain errors including punctuation, grammar, spelling, gender, and inappropriate words or phrases that pertain to the system. documented in this encounter [facility] 07-02-2025 Note HNO ID: [id number] Author: MONICA GAYLE APRN.DEEJAY Service: ? Author Type: Nurse Practitioner Type: Progress Notes Filed: 07/07/2025 14:15 Note Text: NEUROSURGERY TELEPHONE VISIT PROGRESS NOTE Dr. Ken Joseph MD, FACS This is a telephone encounter initiated for an established patient, parent or guardian not originating from a related Evaluation AND Management service provided within the previous 7 days nor leading to an Evaluation AND Management service or procedure within the next 24 hours or soonest available appointment. Date of visit: July 02, 2025 Patient Name: Mr.Edmilson Kristine Reyna Date of : 1960 Current Age: [age] year old MRN/E# [id number] Last Office Visit: 04/30/2025 Mr.Edmilson Kristine Reyna has consented to this telephone encounter. PERSONS PRESENT: patient CHIEF COMPLAINT: Patient presents with: Follow Up: Follow up for SDH without imaging HISTORY OF PRESENT ILLNESS : The patient presents for a 2 month follow up. The patient presents for a 6-week post operative visit with imaging (CT B) for evaluation. This is a 65-year-old male with a PMHx of migraines, hypercholesterolemia, GERD who was seen for consult at [facility] after transfer from an OSH on 03/14/2025. He stated that 1 week prior he developed what he thought was a migraine headache. He was taking Advil with some benefit. He then developed progressive left upper extremity numbness and difficulty with fine motor which prompted his visit to the OSH ED. Workup was completed and showed a large right sided SDH. He was transferred to [facility] for higher acuity care. Once imaging reviewed this appeared to show a chronic SDH for which surgical intervention was indicated. He and his agreed to the procedure and this was completed as noted above. He did well following surgery but had a few episodes of intermittent left-sided face and left hand paresthesia and weakness. Neurology was consulted and he underwent a B EEG which was negative. He was started on amantadine for 30 days. Once medically cleared for discharge recommendation was to follow-up in 2 weeks for a routine postoperative visit and suture removal. He was last seen in the office on 03/30/2025 and reported continued episodes of numbness in the left arm and left upper lip. He denied any headache, visual changes, speech deficits, seizure activity, motor or sensory deficits. Neurologically he was intact on exam without focal deficit. Craniotomy incision was open to air without signs or symptoms of infection noted. Sutures were removed without issue. There was no evidence of subgaleal collection or dehiscence. CT was reviewed and appeared stable. Recommendation was to follow-up in 1 month with a repeat CT. He was advised to follow-up with cerebrovascular as scheduled. He was last seen in the office 04/30/2025 when he was doing well status post evacuation subdural hematoma. He had had no episodes of tingling or numbness in his left upper extremity but every now and then he felt it may be a little bit heavy. His examination was normal with no focal deficit. He was off any medications from us in regards to this. His CT scan was clear with no residual subdural of significance. It was recommended that he follow up via phone call for follow up in 2 months. He reports doing well with no headaches at this time. He continues with some heaviness in the left arm but this has remained consistent since his last visit. Overall he feels that he is doing very well and he is very pleased with his progress this far. POST-OP MEDICATIONS: Anticonvulsant: Keppra 1000 mg twice daily -completed Dexamethasone: No SURGICAL RISK: Smoker: Never Diabetic: No Anticoagulants / Antiplatelets: No Occupation: [employer] PREVIOUS NEUROSURGERY: SURGERY #1: Right frontoparietal craniotomy for evacuation of acute on chronic and subacute subdural hematoma on 03/14/[address] Joseph. PRE-SURGICAL SYMPTOMS: LUE paresthesias, weakness Current Outpatient Medications Medication Sig Dispense Refill rosuvastatin (CRESTOR) 20 mg tablet Take 20 mg by mouth daily at bedtime. coenzyme Q10 (COENZYME Q-10) 100 mg cap capsule Take 100 mg by mouth once daily. cholecalciferol (VITAMIN D) 1,000 unit tab tablet Take 1,000 Units by mouth once daily. omeprazole 20 mg capsule Take 20 mg by mouth once daily. Multivitamin capsule Take 1 capsule by mouth once daily. No current facility-administered medications for this visit. REVIEW OF SYSTEMS: Review of Systems Constitutional: Negative for chills, fatigue and fever. HENT: Negative for ear pain, hearing loss and tinnitus. Eyes: Negative for photophobia, pain and visual disturbance. Respiratory: Negative for shortness of breath. Cardiovascular: Negative for chest pain. Gastrointestinal: Negative for constipation, diarrhea, nausea and vomiting. Endocrine: Negative for polydipsia, polyphagia and polyuria. Olya (more content not 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 [facility] 06-10-2025 Note HNO ID: [id number] Author: EVGENY LYNNE MD Service: ? Author Type: Physician Type: Progress Notes Filed: 06/10/2025 14:29 Note Text: [facility] Established Visit Consultation is requested by: SELF PCP: Christine Alford) [id number] [facility] [place] [address] CEREBROVASCULAR HISTORY Reason for Visit: follow-up and subdural hematoma Date of Last Event: 03/14/2025 History of Event: Ed Kristine Reyna is a 65-year-old male presenting for post hospital follow-up after developing acute on chronic subdural hemorrhage. Ed was admitted on 03/14/2025 for headaches, numbness, and tingling of the left hand, which had been ongoing for a week. Just prior to presentation he developed a slight left facial droop and left arm numbness and paresthesias. CTH at [facility] revealed acute and chronic right subdural hemorrhage. He underwent a right frontoparietal craniotomy and evacuation, which improved his symptoms. Unclear etiology of subdural hemorrhage, he does not recall any traumatic events preceding the episode in the past few years. MRI brain was obtained to rule out signs for amyloid angiopathy, MRI brain showed no evidence of cortical cerebral micro hemorrhages, or T2 changes. He continued to experience recurrent episodes of transient left hand and arm paresthesias and weakness. Continuous EEG monitoring captured events without any epileptiform discharges or seizures, and a repeat CT scan was stable. I evaluated him on 03/18/2025, with episodes diagnosed to be secondary cortical spreading depolarization. They were brief, lasting few minutes, witnessed brief contractures with dystonic posturing and decreased sensation during. Started him on memantine as a trial for anti NMDA effect with animal studies showing potential benefit. He was discharged and reported significant improvement in symptoms during a follow-up in the cerebrovascular clinic on 04/05/2025. He also saw Dr. Joseph in neurosurgery on 04/30/2025. Residual Deficits: No residual deficits Current PT/OT/ST: None Current Living Situation: Home with spouse Current use of a mobility aid for walking/getting around: None Ed reports that the numbness in his arm has resolved, but he now experiences fatigue, particularly in his arm, which he describes as tiredness rather than weakness. This sensation occurs during activities such as driving or typing and is sometimes associated with stress. He notes that this fatigue progressively replaced the numbness and is not getting worse but had a particularly bad episode last Saturday. He also reports feeling generally more fatigued than before the hemorrhage, often needing to take naps during the day. He has returned to work since 03/31/2025, working from 6:00 AM to noon, then taking a nap before continuing [employer]. He enjoys his work but notes that he comes home totally wiped out, which was not the case before the hemorrhage. He is planning to retire in 7.5 months. He experiences occasional headaches, which he describes as non-pulsating and not localized to a specific area. These headaches last a few hours and are relieved by Tylenol. He has not had any migraines since the surgery, though he typically experiences them once or twice a year. Ed reports that his cognitive function is normal, and he has not noticed any memory changes. 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 He stopped taking memantine and reports that his brain fog has improved since discontinuing the medication. He also reports experiencing more vivid dreams since the surgery. He has not resumed taking tadalafil for erectile dysfunction and is unsure if he should restart it. He does not have a history of hypertension and has not been on blood thinners. He expresses concern about the risk of recurrence of the hemorrhage and whether he is at higher risk for a stroke. Objective PAST MEDICAL HISTORY Diagnosis Date Acid reflux Erectile dysfunction Hypercholesteremia PAST SURGICAL HISTORY Procedure Laterality Date BRAIN SURGERY HX 03/14/2025 Right frontoparietal craniotomy COLONOSCOPY FLX DX W/COLLJ SPEC WHEN PFRMD Colonoscopy ESOPHAGOGASTRODUODENOSCOPY TRANSORAL DIAGNOSTIC 05/11/2013 EGD PAST SURGICAL HISTORY OF 5yrs old hernia surgery PAST SURGICAL HISTORY OF tubinate, catherization VASECTOMY UNI/BI SPX W/POSTOP SEMEN EXAMS FAMILY HISTORY Problem Relation Age of Onset other (complications parkinsons [Other]) Father Social History Tobacco Use Smoking status: Never Smokeless tobacco: Never Substance Use Topics Alcohol use: Yes Comment: ocas Drug use: Never MEDICATIONS Current Outpatient Medications Medication Sig rosuvastatin (CRESTOR) 20 mg tablet Take 20 mg by mouth daily at bedtime. coenzyme Q10 (COENZYME Q-10) 100 mg cap capsule Take 100 mg by mouth o (more content not 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 [facility] 06-10-2025 History of Present illness Narrative Images from the original note were not included. [facility] Established Visit Consultation is requested by: SELF PCP: Christine Canada (Chuy) [address] [facility] [place] [address] CEREBROVASCULAR HISTORY Reason for Visit: follow-up and subdural hematoma Date of Last Event: 03/14/2025 History of Event: China Reyna is a 65-year-old male presenting for post hospital follow-up after developing acute on chronic subdural hemorrhage. Ed was admitted on 03/14/2025 for headaches, numbness, and tingling of the left hand, which had been ongoing for a week. Just prior to presentation he developed a slight left facial droop and left arm numbness and paresthesias. CTH at [facility] revealed acute and chronic right subdural hemorrhage. He underwent a right frontoparietal craniotomy and evacuation, which improved his symptoms. Unclear etiology of subdural hemorrhage, he does not recall any traumatic events preceding the episode in the past few years. MRI brain was obtained to rule out signs for amyloid angiopathy, MRI brain showed no evidence of cortical cerebral micro hemorrhages, or T2 changes. He continued to experience recurrent episodes of transient left hand and arm paresthesias and weakness. Continuous EEG monitoring captured events without any epileptiform discharges or seizures, and a repeat CT scan was stable. I evaluated him on 03/18/2025, with episodes diagnosed to be secondary cortical spreading depolarization. They were brief, lasting few minutes, witnessed brief contractures with dystonic posturing and decreased sensation during. Started him on memantine as a trial for anti NMDA effect with animal studies showing potential benefit. He was discharged and reported significant improvement in symptoms during a follow-up in the cerebrovascular clinic on 04/05/2025. He also saw Dr. Joseph in neurosurgery on 04/30/2025. Residual Deficits: No residual deficits Current PT/OT/ST: None Current Living Situation: Home with spouse Current use of a mobility aid for walking/getting around: None Ed reports that the numbness in his arm has resolved, but he now experiences fatigue, particularly in his arm, which he describes as tiredness rather than weakness. This sensation occurs during activities such as driving or typing and is sometimes associated with stress. He notes that this fatigue progressively replaced the numbness and is not getting worse but had a particularly bad episode last Saturday. He also reports feeling generally more fatigued than before the hemorrhage, often needing to take naps during the day. He has returned to work since 03/31/2025, working from 6:00 AM to noon, then taking a nap before continuing [employer]. He enjoys his work but notes that he comes home totally wiped out, which was not the case before the hemorrhage. He is planning to retire in 7.5 months. He experiences occasional headaches, which he describes as non-pulsating and not localized to a specific area. These headaches last a few hours and are relieved by Tylenol. He has not had any migraines since the surgery, though he typically experiences them once or twice a year. Ed reports that his cognitive function is normal, and he has not noticed any memory changes. 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 He stopped taking memantine and reports that his brain fog has improved since discontinuing the medication. He also reports experiencing more vivid dreams since the surgery. He has not resumed taking tadalafil for erectile dysfunction and is unsure if he should restart it. He does not have a history of hypertension and has not been on blood thinners. He expresses concern about the risk of recurrence of the hemorrhage and whether he is at higher risk for a stroke. Objective PAST MEDICAL HISTORY Diagnosis Date Acid reflux Erectile dysfunction Hypercholesteremia PAST SURGICAL HISTORY Procedure Laterality Date BRAIN SURGERY HX 03/14/2025 Right frontoparietal craniotomy COLONOSCOPY FLX DX W/COLLJ SPEC WHEN PFRMD Colonoscopy ESOPHAGOGASTRODUODENOSCOPY TRANSORAL DIAGNOSTIC 05/11/2013 EGD PAST SURGICAL HISTORY OF 5yrs old hernia surgery PAST SURGICAL HISTORY OF tubinate, catherization VASECTOMY UNI/BI SPX W/POSTOP SEMEN EXAMS FAMILY HISTORY Problem Relation Age of Onset other (complications parkinsons [Other]) Father Social History Tobacco Use Smoking status: Never Smokeless tobacco: Never Substance Use Topics Alcohol use: Yes Comment: ocas Drug use: Never MEDICATIONS Current Outpatient Medications Medication Sig rosuvastatin (CRESTOR) 20 mg tablet Take 20 mg by mouth daily at bedtime. coenzyme Q10 (COENZYME Q-10) 100 mg cap capsule Take 100 mg by mouth once daily. cholecalciferol (VITAMIN D) 1,000 unit tab tablet Take 1,000 Units by mouth once daily. omeprazole 20 mg capsule Take 20 mg by mouth once daily. Multivitamin capsule Take 1 capsule by mouth once daily. No current facility-administered medications for this visit. ALLERGIES ALLERGIES No Known Allergies PHYSICAL EXAMINATION BP 123/84 Pulse 81 Ht 180.3 cm (5' 11) Wt 81.2 kg (179 lb) BMI 24.97 kg/m General: well nourished HEENT: NCAT, anicteric sclera CV: regular rate Pulm: breathing comfortably, no wheezing, symmetric chest expansion Abd: soft, non-tender, non-distended Ext: skin clear, no rashes, no edema Neurology: Mental Status: A&Ox3, good concentration; normal fund of knowledge and memory Language: intact fluency, comprehension, naming, and repetition Speech: no dysarthria CN: PERRL, 3 mm BL, EOMI, no nystagmus, full VF; no facial asymmetry, facial sensation intact; auditory acuity intact; tongue midline, palate elevates symmetrically Motor: AG throughout, no drift, normal tone, full ROM Sensory: intact to light touch equally on both sides, no extinction Coordination: no dysmetria on FTN or HTS bilaterally Reflexes: R L Bicep 2+ 2+ Tricep 2+ 2+ Brachioradialis 2+ 2+ Patellar 2+ 2+ Ankle 2+ 2+ Pectoralis reflex: absent Hoffmans: absent Gait: normal Diabetes: No results found for: HBA1C DIAGNOSTICS Labs: Tests: - EEG: No epileptiform discharges captured. Imaging: - (April 2025) CT Head: Near complete resolution of right subdural hemorrhage. - (03/14/2025) CT Head: Acute and chronic right subdural hemorrhage. - CT Head: Multiple repeats during hospital admission, all clean. - CT Head: Stable on subsequent follow-up. - MRI Brain: Right subdural hemorrhage with surrounding irritation; no intracranial parenchymal lesion identified. Patient Entered Questionnaires 06/03/2025 Health Status Impact by Stroke or CVD Impact Somewhat 04/05/2025 Health Status Change Since Last Visit Change Not applicable, this is my first visit PROMIS/NeuroQoL Score Percentiles 06/03/2025 04/05/2025 Physical Health Physical Function Percentile 42 4 Sleep Percentile 82 66 Fatigue Percentile 31 16* Pain Interference Percentile 84 27* 06/03/2025 04/05/2025 PROMIS SOCIAL ROLE SCORE Social Role Satisfaction Percentile 34 31 06/03/2025 04/05/2025 Mental Health General Self-Efficacy Percentile 46 14 04/05/2025 PROMIS Global Health Scale Physical Health Percentile 31 Mental Health Percentile 43 Patient-reported Percentiles provide an indication of how a patient's score ranks in relation to the [place] general population. > 31st percentile is within normal limits or better * < 31st percentile is at least SD worse than population, which may be clinically relevant < 16th percentile is at least 1 SD worse than population and warrants attention Descriptive Summary for PROMIS Physical Function T-score = 48 (Percentile 42) Little difficulty - Do 2 hours of physical labor. No difficulty - Walk more than a mile (1.6 km). Depression Screenin06/03/2025 04/05/2025 PHQ-9 Score 1 3 Self-Harm Response Not at all Not at all PHQ-9 Scores: PHQ-9 Self-Harm (Item 9) Response: 0 - 9 No to Mild depression 0 - Not at all 10 - 14 Moderate depression 1 - Several Days > 15 Severe depression 2 - More than half the days 3 - Nearly every day 04/05/2025 Sleep Apnea Probability Score Probability (%) 50 (Recommend sleep study) Stroke Mechanism and Scales Intracranial Hemorrhage: Subdural Hematoma Modified Morgan Score: Score: 0 NIH Stroke Scale: LOC: 0 LOC Questions: 0 LOC Commands: 0 LOC Normal Gaze: 0 Visual Girard: 0 Facial Palsy: 0 Motor Left Arm: 0 Motor Right Arm: 0 Motor Left Le Motor Right Le Limb Ataxia: 0 Sensory: 0 Language: 0 Dysarthria: 0 Extinction/Neglect: 0 Total Daily NIHSS: 0 ASSESSMENT AND PLAN Acute on chronic subdural hemorrhage, spontaneous Unclear etiology at this time, no history of hypertension or transient neurological symptoms. No signs of coagulapathy, and was not on blood antithrombotics, no signs of cerebral amyloid angiopathy on initial MRI. Cortical Spreading Depolarization Resolved, remains with heaviness in left arm, more prominent after stressful work heavy days. Hyperlipidemia: LDL goal < 70 Most recent LDL: 101 Recommendations: Repeat MRI brain w/o in 1 year from initial event to rule out signs of CAA. 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 Patient/authorized abrasives sales representative agreed to proceed I spent a total of 81 minutes on the date of service which included preparing to see the patient, [id number] patient care, completing clinical documentation, obtaining and/or reviewing separately obtained history, performing a medically appropriate examination, counseling and educating the patient/family/caregiver, ordering medications, tests, or procedures, communicating with other HCPs (not separately reported), independently interpreting results (not separately reported), communicating results to the patient/family/caregiver, and care coordination (not separately reported) SIGNATURE Evgeny Lynne [facility] [address] [facility] [address] [place] [address] Office: [phone] CC SELF Christine Canada ([facility]) [address] [place] [id number] documented in this encounter [facility] 06-09-2025 Instructions Evgeny Lynne MD - 06/09/2025 1:49 PM EDT What you had was cortical spreading depolarization secondary to your acute on chronic subdural hemorrhage in March. We discussed your history of subdural hemorrhage and current symptoms: - You experienced a subdural hemorrhage in February 2025, which required a craniotomy and evacuation. Since then, your symptoms, including numbness and tingling in your left arm, have improved significantly. - You reported ongoing fatigue, particularly in your arm, which worsens with stress or certain activities like driving. This is not associated with weakness, as your strength remains intact. This fatigue may be related to residual irritation in the brain from the bleed and surgery. - You occasionally experience mild headaches, which are not migraines. These headaches typically resolve on their own or with Tylenol. This is expected following your surgery and does not indicate a new issue. - You are no longer taking memantine, and your brain fog has resolved since discontinuing the medication. - You reported vivid dreams, which may or may not be related to your surgery or recovery. This will be monitored. Care Plan: - Continue monitoring your symptoms, including fatigue, headaches, and any new or worsening neurological symptoms (e.g., numbness, tingling, or weakness). - Avoid head trauma, as this could increase the risk of recurrence of a subdural hemorrhage. - If you experience worsening symptoms, such as increased frequency of fatigue, new numbness, or other neurological changes, please contact our office immediately. A repeat CT scan may be ordered if necessary. - There are no restrictions on your activities, but listen to your body. Rest as needed, especially if you feel fatigued. We discussed your risk of recurrence: - The risk of recurrence is low but highest in the short term following the initial event. Over time, the risk decreases to near-normal levels. - There is no need for routine CT scans unless new symptoms develop. Avoid unnecessary radiation exposure. We discussed your erectile dysfunction medication (tadalafil): - There is no evidence linking tadalafil to an increased risk of brain bleeding. You may resume this medication if needed, but consult your primary care provider or urologist for further guidance on its use. Follow-Up: - You have a follow-up appointment with Dr. Mueller (neurosurgery) on July 02, 2025. Please keep this appointment to continue monitoring your recovery. - If you have any new or concerning symptoms before then, please contact our office. Please let us know if you have any additional questions or concerns. documented in this encounter [facility] 06-07-2025 Telephone encounter Note Spoke with pt, due to [facility] message received, called pt earlier see message) not answer. Pt had numbness and weakness to left arm , but has not improved, pt is not stating left are feels tired, does not have weakness, is able to use left hand to open jars without difficulty, no other symptoms noted. Pt has OV with Dr Lynne in [place] on 06/09. Asking if pt should have CT prior to OV? [facility] 06-07-2025 Miscellaneous Notes Spoke with pt, due to message received, called pt earlier see message) not answer. Pt had numbness and weakness to left arm , but has not improved, pt is not stating left are feels tired, does not have weakness, is able to use left hand to open jars without difficulty, no other symptoms noted. Pt has OV with Dr Lynne in [place] on 06/09. Asking if pt should have CT prior to OV? documented in this encounter [facility] 04-30-2025 History of Present illness Narrative Images from the original note were not included. NEUROSURGERY POST OP NOTE Dr. Ken Joseph MD, FACS Date of visit: April 30, 2025 Patient Name: Mr.Edmilson Kristine Reyna Date of : 1960 Current Age: [age] year old MRN/E# [id number] Last Office Visit: 03/30/2025 CHIEF COMPLAINT: Patient presents with: Post Op SURGERY: Right frontoparietal craniotomy for evacuation of acute on chronic and subacute subdural hematoma on 03/14/[address] Joseph. PRE-SURGICAL SYMPTOMS: LUE paresthesias, weakness INCISION: Healed - No signs or symptoms of infection noted. HISTORY OF PRESENT ILLNESS : The patient presents for a 6-week post operative visit with imaging (CT B) for evaluation. This is a 65-year-old male with a PMHx of migraines, hypercholesterolemia, GERD who was seen for consult at [facility] after transfer from an OSH on 03/14/2025. He stated that 1 week prior he developed what he thought was a migraine headache. He was taking Advil with some benefit. He then developed progressive left upper extremity numbness and difficulty with fine motor which prompted his visit to the OSH ED. Workup was completed and showed a large right sided SDH. He was transferred to [facility] for higher acuity care. Once imaging reviewed this appeared to show a chronic SDH for which surgical intervention was indicated. He and his agreed to the procedure and this was completed as noted above. He did well following surgery but had a few episodes of intermittent left-sided face and left hand paresthesia and weakness. Neurology was consulted and he underwent a B EEG which was negative. He was started on amantadine for 30 days. Once medically cleared for discharge recommendation was to follow-up in 2 weeks for a routine postoperative visit and suture removal. He was last seen in the office on 03/30/2025 and reported continued episodes of numbness in the left arm and left upper lip. He denied any headache, visual changes, speech deficits, seizure activity, motor or sensory deficits. Neurologically he was intact on exam without focal deficit. Craniotomy incision was open to air without signs or symptoms of infection noted. Sutures were removed without issue. There was no evidence of subgaleal collection or dehiscence. CT was reviewed and appeared stable. Recommendation was to follow-up in [address] He was advised to follow-up with cerebrovascular as scheduled. Today he states he is overall doing better. States his left arm is no longer numb. He has some heaviness at times but this is also improving. He presents for image review, evaluation and plan of care. POST-OP MEDICATIONS: Anticonvulsant: Keppra 1000 mg twice daily -completed Dexamethasone: No SURGICAL RISK: Smoker: Never Diabetic: No Anticoagulants / Antiplatelets: No Occupation: [employer] PREVIOUS NEUROSURGERY: None PAST MEDICAL HISTORY Diagnosis Date Acid reflux Erectile dysfunction Hypercholesteremia PAST SURGICAL HISTORY Procedure Laterality Date BRAIN SURGERY HX 03/14/2025 Right frontoparietal craniotomy COLONOSCOPY FLX DX W/COLLJ SPEC WHEN PFRMD Colonoscopy ESOPHAGOGASTRODUODENOSCOPY TRANSORAL DIAGNOSTIC 05/11/2013 EGD PAST SURGICAL HISTORY OF 5yrs old hernia surgery PAST SURGICAL HISTORY OF tubinate, catherization VASECTOMY UNI/BI SPX W/POSTOP SEMEN EXAMS FAMILY HISTORY Problem Relation Age of Onset other (complications parkinsons [Other]) Father ALLERGIES No Known Allergies Current Outpatient Medications Medication Sig Dispense Refill rosuvastatin (CRESTOR) 20 mg tablet Take 20 mg by mouth daily at bedtime. coenzyme Q10 (COENZYME Q-10) 100 mg cap capsule Take 100 mg by mouth once daily. cholecalciferol (VITAMIN D) 1,000 unit tab tablet Take 1,000 Units by mouth once daily. omeprazole 20 mg capsule Take 20 mg by mouth once daily. Multivitamin capsule Take 1 capsule by mouth once daily. No current facility-administered medications for this visit. Review of Systems Constitutional: Negative for chills, diaphoresis (Negative for night sweats.) and fever. HENT: Negative for ear discharge and rhinorrhea. Eyes: Negative for discharge. Respiratory: Negative for cough, shortness of breath and wheezing. Cardiovascular: Negative for chest pain, palpitations and leg swelling. Gastrointestinal: Negative for constipation, diarrhea, nausea and vomiting. Endocrine: Negative for cold intolerance and heat intolerance. Genitourinary: Negative for frequency. Negative for urinary incontinence and urinary retention. Musculoskeletal: Negative for back pain, joint swelling, myalgias and neck pain. Skin: Negative for rash (Negative for hives and skin lesions.). Allergic/Immunologic: Negative for environmental allergies and food allergies. Negative for contact allergy, seasonal allergies. Neurological: Negative for dizziness, seizures, syncope, weakness, light-headedness, numbness (Negative for numbness in extremities.) and headaches. Hematological: Does not bruise/bleed easily. Psychiatric/Behavioral: The patient is not nervous/anxious. Negative for depression. PAIN EVALUATION No data found in the last 1 encounters. BP 122/79 (BP Site: Left Arm, BP Position: Sitting, BP Cuff Size: Large Adult) Pulse 71 Ht 5' 11 (1.803 m) Wt 178 lb (80.7 kg) SpO2 96% BMI 24.83 kg/m PHYSICAL EXAM: Mental State : Alert. Attention span and concentration normal for patient's age. Speech normal, fluent. No receptive or expressive speech deficit. Recent and remote memory normal. Orientation : Oriented to person, place and time. Higher Cortical Function : Intact speech and language. Comprehension normal. Fund of knowledge intact for pt level of education. Cranial Nerves : II: No visual field cut, no blurring. Makes and sustains eye contact. III, IV, : No double vision or lid drooping. Pupils equal and reactive to light. Extraocular muscles intact. No nystagmus. V: Normal sensation on the face, normal jaw movements. VII: No paresis on either side. VIII: No gross hearing deficit IX: Good and equal shoulder shrugs. XII: Tongue midline, no fasciculations. Sensory: SILT. Normal Sensation in bilateral upper and bilateral lower extremities to touch and noxious stimuli. Motor: Normal muscle tone and bulk. No spasticity, tremor or uncontrollable movements. Strength: Upper Extremities : R L Deltoid 5/5 5/5 Biceps 5/5 5/5 Triceps 5/5 5/5 Wrist Ext 5/5 5/5 Wrist Flx 5/5 5/5 Hand Int 5/5 5/5 Lower Extremities : Hip Flexors 5/5 5/5 Hip Extensors 5/5 5/5 Hip Abductors 5/5 5/5 Straight leg Neg Neg Ankle dorsiflex 5/5 5/5 Ankle Plantar 5/5 5/5 Cerebellar Function : Normal finger to nose. Normal rapid alternating movements. No ataxia. Negative Romberg. Gait and Station: Normal gait. No assistive device usage. IMAGING: CT brain WO IVCON performed today 04/30/2025 demonstrates: 03/14/2025 04/30/2025 ASSESSMENT/PLAN: 1. SDH (subdural hematoma) (HCC) - ICD9: 432.1, ICD10: S06.5XAA Patient is doing well status post evacuation subdural hematoma. He has had no episodes of tingling or numbness in his left upper extremity but every now and then he feels it may be a little bit heavy. His examination is normal with no focal deficit. He is off any medications from us in regards to this. His CT scan today is clear with no residual subdural of significance. I recommended a follow-up visit by phone in 2 months from now. Should she have any symptoms in the meantime he should feel free to call and discuss it with me or with my nurse. Ken Joseph MD FOLLOW UP: Return in about 2 months (around 06/30/2025) for phone visit. Please Note: This note has been partially generated using Bindo, a speech recognition software program, and may contain errors including punctuation, grammar, spelling, gender, and inappropriate words or phrases that pertain to the system. documented in this encounter [facility] 04-30-2025 Note HNO ID: [id number] Author: KEN JOSEPH MD Service: ? Author Type: Physician Type: Progress Notes Filed: 04/30/2025 14:20 Note Text: NEUROSURGERY POST OP NOTE Dr. Ken Joseph MD, [facility] Date of visit: April 30, 2025 Patient Name: Mr.Edmilson Kristine Reyna Date of : 1960 Current Age: [age] year old MRN/E# [id number] Last Office Visit: 03/30/2025 CHIEF COMPLAINT: Patient presents with: Post Op SURGERY: Right frontoparietal craniotomy for evacuation of acute on chronic and subacute subdural hematoma on 03/14/[address] Joseph. PRE-SURGICAL SYMPTOMS: LUE paresthesias, weakness INCISION: Healed - No signs or symptoms of infection noted. HISTORY OF PRESENT ILLNESS : The patient presents for a 6-week post operative visit with imaging (CT B) for evaluation. This is a 65-year-old male with a PMHx of migraines, hypercholesterolemia, GERD who was seen for consult at [facility] after transfer from an OSH on 03/14/2025. He stated that 1 week prior he developed what he thought was a migraine headache. He was taking Advil with some benefit. He then developed progressive left upper extremity numbness and difficulty with fine motor which prompted his visit to the OSH ED. Workup was completed and showed a large right sided SDH. He was transferred to [facility] for higher acuity care. Once imaging reviewed this appeared to show a chronic SDH for which surgical intervention was indicated. He and his agreed to the procedure and this was completed as noted above. He did well following surgery but had a few episodes of intermittent left-sided face and left hand paresthesia and weakness. Neurology was consulted and he underwent a B EEG which was negative. He was started on amantadine for 30 days. Once medically cleared for discharge recommendation was to follow-up in 2 weeks for a routine postoperative visit and suture removal. He was last seen in the office on 03/30/2025 and reported continued episodes of numbness in the left arm and left upper lip. He denied any headache, visual changes, speech deficits, seizure activity, motor or sensory deficits. Neurologically he was intact on exam without focal deficit. Craniotomy incision was open to air without signs or symptoms of infection noted. Sutures were removed without issue. There was no evidence of subgaleal collection or dehiscence. CT was reviewed and appeared stable. Recommendation was to follow-up in [address] He was advised to follow-up with cerebrovascular as scheduled. Today he states he is overall doing better. States his left arm is no longer numb. He has some heaviness at times but this is also improving. He presents for image review, evaluation and plan of care. POST-OP MEDICATIONS: Anticonvulsant: Keppra 1000 mg twice daily -completed Dexamethasone: No SURGICAL RISK: Smoker: Never Diabetic: No Anticoagulants / Antiplatelets: No Occupation: [employer] PREVIOUS NEUROSURGERY: None PAST MEDICAL HISTORY Diagnosis Date Acid reflux Erectile dysfunction Hypercholesteremia PAST SURGICAL HISTORY Procedure Laterality Date BRAIN SURGERY HX 03/14/2025 Right frontoparietal craniotomy COLONOSCOPY FLX DX W/COLLJ SPEC WHEN PFRMD Colonoscopy ESOPHAGOGASTRODUODENOSCOPY TRANSORAL DIAGNOSTIC 05/11/2013 EGD PAST SURGICAL HISTORY OF 5yrs old hernia surgery PAST SURGICAL HISTORY OF tubinate, catherization VASECTOMY UNI/BI SPX W/POSTOP SEMEN EXAMS FAMILY HISTORY Problem Relation Age of Onset other (complications parkinsons [Other]) Father ALLERGIES No Known Allergies Current Outpatient Medications Medication Sig Dispense Refill rosuvastatin (CRESTOR) 20 mg tablet Take 20 mg by mouth daily at bedtime. coenzyme Q10 (COENZYME Q-10) 100 mg cap capsule Take 100 mg by mouth once daily. cholecalciferol (VITAMIN D) 1,000 unit tab tablet Take 1,000 Units by mouth once daily. omeprazole 20 mg capsule Take 20 mg by mouth once daily. Multivitamin capsule Take 1 capsule by mouth once daily. No current facility-administered medications for this visit. Review of Systems Constitutional: Negative for chills, diaphoresis (Negative for night sweats.) and fever. HENT: Negative for ear discharge and rhinorrhea. Eyes: Negative for discharge. Respiratory: Negative for cough, shortness of breath and wheezing. Cardiovascular: Negative for chest pain, palpitations and leg swelling. Gastrointestinal: Negative for constipation, diarrhea, nausea and vomiting. Endocrine: Negative for cold intolerance and heat intolerance. Genitourinary: Negative for frequency. Negative for urinary incontinence and urinary retention. Musculoskeletal: Negative for back pain, joint swelling, myalgias and neck pain. Skin: Negative for rash (Negative for hives and skin lesions.). Allergic/Immunologic: Negative for environmental allergies and food allergies. Negative for contact allergy, seasona (more content not 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 [facility] 04-30-2025 History of Present illness Narrative Radiology Service Progress Note PATIENT NAME: Celestino Reyna DATE OF SERVICE: April 30, 2025 TIME: 1:53 PM PATIENT IDENTITY VERIFICATION COMPLETED USING TWO (2) IDENTIFIERS: Name and Date of confirmed by patient verbally. FALL SCREENING: Has the patient had 2 falls in the last year or 1 fall with injury or currently using an Ambulatory Assistive Device (Walker, Cane, Wheelchair, Crutches, etc.)? No PATIENT GENDER DATA: Assigned male at PATIENT RELEVANT IMPLANT DATA REVIEWED: Not Applicable PATIENT PRESENTS WITH AN IMPLANTABLE OR ATTACHED DOG BEHAVIORIST: No RADIOLOGY DEPARTMENT: CT; Exam(s) Completed: Brain PERIPHERAL IV DATA: Not applicable SIGNED BY: LUCRETIA Jimenez) April 30, 2025 1:53 PM documented in this encounter [facility] 04-30-2025 Note HNO ID: [id number] Author: DILLON CENTENO RT (R) Service: Radiology Author Type: Technologist Type: Progress Notes Filed: 04/30/2025 13:53 Note Text: Radiology Service Progress Note PATIENT NAME: Celestino Reyna DATE OF SERVICE: April 30, 2025 TIME: 1:53 PM PATIENT IDENTITY VERIFICATION COMPLETED USING TWO (2) IDENTIFIERS: Name and Date of confirmed by patient verbally. FALL SCREENING: Has the patient had 2 falls in the last year or 1 fall with injury or currently using an Ambulatory Assistive Device (Walker, Cane, Wheelchair, Crutches, etc.)? No PATIENT GENDER DATA: Assigned male at PATIENT RELEVANT IMPLANT DATA REVIEWED: Not Applicable PATIENT PRESENTS WITH AN IMPLANTABLE OR ATTACHED DOG BEHAVIORIST: No RADIOLOGY DEPARTMENT: CT; Exam(s) Completed: Brain PERIPHERAL IV DATA: Not applicable SIGNED BY: LUCRETIA Jimenez) April 30, 2025 1:53 PM [facility] 04-05-2025 Note HNO ID: [id number] Author: DORIS CROWLEY APRN.DEEJAY Service: ? Author Type: Nurse Practitioner Type: Progress Notes Filed: 04/09/2025 14:07 Note Text: [facility] Established Visit PCP: Christine Canada (Chuy) [address] [place] [address] CEREBROVASCULAR HISTORY Celestino Reyna is a 65 year old male who presents for neurologic evaluation following recent hospitalization for acute ischemic stroke (03/14/2025-03/20/2025). Stroke Event Information HOSPITAL COURSE: 03/14 right frontoparietal craniotomy for evacuation acute on chronic and subacute subdural hematoma 03/15: s/p R frontalparietal craniotomy for SDH evacuation with Dr. Joseph yesterday. Reports improved dexterity in LUE, almost back to normal. Minimal headache well controlled with current pain regimen. 03/16: Episode yesterday with recurrence of L hand weakness, worsening dexterity. rCTH obtained, no appreciative change. 20 min EEG negative. Transfer to floor today. 03/18 neurology was consulted ongoing intermittent left sided face and left hand paresthesia and weakness. Memantidine started for 30 days. 03/19 d/c home Interval History: Ed is a 65-year-old male presenting for follow-up after a subdural hematoma and subsequent surgery. He is accompanied by his , who provides additional history. Ed reports that on March 13, while driving home from [place], [place], he experienced sudden numbness and loss of control in his left hand. Initially attributing the symptoms to sleeping awkwardly during a nap, he continued driving. The symptoms resolved spontaneously, and he did not seek immediate medical attention. The following day, March 14, he experienced a recurrence of left hand numbness and weakness, along with numbness in his lip. His noted facial drooping. He presented to the emergency room, where a CT scan revealed a subdural hematoma with both chronic and acute components. He was transferred for surgical intervention, which was performed the same evening. He underwent craniotomy for subdural hematoma evacuation without complications. Postoperatively, he experienced recurrent episodes of left hand and upper lip numbness, as well as slurred speech. These episodes occurred at least twice daily during his hospital stay. Multiple CT scans and an MRI showed no new bleeding. An EEG was performed, which did not capture any seizure activity during the episodes. He was started on memantine during his hospital stay and has been taking it once daily for about a month. Since discharge, the frequency and severity of episodes have decreased. The most significant episode occurred on Mother's Day, involving slurred speech and left hand numbness. Milder episodes occurred on the following Saturday and . He notes that episodes are more likely when he is tired or stressed. His observes that symptoms improve with rest. He reports ongoing fatigue and tenderness at the surgical site, describing intermittent sharp, needle-like sensations. He has been managing pain with Tylenol but is gradually reducing the dosage. He does not endorse any new neurological symptoms. He has not resumed taking fish oil supplements, which he had been using for cholesterol management, and inquires about restarting them. He also asks about resuming Cialis, which he used occasionally before the surgery, and whether it could have contributed to the stroke. He reports tinnitus and wonders if it is related to Cialis use. Additionally, he has abstained from alcohol and asks when it would be safe to resume moderate consumption. He expresses concern about returning to work, which involves long hours and high stress. He plans to retire in January next year and inquires about the impact of stress on his recovery. He also asks about safe timing for resuming driving and flying, as he has upcoming travel plans. He reports a history of low blood pressure, with recent readings around 115/78 mmHg. He is currently taking Crestor and memantine. He does not endorse any history of head trauma preceding the subdural hematoma, though he recalls a minor incident where a plastic lid fell on his head about a week prior to the initial symptoms. PAST MEDICAL HISTORY Diagnosis Date Acid reflux Erectile dysfunction Hypercholesteremia PAST SURGICAL HISTORY Procedure Laterality Date COLONOSCOPY FLX DX W/COLLJ SPEC WHEN PFRMD Colonoscopy ESOPHAGOGASTRODUODENOSCOPY TRANSORAL DIAGNOSTIC 05/11/2013 EGD PAST SURGICAL HISTORY OF 5yrs old hernia surgery PAST SURGICAL HISTORY OF tubinate, catherization VASECTOMY UNI/BI SPX W/POSTOP SEMEN EXAMS FAMILY HISTORY Problem Relation Age of Onset other (complications parkinsons [Other]) Father Social History Tobacco Use Smoking status: Never Smokeless tobacco: Never Substance Use Topics Alcohol use: Yes Comment: oc (more content not 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 [facility] 03-30-2025 History of Present illness Narrative NEUROSURGERY POST OP NOTE Dr. Ken Joseph MD, FACS Date of visit: March 30, 2025 Patient Name: Mr.Edmilson Kristine Reyna Date of : 1960 Current Age: [age] year old MRN/E# [id number] Last Office Visit: Postop CHIEF COMPLAINT: Patient presents with: Established Patient: C/o intermittent L forearm numbness and L upper lip numbness causing slurring speech SURGERY: Right frontoparietal craniotomy for evacuation of acute on chronic and subacute subdural hematoma on 03/14/[address] Joseph. PRE-SURGICAL SYMPTOMS: LUE paresthesias, weakness INCISION: RESIDENTIAL NURSE with sutures. No signs or symptoms of infection noted. Sutures removed without an issue. HISTORY OF PRESENT ILLNESS : The patient presents for a post operative visit with imaging (CT B) for evaluation. This is a 65-year-old male with a PMHx of migraines, hypercholesterolemia, GERD who was seen for consult at [facility] after transfer from an OSH on 03/14/2025. He stated that 1 week prior he developed what he thought was a migraine headache. He was taking Advil with some benefit. He then developed progressive left upper extremity numbness and difficulty with fine motor which prompted his visit to the OSH ED. Workup was completed and showed a large right sided SDH. He was transferred to [facility] for higher acuity care. Once imaging reviewed this appeared to show a chronic SDH for which surgical intervention was indicated. He and his agreed to the procedure and this was completed as noted above. He did well following surgery but had a few episodes of intermittent left-sided face and left hand paresthesia and weakness. Neurology was consulted and he underwent a B EEG which was negative. He was started on amantadine for 30 days. Once medically cleared for discharge recommendation was to follow-up in 2 weeks for a routine postoperative visit and suture removal. Today he states he continues to have episodes of numbness in the left arm and left upper lip. He denies any headache, visual changes, speech deficits, seizure activity, motor or sensory deficits. He presents for evaluation and plan of care. POST-OP MEDICATIONS: Anticonvulsant: Keppra 1000 mg twice daily -completed Dexamethasone: No SURGICAL RISK: Smoker: Never Diabetic: No Anticoagulants / Antiplatelets: No Occupation: [employer] PREVIOUS NEUROSURGERY: None PAST MEDICAL HISTORY Diagnosis Date Acid reflux Erectile dysfunction Hypercholesteremia PAST SURGICAL HISTORY Procedure Laterality Date COLONOSCOPY FLX DX W/COLLJ SPEC WHEN PFRMD Colonoscopy ESOPHAGOGASTRODUODENOSCOPY TRANSORAL DIAGNOSTIC 05/11/2013 EGD PAST SURGICAL HISTORY OF 5yrs old hernia surgery PAST SURGICAL HISTORY OF tubinate, catherization VASECTOMY UNI/BI SPX W/POSTOP SEMEN EXAMS FAMILY HISTORY Problem Relation Age of Onset other (complications parkinsons [Other]) Father ALLERGIES No Known Allergies Current Outpatient Medications Medication Sig Dispense Refill memantine (NAMENDA) 10 mg tablet Take 1 tablet by mouth once daily for 29 doses. 29 tablet 0 rosuvastatin (CRESTOR) 20 mg tablet Take 20 mg by mouth daily at bedtime. coenzyme Q10 (COENZYME Q-10) 100 mg cap capsule Take 100 mg by mouth once daily. cholecalciferol (VITAMIN D) 1,000 unit tab tablet Take 1,000 Units by mouth once daily. omeprazole 20 mg capsule Take 20 mg by mouth once daily. Multivitamin capsule Take 1 capsule by mouth once daily. No current facility-administered medications for this visit. Review of Systems Constitutional: Negative for chills, diaphoresis (Negative for night sweats.) and fever. HENT: Negative for ear discharge and rhinorrhea. Eyes: Negative for discharge. Respiratory: Negative for cough, shortness of breath and wheezing. Cardiovascular: Negative for chest pain, palpitations and leg swelling. Gastrointestinal: Negative for constipation, diarrhea, nausea and vomiting. Endocrine: Negative for cold intolerance and heat intolerance. Genitourinary: Negative for frequency. Negative for urinary incontinence and urinary retention. Musculoskeletal: Negative for back pain, joint swelling, myalgias and neck pain. Skin: Negative for rash (Negative for hives and skin lesions.). Allergic/Immunologic: Negative for environmental allergies and food allergies. Negative for contact allergy, seasonal allergies. Neurological: Positive for numbness (Negative for numbness in extremities.). Negative for dizziness, seizures, syncope, weakness, light-headedness and headaches. Hematological: Does not bruise/bleed easily. Psychiatric/Behavioral: The patient is not nervous/anxious. Negative for depression. PAIN EVALUATION No data found in the last 1 encounters. BP 106/73 Pulse 92 Resp 16 Ht 5' 11 (1.803 m) Wt 182 lb 8.7 oz (82.8 kg) SpO2 96% BMI 25.46 kg/m PHYSICAL EXAM: Mental State : Alert. Attention span and concentration normal for patient's age. Speech normal, fluent. No receptive or expressive speech deficit. Recent and remote memory normal. Orientation : Oriented to person, place and time. Higher Cortical Function : Intact speech and language. Comprehension normal. Fund of knowledge intact for pt level of education. Cranial Nerves : II: No visual field cut, no blurring. Makes and sustains eye contact. III, IV, : No double vision or lid drooping. Pupils equal and reactive to light. Extraocular muscles intact. No nystagmus. V: Normal sensation on the face, normal jaw movements. VII: No paresis on either side. VIII: No gross hearing deficit IX: Good and equal shoulder shrugs. XII: Tongue midline, no fasciculations. Sensory: SILT. Normal Sensation in bilateral upper and bilateral lower extremities to touch and noxious stimuli. Motor: Normal muscle tone and bulk. No spasticity, tremor or uncontrollable movements. Strength: Upper Extremities : R L Deltoid 5/5 5/5 Biceps 5/5 5/5 Triceps 5/5 5/5 Wrist Ext 5/5 5/5 Wrist Flx 5/5 5/5 Hand Int 5/5 5/5 Lower Extremities : Hip Flexors 5/5 5/5 Hip Extensors 5/5 5/5 Hip Abductors 5/5 5/5 Straight leg Neg Neg Ankle dorsiflex 5/5 5/5 Ankle Plantar 5/5 5/5 Cerebellar Function : Normal finger to nose. Normal rapid alternating movements. No ataxia. Gait and Station: Normal gait. No assistive device usage. IMAGING: CT Brain WO IVCON performed today 03/30/25 demonstrates: Report is pending. There is much improvement of the subdural hematoma on the right side. There is no midline shift. There is no fresh blood. ASSESSMENT/PLAN: 1. SDH (subdural hematoma) (HCC) - ICD9: 432.1, ICD10: S06.5XAA (primary diagnosis) Patient presented with a right-sided subdural hematoma and episodes of numbness in the left upper extremity and around the mouth with some difficulty enunciating his words as well as using his hand with complete recovery between episodes. Since evacuation of his subdural hematoma he had no fixed deficit but continued to have episodes of the same numbness and weakness in the left upper extremity and around the left side of the mouth which in frequency have improved since he was discharged home and given memantine as recommended by Dr. Evgeny Lynne for a period of 1 month. The incision site is healed and the sutures were removed. He has no subgaleal collection or evidence of dehiscence or infection. His neurological examination is without any focal deficit including all his cranial nerves and upper and lower extremity function. He has no sensory deficit. The CAT scan is as above which is satisfactory. I recommended a 1 month follow-up with a CT scan. He is seeing cerebrovascular soon. 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 2. Nontraumatic subdural hemorrhage (HCC) - ICD9: 432.1, ICD10: I62.00 - CT BRAIN WO MY Joseph MD FOLLOW UP: Return in about 1 month (around 04/30/2025) for review of imaging and plan of care. Please Note: This note has been partially generated using Bindo, a speech recognition software program, and may contain errors including punctuation, grammar, spelling, gender, and inappropriate words or phrases that pertain to the system. documented in this encounter [facility] 03-30-2025 Note HNO ID: [id number] Author: KEN JOSEPH MD Service: ? Author Type: Physician Type: Progress Notes Filed: 03/30/2025 15:05 Note Text: NEUROSURGERY POST OP NOTE Dr. Ken Joseph MD, [facility] Date of visit: March 30, 2025 Patient Name: Mr.Edmilson Kristine Reyna Date of : 1960 Current Age: [age] year old MRN/E# [id number] Last Office Visit: Postop CHIEF COMPLAINT: Patient presents with: Established Patient: C/o intermittent L forearm numbness and L upper lip numbness causing slurring speech SURGERY: Right frontoparietal craniotomy for evacuation of acute on chronic and subacute subdural hematoma on 03/14/[address] Joseph. PRE-SURGICAL SYMPTOMS: LUE paresthesias, weakness INCISION: ABEBE with sutures. No signs or symptoms of infection noted. Sutures removed without an issue. HISTORY OF PRESENT ILLNESS : The patient presents for a post operative visit with imaging (CT B) for evaluation. This is a 65-year-old male with a PMHx of migraines, hypercholesterolemia, GERD who was seen for consult at [facility] after transfer from an OSH on 03/14/2025. He stated that 1 week prior he developed what he thought was a migraine headache. He was taking Advil with some benefit. He then developed progressive left upper extremity numbness and difficulty with fine motor which prompted his visit to the OSH ED. Workup was completed and showed a large right sided SDH. He was transferred to [facility] for higher acuity care. Once imaging reviewed this appeared to show a chronic SDH for which surgical intervention was indicated. He and his agreed to the procedure and this was completed as noted above. He did well following surgery but had a few episodes of intermittent left-sided face and left hand paresthesia and weakness. Neurology was consulted and he underwent a B EEG which was negative. He was started on amantadine for 30 days. Once medically cleared for discharge recommendation was to follow-up in 2 weeks for a routine postoperative visit and suture removal. Today he states he continues to have episodes of numbness in the left arm and left upper lip. He denies any headache, visual changes, speech deficits, seizure activity, motor or sensory deficits. He presents for evaluation and plan of care. POST-OP MEDICATIONS: Anticonvulsant: Keppra 1000 mg twice daily -completed Dexamethasone: No SURGICAL RISK: Smoker: Never Diabetic: No Anticoagulants / Antiplatelets: No Occupation: [employer] PREVIOUS NEUROSURGERY: None PAST MEDICAL HISTORY Diagnosis Date Acid reflux Erectile dysfunction Hypercholesteremia PAST SURGICAL HISTORY Procedure Laterality Date COLONOSCOPY FLX DX W/COLLJ SPEC WHEN PFRMD Colonoscopy ESOPHAGOGASTRODUODENOSCOPY TRANSORAL DIAGNOSTIC 05/11/2013 EGD PAST SURGICAL HISTORY OF 5yrs old hernia surgery PAST SURGICAL HISTORY OF tubinate, catherization VASECTOMY UNI/BI SPX W/POSTOP SEMEN EXAMS FAMILY HISTORY Problem Relation Age of Onset other (complications parkinsons [Other]) Father ALLERGIES No Known Allergies Current Outpatient Medications Medication Sig Dispense Refill memantine (NAMENDA) 10 mg tablet Take 1 tablet by mouth once daily for 29 doses. 29 tablet 0 rosuvastatin (CRESTOR) 20 mg tablet Take 20 mg by mouth daily at bedtime. coenzyme Q10 (COENZYME Q-10) 100 mg cap capsule Take 100 mg by mouth once daily. cholecalciferol (VITAMIN D) 1,000 unit tab tablet Take 1,000 Units by mouth once daily. omeprazole 20 mg capsule Take 20 mg by mouth once daily. Multivitamin capsule Take 1 capsule by mouth once daily. No current facility-administered medications for this visit. Review of Systems Constitutional: Negative for chills, diaphoresis (Negative for night sweats.) and fever. HENT: Negative for ear discharge and rhinorrhea. Eyes: Negative for discharge. Respiratory: Negative for cough, shortness of breath and wheezing. Cardiovascular: Negative for chest pain, palpitations and leg swelling. Gastrointestinal: Negative for constipation, diarrhea, nausea and vomiting. Endocrine: Negative for cold intolerance and heat intolerance. Genitourinary: Negative for frequency. Negative for urinary incontinence and urinary retention. Musculoskeletal: Negative for back pain, joint swelling, myalgias and neck pain. Skin: Negative for rash (Negative for hives and skin lesions.). Allergic/Immunologic: Negative for environmental allergies and food allergies. Negative for contact allergy, seasonal allergies. Neurological: Positive for numbness (Negative for numbness in extremities.). Negative for dizziness, seizures, syncope, weakness, light-headedness and headaches. Hematological: Does not bruise/bleed easily. Psychiatric/Behavioral: The patient is not nervous/anxious. Negative for depression. PAIN EVALUATION No data found in the last 1 encounters. BP 106/73 Pulse 92 Resp 16 Ht 5' 11 (1.803 m) Wt 1 (more content not 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 [facility] 03-30-2025 History of Present illness Narrative Radiology Service Progress Note PATIENT NAME: Celestino Reyna DATE OF SERVICE: March 30, 2025 TIME: 2:14 PM PATIENT IDENTITY VERIFICATION COMPLETED USING TWO (2) IDENTIFIERS: Name and Date of confirmed by patient verbally. FALL SCREENING: Has the patient had 2 falls in the last year or 1 fall with injury or currently using an Ambulatory Assistive Device (Walker, Cane, Wheelchair, Crutches, etc.)? No PATIENT GENDER DATA: Assigned male at PATIENT RELEVANT IMPLANT DATA REVIEWED: Not Applicable PATIENT PRESENTS WITH AN IMPLANTABLE OR ATTACHED DOG BEHAVIORIST: No RADIOLOGY DEPARTMENT: Bone Density PERIPHERAL IV DATA: Not applicable SIGNED BY: RT Barbara(Tommy) March 30, 2025 2:14 PM documented in this encounter [facility] 03-30-2025 Note HNO ID: [id number] Author: DILLON CENTENO RT(Tommy) Service: Radiology Author Type: Technologist Type: Progress Notes Filed: 03/30/2025 14:14 Note Text: Radiology Service Progress Note PATIENT NAME: Celestino Reyna DATE OF SERVICE: March 30, 2025 TIME: 2:14 PM PATIENT IDENTITY VERIFICATION COMPLETED USING TWO (2) IDENTIFIERS: Name and Date of confirmed by patient verbally. FALL SCREENING: Has the patient had 2 falls in the last year or 1 fall with injury or currently using an Ambulatory Assistive Device (Walker, Cane, Wheelchair, Crutches, etc.)? No PATIENT GENDER DATA: Assigned male at PATIENT RELEVANT IMPLANT DATA REVIEWED: Not Applicable PATIENT PRESENTS WITH AN IMPLANTABLE OR ATTACHED DOG BEHAVIORIST: No RADIOLOGY DEPARTMENT: Bone Density PERIPHERAL IV DATA: Not applicable SIGNED BY: RT Barbara(Tommy) March 30, 2025 2:14 PM [facility] 03-19-2025 Note HNO ID: [id number] Author: EVELINE SOETLO RN Service: Care Management Author Type: Registered Nurse Type: Care Mgt Progress Note Filed: 03/19/2025 10:10 Note Text: CARE MANAGEMENT PROGRESS NOTE SERVICE DATE: 03/19/2025 SERVICE TIME: 10:07 AM LOS: 5 days Plan is home with outpatient therapy. Will need therapy scripts. Outpatient clinic resources provided. to provide transport home. CM to continue to follow. SIGNATURE: Eveline Sotelo RN PATIENT NAME: Celestino Reyna DATE: March 19, 2025 TIME: 10:07 AM [facility] 03-19-2025 Note HNO ID: [id number] Author: MANOJ MCKEON APRN.NUT PICKER Service: Neurosurgery Author Type: Nurse Practitioner Type: Progress Notes Filed: 03/19/2025 18:16 Note Text: Neurosurgery Progress Note SERVICE DATE: 03/19/2025 SUBJECTIVE: NAEON. Feels well now. States episode of left facial droop, left hand weakness resolved in 15min. He states he has similar episodes when he gets migraines. OBJECTIVE: Vitals: Temp (24hrs), Av.9 ?C (98.4 ?F), Min:36.6 ?C (97.9 ?F), Max:37.2 ?C (99 ?F) BP 121/67 Pulse 81 Temp 36.8 ?C (98.3 ?F) (Oral) Resp 18 Ht 180.3 cm (5' 11) Wt 83.9 kg (185 lb) SpO2 94% BMI 25.80 kg/m? O2 Therapy: Room Air IANDO: Medications: Current Facility-Administered Medications Medication Dose Route Frequency memantine 10 mg tab(s) (NAMENDA) 10 mg ORAL DAILY heparin 5,000 Units injection 5,000 Units SUBCUTANEOUS q 8 H iv contrast (radiology procedure) INTRAVENOUS DIRECTED PRN levETIRAcetam 1,000 mg tab(s) (KEPPRA) 1,000 mg OR[address] BID pantoprazole [address] 20 mg tab(s) (PROTONIX) 20 mg ORAL DAILY NaCl 0.9% iv flush bag 20 mL INTRAVENOUS PRN acetaminophen 1,000 mg tab(s) (TYLENOL) 1,000 mg ORAL/FEEDING TUBE q 6 H oxyCODONE IR 5-10 mg tab(s) (ROXICODONE) 5-10 mg ORAL/FEEDING TUBE q 4 H PRN ondansetron 4 mg tab(s) (ZOFRAN) 4 mg ORAL q 6 H PRN Or ondansetron (PF) 4 mg injection (ZOFRAN) 4 mg INTRAVENOUS q 6 H PRN senna-docusate 8.6-50 mg 1 tablet (SENNA-S) 1 tablet ORAL BID hydrALAZINE 10 mg injection (APRESOLINE) 10 mg INTRAVENOUS q 4 H PRN rosuvastatin 20 mg tab(s) (CRESTOR) 20 mg ORAL AT BEDTIME Labs: Recent Labs 03/19/25 0350 03/18/25 0343 NA 138 138 K 3.9 4.0 CHLOR 103 102 CO2 24 26 BUN 22 18 CREAT 0.89 0.82 GLUC 107* 113* ANION 11 10 CA 9.4 9.9 WBC 6.72 8.17 HB 13.3 14.6 HCT 39.5 44.4 PLT 386 335 Exam: GENERAL: No distress, Alert NEURO: AAO3 speech clear, fluent. Strength 5/5 all extremities. CN 3-12 intact. HEENT: incision c/d/I LUNGS: Unlabored breathing CARDIAC: Regular rate and rhythm as above ABDOMEN: Soft, non-tender, non-distended EXTREMITIES: BAILEY, No deformities, No edema SKIN: Skin color, texture, turgor normal, No rashes or lesions ASSESSMENT AND PLAN: Active Hospital Problems Diagnosis Date Noted SDH (subdural hematoma) (HCC) 03/14/2025 Tingling of left arm and left side of face 03/18/2025 Acute on chronic intracranial subdural hematoma (HCC) 03/14/2025 Hypercholesteremia Acid reflux Celestino Reyna is a 65 year old male acute LUE paresthesias and weakness; found to have an ambiguous nontraumatic large right SDH 03/14 - right crani for SD evacuation - Neuro as above - Neurology trial namenda for cortical spreading depolarization - After discussion with patient this afternoon, he wishes to stay overnight to see how new medication affects him. Plan for discharge tomorrow DVT Prophylaxis: on H Portions of text from this note were copied. All relevant information was reviewed and updated accordingly on 03/19/2025 SIGNATURE: Manoj Mckeon APRN.CNP PATIENT NAME: Celestino Reyna DATE: March 19, 2025 TIME: 5:58 PM Pager: [phone] [facility] 03-18-2025 Note HNO ID: [id number] Author: GIORGIO LINDA PA-C Service: Neurosurgery Author Type: Physician Commercial Driver'S License Driver Type: Plan of Care Filed: 03/18/2025 16:57 Note Text: Neurosurgery POC: Notified of pt having same transient symptoms of lue and mouth/tongue numbness and tingling. BEM reader called. Iva reviewed readings and no seizures were noted in the period of symptomology. Giorgio Linda PA-C [facility] 03-18-2025 Note HNO ID: [id number] Author: GIORGIO LINDA PA-C Service: Neurosurgery Author Type: Physician Commercial Driver'S License Driver Type: Progress Notes Filed: 03/18/2025 16:05 Note Text: Neurosurgery Progress Note SERVICE DATE: 03/18/2025 SUBJECTIVE: Naeon - pt states has not had further left hand or mouth symptoms since yesterday. BEM in place - no recorded seizures. Mobile and ambulates steadily. Eating and voiding w/o issue. OBJECTIVE: Vitals: Temp (24hrs), Av.9 ?C (98.4 ?F), Min:36.7 ?C (98 ?F), Max:37.6 ?C (99.7 ?F) BP 124/85 Pulse 88 Temp 36.8 ?C (98.3 ?F) (Oral) Resp 16 Ht 180.3 cm (5' 11) Wt 83.9 kg (185 lb) SpO2 93% BMI 25.80 kg/m? O2 Therapy: Room Air MEDICATIONS Current Facility-Administered Medications Medication Dose Route Frequency levETIRAcetam 1,000 mg tab(s) (KEPPRA) 1,000 mg ORAL BID pantoprazole DR 20 mg tab(s) (PROTONIX) 20 mg ORAL DAILY NaCl 0.9% iv flush bag 20 mL INTRAVENOUS PRN acetaminophen 1,000 mg tab(s) (TYLENOL) 1,000 mg ORAL/FEEDING TUBE q 6 H oxyCODONE IR 5-10 mg tab(s) (ROXICODONE) 5-10 mg ORAL/FEEDING TUBE q 4 H PRN ondansetron 4 mg tab(s) (ZOFRAN) 4 mg ORAL q 6 H PRN Or ondansetron (PF) 4 mg injection (ZOFRAN) 4 mg INTRAVENOUS q 6 H PRN senna-docusate 8.6-50 mg 1 tablet (SENNA-S) 1 tablet ORAL BID hydrALAZINE 10 mg injection (APRESOLINE) 10 mg INTRAVENOUS q 4 H PRN rosuvastatin 20 mg tab(s) (CRESTOR) 20 mg ORAL AT BEDTIME Labs: Recent Labs 03/18/25 0343 03/16/25 0616 NA 138 139 K 4.0 4.0 CHLOR 102 103 CO2 26 23 BUN 18 14 CREAT 0.82 0.77 GLUC 113* 118* ANION 10 13 CA 9.9 9.2 WBC 8.17 9.81 HB 14.6 14.1 HCT 44.4 40.9 PLT 335 312 Exam: GENERAL: Awake and alert; NAD; cooperative; pleasant NEURO: Orientedx3; speech clear and fluent; BAILEY; slight left arm drift STRENGTH: no focal deficits HEENT: incision c/d/I; BEM in place; perrl/eomi; no obvious facial droop LUNGS: Unlabored breathing ASSESSMENT AND PLAN: 65 year old male acute LUE paresthesias and weakness; found to have an ambiguous nontraumatic large right SDH 03/14 - right crani for SD evacuation - neuro as above - stable - transient LUE symptoms currently not present - CTHx5, last 03/18 stable - DVT ppx: start SQH Saturday - SBP goal <160 - Neuro on board for BEM monitoring - pain control: Tylenol scheduled; Oxy prn - PT/OT assessments - dispo to home when med ready Parts of this note may have been copied from one of my previous notes and remain pertinent. The documentation has been reviewed and edited as necessary to support the clinical decision making for today's visit. SIGNATURE: Giorgio Linda PA-C PATIENT NAME: Celestino Reyna DATE: March 18, 2025 TIME: 3:54 PM Pager: [phone] [facility] 03-18-2025 Note HNO ID: [id number] Author: CALEB CRUZ APRN.CNP Service: Neurology ICU Author Type: Nurse Practitioner Type: Progress Notes Filed: 03/18/2025 06:31 Note Text: Documentation Query Please clarify the diagnosis associated with the clinical indicators: Clinically significant Cerebral Edema This document will become part of the patient's medical record. [facility] 03-17-2025 Note HNO ID: [id number] Author: SCHEVELINE RODRIGUEZ RN Service: Care Management Author Type: Registered Nurse Type: Care Mgt Progress Note Filed: 03/17/2025 13:15 Note Text: CARE MANAGEMENT PROGRESS NOTE SERVICE DATE: 03/17/2025 SERVICE TIME: 1:13 PM LOS: 3 days Chart reviewed, s/p crani for evac of hematoma. PT recommends outpatient therapy. Outpatient clinic resources provided. Will need therapy scripts at [facility]. Plan is return home, to provide transport at [facility]. SIGNATURE: Eveline Sotelo RN PATIENT NAME: Celestino Reyna DATE: March 17, 2025 TIME: 1:13 PM [facility] 03-17-2025 Note HNO ID: [id number] Author: PRETTY CAPELLAN PA-C Service: Neurosurgery Author Type: Physician Commercial Driver'S License Driver Type: Progress Notes Filed: 03/17/2025 14:53 Note Text: Neurosurgery Progress Note SERVICE DATE: 03/17/2025 SUBJECTIVE: 03/15: s/p R frontalparietal craniotomy for SDH evacuation with Dr. Joseph yesterday. Reports improved dexterity in LUE, almost back to normal. Minimal headache well controlled with current pain regimen. 03/16: Episode yesterday with recurrence of L hand weakness, worsening dexterity. rCTH obtained, no appreciative change. 20 min EEG negative. Transfer to floor today. Overnight developed sudden and short-lived left facial droop and left hand numbness/tingling/discoordination. Reportedly is awake and communicative when this occurs. CTH today negative for any worsening of SDH. OBJECTIVE: Vitals: Temp (24hrs), Av.7 ?C (98 ?F), Min:36.4 ?C (97.6 ?F), Max:37.1 ?C (98.7 ?F) BP 128/90 Pulse 89 Temp 36.8 ?C (98.2 ?F) (Oral) Resp 18 Ht 180.3 cm (5' 11) Wt 83.9 kg (185 lb) SpO2 91% BMI 25.80 kg/m? O2 Therapy: Room Air Physical Exam: General - Alert and Oriented x3, cooperative, appropriate. Respiratory- even, unlabored GI - abdomen soft, non-tender, non-distended HEENT - R craniotomy incision c/d/i Neuro - GCS:Opens eyes spontaneously (4),Oriented (5),Obeys motor commands (6) =15 PERRLA, makes eye contact, TM, FS, EOMI Speech: appropriate Motor: BAILEY, BUE and BLE 5/5 Sensation: SILT, no LUE n/t currently Drift: No drift Extremities- Grossly normal. Symmetrical. No edema, deformity, coloration changes. Pulses- 2+ DP, 2+ radial Labs: Recent Labs 03/16/25 0616 03/15/25 0523 03/14/25 1652 03/14/25 1524 WBC 9.81 8.52 8.31 -- HB 14.1 13.4 13.9 -- HCT 40.9 39.8 42.1 -- PLT 312 306 328 -- INR -- 1.0 -- 1.0 APTT -- 27.9 -- 25.8 NA 139 136 -- 140 K 4.0 3.8 -- 3.9 CHLOR 103 102 -- 104 CO2 23 25 -- 24 BUN 14 15 -- 18 CREAT 0.77 0.79 -- 0.71* GLUC 118* 114* -- 91 CA 9.2 8.7 -- 9.5 MG -- 1.9 -- -- P -- 3.9 -- -- Recent Labs 03/15/25 0523 TPROT 7.0 ALB 3.8* ALT 18 AST 27 ALKPHOS 74 TBILI 0.5 Diagnostic tests reviewed for today's visit: Most recent labs and imaging results. ASSESSMENT AND PLAN: Active Hospital Problems Diagnosis Date Noted SDH (subdural hematoma) ([facility]) 03/14/2025 Acute on chronic intracranial subdural hematoma (HCC) 03/14/2025 Hypercholesteremia Acid reflux 65 year old male acute LUE paresthesias and weakness; found to have an ambiguous nontraumatic right convexity mSDH -Neuro as above -Imaging: [facility] report read as mild acute component likely layering but will get CTH in am for stability -Pain control: continue current regimen -Brace/Collar: N/A -DVT PPX: SCDs, will discuss possible SQH tomorrow given above findings -24 hour EEG and neurology consulted. Unsure etiology of transient LUE n/t/weakness and facial droop. Potential cortical irritation or focal seizures. Discussed with Dr. Joseph -Dispo: Pending Medication and Non-Pharmacologic VTE Prophylaxis/Anticoagulants 03/14/25 1630 vte pharmacologic prophylaxis contraindicated (tx,oh) 03/14/25 1630 pneumatic compression sleeve(s) (tx,oh) 03/14/25 1630 activity - mobilize patient (tx,wy) Parts of this note may have been copied from one of my previous notes and remain pertinent. The documentation has been reviewed and edited as necessary to support the clinical decision making for today's visit. I spent a total of 20 minutes on the date of the service which included preparing to see the patient, [id number] patient care, completing clinical documentation, obtaining and/or reviewing separately obtained history, performing a medically appropriate examination, counseling and educating the patient/family/caregiver, and ordering medications, tests, or procedures. SIGNATURE: Pretty Capellan PA-C PATIENT NAME: Celestino Reyna DATE: March 17, 2025 TIME: 10:13 AM Pager: [phone] [facility] 03-16-2025 Note HNO ID: [id number] Author: GIORGIO LINDA PA-C Service: Neurosurgery Author Type: Physician Commercial Driver'S License Driver Type: Procedures Filed: 03/16/2025 15:35 Note Text: Neurosurgery Procedure Note: Drain Removal - Sub Galeal HVAC The pt presented 03/14 with a SDH for which she had gone to surgery for evacuation. A hemovac drain was placed at the end of surgery. By order of Dr. Joseph the drain was to be removed today. The area was cleansed with betadine. 3 ml of 1% Lidocaine was injected to anesthetize the site. The retention suture was snipped. The drain was carefully removed in its entirety and without resistance. 3-0 Ethilon suture was used to close the drain site in a figure of eight fashion. There was no egress of fluid after closure. The patient tolerated the procedure well. The pt was recently medicated for pain control and was comfortable at the time of removal. Giorgio Linda PA-C #[id number] [facility] 03-16-2025 Note HNO ID: [id number] Author: CALEB CRUZ APRN.DEEJAY Service: Neurology ICU Author Type: Nurse Practitioner Type: Progress Notes Filed: 03/16/2025 08:07 Note Text: SERVICE DATE: 03/16/2025 SERVICE TIME: 8:06 AM NEURO ICU PROGRESS NOTE DATE OF ADMISSION: 03/14/2025 Subjective Hospital Course: 03/15: s/p R frontalparietal craniotomy for SDH evacuation with Dr. Joseph yesterday. Reports improved dexterity in LUE, almost back to normal. Minimal headache well controlled with current pain regimen. 03/16: Episode yesterday with recurrence of L hand weakness, worsening dexterity. rCTH obtained, no appreciative change. 20 min EEG negative. Transfer to floor today. Objective BP 122/102 Pulse 95 Temp 37.5 ?C (99.5 ?F) (Temporal) Resp 16 Ht 180.3 cm (5' 11) Wt 83.9 kg (185 lb) SpO2 90% BMI 25.80 kg/m? Weight change: Neuro: awake, resting in bed GCS: Eyes: 4. Spontaneous Verbal: 5: Oriented Motor: 6: Obeys Motor commands Total: 15 CRANIAL NERVES: Normal mood and affect. CNII-XII grossly intact. MOTOR STRENGTH: Upper and lower extremity 5/5 bilaterally SENSATION: Intact light touch COORDINATION: Finger-to- nose-finger intact bilaterally and Pvgv-lo-vxtp intact bilaterally CV: RRR on tele. No m/g/r Pulm: CTAB, even unlabored. GI/: +BS all quadrants. Abd soft, nontender, nondistended. Skin/Extremities: Edema- No Peripheral pulses- Present all extremities Wounds/Drsgs- Yes Breakdown- No Diagnostic tests reviewed for today's visit: Most recent labs and imaging results. Most recent EKG Lines, Drains, and Airways Line Duration Peripheral 03/14/25 External Facility Left Antecubital 18 Gauge 2 days Peripheral 03/14/25 Right Wrist 20 Gauge 2 days Drain Duration Drain/Tube 03/14/257 Hemovac Right Scalp Drain #1 1 day ICU Checklist Last Documented/Reviewed time: 03/16/2025 8:03 AM ICU Consent Complete?: Yes ICU Code Status History assess/Full code by default: No, active code status present ---- ---- A= Assess, Prevent, Manage Pain Pain adequately controlled?: Yes C= Choice of Sedation and Analgesia RASS at Goal?: Yes B= Both Spontaneous Awakening and Breathing Trials Ventilator: None D= Delirium: Assess, Prevent and Manage ICU Delirium Status: CAM Negative - no action required Sleep adequate?: Yes Restraint Status: None E= Early Mobility/Excercise ICU Mobility: ICU Mobility Goal: PT/OT consult ordered F= Family Engagement and Empowerment ICU plan of care visit at bedside in last 24 hours: Yes, Provider, RN, Patient/ designee ICU Disposition: ICU Disposition-POC Detail: To be determined Prevention: Line Status: None Conrad Status: None Pressure Injury Status: None GI/Stress Ulcer Prophylaxis: None - not required Nutrition is at Goal: Advancing to goal VTE Prophylaxis: Chemoprophylaxis: No chemoprophylaxis Mechanical Prophylaxis: Knee high SCD No Chemoprophylaxis Reason: Bleeding risk PERSONAL INVOLVEMENT IN CARE: Reviewing initiation, responses and adjustments to therapies, coordination of care, and updating family with Staff Physician, Dr. Aldana. Assessment AND Plan 65 year old male with history HLD, GERD who presented to [place] ED for headache, numbness/tingling of left hand that have been ongoing for the last week in an intermittent pattern. However 03/14 [address] [place] to [place] and noted the return of the paraesthesia and unable to fasten his seatbelt today while on his way to [place] which prompted his visit to the ED. stated she noted a slight left facial droop at the time. Patient denies any trauma or AC use. He took 1 dose Motrin day prior to arrival. He takes daily Fish Oil but no AP. CTH showed acute on chronic right SDH. Patient transferred to [facility] for neurosurgical consultation and NSICU admission. Plan is for subdural evacuation tonight. NSICU service asked to follow along for medical management. Neurology Acute on chronic intracranial subdural hematoma (HCC)- (present on admission) NS management Neuro checks SBP goal <160 Pain control - scheduled tylenol - PRN oxyIR and fentanyl Keppra 500mg BID x 7 days Post op ancef completed Post of imaging per NSGY Drain per NSGY Holding home Fish oil PT/OT SCDs only, no chemo ppx at this time Daily labs with electrolyte replacements PRN Cardiovascular Hypercholesteremia- (present on admission) Rosuvastatin 20mg HS Gastrointestinal Acid reflux- (present on admission) PPI Medication and Non-Pharmacologic VTE Prophylaxis/Anticoagulants 03/14/25 1630 vte pharmacologic prophylaxis contraindicated (tx,oh) 03/14/25 1630 pneumatic compression sleeve(s) (tx,oh) 03/14/25 1630 activity - mobilize patient (tx,wy) VTE Prophylaxis: Needs to be revised. Resumption of chemo ppx for DVT will be per NSGY, timing TBD with itzel (more content not 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 [facility] 03-16-2025 Note HNO ID: [id number] Author: GIORGIO LINDA PA-C Service: Neurosurgery Author Type: Physician Commercial Driver'S License Driver Type: Progress Notes Filed: 03/16/2025 09:52 Note Text: Neurosurgery Critical Care Progress Note SERVICE DATE: 03/16/2025 SUBJECTIVE: Awake and alert sitting up in bed. C/o mild headache. Denies n/v, dizziness. No further issues of ataxia or n/t to LUE. Tolerating diet and voiding w/o issue OBJECTIVE: Vitals: Temp (24hrs), Av.1 ?C (98.7 ?F), Min:36.8 ?C (98.3 ?F), Max:37.5 ?C (99.5 ?F) BP 122/102 Pulse 95 Temp 37.5 ?C (99.5 ?F) (Temporal) Resp 16 Ht 180.3 cm (5' 11) Wt 83.9 kg (185 lb) SpO2 90% BMI 25.80 kg/m? O2 Therapy: Room Air IANDO: Date 03/15/25 0700 - 03/16/25 0659 03/16/25 0700 - 03/17/25 0659 Shift 5287-1801 9429-1501 9195-9238 24 Hour Total 8837-5250 7341-2000 3398-8195 24 Hour Total INTAKE PO 1000 1000 PO 1000 1000 Shift Total 1000 1000 OUTPUT Urine 200 474 687 3182 Void (ml) 200 202 275 0018 Urine Incontinence/Not Saved 1 x 1 x Tubes 30 0 12.5 42.5 Drain/Tube Output (Drain/Tube 03/14/25 2117 Hemovac Right Scalp Drain #1) 30 0 12.5 42.5 # of BMs Number of BMs 0 x 0 x Shift Total 230 300 912.5 1442.5 Weight (kg) 83.9 83.9 83.9 83.9 83.9 83.9 83.9 83.9 MEDICATIONS Current Facility-Administered Medications Medication Dose Route Frequency pantoprazole DR 20 mg tab(s) (PROTONIX) 20 mg ORAL DAILY NaCl 0.9% iv flush bag 20 mL INTRAVENOUS PRN potassium chloride ER 20-40 mEq tab(s) (KLOR-CON) 20-40 mEq ORAL/FEEDING TUBE PRN Or potassium chloride iv piggyback 20 mEq/100 mL 20 mEq INTRAVENOUS PRN magnesium sulfate iv piggyback in sterile water 2 g 50 mL 2 g INTRAVENOUS PRN phosphorus 500 mg tab(s) (K PHOS NEUTRAL) 500 mg ORAL/FEEDING TUBE PRN(NO DISPENSE) calcium gluconate iv piggyback 2 g in NaCl (iso-osmotic) 100 mL 2 g INTRAVENOUS PRN(NO DISPENSE) acetaminophen 1,000 mg tab(s) (TYLENOL) 1,000 mg ORAL/FEEDING TUBE q 6 H oxyCODONE IR 5-10 mg tab(s) (ROXICODONE) 5-10 mg ORAL/FEEDING TUBE q 4 H PRN ondansetron 4 mg tab(s) (ZOFRAN) 4 mg ORAL q 6 H PRN Or ondansetron (PF) 4 mg injection (ZOFRAN) 4 mg INTRAVENOUS q 6 H PRN senna-docusate 8.6-50 mg 1 tablet (SENNA-S) 1 tablet ORAL BID levETIRAcetam 500 mg tab(s) (KEPPRA) 500 mg ORAL BID hydrALAZINE 10 mg injection (APRESOLINE) 10 mg INTRAVENOUS q 4 H PRN rosuvastatin 20 mg tab(s) (CRESTOR) 20 mg ORAL AT BEDTIME fentaNYL 50 mcg/mL 25 mcg injection (SUBLIMAZE) 25 mcg INTRAVENOUS q 2 H PRN Labs: Recent Labs 03/16/25 0616 03/15/25 0523 03/14/25 1652 03/14/25 1524 NA 139 136 -- 140 K 4.0 3.8 -- 3.9 CHLOR 103 102 -- 104 CO2 23 25 -- 24 BUN 14 15 -- 18 CREAT 0.77 0.79 -- 0.71* GLUC 118* 114* -- 91 ANION 13 9 -- 12 CA 9.2 8.7 -- 9.5 MG -- 1.9 -- -- P -- 3.9 -- -- ALB -- 3.8* -- -- AST -- 27 -- -- ALT -- 18 -- -- ALKPHOS -- 74 -- -- TBILI -- 0.5 -- -- WBC 9.81 8.52 < > -- HB 14.1 13.4 < > -- HCT 40.9 39.8 < > -- PLT 312 306 < > -- INR -- 1.0 -- 1.0 < > = values in this interval not displayed. Exam: INTUBATED: no SEDATION: no GENERAL: Awake and alert; NAD; cooperative NEURO: Orientedx3; speech clear and fluent; BAILEY; slight left arm drift STRENGTH: intact HEENT: dressing c/d/I; perrl/eomi; no facial droop LUNGS: Unlabored breathing CARDIAC: Rate and rhythm as above ASSESSMENT AND PLAN: 65 year old male acute LUE paresthesias and weakness; found to have an ambiguous nontraumatic large right SDH 03/14 - right crani for SD evacuation - neuro as above - stable - transient LUE symptoms currently not present - CTHx3, last 03/15 stable PO - DVT ppx: SCDs - will d/c drain today and transfer to [facility] - SBP goal <160 - pain control: Tylenol scheduled; Oxy prn - PT/OT assessments Parts of this note may have been copied from one of my previous notes and remain pertinent. The documentation has been reviewed and edited as necessary to support the clinical decision making for today's visit. SIGNATURE: Giorgio Linda PA-C PATIENT NAME: Celestino Reyna DATE: March 16, 2025 TIME: 9:47 AM Pager: [phone] [facility] 03-15-2025 Note HNO ID: [id number] Author: ?, ?, ? Service: Pharmacy Author Type: Tableau Administrator Type: Plan of Care Filed: 03/15/2025 12:29 Note Text: PHARMACY MEDICATION REVIEW Patient Name: Celestino Reyna : 1960 The following medications were updated within the STRATEGY DIRECTOR medication list: Medications ADDED to STRATEGY DIRECTOR medication list rosuvastatin (CRESTOR) 20 mg tablet Take 20 mg by mouth daily at bedtime. coenzyme Q10 (COENZYME Q-10) 100 mg cap capsule Take 100 mg by mouth once daily. cholecalciferol (VITAMIN D) 1,000 unit tab tablet Take 1,000 Units by mouth once daily. Medications CHANGED on STRATEGY DIRECTOR medication list Medications REMOVED from STRATEGY DIRECTOR medication list TADALAFIL (CIALIS ORAL) Adjust Sig - Block E-Cancel SIMVASTATIN ORAL Adjust Sig - Block E-Cancel Additional comments: Verified medication information with e-scripts/dispense report and chart review. Confirmed medications with patient. Patient stated no longer taking tadalafil and simvastatin - removed from med list. Patient stated taking Crestor, Co Q10, and Vit D - added to med list. Required follow up actions for nursing: None The below information represents the best possible medication history: Yes Medication history completed by: Tableau Administrator: Odessa Jackson (Surtass Analyst) Source of history: Patient: Reliability of source: Appears reliable, clearly identified: Medication name, Medication dose, Medication route, and Medication frequency, Pharmacy records: e-scripts/dispense report, and [facility] records Medication nonadherence identified: No barriers noted Reconciliation completed: No, pharmacist not yet reviewed Patient interested in Bedside Delivery Services or using CC OP Pharmacy at discharge? Unable to assess Preferred outpatient pharmacy: e- [id number] [place] [address] [address] [facility]. - [phone] [facility] [phone] [id number] Allergies: No Known Allergies Prior to Admission Medications Prescriptions Last Dose Informant Patient Reported? Taking? DOCOSAHEXANOIC ACID/EPA (FISH OIL ORAL) 03/14/2025 Yes Yes Sig: Take 1,200 mg by mouth once daily. Multivitamin capsule 03/14/2025 Yes Yes Sig: Take 1 capsule by mouth once daily. cholecalciferol (VITAMIN D) 1,000 unit tab tablet Yes Yes Sig: Take 1,000 Units by mouth once daily. coenzyme Q10 (COENZYME Q-10) 100 mg cap capsule Yes Yes Sig: Take 100 mg by mouth once daily. omeprazole 20 mg capsule 03/14/2025 Yes Yes Sig: Take 20 mg by mouth once daily. rosuvastatin (CRESTOR) 20 mg tablet Yes Yes Sig: Take 20 mg by mouth daily at bedtime. Facility-Administered Medications: None Odessa Jackson (Surtass Analyst)[id number] 03/15/2025 [facility] 03-15-2025 Note HNO ID: [id number] Author: MANJEET GARCIA APRN.[facility] Service: Neurosurgery Author Type: Nurse Practitioner Type: Plan of Care Filed: 03/15/2025 11:20 Note Text: Neurosurgery Plan of Care: Notified by nursing that the patient was having left hand motor deficits, the patient reported being unable to use left had for a period of 5 mins that was resolving as the patient was being examined by this provider. Neuro : A+O x3, PERRL, makes eye contact, speech clear, cranial nerves 2-12 grossly intact , BAILEY, strength 5/5 BUE and BLE and equal with + left pronator DRIFT, Sensation intact Motor Exam- RUE:5/5 LUE:5/5 + drift, slight apprentice plant attendant difference between R and L hand RLE:5/5 LLE:5/5 Plan: Stat CT ordered, plan for possible 20 min EEG, continue to follow neuro exam closely. Hold on transfer to floor. Manjeet Garcia APRN.[facility] Neurosurgery Pager: [phone] Neurosurgery Pager: [phone] March 15, 2025 11:16 AM [facility] 03-15-2025 Note HNO ID: [id number] Author: EVELINE SOTELO, RICKI Service: Care Management Author Type: Registered Nurse Type: Care Mgt Initial Assessment Filed: 03/15/2025 11:00 Note Text: CARE MANAGEMENT: ASSESSMENT AND DISCHARGE PLAN SERVICE DATE: March 15, 2025 SERVICE TIME: 10:58 AM PCP: Renato Clark MD Primary Contact: Extended Emergency Contact Information Primary Emergency Contact: Artemio Reyna [address]: [address] [place] [address] Relation: Spouse Admission Status: Inpatient Insurance Provider: [employer] PPO OOS Discharge Planning requested by: Per Department Practice Potential Transition Plans To Be Determined Advance Directives Current Advance Directive: None Senior Naval Parachutist Attempted to Assist with AD Completion: Yes Action: Education Provided Current Living Arrangements and Support Lives with: Spouse/significant other Type of Residence: Private Residence (House) Does the patient have to climb stairs at home?: Yes, stairs outside the home (ranch with 2 stairs to enter) Support: Spouse/significant other How do you manage to accomplish the following: Independent: Ambulation, Bathe/Shower, Dress, Meals/Meal Prep, Going to the bathroom, Medication Management, Transportation to appointments/community Current Services/Equipment Current Post-Acute Service(s): None Discharge Planning Patient Goal(s): Be able to go home, Independent living, General wellness [place] of Choice Explained: [place] of Choice Given: No Reason Not Given: Unable to complete with this assessment - revisit Are you interested in bedside delivery of your medications? No Discharge Planning Participant(s): Patient, Spouse/significant other Transport at Discharge: Transportation Arrangements: Car Needs Prior to Discharge: Needs Prior to Discharge: To Be Determined, OT/PT Evaluation Post-Acute Discharge Plan: Met with patient and , CM role explained. Patient is from home with , is independent, does not use DME, is employed. +PCP, +RX coverage. S/p crani/evac, pending therapy evals. Disposition TBD. Goal is home, able to transport if returns home at [place]. CM to continue to follow. SIGNATURE: Eveline Sotelo RN PATIENT NAME: Celestino Reyna DATE: March 15, 2025 TIME: 10:58 AM [facility] 03-15-2025 Note HNO ID: [id number] Author: GRACIE YOUNGBLOOD APRN.[employer] Service: Neurology ICU Author Type: Nurse Practitioner Type: Progress Notes Filed: 03/15/2025 05:47 Note Text: ---- Attestation signed by Vani Aldana MD at 03/15/2025 9:06 AM THE NEURO ICU MANAGEMENT OF THIS PATIENT WAS DISCUSSED WITH THE NICU TEAM UNDER DR. ALDANA I have reviewed the progress note obtained and documented by the advanced practice provider Gracie Youngblood. I have personally seen and examined the patient and discussed their management with the GERALDINE. I reviewed the GERALDINE note and agree with the documented findings and plan of care. I have repeated the examination and confirm the findings except as documented. PATIENT PROBLEMS I REVIEWED, REVISED AND/OR INITIATED: The care of this patient required my full attention and direct personal management of: Principal Problem: SDH (subdural hematoma) (HCC) Active Problems: Acid reflux Hypercholesteremia Acute on chronic intracranial subdural hematoma (HCC) Resolved Problems: * No resolved hospital problems. * ==== STAFF COORDINATION OF CRITICAL CARE [facility] Staff Physician note of personal involvement in Care The patient is critically ill because of imminent risk of acute brain damage and continues to require intensive support and observation. This patient has a high probability of sudden, clinically significant deterioration, which requires the highest level of physician preparedness to intervene urgently. I managed/supervized life or organ supporting interventions that required frequent physician assessment. I devoted my full attention to the direct care of this patient for the amount of time indicated below. Time I spent with family or surrogate(s) is included only if the patient was incapable of providing the necessary information or participating in medical decision making. Time devoted to teaching or to any procedures I billed separately is not included. CRITICAL CARE: I personally spent 35 minutes of critical care time involved in the care of this patient. ==== PLAN, IMPRESSION AND ACTION(S) TAKEN 65 year old male with HLD, GERD admitted with acute on chronic R frontotemporo SDH with MLS s/p craniotomy Examination: Gen: laying in bed, in no acute distress HEENT: atraumatic, normocephalic, trachea midline CV: RRR, no murmur, S1/2 Pulm: clear to anterior auscultation, no wheezing Abd: soft, NDNT, pos BS Extr: no CCE Skin: no rash : no Conrad in place Neuro: Awake, alert, oriented x3, following commands PERRL 3-2, EOMI, face symmetric Good antigravity strength in all extremities without drift or asymmetry, mild dexterity in LUE I personally reviewed the - relevant imaging Problems and Plan: Neuro: Acute on chronic R frontotemporo SDH with MLS s/p craniotomy. NSG following. Q4 neurochecks, quiet time. LEV ppx. PT/OT Pain/sedation: tylenol/oxy prn CV: SBP goal <160. No TTE. Crestor Pulm: ESA. CXR clear. Bedside IS GI: PPI. Regular diet. BR. Last BM STRATEGY DIRECTOR Renal: replete electrolytes. No conrad Endo: no SSI ID: [id number], no leukocytosis, monitor off abx Hem: hold chemical DVT ppx Code status: FULL CODE;next of kin/HPOA: , Margauxma Lines/Tubes: PIVs Okay for transfer to the floor Please see the documented [id number] plan in the updated problem list. Plan of care discussed with: ICU Team and RICKI. Vani Aldana MD Staff, Neurointensive Care [facility] Date of Service: 03/15/2025 Time of Service: 9:00 AM This is an electronically created document. If printed, please do not remove from the chart or modify printed copy. ---- SERVICE DATE: 03/15/2025 SERVICE TIME: 5:47 AM NEURO ICU PROGRESS NOTE DATE OF ADMISSION: 03/14/2025 Subjective Hospital Course: 03/15: s/p R frontalparietal craniotomy for SDH evacuation with Dr. Joseph yesterday. Reports improved dexterity in LUE, almost back to normal. Minimal headache well controlled with current pain regimen. Objective BP 126/91 Pulse 84 Temp 36.9 ?C (98.4 ?F) (Oral) Resp 18 Ht 180.3 cm (5' 11) Wt 83.9 kg (185 lb) SpO2 95% BMI 25.80 kg/m? Weight change: Neuro: Alert oriented x3, PERRL, EOMI, VFF, face symmetric, speech clear and fluent, follows commands, BAILEY 5/5 sustains AG, sensation intact to light touch, FTN and HTS intact bilaterally GCS: Eyes: 4. Spontaneous Verbal: 5: Oriented Motor: 6: Obeys Motor commands Total: 15 CV: RRR Pulm: CTA unlabored on RA GI/: soft +BS Skin/Extremities: Edema- No Peripheral pulses- Present all extremities Wounds/Drsgs- right frontal head dressing c/d/i Breakdown- No Diagnostic tests reviewed for today's visit: Most recent labs and imaging results. Lines, Drains, and Airways Line Duration Periphe (more content not 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 [facility] 03-15-2025 Note HNO ID: [id number] Author: JAYJAY JENSEN PA-C Service: Neurosurgery Author Type: Physician Commercial Driver'S License Driver Type: Progress Notes Filed: 03/15/2025 05:31 Note Text: Neurosurgery Progress Note SERVICE DATE: 03/15/2025 SUBJECTIVE: NAEON. Continues with incision pain but well controlled. States left hand weakness and numbness is improving post-operatively. OBJECTIVE: Vitals: Temp (24hrs), Av.9 ?C (98.4 ?F), Min:36.9 ?C (98.4 ?F), Max:36.9 ?C (98.4 ?F) BP 103/69 Pulse 78 Temp 36.9 ?C (98.4 ?F) (Oral) Resp 13 Ht 180.3 cm (5' 11) Wt 83.9 kg (185 lb) SpO2 92% BMI 25.80 kg/m? O2 Therapy: Room Air IANDO: Date 03/14/25 07 - 03/15/25 0659 03/15/25 07 - 03/16/25 0659 Shift 9748-7834 1446-9530 5495-4792 24 Hour Total 4386-9095 8038-6967 4647-2229 24 Hour Total INTAKE IV 1100 1100 Volume (mL) (ceFAZolin iv piggyback 1 g in D5W (iso-osmotic) 50 mL (ANCEF)) 100 100 Volume (mL) (NaCl 0.9% iv infusion) 1000 1000 Shift Total 1100 1100 OUTPUT Urine 150 150 Void (ml) 150 150 Shift Total 150 150 Weight (kg) 83.9 83.9 83.9 83.9 83.9 83.9 83.9 83.9 Medications: Current Facility-Administered Medications Medication Dose Route Frequency pantoprazole DR 20 mg tab(s) (PROTONIX) 20 mg ORAL DAILY NaCl 0.9% iv flush bag 20 mL INTRAVENOUS PRN NaCl 0.9% iv infusion 75 mL/hr INTRAVENOUS CONTINUOUS potassium chloride ER 20-40 mEq tab(s) (KLOR-CON) 20-40 mEq ORAL/FEEDING TUBE PRN Or potassium chloride iv piggyback 20 mEq/100 mL 20 mEq INTRAVENOUS PRN magnesium sulfate iv piggyback in sterile water 2 g 50 mL 2 g INTRAVENOUS PRN phosphorus 500 mg tab(s) (K PHOS NEUTRAL) 500 mg ORAL/FEEDING TUBE PRN(NO DISPENSE) calcium gluconate iv piggyback 2 g in NaCl (iso-osmotic) 100 mL 2 g INTRAVENOUS PRN(NO DISPENSE) acetaminophen 1,000 mg tab(s) (TYLENOL) 1,000 mg ORAL/FEEDING TUBE q 6 H oxyCODONE IR 5-10 mg tab(s) (ROXICODONE) 5-10 mg ORAL/FEEDING TUBE q 4 H PRN ondansetron 4 mg tab(s) (ZOFRAN) 4 mg ORAL q 6 H PRN Or ondansetron (PF) 4 mg injection (ZOFRAN) 4 mg INTRAVENOUS q 6 H PRN magnesium hydroxide 400 mg/5 mL 30 mL (MOM) 30 mL ORAL/FEEDING TUBE DAILY PRN senna-docusate 8.6-50 mg 1 tablet (SENNA-S) 1 tablet ORAL BID levETIRAcetam 500 mg tab(s) (KEPPRA) 500 mg ORAL BID ceFAZolin iv piggyback 1 g in D5W (iso-osmotic) 50 mL (ANCEF) 1 g INTRAVENOUS q 8 HR hydrALAZINE 10 mg injection (APRESOLINE) 10 mg INTRAVENOUS q 4 H PRN rosuvastatin 20 mg tab(s) (CRESTOR) 20 mg ORAL AT BEDTIME fentaNYL 50 mcg/mL 25 mcg injection (SUBLIMAZE) 25 mcg INTRAVENOUS q 2 H PRN Labs: Recent Labs 03/14/25 1652 03/14/25 1524 NA -- 140 K -- 3.9 CHLOR -- 104 CO2 -- 24 BUN -- 18 CREAT -- 0.71* GLUC -- 91 ANION -- 12 CA -- 9.5 WBC 8.31 -- HB 13.9 -- HCT 42.1 -- PLT 328 -- INR -- 1.0 Exam: GENERAL: No distress, awake and alert NEURO: GCS 15, PERRL, oriented x 3, EOMI, makes eye contact, speech is fluent and clear, Strength 5/5 in BUE and BLE. No sensory deficits HEENT: dressing c/d/I LUNGS: Unlabored breathing CARDIAC: rate as above EXTREMITIES: BAILEY, No deformities, No edema ASSESSMENT AND PLAN: Active Hospital Problems Diagnosis Date Noted SDH (subdural hematoma) (HCC) 03/14/2025 Acute on chronic intracranial subdural hematoma (HCC) 03/14/2025 Hypercholesteremia Acid reflux Celestino Reyna is a 65 year old male POD1 R frontoparietal craniotomy for SDH evacuation - neuro intact - post op CTH completed and reviewed - subgaleal hemovac- empty and record q4h - maintain clean, dry dressing. - ancef - keppra - pain control - bowel regimen - PT/OT - NSICU for medical management - hold dvt ppx - dispo- likely transfer to [facility] later today Portions of text from this note were copied. All relevant information was reviewed and updated accordingly on 03/15/2025 SIGNATURE: Jayjay Jensen PA-C PATIENT NAME: Celestino Reyna DATE: March 15, 2025 TIME: 5:28 AM Pager: [phone] [facility] 03-14-2025 Note HNO ID: [id number] Author: JAYJAY JENSEN PA-C Service: Neurosurgery Author Type: Physician Commercial Driver'S License Driver Type: Plan of Care Filed: 03/14/2025 22:52 Note Text: NSGY Plan of Care Patient seen post-operatively. Endorses incisional pain. Exam: GENERAL: No distress, awake and alert NEURO: GCS 15, PERRL, oriented x 3, EOMI, makes eye contact, speech is fluent and clear, Strength 5/5 in BUE and BLE. No sensory deficits HEENT: dressing c/d/I LUNGS: Unlabored breathing CARDIAC: rate as above EXTREMITIES: BAILEY, No deformities, No edema POD0 R frontoparietal craniotomy for SDH evacuation - neuro intact - post op CTH pend - hemovac- empty and record q4h - ancef - keppra - pain control - bowel regimen - NSICU for medical management - hold dvt ppx - dispo- remain in ICU Jayjay Jensen PA-C Pager [phone] [facility] 03-14-2025 Note HNO ID: [id number] Author: EMILIA CORCORAN APRN.CRNA Service: Anesthesiology Author Type: Nurse Signal Operator Type: Anesthesia Procedure Notes Filed: 03/14/2025 19:49 Note Text: ANESTHESIOLOGY PROCEDURE NOTE Airway General Information Procedure Start Time/Medication Administration: 03/14/2025 6:52 PM Procedure End Time: 03/14/2025 7:49 PM Patient location during procedure: OR Timeout Performed Pre-procedure: timeout performed Consent Obtained: Yes Patient identity confirmed: arm band and patient Staffing FIBERGLASS PRODUCT TESTER: Emilia Corcoran APRN.[employer] PRODUCT TESTER Performed by: GAUTAM Indications and Patient Condition Indications for airway management: anesthesia and airway protection Preoxygenated: yes anesthesia circuit Patient position: sniffing Method: asleep Final Airway Details Final airway type: endotracheal airway Final Endotracheal Airway: ETT Cuffed: yes Successful intubation technique: direct laryngoscopy Devices used: Glidescope and Lim Endotracheal tube insertion site: oral Blade: Tiesha Blade size: #4 ETT size (mm): 7.5 Measured from: lips Measurement (cm): 22 Placement verified by: capnometry Cormack-Lehane Classification: grade IIa - partial view of glottis Number of attempts at approach: 1 SIGNATURE: Emilia Corcoran APRN.[employer] PRODUCT TESTER PATIENT NAME: Celestino Reyna DATE: March 14, 2025 TIME: 7:49 PM CSN: [id number] [facility] 03-14-2025 Note HNO ID: [id number] Author: ASHANTI MANZANO APRN.[employer] Service: Neurology ICU Author Type: Nurse Practitioner Type: Plan of Care Filed: 03/14/2025 15:37 Note Text: ---- Summary: CONSENT discussion ---- Patient in ED with at bedside. Jenna BLACK also present. Discussed routine Consent for Central line, Arterial line and/or Blood products with both. They are agreeable to any of the mentioned procedures if needed. We are unable to obtain written signature due to location in ED. Digital consent on chart in [facility]. [facility] 03-14-2025 Radiology Diagnostic study note [facility] Imaging Services [address] [place], [place] [id number] Chest 1 View MR#: [id number] Acct: [id number] Name: CELESTINO REYNA Rep #: [id number] : 1960 M [id number] From: Tierra Godoy MD PCP: Dr. Christine Canada MD Status: R ER Study:Chest 1 View Date of Exam: 5 Exam# [id number] Ordering Dr: Isis Weaver DO PROCEDURE: CHEST 1 VIEW 03/14/2025 REASON FOR EXAM: NEURO DEFICIT, ACUTE, STROKE SUSPECTED TECHNIQUE: Frontal view of the chest. COMPARISON: None FINDINGS: Hardware: None Heart: The heart size is normal. Lungs: The lungs are clear. Bones: The bones are unremarkable. Other: RAD/Chest 1 View IMPRESSION: No Acute Findings. Reading Location: [facility] CC: Dr. Marisa Weaver DO; Dr. Christine Canada MD ~ [employer] Operator: Signed [facility] 03-14-2025 Radiology Diagnostic study note [facility] Imaging Services [address] [place] [address] STROKE Brain/Head without Cont MR#: [id number] Acct: [id number] Name: CELESTINO REYNA Rep #: [id number] : 1960 M [id number] From: Tierra Godoy MD PCP: Dr. Christine Canada MD Status: R EG ER Study:STROKE Brain/Head without Cont Date of Exam: 03/14/25 Exam# [id number] Ordering Dr: Isis Weaver DO PROCEDURE: STROKE BRAIN/HEAD WITHOUT CONT 03/14/2025 REASON FOR EXAM: NEURO DEFICIT, ACUTE, STROKE SUSPECTED TECHNIQUE: Head CT without intravenous contrast. Coronal and Sagittal reconstruction serieswere provided. One or more dose reduction techniques were used (e.g., Automated exposure control, adjustment of the mA and/or kV according to patient size, use of iterative reconstruction technique. COMPARISON: None FINDINGS: Brain: Mixed attenuation right extra-axial fluid collection, measuring up to 18 mm in maximum transverse thickness. Findings compatible with an acute on chronic subdural hematoma. Superior aspect of the collection, demonstrates hyperdense attenuation compatible with acute blood products. There is local mass effect with effacement of the surrounding sulci and gyri no significant midline shift. Low density in the periventricular white matter suggests mild chronic small vessel ischemic changes. CSF Spaces: No significant volume loss. Sinuses/Mastoids: Mild mucosal thickening at the paranasal sinuses Bones: Calvarium is unremarkable. CT/STROKE Brain/Head without Cont IMPRESSION: Mixed attenuation right extra-axial fluid collection measuring up to 18 mm in maximum transverse thickness, compatible with an acute on chronic subdural hematoma. Local mass effect without midline shift. Red Alert: The critical information above was relayed directly by me by telephone to Marisa Lee on 03/14/2025 at 10:55 am with readback verification. Reading Location: [facility] CC: Dr. Marisa Weaver DO; Dr. Christine Canada MD ~ [employer] Operator: Signed [facility] 01-21-2025 Evaluation note Diagnosis Onset Date Resolution Elevated PSA acute January 21 12:54pm Health care maintenance acute M arch 2024 12:54pm Erectile dysfunction chronic Mark h 2024 12:54pm Hyperlipemia chronic January 21 12:54pm [facility] Work Phone: Evaluation note* Diagnosis Onset Date Resolution Status Health care maintenance acut e Screening for thyroid disorder acute Erectile dysfunction chronic Fatigue chronic Hyperlipemia chronic [facility] Work Phone: Evaluation note* Diagnosis Onset Date Resolution Status Health care maintenance acut e Screening for thyroid disorder acute Erectile dysfunction chronic Fatigue chronic Hyperlipemia chronic Screening for cardiovascular condition acute Erectile dysfunction chronic Hyperlipemia [facility] Work Phone: Evaluation note* Diagnosis SDH (subdural hematoma) (HCC)- Primary Subdural hemorrhage SDH (subdural hematoma) (HCC) Subdural hemorrhage Acute post-operative pain Hypercholesteremia Pure hypercholesterolemia Acid reflux Esophageal reflux Acute on chronic intracranial subdural hematoma (HCC) Tingling of left arm and left side of face Acute post-operative pain SDH (subdural hematoma) (HCC)- Primary Subdural hemorrhage Acute on chronic intracranial subdural hematoma (HCC) [facility] Diagnosis SDH (subdural hematoma) (HCC)- Primary Subdural hemorrhage SDH (subdural hematoma) (HCC) Subdural hemorrhage Acute post-operative pain Hypercholesteremia Pure hypercholesterolemia Acid reflux Esophageal reflux Acute on chronic intracranial subdural hematoma (HCC) Tingling of left arm and left side of face Acute post-operative pain SDH (subdural hematoma) (HCC)- Primary Subdural hemorrhage Nontraumatic subdural hemorrhage (HCC) Subdural hemorrhage [facility] Diagnosis SDH (subdural hematoma) (HCC)- Primary Subdural hemorrhage SDH (subdural hematoma) (HCC) Subdural hemorrhage Acute post-operative pain Hypercholesteremia Pure hypercholesterolemia Acid reflux Esophageal reflux Acute on chronic intracranial subdural hematoma (HCC) Tingling of left arm and left side of face Acute post-operative pain SDH (subdural hematoma) (HCC) Subdural hemorrhage Acute on chronic intracranial subdural hematoma (HCC) [facility] Diagnosis SDH (subdural hematoma) (HCC)- Primary Subdural hemorrhage SDH (subdural hematoma) (HCC) Subdural hemorrhage Acute post-operative pain Hypercholesteremia Pure hypercholesterolemia Acid reflux Esophageal reflux Acute on chronic intracranial subdural hematoma (HCC) Tingling of left arm and left side of face Acute post-operative pain SDH (subdural hematoma) (HCC)- Primary Subdural hemorrhage [facility] Diagnosis SDH (subdural hematoma) (HCC)- Primary Subdural hemorrhage SDH (subdural hematoma) (HCC) Subdural hemorrhage Acute post-operative pain Hypercholesteremia Pure hypercholesterolemia Acid reflux Esophageal reflux Acute on chronic intracranial subdural hematoma (HCC) Tingling of left arm and left side of face Acute post-operative pain Nontraumatic subdural hemorrhage (HCC) Subdural hemorrhage [facility] Diagnosis SDH (subdural hematoma) (HCC)- Primary Subdural hemorrhage SDH (subdural hematoma) (HCC) Subdural hemorrhage Acute post-operative pain Hypercholesteremia Pure hypercholesterolemia Acid reflux Esophageal reflux Acute on chronic intracranial subdural hematoma (HCC) Tingling of left arm and left side of face Acute post-operative pain Acute on chronic intracranial subdural hematoma (HCC)- Primary Transient neurological symptoms Numbness and tingling of left side of face Hypercholesteremia Pure hypercholesterolemia documented in [facility] Diagnosis SDH (subdural hematoma) (HCC) Subdural hemorrhage Acute post-operative pain Hypercholesteremia Pure hypercholesterolemia Acid reflux Esophageal reflux Acute on chronic intracranial subdural hematoma (HCC) Tingling of left arm and left side of face Acute post-operative pain SDH (subdural hematoma) (HCC)- Primary Subdural hemorrhage Acute on chronic intracranial subdural hematoma (HCC) documented in this encounter [facility] Diagnosis Onset Date Resolution Status Admit Date Elevated PSA acute August 162024 9:19am History of subdural hemorrhage acute August 16, 2025 9:19am Erectile dysfunction chronic Sept emb2024 9:19am GERD (gastroesophageal reflux disease) chronic August 16, 2025 9:19am Hyperlipemia chronic August 162024 9:19am Migraines November 18, 1974 chronic Septemb er 2024 9:19am [facility] Work Phone: Hospital Discharge instructionsAmbulatory Orders* Neurology Location: None Selected [facility] Work Phone: Progress note Author Christine Canada [facility] Note Date/Time August 16, 2025 10:09am [facility] [address] [place] [address] [place] [address] OFFICE VISIT Date of Service: 08/16/25 MR#: [id number] Acct: [id number] Name: CELESTINO REYNA Rep #: [id number] : 1960 Provider: Dr. Junior Canada MD Age/Sex: 65/M Location: [facility] [place] Status: Signed Intake Vital Signs 03/14/25 10:37 08/16/25 09:23 Height 5 ft 10.08 in 5 ft 10 in Weight: 186 lb BMI 26.6 BP 120/78 Blood Pressure Location Rt brachial Position Sitting Respiration 16 Pulse 80 Pulse Source Monitor Temp 97.3 F L Temp Source Temporal Pulse Oximetry (%) 100 Oxygen Delivery Method room air Intake Visit Reasons: Medications + Migraines Chief Complaint: meds [employer] Sales Representative Required: No Accompanied by: Self Is patient in pain?: No Allergies No Known Allergies Allergy (Verified 08/16/25 09:20) Medications ?Medication ?Instructions ?Recorded ?Confirmed ?Type omeprazole 20 mg capsule,delayed 20 mg PO DAILY 08/16/25 History release omega 1-iwi-ywq-fish oil 1,200 mg 2 cap PO DAILY 02/0908/16/25 History (144 mg-216 mg) capsule (Fish Oil) cholecalciferol (vitamin D3) 50 50 mcg PO DAILY 08/16/25 History mcg (2,000 unit) capsule rkvisply-meej-robvc acid 240 1 tab PO DAILY 11/26/23 0 08/16/25 History mcg-vit K 120 twu-frydgz-qxwm 293 tablet (Alive Men's 50 Plus Multivit (vit K)) tadalafil 10 mg tablet (Cialis) 10 mg PO QDAY PRN sexu al activity 11/30/24 08/16/25 Rx #8 tabs rosuvastatin 20 mg tablet 20 mg PO DAILY #90 TABLETS 0 03/03/25 08/16/25 Rx Have you fallen in the past year?: No Nurse's Note: discuss Cialis can he take post stroke 03/09/25 discuss local neurologist referral [facility] Medical History (Updated 08/16/25 @ 13:[address] Christine Canada MD) History of subdural hemorrhage Elevated PSA High cholesterol (11/18/87) H/O Mohs micrographic surgery for skin cancer (09/18/23) Migraines (11/18/74) Hearing difficulty (11/18/10) Bone fracture (11/18/89) Back problem (11/18/74) Screening for prostate cancer Screening for cardiovascular condition Health care maintenance Fatigue Screening for thyroid disorder Erectile dysfunction Phimosis Lung nodule, solitary High cholesterol Tinnitus Frequent headaches Scoliosis GERD (gastroesophageal reflux disease) Hyperlipemia Hernia Surgical History History of colonoscopy (11/18/12) H/O transurethral resection of prostate History of vasectomy Family History Grandfather Diabetes Heart disease Cancer esophagus maternal Mother Age: 91 High cholesterol Father Melanoma Parkinsons disease Osteoporosis Social History adopted: No household members: spouse number of children: 2 current occupational status: employed current occupation: [employer] pets and animals: No sexually active: Yes Smoking Status: Never smoker Electronic Cigarette Use: not used second hand exposure: No alcohol intake: current alcohol intake frequency: a few times a week Alcohol type: wine substance use type: does not use caffeine: Yes (3) Type: coffee frequency: 1-2 times per week duration: 30-45 minutes/day do you feel safe at home: Yes HPI HPI Chief Complaint: meds Details: CELESTINO REYNA, is a 65-year-old male presenting for a follow-up visit to discuss the outcomes and management strategies related to his cerebral hemorrhage and associated post-surgical considerations, as well as his experiences with migraine, erectile dysfunction management and other chronic conditions. History of spontaneous cerebral/subdural hemorrhage s/p surgery by Dr. York. The patient reported experiencing a feeling of heaviness in the left arm post- surgery, although no significant lingering effects have been noted aside from this symptom. The patient inquired about the likelihood of a recurrent stroke. Chronic history of migraines which have been generally stable. Follows up with Dr. Jurado in [place] but would like to see someone locally. No acute concerns in that regard. Chronic history of erectile dysfunction, currently on Cialis as needed. For themost part, continues to find Cialis as needed helpful. Had questions about relation between Cialis and recent cerebral hemorrhage. He states that he was advised by both his neurosurgeon and neurologist that currently, there is no association. No known history of heart disease. Other chronic medical conditions are stable. History of hyperlipidemia on rosuvastatin, no muscle pain or weakness. Also history of reflux on omeprazole, takes 20 mg of omeprazole daily and notes worsening symptoms when he does not. Attestation: Documentation on this patient encounter was supported using ambient scribe technology/ voice AI technology. The patient consented to recording for the purpose of documenting the encounter. Provider reviewed content of the generatednote prior to signature. ROS Const Constitutional: No body ache, excessive sweating, fatigue, fever(s), frequent falls, headache(s), snoring, weakness, weight change, sleep problems or change in appetite Eyes Eyes: No blurry vision, change in vision, vision loss, dry eyes, eye pain or Light sensitivity ENT ENT: No abnormal hearing, ear or mastoid pain, tinnitus, nasal congestion, headache(s), neck pain or sore throat Resp Respiratory: No cough, excessive phlegm production, hemoptysis, shortness of breath, snoring or wheezing Cardio Cardiology: No chest pain at rest, chest pain with exertion, excessive sweating,shortness of breath, dyspnea on exertion, lightheadedness, orthopnea or palpitations Gastro GI: No abdominal pain, change in bowel habits, constipation, cramping, diarrhea,nausea/dyspepsia or vomiting Genitourinary Male: No burning urination, painful urination, urinary incontinence, urinary frequency or blood in urine Musc Musculoskeletal: No abnormal gait, joint pain, back pain, limited range of motion, neck pain, numbness, stiffness, tingling or Arthritis Skin Skin: No dry skin, redness, lesions, itchy eyes, rash or wounds Neuro Neurology: No abnormal gait, abnormal hearing, abnormal speech, dizziness, weakness, frequent falls, headache(s), memory loss, numbness or tingling Psych Psychiatric: No anxiety, No change in appetite, No depression, No memory loss and No Thoughts of harming yourself/Others Endo Endocrine: No cold intolerance, excessive sweating, fatigue, flushing, heat intolerance, increased thirst/drinking, increased hunger or weight change Aller/Imm Allergy/Immunologic: No itchy eyes, seasonal allergy symptoms, hives or wheezing Kenrick/Lymp Hematologic/Lymphatic: No easy bleeding, easy bruising or enlarged lymph nodes Exam Const General: cooperative, comfortable and no acute distress Orientation: alert, awake and oriented x3 HENMT Head: normal to inspection, normocephalic and atraumatic Ears: hearing grossly normal bilaterally Neck Neck: normal visual inspection, full ROM and supple Neck mass: No Thyroid: thyroid normal Resp Effort & Inspection: normal respiratory effort and able to speak in complete sentences Auscultation: Bilateral: Clear to Auscultation Cardio Rate: regular rate Rhythm: regular rhythm Heart Sounds: S1 normal and S2 normal GI Palpation: soft (Nontender, no palpable organomegaly.) Neuro General: patient alert, patient awake, patient oriented x3, moves all extremities and CN's II-XI intact bilaterally Extrem General: no clubbing, cyanosis or edema Psych Appearance: grossly normal Mental Status: mental status grossly normal Mood: congruent mood Affect: normal affect Coding Level of Care Code Off vis,est,level 4 Diagnoses History of subdural hemorrhage Z86.79 Migraines G43.909 Erectile dysfunction N52.9 Hyperlipidemia, unspecified hyperlipidemia type E78.5 Hyperlipidemia type: unspecified GERD (gastroesophageal reflux disease) K21.9 Elevated PSA R97.20 Assessment and Plan Assessment and Plan (1) History of subdural hemorrhage: Status: Acute Plan: Aside from occasional left upper extremity heaviness no residual concerns or deficits. Feels well. Surgery was uneventful. Maintain optimal blood pressuremanagement. (2) Migraines: Status: Chronic Plan: Overall, stable. However as above he would like to establish with a local neurologist. Referred to Dr. Davis. Continue supportive measures. (3) Erectile dysfunction: Status: Chronic Plan: No changes at this time. Cialis 10 mg as needed remains recommended without significant contraindications detected. (4) Hyperlipemia: Status: Chronic Qualifiers: Hyperlipidemia type: unspecified Qualified Code(s): E78.5 - Hyperlipidemia, unspecified Plan: Repeat lipid profile ordered, will review. Continue rosuvastatin, dietary and lifestyle modifications. (5) GERD (gastroesophageal reflux disease): Status: Chronic Plan: Chronic, stable. Continue Omeprazole, dietary and lifestyle modifications. (6) Elevated PSA: Status: Acute Plan: Repeat PSA level ordered, will review. No significant concerns reported at thistime. This note was generated with MET Techation software. It may contain incorrectwords, spelling, and punctuation that were not noted in checking the note beforesigning. Orders: Orders Comprehensive Metabolic Profil Today E78.5 - Hyperlipidemia, unspecified CBC W/Diff, Automated Today E78.5 - Hyperlipidemia, unspecified Lipid Profile Today E78.5 - Hyperlipidemia, unspecified PSA,Total - Annual Screen 5 Months R97.20 - Elevated prostate specific antigen [PSA] Testosterone, Total / Free Today N52.9 - Male erectile dysfunction, unspecified PSA,Total- Diagnostic Today R97.20 - Elevated prostate specific antigen [PSA] Referrals Neurology G43.909 - Migraine, unspecified, not intractable, without status migrainosus Patient Instructions: - Continue taking all prescribed medications as directed. - Monitor blood pressure regularly and maintain prescribed medications. - Follow up with a neurologist and maintain communication regarding any new symptoms or recurrences, such as migraines or potential cerebral symptoms. - Maintain healthy lifestyle choices to support overall cardiovascular and neurological health. Clinical Quality Measures Falls Risk Screening/Assistive Devices Have you fallen in the past year?: No 08/16/25 1520 <Electronically signed by Christine varma MD> Date _ Christine Canada MD Cosigner Signature: Date (if applicable) CC: ~ [facility] Work Phone: Reason for referral (narrative)No reason for referral information availableWOhioHealth [facility] Work Phone: Reason for visit Narrative* MRI/CT (Routine) - Closed Specialty Diagnoses / Procedures Referred By Nicolásac t Referred To Contact CT IMAGING Diagnoses SDH (subdural hematoma) (HCC) Acute on chronic intracranial subdural hematoma (HCC) Procedures CT BRAIN WO IVCON CT HEAD/BRAIN W/O CONTRAST MATERIAL Monica Gayle, LOADING UNIT TOOL SETTER.NUT PICKER [address] [place] [address] Phone: tel: fax: [place] [phone] Referral ID Status Reason Start Date Expiration Date V isits Requested Visits Authorized [id number] Closed Auto-Generate d Referral 03/25/2025 04/24/2025 1 1 [facility] Narrative* MRI/CT (Routine) - Closed Specialty Diagnoses / Procedures Referred By Nicolásac t Referred To Contact CT IMAGING Diagnoses Nontraumatic subdural hemorrhage (HCC) Procedures CT BRAIN WO IVCON CT HEAD/BRAIN W/O CONTRAST MATERIAL Monica Gayle, LOADING UNIT TOOL SETTER.NUT PICKER [address] [place] [address] Phone: tel: fax: [place] [address] Referral ID Status Reason Start Date Expiration Date V isits Requested Visits Authorized [id number] Closed Auto-Generate d Referral 04/19/2025 05/19/2025 1 1 [facility] Chief Complaint and Reason for Visit Chief Complaint Amb Documentation EST CARE - PPW SENT EORDER Reason for Visit Health care maintena nce Screening for thyroid disorder Erectile dysfunction Fatigue Hyperlipemia Chief Complaint Amb Documentation EST CARE - PPW SENT EORDER discuss labs Reason for Visit Health care maintena nce Screening for thyroid disorder Erectile dysfunction Fatigue Hyperlipemia Screening for cardiovascular condition Erectile dysfunction Hyperlipemia Chief Complaint Admit Date INT LABS January 15, 2025 6:09am physical January 21, 2025 12:5 4pm Reason for Visit Admit Date Elevated PSA January 21, 2025 12:5 4pm Health care maintenance January 21, 2025 12:54pm Erectile dysfunction January 21, 2025 12: 54pm Hyperlipemia January 21, 2025 12:5 4pm Chief Complaint Admit Date INT LABS January 15, 2025 6:09am physical January 21, 2025 12:5 4pm stroke alert March 14, 2025 10: 17am Chief Complaint Admit Date Medications + Migraines August 16, 2025 9:19am Reason for Visit Admit Date Elevated PSA August 16, 2025 9:19am History of subdural hemorrhage August 16, 2025 9:19am Erectile dysfunction August 16 9:19am GERD (gastroesophageal reflux disease) S eptember 2024 9:19am Hyperlipemia August 16, 2025 9:19am Migraines August 16, 2025 9:19am Family History No Family History Records Found Relationship Condition Age at Onset Recorded Date/T nargis Not Specified Malignant neoplasm Unknown grandfather Diabetes mellitus Unknown mother High blood cholesterol Unknown father Malignant melanoma Unknown Parkinson's disease Unknown Osteoporosis Unknown Relationship Condition Age at Onset Recorded Date/T nargis grandfather Diabetes mellitus Unknown Heart disease Unknown Malignant neoplasm Unknown mother High blood cholesterol Unknown father Malignant melanoma Unknown Parkinson's disease Unknown Osteoporosis Unknown Advance Directives No Advanced Directives Records Found Advance Directive Response Recorded Date/ Time Advance Directives No August 21, 2016 4:03pm Living Will No August 21 6 4:03pm Power of Civil Defense Director Yes August 21 4:03pm Advance Directive Response Recorded Date/ Time Advance Directives No January 21 3:10pm Advance Directive Response Recorded Date/ Time Do you have a Healthcare Power of Civil Defense Director? No March 14, 2025 10:17am Advance Directives No January 21 3:10pm Date Activated Date Inactivated Comments 03/14/2025 4:19 PM 03/20/2025 2:09 PM Question Answer Comments Full Code Order Discussed With: Patient Date Activated Date Inactivated Comments 03/14/2025 3:31 PM 03/14/2025 4:19 PM Question Answer Comments Full Code Order Discussed With: Patient and Surrogate Decision MakerDiscussion Not Medically Appropriate Surrogate Decision Maker Relationship: Spouse Date Activated Date Inactivated Comments 03/14/2025 4:19 PM 03/20/2025 2:09 PM Question Answer Comments Full Code Order Discussed With: Patient Date Activated Date Inactivated Comments 03/14/2025 3:31 PM 03/14/2025 4:19 PM Question Answer Comments Full Code Order Discussed With: Patient and Surrogate Decision MakerDiscussion Not Medically Appropriate Surrogate Decision Maker Relationship: Spouse Summary Purpose Additional Source Comments Care Teams (unrecognized sec tion and content) Team Status: Active Member Role Status Dates Dr. Hakeem Clark MD Family Provider Active Dr. Christine Canada MD Primary Care Provider Active Team Status: Inactive Member Role Status Dates Dr. Hakeem Clark MD Primary Care Provider, Refe rring Provider Active Dr. Christine Canada MD Attending Provider Active Team Status: Active Member Role Status Dates Dr. Hakeem Clark MD Primary Care Provider Activ e Dillon Grissom Attending Provider Active Team Status: Inactive Member Role Status Dates Dr. Christine Canada MD Primary Care P rovider, Attending Provider, Referring Provider Active Team Status: Active Member Role Status Dates Dr. Renato Clark MD Family Provider Active Dr. Christine Canada MD Primary Care Provider Active Team Status: Inactive Member Role Status Dates Dr. Renato Clark MD Primary Care Provider, Ref erring Provider Active Dr. Christine Canada MD Attending Provider Active Team Status: Active Member Role Status Dates Dr. Renato Clark MD Primary Care Provider Acti mumtaz Grissom Attending Provider Active Team Status: Inactive Member Role Status Dates Dr. Christine Canada MD Primary Care Provider Active Start: January 15, 2025 End: January 15, 2025 Dr. Christine Canada MD Attending Provider Active Start: January 15, 2025 End: January 15, 2025 Dr. Christine Canada MD Referring Provider Active Start: January 15, 2025 End: January 15, 2025 Team Status: Inactive Member Role Status Dates Dr. Christine Canada MD Primary Care Provider Active Start: January 21, 2025 End: January 21, 2025 Dr. Christine Canada MD Attending Provider Active Start: January 21, 2025 End: January 21, 2025 Dr. Christine Canada MD Referring Provider Active Start: January 21, 2025 End: January 21, 2025 Team Status: Active Member Role Status Dates Dr. Christine Canada MD Primary Care Provider Active Start: January 21, 2025 Dr. Christine Canada MD Attending Provider Active Start: January 21, 2025 Dr. Christine Canada MD Referring Provider Active Start: January 21, 2025 Team Status: Active Member Role Status Dates Dr. Christine Canada MD Primary Care Provider Active Team Status: Inactive Member Role Status Dates Dr. Christine Canada MD Primary Care Provider Active Start: March 14, 2025 End: March 14, 2025 Dr. Marisa Weaver DO Emergency Provider Active Start: March 14, 2025 End: March 14, 2025 University Archivist Relationship Specialty Start Date End Date Christine Canada MD [address] [place] [address] PCP - General Internal Medicine 03/15/25 University Archivist Relationship Specialty Start Date End Date Christine Canada MD [address] [place] [address] PCP - General Internal Medicine 03/15/25 University Archivist Relationship Specialty Start Date End Date Christine Canada MD [address] [place] [address] PCP - General Internal Medicine 03/15/25 University Archivist Relationship Specialty Start Date End Date Christine Canada MD [address] [place] [address] PCP - General Internal Medicine 03/15/25 University Archivist Relationship Specialty Start Date End Date Christine Canada MD [address] [place] [address] PCP - General Internal Medicine 03/15/25 University Archivist Relationship Specialty Start Date End Date Christine Canada MD [address] [place] [address] PCP - General Internal Medicine 03/15/25 Team Status: Active Member Role/Relationship Status Dates Dr. Christine Canada MD Primary care physician Activ e Team Status: Inactive Member Role/Relationship Status Dates Dr. Christine Canada MD Primary care physician Activ e Start: August 16, 2025 End: August 16, 2025 Dr. Christine Canada MD Attending physician Active Start: August 16, 2025 End: August 16, 2025 Dr. Christine Canada MD Referring Provider Active Start: August 16, 2025 End: August 16, 2025 Goals (unrecognized section and content) Goals may be documented in a n alternate sectionGoals may be documented in an alternate sectionGoals may be documented in an alternate sectionGoals may be documented in an alternate sectionGoals may be documented in an alternate sectionGoals may be documented in an alternate section Source Comments (unrecognize d section and content) In the event this informatio n is protected by the Federal Confidentiality of Alcohol and Drug Abuse Patient Records regulations: The Federal rules restrict any use of the information to criminally investigate or prosecute any alcohol or drug abuse patient.[facility] the event this information is protected by the Federal Confidentiality of Alcohol and Drug Abuse Patient Records regulations: The Federal rules restrict any use of the information to criminally investigate or prosecute any alcohol or drug abuse patient.[facility] Hospital[facility] the event this information is protected by the Federal Confidentiality of Alcohol and Drug Abuse Patient Records regulations: The Federal rules restrict any use of the information to criminally investigate or prosecute any alcohol or drug abuse patient.[facility] the event this information is protected by the Federal Confidentiality of Alcohol and Drug Abuse Patient Records regulations: The Federal rules restrict any use of the information to criminally investigate or prosecute any alcohol or drug abuse patient.[facility] Hospital[facility] the event this information is protected by the Federal Confidentiality of Alcohol and Drug Abuse Patient Records regulations: The Federal rules restrict any use of the information to criminally investigate or prosecute any alcohol or drug abuse patient.[facility] Hospital[facility] the event this information is protected by the Federal Confidentiality of Alcohol and Drug Abuse Patient Records regulations: The Federal rules restrict any use of the information to criminally investigate or prosecute any alcohol or drug abuse patient.[facility] Hospital[facility] the event this information is protected by the Federal Confidentiality of Alcohol and Drug Abuse Patient Records regulations: The Federal rules restrict any use of the information to criminally investigate or prosecute any alcohol or drug abuse patient.[facility] Hospital[facility] the event this information is protected by the Federal Confidentiality of Alcohol and Drug Abuse Patient Records regulations: The Federal rules restrict any use of the information to criminally investigate or prosecute any alcohol or drug abuse patient.[facility] Reason for Visit (unrecogniz ed section and content) Reason Comments Established Patient C/o intermittent L f orearm numbness and L upper lip numbness causing slurring speech Reason Comments Post Op Reason Comments Ship Fastener - Other Reason Comments New Patient Reason Comments Follow Up Follow up for SDH wi thout imaging (unrecognized sect ion and content) No Status Records FoundNo Status Records FoundNo Status Records Found INFORMATION SOURCE (unrecogn ized section and content) DATE CREATED AUTHOR 06/10/[address] [facility] DATE CREATED AUTHOR AUTHOR'S ORGANIZ ATION 07/09/2025 [facility] DATE CREATED AUTHOR AUTHOR'S ORGANIZ ATION 09/22/2025 [facility] FOR RECORDS PERTAINING TO PATIENTS WHO ARE OR HAVE BEEN ENROLLED IN A CHEMICAL DEPENDENCY/SUBSTANCEABUSE PROGRAM, SOME INFORMATION MAY BE OMITTED. This clinical summary was aggregated from multiple sources. Caution should be exercised in using it in the provision of clinical care. This summary normalizes information from multiple sources, and as a consequence, information in this document may materially change the coding, format and clinical context of patient data. In addition, data may be omitted in some cases. CLINICAL DECISIONS SHOULD BE BASED ON THE PRIMARY CLINICAL RECORDS. [facility]. provides no warranty or guarantee of the accuracy or completeness of information in this document.
== END | disposition home or self-care (01) ==
LOC: CT 18:59
PROVIDERS: PCP Internal Medicine; Referring Provider Psychiatry & Neurology Neurology; Visit Provider Psychiatry & Neurology Neurology
DX: Z86.79 Personal history of other diseases of the circulatory system (principal)
CPT/HCPCS: 70450